=== PATIENT | male | born 1950 | race Caucasian/White ===

== ENCOUNTER → 2018-02-03 13:09 | Outpatient (CLI) | payer MEDICARE, MEDICAID, SELFPAY ==
[2018-02-03 14:55] LABS: Amphetamine Urine VISTA NEGATIVE (<1000 ng/mL); Barbiturate Urine VISTA NEGATIVE (< 200 ng/mL); Benzodiazepine Urine VISTA NEGATIVE (< 200 ng/mL); Cocaine Urine VISTA NEGATIVE (< 300 ng/mL); Ecstacy Urine VISTA NEGATIVE (< 500 ng/mL); Methadone Urine VISTA NEGATIVE (< 300 ng/mL); PCP Urine VISTA NEGATIVE (< 25 ng/mL); THC Urine VISTA NEGATIVE (< 50 ng/mL); Vista UDS pH Range 7
== END ==
PROVIDERS: Family Provider Family Medicine; PCP Family Medicine; Visit Provider Anesthesiology Pain Medicine
DX: F11.20 Opioid dependence, uncomplicated (principal)
CPT/HCPCS: 80307

== ENCOUNTER 2018-05-29 12:58 | Inpatient (IN) | payer MEDICARE, SELFPAY ==
[2018-05-29] VITALS (19 sets, daily range): BP systolic 131–163; BP diastolic 92–118; PULSE 83–156; RESP 16–32; TEMP 36.2–37; O2SAT 93–97; BMI 50.6; BMI 50.7; BMI 49.8
--- NOTE | 2018-05-29 13:17 | EKG12_ITS ---
Test Reason : SOB Blood Pressure : / mmHG Vent. Rate : 134 BPM Atrial Rate : 115 BPM P-R Int : 000 ms QRS Dur : 140 ms QT Int : 316 ms P-R-T Axes : 000 018 006 degrees QTc Int : 471 ms Atrial fibrillation Right bundle branch block Possible Inferior infarct , age undetermined Abnormal ECG Reconfirmed by CHANTELLE ALCANTAR, LIONEL ([id number]), science editor RAJAT BLACKMAN ([id number]) on 06/01/2018 10:55:00 AM Referred By: Gustavo Posadas Confirmed By:LIONEL LOCKHART MD
--- NOTE | 2018-05-29 13:17 | RAD_ITS ---
STUDY: X-RAY CHEST REASON FOR EXAM: Male, 68 years old. Shortness of breath. Palpitations. Atrial fibrillation. TECHNIQUE: Single AP portable view of the chest. COMPARISON: Comparison is made with prior study dated March 28, 2017. FINDINGS: There is evidence of basilar congestion and mild CHF with increased markings at the lung bases suggestive of atelectasis. Blunting of both costophrenic angles. There is mild cardiac enlargement. Normal mediastinum and lyndsey. Normal visualized pulmonary arteries. There is atherosclerotic tortuosity of the aortic arch and descending thoracic aorta. Normal visualized thoracic spine. The patient is status post bilateral shoulder replacement. There is no demonstrated abnormality of the visualized soft tissue structures of the upper abdomen. RAD/Chest 1 View (Portable) IMPRESSION: Mild cardiomegaly with mild degree of CHF. Electronically Signed: Camilo Khna MD at 13:43 EST Tel [phone], Service support ,
--- NOTE | 2018-05-29 13:21 | ED.DCSUM_ITS ---
- ER Visit Summary Date of Service: 05/29/18 Chief Complaint: [] Short of breath History of Present Illness: The patient is a 68 M presents by EMS with shortness of breath for the last 4 days gradual onset continuous. He has orthopnea and paroxysmal nocturnal dyspnea. Current severity is mild. He is feeling better after paramedics gave him oxygen. He doubled up on his Lasix. He was 89% on room air. He has been off his Diovan for hypertension. He has not been wearing his CPAP because it is smothering him at night. He does have a history of dilated cardiomyopathy. His last echocardiogram was last year showed a EF of 50-to 55%. He has a history of nonobstructive coronary artery disease via heart cath last year. He is never had an irregular heartbeat Physical Examination: [] Vital signs reviewed General: Well-nourished well-developed Head: Normocephalic atraumatic Eyes: Pupils equal round and reactive to light extraocular movements intact ENT: TMs clear no hemotympanum no trauma Neck: Nontender full range of motion Cardiovascular: Regular rate and rhythm no murmurs normal S1-S2 Respiratory: Aching in full sentences. Feels better with oxygen. Mild rales in the bases chest nontender Abdomen: Soft nontender nondistended normal bowel sounds no masses Back: Nontender no CVA tenderness Extremities: Nontender active range of motion ?4 extremities no trauma Skin: Normal color no trauma Neuro alert oriented cranial nerves II through XII intact normal strength se nsation reflexes Test Results: [] Emergency Department Course and Treatment: [] EKG shows atrial fibrillation and a right bundle branch block at a rate of 134. No STEMI. IV established patient given nasal cannula oxygen. Given a dose of Cardizem and Lasix. Lab work obtained as well as chest x-ray he has mild heart failure on chest x-ray. CBC normal. Chemistry shows glucose 172. INR 1.1. Troponin 0.05 indeterminate. Given Cardizem which brought his heart rate down in the low 100s. Will be admitted for further evaluation and treatment. I do not think is having an OK. He likely has mild troponin leak from his right related cardiac strain. Treatment Plan: [] Disposition: [] Impression: [] Atrial fibrillation with rapid ventricular response Mild CHF secondary to #1 Indeterminate troponin secondary to #1 Total care time 74 minutes This note was generated with [employer] software. It may contain incorrect words, spelling, and punctuation that were not noted in review of the chart prior to signing ED Disposition - Plan for ED Patient: Chief Complaint: Shortness of Breath Referrals: Felix Matias DO [Primary Care Provider] -
[2018-05-29] MEDS: dilTIAZem 25 MG/5 ML Vial 20 MG IV BOLUS (13:23)
[2018-05-29 13:29] LABS: Absolute Lymphocyte Count 1.63 X10^3/ul (0.83-4.51); Absolute Neutrophil Count 4.5 X10^3/uL (2.0-7.7); Basophil# 0.03 X10^3/uL; Basophil% 0.5 % (0-1); Eosinophil# 0.12 X10^3/uL; Eosinophils% 1.8 % (0-5); Hematocrit 42.9 % (40-54); Lymphocyte # 1.63 X10^3/ul (4.0); Lymphocyte % 24.6 % (19-41); Mean Corp Hgb Conc 32.6 g/gl (32-36); Mean Corpuscular Hgb 33.1 pg (27.0-32.0); Mean Corpuscular Volume 101.4 fL (80-94); Mean Platelet Vol. 11.1 fl (6.2-12.0); Monocyte# 0.31 X10^3/uL; Monocyte% 4.7 % (0-10); Neutrophil % 67.9 % (47-70); Platelet Count 185 K/mm3 (150-450); RBC Distribution Width CV 13.1 % (11.6-14.6); RBC Distribution Width SD 47.3 fl (35.1-43.9); Red Blood Count 4.23 M/mm3 (4.6-6.2); White Blood Count 6.6 K/mm3 (4.4-11.0)
[2018-05-29] MEDS: Furosemide 40 MG/4 ML Vial IV ×2 (13:30→21:28)
[2018-05-29 13:32] LABS: POSITIVE COUNT NO; POSITIVE DIFFERENTIAL NO; POSITIVE MORPHOLOGY NO
[2018-05-29 13:35] LABS: International Normalized Ratio 1.1; Prothrombin Time (Protime)PT. 13.7 SECONDS (11.7-14.9)
[2018-05-29 13:46] LABS: Anion Gap 14 (5-15); BUN 16 mg/dL (7-18); BUN/Creat Ratio 13.1 RATIO (10-20); Calcium,Total 9.1 mg/dL (8.5-10.1); Chloride 100 mmol/L (98-107); Creatinine, Serum 1.22 mg/dL (0.70-1.30); EST Glomerular Filtration Rate 63 mL/min (>60); Est Glom Filt Rate - Afr Amer 76 mL/min (>60); Estimated Creatinine Clearance 54.18 ml/min; Glucose 172 mg/dL (74-106); Potassium 3.7 mmol/L (3.5-5.1); Sodium Level 141 mmol/L (136-145)
[2018-05-29] MEDS: dilTIAZem 25 MG/5 ML Vial IV BOLUS (14:15)
--- NOTE | 2018-05-29 14:30 | PCM.HP.STD ---
Problem List (1) History of neck surgery Status: Resolved (2) History of arthroscopy of right knee Status: Resolved (3) History of right shoulder replacement Status: Resolved (4) History of shoulder surgery Status: Resolved (5) History of gastric bypass Status: Resolved (6) History of cholecystectomy Status: Resolved (7) History of appendectomy Status: Resolved (8) Hyperlipidemia Status: Acute (9) History of left heart catheterization Status: Chronic Comment: 03/31/17- non obstructive coronary disease (10) Dilated cardiomyopathy Status: Chronic (11) Hypertension Status: Chronic (12) Morbid obesity Status: Chronic (13) TYLER (obstructive sleep apnea) Status: Chronic Comment: use BiPAP (14) DM2 (diabetes mellitus, type 2) Status: Chronic Qualifiers: (15) Lymphedema Status: Chronic (16) Chronic pain syndrome Status: Chronic (17) Migraine Status: Chronic (18) Osteoarthritis Status: Chronic (19) COPD (chronic obstructive pulmonary disease) Status: Chronic History of Present Illness Date of Admission: 05/29/18 Chief Complaint: Shortness of breath The patient is a 68 year old M who presents emergency room due to shortness of breath which has been ongoing for 2 days. Patient reports shortness of breath is worse while lying flat. He denies chest pain. Patient reports he has felt heart palpitations for approximately 1 week. He denies dizziness, lightheadedness. He denies known weight gain. Patient has chronic lymphedema and reports mild increase in swelling. Patient denies history of atrial fibrillation. He had a cardiac catheterization in March 2017 which showed nonobstructive coronary arteries. He reports he was recently taken off of Diovan by his primary care physician due to his blood pressure being well controlled. Patient's past medical history includes hypertension, hyperlipidemia, type 2 diabetes mellitus, chronic lymphedema, COPD, chronic pain syndrome, obstructive sleep apnea on BiPAP, dilated cardiomyopathy, depression, anxiety, morbid obesity, chronic migraines. Past Medical History Past Medical History (Chronic Problems): Chronic Problems (Last Reviewed 02/16/18 @ 10:29 by Cassandra Barksdale) History of left heart catheterization (Chronic) 03/31/17- non obstructive coronary disease Dilated cardiomyopathy (Chronic) Hypertension (Chronic) Morbid obesity (Chronic) TYLER (obstructive sleep apnea) (Chronic) use BiPAP DM2 (diabetes mellitus, type 2) (Chronic) Lymphedema (Chronic) Chronic pain syndrome (Chronic) Migraine (Chronic) Osteoarthritis (Chronic) COPD (chronic obstructive pulmonary disease) (Chronic) Medical History: Medical History (Last Reviewed 02/16/18 @ 10:29 by Cassandra Barksdale) History of left heart catheterization (Chronic) Z98.890 03/31/17- non obstructive coronary disease Dilated cardiomyopathy (Chronic) I42.0 Shortness of breath (Chronic) R06.02 Hypertension (Chronic) I10 Chest pain (Chronic) R07.9 Morbid obesity (Chronic) E66.01 TYLER (obstructive sleep apnea) (Chronic) G47.33 use BiPAP DM2 (diabetes mellitus, type 2) (Chronic) E11.9 Lymphedema (Chronic) I89.0 Chronic pain syndrome (Chronic) G89.4 Migraine (Chronic) G43.909 Osteoarthritis (Chronic) M19.90 COPD (chronic obstructive pulmonary disease) (Chronic) J44.9 Cardiomyopathy (Acute) I42.9 Dyspnea (Acute) R06.00 Abnormal EKG (Acute) R94.31 Allergies No Known Allergies Allergy (Verified 03/28/17 12:25) Home Medications: Ambulatory Orders Medication Instructions Recorded Calcitriol [Rocaltrol] 0.25 mcg PO SUTUTHSA 03/28/17 Calcitriol [Rocaltrol] 0.5 mcg PO MOWEFR 03/28/17 Duloxetine HCl 60 mg PO BID 03/28/17 Ergocalciferol [Vitamin D] 1 cap PO X1 03/28/17 Esomeprazole Magnesium 40 mg PO DAILY 03/28/17 Fluticasone/Salmeterol [Advair Hfa 2 puff INHALATION BID 03/28/17 45-21 Mcg Inhaler] Furosemide 40 mg PO BID 03/28/17 Hydrocodone Bitart/Apap 5-325 1 tab PO Q6H PRN PRN 03/28/17 [Frederick 5/325] Lorazepam [Ativan] 1 mg PO BID 03/28/17 Potassium Chloride [Klor-Con M20] 20 meq PO TID 03/28/17 Spironolactone [Aldactone] 50 mg PO DAILY 03/28/17 Sumatriptan Succinate 100 mg PO DAILY PRN PRN 03/28/17 Topiramate [Topamax] 100 mg PO BID 03/28/17 Aspirin E.C. [Ecotrin] 81 mg PO DAILY@0800 #60 tab 03/31/17 Valsartan [Diovan] 320 mg PO DAILY #60 tab 03/31/17 cyanocobalamin (vit B-12) 2,500 2,500 mcg SUBLINGUAL QDAY 06/13/17 mcg sublingual tablet albuterol sulfate HFA 90 2 puff INHALATION .as needed g 07/22/17 mcg/actuation aerosol inhaler levetiracetam 500 mg tablet 500 mg PO BID PRN tab 10/20/17 Cetirizine HCl [Zyrtec] 10 mg PO DAILY 05/29/18 Cholecalciferol (VIT D3) [Vitamin 1,000 unit PO DAILY 05/29/18 D] Ferrous Sulfate [Iron] 325 mg PO DAILY 05/29/18 Fluoxetine HCl 40 mg PO QHS 05/29/18 Multivits,Ca,Min/Iron/FA/Lycop 1 tab PO DAILY 05/29/18 [Centrum Ultra Men's Tablet] Potassium Chloride 20 meq PO TID 05/29/18 Surgical History: Surgical History (Last Reviewed 02/16/18 @ 10:29 by Cassandra Barksdale) History of neck surgery (Resolved) Z98.890 History of arthroscopy of right knee (Resolved) Z98.890 History of right shoulder replacement (Resolved) Z96.611 History of shoulder surgery (Resolved) Z98.890 History of gastric bypass (Resolved) Z98.890 History of cholecystectomy (Resolved) Z90.49 History of appendectomy (Resolved) Z90.49 Surgical History: - - Bilateral shoulder replacement, gastric bypass, appendectomy, cholecystectomy, right knee arthroscopy, tonsillectomy, sinus surgery. Psychiatric History: No pertinent psych hx Lives: Spouse/ Significant Other Smoking Status: Former smoker Alcohol: None Drugs: None - *Family History Maternal Family History: Family History (Last Reviewed 02/16/18 @ 10:29 by Cassandra Barksdale) Mother CAD (coronary artery disease) History Items: Heart Disease Paternal Family History: Family History (Last Reviewed 02/16/18 @ 10:29 by Cassandra Barksdale) Mother CAD (coronary artery disease) History Items: - - Lung cancer Review of Systems Constitutional: Denies: Chills, Fever, Weight Change HEENT: Denies: Head Aches, Sinus Congestion, Sinus Drainage Cardiovascular: Reports: Edema - Lower extremity, Palpitations. Denies: Chest Pain, Chest Pressure, Light Headedness, Syncope Respiratory: Reports: Shortness of Breath. Denies: Cough, Sputum production, Wheezing Gastrointestinal: Denies: Abdominal Pain, Nausea, Vomiting Genitourinary: Denies: Dysuria Musculoskeletal: Denies: Joint Pain, Joint Tenderness Skin: Denies: Rash, Wounds Neurological: Denies: Numbness, Tingling, Focal weakness Psychiatric: Denies: Anxiety, Depression, Homicidal Ideations, Suicidal Ideations Hematologic/ Lymphatic: Denies: Easy Bruising, Easy Bleeding VTE Information - Inpt Only VTE Present on Admission: No VTE Mechan Device Prophylaxis: None VTE Pharm Prophylaxis ordered?: Yes - Physical Exam General: Alert, Oriented x3, Cooperative, - - Mildly dyspneic during conversation. HEENT: Atraumatic, PERRLA, EOMI, Normocephalic Oral: Dry Mucosa Neck: Supple, No JVD, Negative Carotid Bruits Lungs: Diminished, Rales Cardiovascular: No murmurs, Tachycardic, - - Atrial fibrillation Abdomen: Bowel Sounds Present, Soft, Non Tender, Non-Distended, Obese Extremities: No clubbing, No cyanosis, Edema - Bilateral lower extremity lymphedema Skin: No rashes, No breakdown, - - Varicosities bilateral lower extremities Musculoskeletal: No Tenderness to Palpation of Joints or Extremities Neurological: Cranial nerves II-XII grossly intact, Neuro grossly intact Psych/Mental Status: Normal Affect, Appropriate Vital Signs Temp Pulse Resp BP Pulse Ox 97.7 F L 121 H 19 H 162/106 H 94 05/29/18 12:59 05/29/18 14:00 05/29/18 14:00 05/29/18 14:00 05/29/18 14:00 Oxygen Flow Rate (L/min) 2 Oxygen Delivery Method Nasal Cannula Weight: 323 lb 10.217 oz Body Mass Index (BMI) 50.6 Laboratory Tests Past 24 Hrs 05/29/18 05/29/18 05/29/18 13:11 13:11 13:11 WBC 6.6 RBC 4.23 L Hgb 14.0 Hct 42.9 MCV 101.4 H MCH 33.1 H MCHC 32.6 RDW 13.1 RDW Differential 47.3 H Plt Count 185 MPV 11.1 Immature Gran % (Auto) 0.500 Neut % (Auto) 67.9 Lymph % (Auto) 24.6 Bladen % (Auto) 4.7 Eos % (Auto) 1.8 Baso % (Auto) 0.5 Absolute Neuts (auto) 4.5 Absolute Lymphs (auto) 1.63 Total Counted Not Reportable PT 13.7 INR 1.1 Sodium 141 Potassium 3.7 Chloride 100 Carbon Dioxide 27.0 Anion Gap 14 BUN 16 Creatinine 1.22 Estim Creat Clear Calc 54.18 Est GFR (MDRD) Af Amer 76 Est GFR (MDRD) Non-Af 63 BUN/Creatinine Ratio 13.1 Glucose 172 H Calcium 9.1 Troponin I 0.050 H B-Natriuretic Peptide 05/29/18 13:11 WBC RBC Hgb Hct MCV MCH MCHC RDW RDW Differential Plt Count MPV Immature Gran % (Auto) Neut % (Auto) Lymph % (Auto) Bladen % (Auto) Eos % (Auto) Baso % (Auto) Absolute Neuts (auto) Absolute Lymphs (auto) Total Counted PT INR Sodium Potassium Chloride Carbon Dioxide Anion Gap BUN Creatinine Estim Creat Clear Calc Est GFR (MDRD) Af Amer Est GFR (MDRD) Non-Af BUN/Creatinine Ratio Glucose Calcium Troponin I B-Natriuretic Peptide 103.0 H Assessment/Plan All Active Problems (Last Reviewed 02/16/18 @ 10:29 by Cassandra Barksdale) History of neck surgery (Resolved) History of arthroscopy of right knee (Resolved) History of right shoulder replacement (Resolved) History of shoulder surgery (Resolved) History of gastric bypass (Resolved) History of cholecystectomy (Resolved) History of appendectomy (Resolved) Hyperlipidemia (Acute) 1. New onset atrial fibrillation with RVR-rate 140-150 on admission. Improved following Cardizem bolus x2 in ER. Begin PO beta boogie. Begin Xarelto given [id number] score 4. Check TSH, mag. Obtain echo. 2. Acute on chronic diastolic CHF, secondary to #1-echocardiogram March 2017 with EF 50-55%, stage I diastolic dysfunction, RVSP estimated to be 25 mmHg. Chest x-ray on admission consistent with CHF. BNP mildly elevated. IV Lasix. Strict I&O. Daily weight. Repeat echocardiogram. Amaury wrap bilateral lower extremities. Repeat CXR in a.m. 3. Acute hypoxic respiratory insufficiency, secondary to #1/#2-continue supplement oxygen to maintain O2 sat above 90%. Walking pulse ox prior to discharge. 4. Indeterminate troponin-suspect secondary to #1. Patient denies chest pain. Cardiac catheterization March 2017 with nonobstructive coronary arteries. 5. History of dilated cardiomyopathy with EF 23%, follow-up echocardiogram 03/23 with EF 55%. 6. Nonobstructive CAD-cardiac catheterization March 2017 with proximal RCA 30% stenosis, mid RCA 30% stenosis. Patient was discharged with aspirin, statin at that time which it does not appear he is taking any longer. 7. Hypertension-recently taken off of Diovan by primary care physician. Patient reports this was due to controlled blood pressure. DC Aldactone. Started on beta-boogie. May need additional agent, continue to monitor. 8. Hyperlipidemia-not on statin. Check lipid panel. 9. Type 2 diabetes mellitus-not on home regimen. Check hemoglobin A1c. Accu-Cheks before meals at bedtime with sliding scale insulin. 10. Chronic lymphedema-Amaury wraps bilateral lower extremities. 11. Chronic COPD/Asthma-no acute exacerbation. Albuterol aerosol as needed. 12. Chronic pain syndrome-follows with Dr. Hoffmann. Continue home as needed Frederick regimen. 13. Chronic migraines-continue Topamax regimen. Uses Keppra/sumatriptan as needed. 14. Obstructive sleep apnea-continue BiPAP nightly. 15. Depression/anxiety-patient on both fluoxetine and duloxetine? 16. Morbid obesity-encouraged diet and lifestyle modifications. DVT prophylaxis-Saurabhrelto This patient was seen by KIKO Wolf under the supervision of Dr. Posadas.
[2018-05-29] MEDS: Rivaroxaban 20 MG Tablet PO (16:10)
[2018-05-29] MEDS: Metoprolol Tartrate 50 MG Tablet PO (16:10)
[2018-05-29 16:43] LABS: Hemoglobin A1c 6.4 % (4.2-6.3)
[2018-05-29] MEDS: HYDROcodone Bitartrate/Apap 5/325 Tablet PO (18:30)
[2018-05-29] MEDS: Albuterol 2.5 MG/3 ML VIAL.NEB. INHALATION (18:50)
[2018-05-29] MEDS: Topiramate 100 MG Tablet PO (21:27)
[2018-05-29] MEDS: Metoprolol Tartrate 25 MG Tablet PO (21:27)
[2018-05-29] MEDS: LORazepam 1 MG Tablet PO (21:27)
[2018-05-29] MEDS: DULoxetine Hcl 60 MG Capsule PO (21:28)
[2018-05-29] MEDS: Atorvastatin Calcium 20 MG Tablet PO (21:28)
[2018-05-29] MEDS: FLUoxetine 20 MG Capsule 40 MG PO (21:29)
[2018-05-29] MEDS: 0.9% NaCl Peripheral Flush Adult/Peds IV ×2 (21:29→21:31)
[2018-05-30] VITALS (14 sets, daily range): BP systolic 93–151; BP diastolic 56–98; PULSE 66–119; RESP 18–20; TEMP 35.8–36.9; O2SAT 93–98
[2018-05-30] MEDS: HYDROcodone Bitartrate/Apap 5/325 Tablet PO ×3 (00:22→17:09)
[2018-05-30] MEDS: Albuterol 2.5 MG/3 ML VIAL.NEB. INHALATION ×2 (00:32→11:23)
--- NOTE | 2018-05-30 05:55 | ECHOCS_ITS ---
Reason For Study: Afib/Flutter Procedure This was a 2D Doppler, Color Flow transthoracic echocardiogram. The study was technically difficult. Exam performed portable in patient room. Left Ventricle Normal LV size. Mild concentric left ventricular hypertrophy. The estimated ejection fraction is 50 %. No regional wall motion abnormalities noted. Atria The left atrium is mildly enlarged. Normal right atrium. Mitral Valve Normal mitral valve. Tricuspid Valve Normal tricuspid valve. Aortic Valve The aortic valve is not well visualized. Great Vessels Normal aortic root. The pulmonary artery is normal size. Normal inferior vena cava. Pericardium/Pleural No pericardial effusion. Medication Diluted definity 4ml given slow IV push to enhance endocardial definition. MMode/2D Measurements & Calculations LVIDd: 5.5 cm IVSd: 1.2 cm LAV(MOD-sp4): 85.3 ml LVIDs: 3.8 cm LVPWd: 1.3 cm FS: 30.5 % LA A4 area: 25.3 cm2 Time Measurements MV dec time: 0.15 sec Doppler Measurements & Calculations MV E max kaylen: 140.7 cm/sec Ao V2 max: 121.3 cm/sec LV V1 max: 85.0 cm/sec Ao max P.0 mmHg LV V1 max P.0 mmHg MR max kaylen: 472.8 cm/sec PA V2 max: 92.0 cm/sec TR max kaylen: 286.2 cm/sec MR max P.4 mmHg TR max P.8 mmHg Interpretation Summary Normal LV size. Mild concentric left ventricular hypertrophy. The estimated ejection fraction is 50 %. The study was technically difficult. The study was technically limited. Contrast injection was performed. Ordering Physician: Gustavo Posadas Referring Physician: Gustavo Posadas Performed By: Liam Palma RCS
[2018-05-30 06:24] LABS: Anion Gap 11 (5-15); BUN 23 mg/dL (7-18); BUN/Creat Ratio 17.7 RATIO (10-20); Calcium,Total 8.9 mg/dL (8.5-10.1); Chloride 102 mmol/L (98-107); Cholesterol 106 mg/dL (200); EST Glomerular Filtration Rate 58 mL/min (>60); Est Glom Filt Rate - Afr Amer 71 mL/min (>60); Estimated Creatinine Clearance 49.08 ml/min; Glucose 154 mg/dL (74-106); High Density Lipoprotein 45 mg/dL; Potassium 3.6 mmol/L (3.5-5.1); Sodium Level 140 mmol/L (136-145); Triglycerides 123 mg/dL; Very Low Density Lipoprotein 25 mg/dL (5-40)
[2018-05-30] MEDS: Furosemide 40 MG/4 ML Vial IV (06:25)
[2018-05-30] MEDS: 0.9% NaCl Peripheral Flush Adult/Peds IV ×2 (06:25→06:26)
[2018-05-30] MEDS: Aspirin E.C. 81 MG Tablet PO (08:31)
[2018-05-30] MEDS: Ferrous Sulfate 325 MG Tablet PO (08:31)
[2018-05-30 09:24] LABS: Thyroid Stim Hormone (TSH) 2.01 uIU/mL (0.358-3.74)
--- NOTE | 2018-05-30 09:45 | RAD_ITS ---
STUDY: X-RAY CHEST REASON FOR EXAM: Male, 68 years old. Congestive heart failure TECHNIQUE: PA and lateral views of the chest. COMPARISON: May 29, 2018 chest x-ray FINDINGS: There is a pattern of peribronchial thickening and increased interstitial markings. There is persistent slight elevation of the right hemidiaphragm compared to the left. There is trace blunting of the costophrenic angles. There is moderate to severe cardiac enlargement. Normal mediastinum and lyndsey. Normal visualized pulmonary arteries. There is atherosclerotic tortuosity of the aortic arch and descending thoracic aorta. There are diffuse degenerative changes of the visualized thoracic spine. There is a left shoulder arthroplasty. There is no demonstrated abnormality of the visualized soft tissue structures of the upper abdomen. RAD/Chest PA and Lateral IMPRESSION: Cardiomegaly findings are suspicious for vascular congestion. Trace effusions. Consider CHF. Electronically Signed: Cynthia Pruitt MD at 10:21 EST Tel , Service support ,
[2018-05-30] MEDS: LORazepam 1 MG Tablet PO ×2 (10:24→22:48)
[2018-05-30] MEDS: Metoprolol Tartrate 50 MG Tablet PO ×2 (10:29→22:22)
[2018-05-30] MEDS: Pantoprazole Sodium 40 MG Tablet PO (10:29)
[2018-05-30] MEDS: DULoxetine Hcl 60 MG Capsule PO ×2 (10:30→22:20)
--- NOTE | 2018-05-30 13:13 | PCM.PROGNOTE ---
<Cassandra Rey - Last Filed: 05/30/18 13:24> Subjective: Patient seen and examined. Notes improvement in shortness of breath. Undergoing echocardiogram. Denies other current complaints. - Physical Exam General: Alert, Oriented x3, Cooperative, No apparent distress HEENT: Atraumatic, PERRLA, EOMI, Normocephalic Neck: Supple, No JVD, Negative Carotid Bruits Lungs: Clear to auscultation, Diminished Cardiovascular: - - Tachycardic, atrial fibrillation. Abdomen: Bowel Sounds Present, Soft, Non Tender, Non-Distended, Obese Extremities: No clubbing, No cyanosis, Capillary Refill Less than 3 Seconds, - - Bilateral lower extremity lymphedema Skin: No rashes, No breakdown, - - Varicosities bilateral lower extremities Musculoskeletal: No Tenderness to Palpation of Joints or Extremities Neurological: Cranial nerves II-XII grossly intact, Neuro grossly intact Psych/Mental Status: Normal Affect, Appropriate Vital Signs Temp Pulse Resp BP Pulse Ox 96.5 F L 101 H 20 H 138/88 H 94 05/30/18 10:23 05/30/18 11:53 05/30/18 11:23 05/30/18 10:23 05/30/18 11:23 Oxygen Flow Rate (L/min) 3 Oxygen Delivery Method Nasal Cannula Weight: 318 lb 12.615 oz Body Mass Index (BMI) 49.8 Intake and Output for Last 24 Hours 05/28/18 05/29/18 05/30/18 23:59 23:59 23:59 Intake Total 100 / 100 525 / 525 Output Total 300 / 300 Balance -200 / -200 525 / 525 Laboratory Tests Past 24 Hrs 05/29/18 05/29/18 05/29/18 13:11 13:11 13:11 WBC 6.6 RBC 4.23 L Hgb 14.0 Hct 42.9 MCV 101.4 H MCH 33.1 H MCHC 32.6 RDW 13.1 RDW Differential 47.3 H Plt Count 185 MPV 11.1 Immature Gran % (Auto) 0.500 Neut % (Auto) 67.9 Lymph % (Auto) 24.6 Russell % (Auto) 4.7 Eos % (Auto) 1.8 Baso % (Auto) 0.5 Absolute Neuts (auto) 4.5 Absolute Lymphs (auto) 1.63 Total Counted Not Reportable PT 13.7 INR 1.1 Sodium 141 Potassium 3.7 Chloride 100 Carbon Dioxide 27.0 Anion Gap 14 BUN 16 Creatinine 1.22 Estim Creat Clear Calc 54.18 Est GFR (MDRD) Af Amer 76 Est GFR (MDRD) Non-Af 63 BUN/Creatinine Ratio 13.1 Glucose 172 H Hemoglobin A1c Calcium 9.1 Troponin I 0.050 H B-Natriuretic Peptide Triglycerides Cholesterol LDL Cholesterol VLDL Cholesterol HDL Cholesterol TSH 05/29/18 05/29/18 05/30/18 13:11 16:05 05:40 WBC RBC Hgb Hct MCV MCH MCHC RDW RDW Differential Plt Count MPV Immature Gran % (Auto) Neut % (Auto) Lymph % (Auto) Russell % (Auto) Eos % (Auto) Baso % (Auto) Absolute Neuts (auto) Absolute Lymphs (auto) Total Counted PT INR Sodium 140 Potassium 3.6 Chloride 102 Carbon Dioxide 27.0 Anion Gap 11 BUN 23 H Creatinine 1.30 Estim Creat Clear Calc 49.08 Est GFR (MDRD) Af Amer 71 Est GFR (MDRD) Non-Af 58 L BUN/Creatinine Ratio 17.7 Glucose 154 H Hemoglobin A1c 6.4 H Calcium 8.9 Troponin I B-Natriuretic Peptide 103.0 H Triglycerides 123 Cholesterol 106 LDL Cholesterol 36 VLDL Cholesterol 25 HDL Cholesterol 45 TSH 05/30/18 05:40 WBC RBC Hgb Hct MCV MCH MCHC RDW RDW Differential Plt Count MPV Immature Gran % (Auto) Neut % (Auto) Lymph % (Auto) Russell % (Auto) Eos % (Auto) Baso % (Auto) Absolute Neuts (auto) Absolute Lymphs (auto) Total Counted PT INR Sodium Potassium Chloride Carbon Dioxide Anion Gap BUN Creatinine Estim Creat Clear Calc Est GFR (MDRD) Af Amer Est GFR (MDRD) Non-Af BUN/Creatinine Ratio Glucose Hemoglobin A1c Calcium Troponin I B-Natriuretic Peptide Triglycerides Cholesterol LDL Cholesterol VLDL Cholesterol HDL Cholesterol TSH 2.01 Medical Necessity - Tobacco Use Smoking Status: Former smoker Tobacco Use: Secondhand, Cigarettes Assessment/Plan All Active Problems (Last Reviewed 02/16/18 @ 10:29 by Cassandra Barksdale) History of neck surgery (Resolved) History of arthroscopy of right knee (Resolved) History of right shoulder replacement (Resolved) History of shoulder surgery (Resolved) History of gastric bypass (Resolved) History of cholecystectomy (Resolved) History of appendectomy (Resolved) Hyperlipidemia (Acute) 1. New onset atrial fibrillation with RVR-rate 140-150 on admission. Improved following Cardizem bolus x2 in ER. Continues to have intermittent tachycardia, rate improved overall. Increase metoprolol to 50 mg twice daily. Check mg. TSH WNL. Initiated on Xarelto 20 mg daily. Echocardiogram shows an EF of 50%. Patient will follow with Dr. Shi as outpatient. 2. Acute on chronic diastolic CHF, secondary to #1-echocardiogram March 2017 with EF 50-55%, stage I diastolic dysfunction, RVSP estimated to be 25 mmHg. Chest x-ray on admission consistent with CHF. BNP mildly elevated. IV Lasix 40 mg daily. Strict I&O. Daily weight. Echocardiogram with EF 50%. Amaury wrap bilateral lower extremities. Repeat CXR improved from prior. 3. Acute hypoxic respiratory insufficiency, secondary to #1/#2-continue supplement oxygen to maintain O2 sat above 90%. Walking pulse ox prior to discharge. 4. Indeterminate troponin-suspect secondary to #1. Patient denies chest pain. Cardiac catheterization March 2017 with nonobstructive coronary arteries. 5. History of dilated cardiomyopathy with EF 23%, follow-up echocardiogram 03/23 with EF 55%. 6. Nonobstructive CAD-cardiac catheterization March 2017 with proximal RCA 30% stenosis, mid RCA 30% stenosis. Continue aspirin, statin. 7. Hypertension-recently taken off of Diovan by primary care physician. Patient reports this was due to controlled blood pressure. DC Aldactone. Started on beta-boogie. May need additional agent, continue to monitor. 8. Hyperlipidemia-continue statin. 9. Type 2 diabetes mellitus-not on home regimen. Hemoglobin A1c 6.4%. Accu-Cheks before meals at bedtime with sliding scale insulin. Recommend initiating oral regimen at discharge. 10. Chronic lymphedema-Amaury wraps bilateral lower extremities. 11. Chronic COPD/Asthma-no acute exacerbation. Albuterol aerosol as needed. 12. Chronic pain syndrome-follows with Dr. Hoffmann. Continue home as needed [place] regimen. 13. Chronic migraines-continue Topamax regimen. Uses Keppra/sumatriptan as needed. 14. Obstructive sleep apnea-continue BiPAP nightly. 15. Depression/anxiety-patient on both fluoxetine and duloxetine? 16. Morbid obesity-encouraged diet and lifestyle modifications. DVT prophylaxis-Xarelto This patient was seen by KIKO Wolf under the supervision of Dr. Barrios. <SarielaineDeysi - Last Filed: 05/30/18 13:56> - Physical Exam Vital Signs Temp Pulse Resp BP Pulse Ox 96.5 F L 101 H 20 H 138/88 H 94 05/30/18 10:23 05/30/18 11:53 05/30/18 11:23 05/30/18 10:23 05/30/18 11:23 Oxygen Flow Rate (L/min) 3 Oxygen Delivery Method Nasal Cannula Weight: 318 lb 12.615 oz Body Mass Index (BMI) 49.8 Intake and Output for Last 24 Hours 05/28/18 05/29/18 05/30/18 23:59 23:59 23:59 Intake Total 100 / 100 525 / 525 Output Total 300 / 300 Balance -200 / -200 525 / 525 Laboratory Tests Past 24 Hrs 05/29/18 05/29/18 05/29/18 13:11 13:11 16:05 Sodium 141 Potassium 3.7 Chloride 100 Carbon Dioxide 27.0 Anion Gap 14 BUN 16 Creatinine 1.22 Estim Creat Clear Calc 54.18 Est GFR (MDRD) Af Amer 76 Est GFR (MDRD) Non-Af 63 BUN/Creatinine Ratio 13.1 Glucose 172 H Hemoglobin A1c 6.4 H Calcium 9.1 Magnesium Troponin I 0.050 H B-Natriuretic Peptide 103.0 H Triglycerides Cholesterol LDL Cholesterol VLDL Cholesterol HDL Cholesterol TSH 05/30/18 05/30/18 05/30/18 05:40 05:40 05:40 Sodium 140 Potassium 3.6 Chloride 102 Carbon Dioxide 27.0 Anion Gap 11 BUN 23 H Creatinine 1.30 Estim Creat Clear Calc 49.08 Est GFR (MDRD) Af Amer 71 Est GFR (MDRD) Non-Af 58 L BUN/Creatinine Ratio 17.7 Glucose 154 H Hemoglobin A1c Calcium 8.9 Magnesium 2.3 Troponin I B-Natriuretic Peptide Triglycerides 123 Cholesterol 106 LDL Cholesterol 36 VLDL Cholesterol 25 HDL Cholesterol 45 TSH 2.01 Assessment/Plan Patient seen and examined by Cassandra Rey under my supervision. Patient was admitted with a complaint of shortness of breath and was found to be in A. fib with RVR. He was admitted and managed for new onset A. fib with RVR. BNP was elevated with initial troponin was negative. Follow-up troponins not done. He had a cardiac catheterization in April 02 showed an obstructive coronary arteries. Echocardiogram done in March 2017 showed EF of 55%. Patient seen and exmained. He had no complaints and felt well. He denied any fever or chills, palpitations,a bdominal pain, diarrhea 9or vomiting. Review of systems is otherwise negative. He was on 4L of oxygen at [facility] o/e Vital Signs Height 5 ft 6.93 in Weight: 318 lb 12.615 oz Weight in Pounds 318.8 lbs Pulse Ox 94 Temperature 96.5 F Pulse Rate 101 Respiratory Rate 20 Blood Pressure 138/88 Blood Pressure Position Sitting General: Alert, Oriented x3, Cooperative, No apparent distress HEENT: Atraumatic, PERRLA, EOMI, Normocephalic Neck: Supple, No JVD, Negative Carotid Bruits Lungs: Clear to auscultation, Diminished Cardiovascular: - - Tachycardic, irregular rate and rhythm Abdomen: Bowel Sounds Present, Soft, Non Tender, Non-Distended, Obese Extremities: No clubbing, No cyanosis, Capillary Refill Less than 3 Seconds, - - Bilateral lower extremity lymphedema Skin: No rashes, No breakdown, - - Varicosities bilateral lower extremities Musculoskeletal: No Tenderness to Palpation of Joints or Extremities Neurological: Cranial nerves II-XII grossly intact, Neuro grossly intact Psych/Mental Status: Normal Affect, Appropriate He is being managed for new onset Afib. TSH was WNL. 2D echo showed mild concentric LV hypertrophy, with estimated EF of 50%, and no regional wall motion abnormalities noted. Left atrium is mildly enlarged. His A. fib may have been precipitated by his history of sleep apnea. Was started on p.o. metoprolol 25 mg twice daily. Will increase dose to 50 mg twice daily to get better heart rate control. On Xarelto. Discussed with financial sales consultant; to follow up on outpatient basis. Was started on IV lasix 40mg q8; will cut down to IV lasix 40mg daily as BNP was only 103. Rest of management as per Cassandra Rey NP-C's note. I personally reviewed, and agree with Cassandra HOOVER's note, assessment and plan. Code Visit Inpatient E&M: 83442 Subs Hosp L3
[2018-05-30 13:34] LABS: Magnesium 2.3 mg/dL (1.6-2.6)
[2018-05-30 15:56] LABS: Bedside Glucose 160 mg/dL (70-110)
[2018-05-30] MEDS: Insulin Lispro 100 UNIT/ML INSULN.PEN SC ×2 (17:09→22:36)
[2018-05-30] MEDS: Rivaroxaban 20 MG Tablet PO (17:12)
--- NOTE | 2018-05-30 17:41 | CM.UR ---
See bicycle courier. Met face to face with patient, introduced myself and explained my role. Patient states he is in process of updating his advance directives. States he swore he brought them in last time but they are no on file. States things are getting more difficult for him to do. His and him help each other. Also states she got a job and now he lost his medicaid. States doesn't really need additional help at this time but will let us know if he needs anything. Annie Sinclair RN, [place] [facility].
[2018-05-30] MEDS: FLUoxetine 20 MG Capsule 40 MG PO (22:20)
[2018-05-30] MEDS: Atorvastatin Calcium 20 MG Tablet PO (22:20)
[2018-05-30] MEDS: Topiramate 100 MG Tablet PO (22:21)
[2018-05-30 23:56] LABS: Bedside Glucose 150 mg/dL (70-110)
[2018-05-31] VITALS (15 sets, daily range): BP systolic 99–137; BP diastolic 68–84; PULSE 91–125; RESP 18–20; TEMP 36–37; O2SAT 94–99
[2018-05-31 06:01] LABS: Anion Gap 10 (5-15); BUN 29 mg/dL (7-18); BUN/Creat Ratio 22.8 RATIO (10-20); Calcium,Total 9.3 mg/dL (8.5-10.1); Chloride 105 mmol/L (98-107); Creatinine, Serum 1.27 mg/dL (0.70-1.30); EST Glomerular Filtration Rate 60 mL/min (>60); Est Glom Filt Rate - Afr Amer 73 mL/min (>60); Estimated Creatinine Clearance 52.05 ml/min; Glucose 157 mg/dL (74-106); Potassium 3.6 mmol/L (3.5-5.1); Sodium Level 142 mmol/L (136-145)
[2018-05-31 06:56] LABS: Bedside Glucose 148 mg/dL (70-110)
[2018-05-31] MEDS: Aspirin E.C. 81 MG Tablet PO (09:28)
[2018-05-31] MEDS: Furosemide 40 MG/4 ML Vial IV (09:29)
[2018-05-31] MEDS: Ferrous Sulfate 325 MG Tablet PO (09:29)
[2018-05-31] MEDS: DULoxetine Hcl 60 MG Capsule PO ×2 (09:29→21:15)
[2018-05-31] MEDS: Metoprolol Tartrate 50 MG Tablet PO ×2 (09:29→21:17)
[2018-05-31] MEDS: Pantoprazole Sodium 40 MG Tablet PO (09:30)
[2018-05-31] MEDS: 0.9% NaCl Peripheral Flush Adult/Peds IV (09:36)
[2018-05-31] MEDS: LORazepam 1 MG Tablet PO ×2 (09:36→21:14)
[2018-05-31] MEDS: HYDROcodone Bitartrate/Apap 5/325 Tablet PO ×3 (09:36→21:24)
[2018-05-31 12:01] LABS: Bedside Glucose 128 mg/dL (70-110)
--- NOTE | 2018-05-31 12:57 | PN_ITS ---
<Cassandra Rey - Last Filed: 05/31/18 12:57> Subjective: Patient seen and examined. Reports he feels well. Denies further shortness of breath. Wishes to return home as soon as possible. - Physical Exam General: Alert, Oriented x3, Cooperative, No apparent distress HEENT: Atraumatic, PERRLA, EOMI, Normocephalic Neck: Supple, No JVD, Negative Carotid Bruits Lungs: Clear to auscultation, Diminished Cardiovascular: - - Atrial fibrillation, intermittent tachycardia Abdomen: Bowel Sounds Present, Soft, Non Tender, Non-Distended, Obese Extremities: No clubbing, No cyanosis, Capillary Refill Less than 3 Seconds, Edema - Bilateral lower extremity lymphedema Skin: No rashes, No breakdown, - - Varicosities bilateral lower extremities Musculoskeletal: No Tenderness to Palpation of Joints or Extremities Neurological: Cranial nerves II-XII grossly intact, Neuro grossly intact Psych/Mental Status: Normal Affect, Appropriate Vital Signs Temp Pulse Resp BP Pulse Ox 97.5 F L 100 18 99/68 99 05/31/18 09:16 05/31/18 11:08 05/31/18 09:16 05/31/18 09:16 05/31/18 09:16 Oxygen Flow Rate (L/min) 2 Oxygen Delivery Method Room Air Weight: 315 lb 11.231 oz Body Mass Index (BMI) 49.8 Intake and Output for Last 24 Hours 05/29/18 05/30/18 05/31/18 23:59 23:59 23:59 Intake Total 100 / 100 675 / 675 170 / 170 Output Total 300 / 300 525 / 525 150 / 150 Balance -200 / -200 150 / 150 20 / 20 Laboratory Tests Past 24 Hrs 05/30/18 05/31/18 05:40 05:10 Sodium 142 Potassium 3.6 Chloride 105 Carbon Dioxide 27.0 Anion Gap 10 BUN 29 H Creatinine 1.27 Estim Creat Clear Calc 52.05 Est GFR (MDRD) Af Amer 73 Est GFR (MDRD) Non-Af 60 BUN/Creatinine Ratio 22.8 H Glucose 157 H Calcium 9.3 Magnesium 2.3 POC Glucose 05/31/18 05/31/18 05/30/18 11:53 06:49 22:35 POC Glucose 128 H 148 H 150 H 05/30/18 15:52 POC Glucose 160 H Medical Necessity - Tobacco Use Smoking Status: Former smoker Tobacco Use: Secondhand, Cigarettes Assessment/Plan All Active Problems (Last Reviewed 02/16/18 @ 10:29 by Cassandra Barksdale) History of neck surgery (Resolved) History of arthroscopy of right knee (Resolved) History of right shoulder replacement (Resolved) History of shoulder surgery (Resolved) History of gastric bypass (Resolved) History of cholecystectomy (Resolved) History of appendectomy (Resolved) Hyperlipidemia (Acute) 1. New onset atrial fibrillation with RVR-rate 140-150 on admission. Improved following Cardizem bolus x2 in ER. Continues to have intermittent tachycardia, rate improved overall. Continue metoprolol to 50 mg twice daily. TSH, mg WNL. Initiated on Xarelto 20 mg daily. Echocardiogram shows an EF of 50%. Patient will follow with Dr. Shi as outpatient. Anticipate discharge tomorrow if hea rt rate remains controlled. 2. Acute on chronic diastolic CHF, secondary to #1-echocardiogram March 2017 with EF 50-55%, stage I diastolic dysfunction, RVSP estimated to be 25 mmHg. Chest x-ray on admission consistent with CHF. BNP mildly elevated. IV Lasix 40 mg daily. Strict I&O. Daily weight. Echocardiogram with EF 50%. Amaury wrap bilateral lower extremities. Repeat CXR improved from prior. 3. Acute hypoxic respiratory insufficiency, secondary to #1/#2-continue supplement oxygen to maintain O2 sat above 90%. Walking pulse ox prior to discharge. 4. Indeterminate troponin-suspect secondary to #1. Patient denies chest pain. Cardiac catheterization March 2017 with nonobstructive coronary arteries. 5. History of dilated cardiomyopathy with EF 23%, follow-up echocardiogram 03/23 with EF 55%. 6. Nonobstructive CAD-cardiac catheterization March 2017 with proximal RCA 30% stenosis, mid RCA 30% stenosis. Continue aspirin, statin. 7. Hypertension-recently taken off of Diovan by primary care physician. Patient reports this was due to controlled blood pressure. DC Aldactone. Started on beta-boogie. May need additional agent, continue to monitor. 8. Hyperlipidemia-continue statin. 9. Type 2 diabetes mellitus-not on home regimen. Hemoglobin A1c 6.4%. Accu- Cheks before meals at bedtime with sliding scale insulin. Recommend initiating oral regimen at discharge. 10. Chronic lymphedema-Maaury wraps bilateral lower extremities. 11. Chronic COPD/Asthma-no acute exacerbation. Albuterol aerosol as needed. 12. Chronic pain syndrome-follows with Dr. Hoffmann. Continue home as needed [place] regimen. 13. Chronic migraines-continue Topamax regimen. Uses Keppra/sumatriptan as needed. 14. Obstructive sleep apnea-continue BiPAP nightly. 15. Depression/anxiety-patient on both fluoxetine and duloxetine? 16. Morbid obesity-encouraged diet and lifestyle modifications. DVT prophylaxis-Xarelto This patient was seen by KIKO Wolf under the supervision of Dr. Barrios. <Deysi Barrios Azeb - Last Filed: 05/31/18 14:30> - Physical Exam Vital Signs Temp Pulse Resp BP Pulse Ox 97.5 F L 100 18 99/68 99 05/31/18 09:16 05/31/18 11:08 05/31/18 09:16 05/31/18 09:16 05/31/18 09:16 Oxygen Flow Rate (L/min) 2 Oxygen Delivery Method Room Air Weight: 315 lb 11.231 oz Body Mass Index (BMI) 49.8 Intake and Output for Last 24 Hours 05/29/18 05/30/18 05/31/18 23:59 23:59 23:59 Intake Total 100 / 100 675 / 675 170 / 170 Output Total 300 / 300 525 / 525 150 / 150 Balance -200 / -200 150 / 150 20 / 20 Laboratory Tests Past 24 Hrs 05/31/18 05:10 Sodium 142 Potassium 3.6 Chloride 105 Carbon Dioxide 27.0 Anion Gap 10 BUN 29 H Creatinine 1.27 Estim Creat Clear Calc 52.05 Est GFR (MDRD) Af Amer 73 Est GFR (MDRD) Non-Af 60 BUN/Creatinine Ratio 22.8 H Glucose 157 H Calcium 9.3 POC Glucose 05/31/18 05/31/18 05/30/18 11:53 06:49 22:35 POC Glucose 128 H 148 H 150 H 05/30/18 15:52 POC Glucose 160 H Assessment/Plan Patient seen by Cassandra HOOVER under my supervision Patient seen and examined. He has no complaints and feels well. He denies any fever chills, palpitations, abdominal pain, diarrhea vomiting. Heart rate has been fluctuating and sometimes in the 120s and then comes down to the low he is on metoprolol 50 mg twice daily. Labs and vitals reviewed. o/e: Vital Signs Height 5 ft 7 in Weight: 315 lb 11.231 oz Weight in Pounds 315.7 lbs Pulse Ox 99 Temperature 97.5 F Pulse Rate 100 Respiratory Rate 18 Blood Pressure 99/68 Blood Pressure Position Semi-Fowlers General: Alert, Oriented x3, Cooperative, No apparent distress HEENT: Atraumatic, PERRLA, EOMI, Normocephalic Neck: Supple, No JVD, Negative Carotid Bruits Lungs: Clear to auscultation, Diminished Cardiovascular: - - Tachycardic, irregular rate and rhythm Abdomen: Bowel Sounds Present, Soft, Non Tender, Non-Distended, Obese Extremities: No clubbing, No cyanosis, Capillary Refill Less than 3 Seconds, - - Bilateral lower extremity lymphedema Skin: No rashes, No breakdown, - - Varicosities bilateral lower extremities Musculoskeletal: No Tenderness to Palpation of Joints or Extremities Neurological: Cranial nerves II-XII grossly intact, Neuro grossly intact Psych/Mental Status: Normal Affect, Appropriate Plan is to continue with PO metoprolol 50mg bid. Dose was just increased yesterday from 25mg to 50mg bid; BP has also been fluctuation and was in 90s systolic this morning; so hold off on any further increment in metoprolol dose very well. Continue p.o. Xarelto. To follow-up with cardiology on outpatient basis. 2D echo showed EF of 50% with mild concentric left ventricular hypertrophy. For likely discharge tomorrow if patient remains stable and heart rate is well controlled. Code Visit Inpatient E&M: [id number] [facility] Hosp L3
[2018-05-31 16:45] LABS: Bedside Glucose 142 mg/dL (70-110)
[2018-05-31] MEDS: Rivaroxaban 20 MG Tablet PO (17:03)
[2018-05-31] MEDS: FLUoxetine 20 MG Capsule 40 MG PO (21:15)
[2018-05-31] MEDS: Metoprolol Tartrate 25 MG Tablet PO (21:16)
[2018-05-31] MEDS: Topiramate 100 MG Tablet PO (21:17)
[2018-05-31] MEDS: Insulin Lispro 100 UNIT/ML INSULN.PEN SC (21:22)
[2018-05-31] MEDS: Atorvastatin Calcium 20 MG Tablet PO (21:27)
[2018-06-01] VITALS (8 sets, daily range): BP systolic 121–160; BP diastolic 76–111; PULSE 60–121; RESP 20; TEMP 36.4–36.9; O2SAT 93–97
[2018-06-01 00:30] LABS: Bedside Glucose 153 mg/dL (70-110)
[2018-06-01 06:55] LABS: Bedside Glucose 134 mg/dL (70-110)
[2018-06-01 07:02] LABS: Anion Gap 10 (5-15); BUN 33 mg/dL (7-18); BUN/Creat Ratio 27.5 RATIO (10-20); Chloride 108 mmol/L (98-107); EST Glomerular Filtration Rate 64 mL/min (>60); Est Glom Filt Rate - Afr Amer 77 mL/min (>60); Estimated Creatinine Clearance 55.08 ml/min; Glucose 139 mg/dL (74-106); Potassium 3.6 mmol/L (3.5-5.1); Sodium Level 146 mmol/L (136-145)
[2018-06-01] MEDS: Ferrous Sulfate 325 MG Tablet PO (08:22)
[2018-06-01] MEDS: Aspirin E.C. 81 MG Tablet PO (08:22)
[2018-06-01] MEDS: Metoprolol Tartrate 50 MG Tablet PO (09:49)
[2018-06-01] MEDS: Pantoprazole Sodium 40 MG Tablet PO (09:49)
[2018-06-01] MEDS: Furosemide 40 MG/4 ML Vial IV (09:50)
[2018-06-01] MEDS: DULoxetine Hcl 60 MG Capsule PO (09:50)
[2018-06-01] MEDS: LORazepam 1 MG Tablet PO (09:50)
[2018-06-01] MEDS: 0.9% NaCl Peripheral Flush Adult/Peds IV (09:50)
[2018-06-01] MEDS: HYDROcodone Bitartrate/Apap 5/325 Tablet PO (10:01)
[2018-06-01 11:16] LABS: Bedside Glucose 127 mg/dL (70-110)
--- NOTE | 2018-06-01 11:45 | NURSING ---
walking pulse ox 93% on RA
--- NOTE | 2018-06-01 12:06 | DCINST_ITS ---
You will use the following diet at home:: Calorie/Carbohydrate Controlled (specify 1200, 1400, etc), Cardiac Discharge Activity: Return to Normal Activity Call your doctor if you observe: Shortness of breath, Dizziness, Fainting spells, Chest pain Allergies/Adverse Reactions: Allergies No Known Allergies Allergy (Verified 03/28/17 12:25) Medications to take at Discharge Calcitriol [Rocaltrol] 0.25 mcg PO SUTUTHSA 03/28/17 Calcitriol [Rocaltrol] 0.5 mcg PO MOWEFR 03/28/17 Duloxetine HCl 60 mg PO BID 03/28/17 Ergocalciferol [Vitamin D] 1 cap PO X1 03/28/17 Esomeprazole Magnesium 40 mg PO DAILY 03/28/17 Fluticasone/Salmeterol [Advair Hfa 45-21 Mcg Inhaler] 2 puff INHALATION BID 03/28/17 Furosemide 40 mg PO BID 03/28/17 Hydrocodone Bitart/Apap 5-325 [[place] 5/325] 1 tab PO Q6H PRN PRN 03/28/17 Lorazepam [Ativan] 1 mg PO BID 03/28/17 Sumatriptan Succinate 100 mg PO DAILY PRN PRN 03/28/17 Topiramate [Topamax] 100 mg PO BID 03/28/17 Aspirin E.C. [Ecotrin] 81 mg PO DAILY@0800 #60 tab 03/31/17 cyanocobalamin (vit B-12) 2,500 mcg sublingual tablet 2,500 mcg SUBLINGUAL QDAY 06/13/17 albuterol sulfate HFA 90 mcg/actuation aerosol inhaler 2 puff INHALATION .as needed g 07/22/17 levetiracetam 500 mg tablet 500 mg PO BID PRN tab 10/20/17 Cetirizine HCl [Zyrtec] 10 mg PO DAILY 05/29/18 Cholecalciferol (VIT D3) [Vitamin D3] 1,000 unit PO DAILY 05/29/18 Cyclobenzaprine HCl 10 mg PO TID 05/29/18 Ferrous Sulfate [Iron] 325 mg PO DAILY 05/29/18 Fluoxetine HCl 40 mg PO QHS 05/29/18 Multivits,Ca,Min/Iron/FA/Lycop [Centrum Ultra Men's Tablet] 1 tab PO DAILY 05/29/18 Potassium Chloride 20 meq PO TID 05/29/18 Atorvastatin Calcium [Lipitor] 20 mg PO QHS #30 tablet 06/01/18 Metformin HCl [Metformin HCl ER] 500 mg PO DAILY #30 [id number] 06/01/18 Metoprolol Tartrate [Lopressor (beta boogie)] 50 mg PO BID #60 tablet 06/01/18 Rivaroxaban [Xarelto] 20 mg PO DAILY@1700 #30 tablet 06/01/18 The following prescriptions were given: Atorvastatin Calcium [Lipitor] 20 mg PO QHS #30 tablet Metformin HCl [Metformin HCl ER] 500 mg PO DAILY #30 [id number] Rivaroxaban [Xarelto] 20 mg PO DAILY@1700 #30 tablet Metoprolol Tartrate [Lopressor (beta boogie)] 50 mg PO BID #60 tablet Primary Care Physician: Felix Matias DO [Primary Care Provider] - Please follow up with your Primary Care Physician in: 1 Week Test Results: Test results from this visit will be discussed in further detail at your follow- up appointment, if applicable. Please Follow Up With: Pieter Shi MD - May see MANAGER [employer]/PA When: 1 Week Proposed Discharge Date: 06/01/18
--- NOTE | 2018-06-01 12:10 | PCM.DC.SUM ---
<Cassandra Rey - Last Filed: 06/01/18 12:17> Discharge Date and Diagnosis Date of Admission: 05/29/18 Date of Discharge: 06/01/18 - Primary Discharge Diagnosis 1. New onset atrial fibrillation with RVR 2. Acute on chronic diastolic CHF 3. Acute hypoxic respiratory insufficiency, secondary to #1/#2 4. Indeterminate troponin 5. Type 2 diabetes mellitus, new diagnosis - Secondary Discharge Diagnosis Chronic Problems (Last Reviewed 02/16/18 @ 10:29 by Cassandra Barksdale) History of left heart catheterization (Chronic) 03/31/17- non obstructive coronary disease Dilated cardiomyopathy (Chronic) Hypertension (Chronic) Morbid obesity (Chronic) TYLER (obstructive sleep apnea) (Chronic) use BiPAP DM2 (diabetes mellitus, type 2) (Chronic) Lymphedema (Chronic) Chronic pain syndrome (Chronic) Migraine (Chronic) Osteoarthritis (Chronic) COPD (chronic obstructive pulmonary disease) (Chronic) Hospital Course and Treatment Imaging Results: Diagnostic Data Chest X-Ray 05/30/18 09:45 IMPRESSION: Cardiomegaly findings are suspicious for vascular congestion. Trace effusions. Consider CHF. Electronically Signed: Cynthia Pruitt MD at 10:21 EST Tel , Service support , Operations: None Procedures: 2-D Echocardiogram Summary of Care Provided: The patient is a 68 year old M admitted 05/29/2018 due to shortness of breath. 1. New onset atrial fibrillation with RVR-rate 140-150 on admission. Cardizem bolus x2 in ER. Rate remains controlled. Continue metoprolol to 50 mg twice daily. TSH, mg WNL. Initiated on Xarelto 20 mg daily. Echocardiogram shows an EF of 50%. Patient will follow with Dr. Shi as outpatient in 1 week. 2. Acute on chronic diastolic CHF, secondary to #1-echocardiogram March 2017 with EF 50-55%, stage I diastolic dysfunction, RVSP estimated to be 25 mmHg. Chest x-ray on admission consistent with CHF. BNP mildly elevated. Patient received IV Lasix. Resume home oral Lasix regimen at discharge. Echocardiogram with EF 50%. Amaury wrap bilateral lower extremities. Repeat CXR improved from prior. 3. Acute hypoxic respiratory insufficiency, secondary to #1/#2-Walking pulse ox completed and patient did not require further supplemental oxygen. 4. Indeterminate troponin-suspect secondary to #1. Patient denies chest pain. Cardiac catheterization March 2017 with nonobstructive coronary arteries. 5. History of dilated cardiomyopathy with EF 23%, follow-up echocardiogram 03/23 with EF 55%. 6. Nonobstructive CAD-cardiac catheterization March 2017 with proximal RCA 30% stenosis, mid RCA 30% stenosis. Continue aspirin, statin. 7. Hypertension-recently taken off of Diovan by primary care physician. Patient reports this was due to controlled blood pressure. DC Aldactone. Started on beta-boogie. Blood pressure controlled on current beta-boogie regimen. 8. Hyperlipidemia-continue statin. 9. Type 2 diabetes mellitus-not on home regimen. Hemoglobin A1c 6.4%. Discharged on metformin 500 mg daily. Further follow-up with primary care physician. 10. Chronic lymphedema-Amaury wraps bilateral lower extremities. 11. Chronic COPD/Asthma-no acute exacerbation. Albuterol aerosol as needed. 12. Chronic pain syndrome-follows with Dr. Hoffmann. Continue home as needed [place] regimen. 13. Chronic migraines-continue Topamax regimen. Uses Keppra/sumatriptan as needed. 14. Obstructive sleep apnea-continue BiPAP nightly. 15. Depression/anxiety-patient on both fluoxetine and duloxetine? Recommend follow-up with primary care physician regarding this. 16. Morbid obesity-encouraged diet and lifestyle modifications. General: Alert, Oriented x3, Cooperative, No apparent distress HEENT: Atraumatic, PERRLA, EOMI, Normocephalic Neck: Supple, No JVD, Negative Carotid Bruits Lungs: Clear to auscultation, Diminished Cardiovascular: Atrial fibrillation, rate controlled Abdomen: Bowel Sounds Present, Soft, Non Tender, Non-Distended, Obese Extremities: No clubbing, No cyanosis, Capillary Refill Less than 3 Seconds, Edema - Bilateral lower extremity lymphedema Skin: No rashes, No breakdown, Varicosities bilateral lower extremities Musculoskeletal: No Tenderness to Palpation of Joints or Extremities Neurological: Cranial nerves II-XII grossly intact, Neuro grossly intact Psych/Mental Status: Normal Affect, Appropriate This patient was seen by KIKO Wolf under the supervision of Dr. Knowles. - Physical Exam Vital Signs Temp Pulse Resp BP Pulse Ox 97.9 F 63 20 H 122/97 H 93 06/01/18 09:44 06/01/18 09:49 06/01/18 09:44 06/01/18 09:49 06/01/18 11:45 Oxygen Flow Rate (L/min) 2 Oxygen Delivery Method Nasal Cannula Weight: 315 lb 0.649 oz Body Mass Index (BMI) 49.8 Intake and Output for Last 24 Hours 05/30/18 05/31/18 06/01/18 23:59 23:59 23:59 Intake Total 675 / 675 690 / 690 100 / 100 Output Total 525 / 525 575 / 575 Balance 150 / 150 115 / 115 100 / 100 Laboratory Tests Past 24 Hrs 06/01/18 06:15 Sodium 146 H Potassium 3.6 Chloride 108 H Carbon Dioxide 28.0 Anion Gap 10 BUN 33 H Creatinine 1.20 Estim Creat Clear Calc 55.08 Est GFR (MDRD) Af Amer 77 Est GFR (MDRD) Non-Af 64 BUN/Creatinine Ratio 27.5 H Glucose 139 H Calcium 9.0 POC Glucose 06/01/18 06/01/18 05/31/18 11:09 06:50 21:21 POC Glucose 127 H 134 H 153 H 05/31/18 16:39 POC Glucose 142 H Discharge Diet: Low fat/ Low Cholesterol, Carb Control Diet Discharge Activity: Return to Normal Activity Call your doctor if you observe: Shortness of breath, Dizziness, Fainting spells, Chest pain Home Medications: Medications to take at Discharge Calcitriol [Rocaltrol] 0.25 mcg PO SUTUTHSA 03/28/17 Calcitriol [Rocaltrol] 0.5 mcg PO MOWEFR 03/28/17 Duloxetine HCl 60 mg PO BID 03/28/17 Ergocalciferol [Vitamin D] 1 cap PO X1 03/28/17 Esomeprazole Magnesium 40 mg PO DAILY 03/28/17 Fluticasone/Salmeterol [Advair Hfa 45-21 Mcg Inhaler] 2 puff INHALATION BID 03/28/17 Furosemide 40 mg PO BID 03/28/17 Hydrocodone Bitart/Apap 5-325 [[place] 5/325] 1 tab PO Q6H PRN PRN 03/28/17 Lorazepam [Ativan] 1 mg PO BID 03/28/17 Sumatriptan Succinate 100 mg PO DAILY PRN PRN 03/28/17 Topiramate [Topamax] 100 mg PO BID 03/28/17 Aspirin E.C. [Ecotrin] 81 mg PO DAILY@0800 #60 tab 03/31/17 cyanocobalamin (vit B-12) 2,500 mcg sublingual tablet 2,500 mcg SUBLINGUAL QDAY 06/13/17 albuterol sulfate HFA 90 mcg/actuation aerosol inhaler 2 puff INHALATION .as needed g 07/22/17 levetiracetam 500 mg tablet 500 mg PO BID PRN tab 10/20/17 Cetirizine HCl [Zyrtec] 10 mg PO DAILY 05/29/18 Cholecalciferol (VIT D3) [Vitamin D3] 1,000 unit PO DAILY 05/29/18 Cyclobenzaprine HCl 10 mg PO TID 05/29/18 Ferrous Sulfate [Iron] 325 mg PO DAILY 05/29/18 Fluoxetine HCl 40 mg PO QHS 05/29/18 Multivits,Ca,Min/Iron/FA/Lycop [Centrum Ultra Men's Tablet] 1 tab PO DAILY 05/29/18 Potassium Chloride 20 meq PO TID 05/29/18 Atorvastatin Calcium [Lipitor] 20 mg PO QHS #30 tablet 06/01/18 Metformin HCl [Metformin HCl ER] 500 mg PO DAILY #30 [id number] 06/01/18 Metoprolol Tartrate [Lopressor (beta boogie)] 50 mg PO BID #60 tablet 06/01/18 Rivaroxaban [Xarelto] 20 mg PO DAILY@1700 #30 tablet 06/01/18 Following Prescrptions Were Given to Patient: Atorvastatin Calcium [Lipitor] 20 mg PO QHS #30 tablet Metformin HCl [Metformin HCl ER] 500 mg PO DAILY #30 [id number] Rivaroxaban [Xarelto] 20 mg PO DAILY@1700 #30 tablet Metoprolol Tartrate [Lopressor (beta boogie)] 50 mg PO BID #60 tablet Primary Care Physician: Felix Matias DO [Primary Care Provider] - Please follow up with your Primary Care Physician in: 1 Week Please Follow Up With: Pieter Shi MD - May see AUTOMATION AND CONTROL ENGINEER/PA When: 1 Week Disposition: Home Minutes spent on discharge:: 35 Patient Condition:: Stable Medical Necessity - Tobacco Use Smoking Status: Former smoker Tobacco Use: Secondhand, Cigarettes Meaningful Use Info Meaningful Use Diagnoses (Choose all that apply): CHF - CHF AMAURY/ARB ordered at discharge?: No Reason AMAUYR/ARB not ordered?: Allergy - not indicated, EF 50% Documented LVEF (%): 50 <Alek Knowles - Last Filed: 06/01/18 13:40> Discharge Date and Diagnosis - Secondary Discharge Diagnosis Chronic Problems (Last Reviewed 02/16/18 @ 10:29 by Cassandra Barksdale) History of left heart catheterization (Chronic) 03/31/17- non obstructive coronary disease Dilated cardiomyopathy (Chronic) Hypertension (Chronic) Morbid obesity (Chronic) TYLER (obstructive sleep apnea) (Chronic) use BiPAP DM2 (diabetes mellitus, type 2) (Chronic) Lymphedema (Chronic) Chronic pain syndrome (Chronic) Migraine (Chronic) Osteoarthritis (Chronic) COPD (chronic obstructive pulmonary disease) (Chronic) Hospital Course and Treatment Summary of Care Provided: The patient is a 68 year old M [] - Physical Exam Vital Signs Temp Pulse Resp BP Pulse Ox 97.9 F 112 H 20 H 122/97 H 93 06/01/18 09:44 06/01/18 11:49 06/01/18 09:44 06/01/18 09:49 06/01/18 11:45 Oxygen Flow Rate (L/min) 2 Oxygen Delivery Method Room Air Weight: 315 lb 0.649 oz Body Mass Index (BMI) 49.8 Intake and Output for Last 24 Hours 05/30/18 05/31/18 06/01/18 23:59 23:59 23:59 Intake Total 675 / 675 690 / 690 340 / 340 Output Total 525 / 525 575 / 575 Balance 150 / 150 115 / 115 340 / 340 Laboratory Tests Past 24 Hrs 06/01/18 06:15 Sodium 146 H Potassium 3.6 Chloride 108 H Carbon Dioxide 28.0 Anion Gap 10 BUN 33 H Creatinine 1.20 Estim Creat Clear Calc 55.08 Est GFR (MDRD) Af Amer 77 Est GFR (MDRD) Non-Af 64 BUN/Creatinine Ratio 27.5 H Glucose 139 H Calcium 9.0 POC Glucose 06/01/18 06/01/18 05/31/18 11:09 06:50 21:21 POC Glucose 127 H 134 H 153 H 05/31/18 16:39 POC Glucose 142 H Code Visit Addendum: Dr. Knowles I personally examined the patient and reviewed the chart. I agree with the above. 68-year-old male with a past medical history of hypertension, morbid obesity, TYLER, diabetes type 2, COPD, dilated cardiomyopathy presenting with shortness of breath. He had been having the shortness of breath for about 2 days prior to presentation and then on admission disclosed that he had also been feeling like he had had palpitations for about a week prior. He did not have any dizziness or lightheadedness, but has noticed a mild increase in his swelling. Of note he did have a cardiac catheterization last year due to complaints of chest pain and an indeterminant nuclear stress test, this catheterization showed nonocclusive coronary artery disease with a normal EF and diastolic dysfunction. During this admission he was found to be in A. fib which is likely paroxysmal, and he had an echo which showed a normal left ventricular size and an EF of 50%. He felt much better today with his A. fib under control and was discharged home on Lipitor, metformin, Xarelto, and metoprolol twice daily. He is to follow-up with his PCP within 1 week and he will also follow-up with cardiology in a week as well. Inpatient E&M: [id number] [facility]
--- NOTE | 2018-06-01 12:16 | DS.PCM_ITS ---
<Cassandra Rey - Last Filed: 06/01/18 12:17> Discharge Date and Diagnosis Date of Admission: 05/29/18 Date of Discharge: 06/01/18 - Primary Discharge Diagnosis 1. New onset atrial fibrillation with RVR 2. Acute on chronic diastolic CHF 3. Acute hypoxic respiratory insufficiency, secondary to #1/#2 4. Indeterminate troponin 5. Type 2 diabetes mellitus, new diagnosis - Secondary Discharge Diagnosis Chronic Problems (Last Reviewed 02/16/18 @ 10:29 by Cassandra Barksdale) History of left heart catheterization (Chronic) 03/31/17- non obstructive coronary disease Dilated cardiomyopathy (Chronic) Hypertension (Chronic) Morbid obesity (Chronic) TYLER (obstructive sleep apnea) (Chronic) use BiPAP DM2 (diabetes mellitus, type 2) (Chronic) Lymphedema (Chronic) Chronic pain syndrome (Chronic) Migraine (Chronic) Osteoarthritis (Chronic) COPD (chronic obstructive pulmonary disease) (Chronic) Hospital Course and Treatment Imaging Results: Diagnostic Data Chest X-Ray 05/30/18 09:45 IMPRESSION: Cardiomegaly findings are suspicious for vascular congestion. Trace effusions. Consider CHF. Electronically Signed: Cynthia Pruitt MD at 10:21 EST Tel , Service support , Operations: None Procedures: 2-D Echocardiogram Summary of Care Provided: The patient is a 68 year old M admitted 05/29/2018 due to shortness of breath. 1. New onset atrial fibrillation with RVR-rate 140-150 on admission. Cardizem bolus x2 in ER. Rate remains controlled. Continue metoprolol to 50 mg twice daily. TSH, mg WNL. Initiated on Xarelto 20 mg daily. Echocardiogram shows an EF of 50%. Patient will follow with Dr. Shi as outpatient in 1 week. 2. Acute on chronic diastolic CHF, secondary to #1-echocardiogram March 2017 with EF 50-55%, stage I diastolic dysfunction, RVSP estimated to be 25 mmHg. Chest x-ray on admission consistent with CHF. BNP mildly elevated. Patient received IV Lasix. Resume home oral Lasix regimen at discharge. Echocardiogram with EF 50%. Amaury wrap bilateral lower extremities. Repeat CXR improved from prior. 3. Acute hypoxic respiratory insufficiency, secondary to #1/#2-Walking pulse ox completed and patient did not require further supplemental oxygen. 4. Indeterminate troponin-suspect secondary to #1. Patient denies chest pain. Cardiac catheterization March 2017 with nonobstructive coronary arteries. 5. History of dilated cardiomyopathy with EF 23%, follow-up echocardiogram 03/23 with EF 55%. 6. Nonobstructive CAD-cardiac catheterization March 2017 with proximal RCA 30% stenosis, mid RCA 30% stenosis. Continue aspirin, statin. 7. Hypertension-recently taken off of Diovan by primary care physician. Patient reports this was due to controlled blood pressure. DC Aldactone. Started on beta-boogie. Blood pressure controlled on current beta-boogie regimen. 8. Hyperlipidemia-continue statin. 9. Type 2 diabetes mellitus-not on home regimen. Hemoglobin A1c 6.4%. Discharged on metformin 500 mg daily. Further follow-up with primary care physician. 10. Chronic lymphedema-Amaury wraps bilateral lower extremities. 11. Chronic COPD/Asthma-no acute exacerbation. Albuterol aerosol as needed. 12. Chronic pain syndrome-follows with Dr. Hoffmann. Continue home as needed [place] regimen. 13. Chronic migraines-continue Topamax regimen. Uses Keppra/sumatriptan as needed. 14. Obstructive sleep apnea-continue BiPAP nightly. 15. Depression/anxiety-patient on both fluoxetine and duloxetine? Recommend follow-up with primary care physician regarding this. 16. Morbid obesity-encouraged diet and lifestyle modifications. General: Alert, Oriented x3, Cooperative, No apparent distress HEENT: Atraumatic, PERRLA, EOMI, Normocephalic Neck: Supple, No JVD, Negative Carotid Bruits Lungs: Clear to auscultation, Diminished Cardiovascular: Atrial fibrillation, rate controlled Abdomen: Bowel Sounds Present, Soft, Non Tender, Non-Distended, Obese Extremities: No clubbing, No cyanosis, Capillary Refill Less than 3 Seconds, Edema - Bilateral lower extremity lymphedema Skin: No rashes, No breakdown, Varicosities bilateral lower extremities Musculoskeletal: No Tenderness to Palpation of Joints or Extremities Neurological: Cranial nerves II-XII grossly intact, Neuro grossly intact Psych/Mental Status: Normal Affect, Appropriate This patient was seen by KIKO Wolf under the supervision of Dr. Knowles. - Physical Exam Vital Signs Temp Pulse Resp BP Pulse Ox 97.9 F 63 20 H 122/97 H 93 06/01/18 09:44 06/01/18 09:49 06/01/18 09:44 06/01/18 09:49 06/01/18 11:45 Oxygen Flow Rate (L/min) 2 Oxygen Delivery Method Nasal Cannula Weight: 315 lb 0.649 oz Body Mass Index (BMI) 49.8 Intake and Output for Last 24 Hours 05/30/18 05/31/18 06/01/18 23:59 23:59 23:59 Intake Total 675 / 675 690 / 690 100 / 100 Output Total 525 / 525 575 / 575 Balance 150 / 150 115 / 115 100 / 100 Laboratory Tests Past 24 Hrs 06/01/18 06:15 Sodium 146 H Potassium 3.6 Chloride 108 H Carbon Dioxide 28.0 Anion Gap 10 BUN 33 H Creatinine 1.20 Estim Creat Clear Calc 55.08 Est GFR (MDRD) Af Amer 77 Est GFR (MDRD) Non-Af 64 BUN/Creatinine Ratio 27.5 H Glucose 139 H Calcium 9.0 POC Glucose 06/01/18 06/01/18 05/31/18 11:09 06:50 21:21 POC Glucose 127 H 134 H 153 H 05/31/18 16:39 POC Glucose 142 H Discharge Diet: Low fat/ Low Cholesterol, Carb Control Diet Discharge Activity: Return to Normal Activity Call your doctor if you observe: Shortness of breath, Dizziness, Fainting sp ells, Chest pain Home Medications: Medications to take at Discharge Calcitriol [Rocaltrol] 0.25 mcg PO SUTUTHSA 03/28/17 Calcitriol [Rocaltrol] 0.5 mcg PO MOWEFR 03/28/17 Duloxetine HCl 60 mg PO BID 03/28/17 Ergocalciferol [Vitamin D] 1 cap PO X1 03/28/17 Esomeprazole Magnesium 40 mg PO DAILY 03/28/17 Fluticasone/Salmeterol [Advair Hfa 45-21 Mcg Inhaler] 2 puff INHALATION BID 03/28/17 Furosemide 40 mg PO BID 03/28/17 Hydrocodone Bitart/Apap 5-325 [[place] 5/325] 1 tab PO Q6H PRN PRN 03/28/17 Lorazepam [Ativan] 1 mg PO BID 03/28/17 Sumatriptan Succinate 100 mg PO DAILY PRN PRN 03/28/17 Topiramate [Topamax] 100 mg PO BID 03/28/17 Aspirin E.C. [Ecotrin] 81 mg PO DAILY@0800 #60 tab 03/31/17 cyanocobalamin (vit B-12) 2,500 mcg sublingual tablet 2,500 mcg SUBLINGUAL QDAY 06/13/17 albuterol sulfate HFA 90 mcg/actuation aerosol inhaler 2 puff INHALATION .as needed g 07/22/17 levetiracetam 500 mg tablet 500 mg PO BID PRN tab 10/20/17 Cetirizine HCl [Zyrtec] 10 mg PO DAILY 05/29/18 Cholecalciferol (VIT D3) [Vitamin D3] 1,000 unit PO DAILY 05/29/18 Cyclobenzaprine HCl 10 mg PO TID 05/29/18 Ferrous Sulfate [Iron] 325 mg PO DAILY 05/29/18 Fluoxetine HCl 40 mg PO QHS 05/29/18 Multivits,Ca,Min/Iron/FA/Lycop [Centrum Ultra Men's Tablet] 1 tab PO DAILY 05/29/18 Potassium Chloride 20 meq PO TID 05/29/18 Atorvastatin Calcium [Lipitor] 20 mg PO QHS #30 tablet 06/01/18 Metformin HCl [Metformin HCl ER] 500 mg PO DAILY #30 [id number] 06/01/18 Metoprolol Tartrate [Lopressor (beta boogie)] 50 mg PO BID #60 tablet 06/01/18 Rivaroxaban [Xarelto] 20 mg PO DAILY@1700 #30 tablet 06/01/18 Following Prescrptions Were Given to Patient: Atorvastatin Calcium [Lipitor] 20 mg PO QHS #30 tablet Metformin HCl [Metformin HCl ER] 500 mg PO DAILY #30 [id number] Rivaroxaban [Xarelto] 20 mg PO DAILY@1700 #30 tablet Metoprolol Tartrate [Lopressor (beta boogie)] 50 mg PO BID #60 tablet Primary Care Physician: Felix Matias DO [Primary Care Provider] - Please follow up with your Primary Care Physician in: 1 Week Please Follow Up With: Pieter Shi MD - May see BUSINESS LAW INSTRUCTOR/PA When: 1 Week Disposition: Home Minutes spent on discharge:: 35 Patient Condition:: Stable Medical Necessity - Tobacco Use Smoking Status: Former smoker Tobacco Use: Secondhand, Cigarettes Meaningful Use Info Meaningful Use Diagnoses (Choose all that apply): CHF - CHF AMAURY/ARB ordered at discharge?: No Reason AMAURY/ARB not ordered?: Allergy - not indicated, EF 50% Documented LVEF (%): 50 <Alek Knowles - Last Filed: 06/01/18 13:40> Discharge Date and Diagnosis - Secondary Discharge Diagnosis Chronic Problems (Last Reviewed 02/16/18 @ 10:29 by Cassandra Barksdale) History of left heart catheterization (Chronic) 03/31/17- non obstructive coronary disease Dilated cardiomyopathy (Chronic) Hypertension (Chronic) Morbid obesity (Chronic) TYLER (obstructive sleep apnea) (Chronic) use BiPAP DM2 (diabetes mellitus, type 2) (Chronic) Lymphedema (Chronic) Chronic pain syndrome (Chronic) Migraine (Chronic) Osteoarthritis (Chronic) COPD (chronic obstructive pulmonary disease) (Chronic) Hospital Course and Treatment Summary of Care Provided: The patient is a 68 year old M [] - Physical Exam Vital Signs Temp Pulse Resp BP Pulse Ox 97.9 F 112 H 20 H 122/97 H 93 06/01/18 09:44 06/01/18 11:49 06/01/18 09:44 06/01/18 09:49 06/01/18 11:45 Oxygen Flow Rate (L/min) 2 Oxygen Delivery Method Room Air Weight: 315 lb 0.649 oz Body Mass Index (BMI) 49.8 Intake and Output for Last 24 Hours 05/30/18 05/31/18 06/01/18 23:59 23:59 23:59 Intake Total 675 / 675 690 / 690 340 / 340 Output Total 525 / 525 575 / 575 Balance 150 / 150 115 / 115 340 / 340 Laboratory Tests Past 24 Hrs 06/01/18 06:15 Sodium 146 H Potassium 3.6 Chloride 108 H Carbon Dioxide 28.0 Anion Gap 10 BUN 33 H Creatinine 1.20 Estim Creat Clear Calc 55.08 Est GFR (MDRD) Af Amer 77 Est GFR (MDRD) Non-Af 64 BUN/Creatinine Ratio 27.5 H Glucose 139 H Calcium 9.0 POC Glucose 06/01/18 06/01/18 05/31/18 11:09 06:50 21:21 POC Glucose 127 H 134 H 153 H 05/31/18 16:39 POC Glucose 142 H Code Visit Addendum: Dr. Knowles I personally examined the patient and reviewed the chart. I agree with the above. 68-year-old male with a past medical history of hypertension, morbid obesity, TYLER, diabetes type 2, COPD, dilated cardiomyopathy presenting with shortness of breath. He had been having the shortness of breath for about 2 days prior to presentation and then on admission disclosed that he had also been feeling like he had had palpitations for about a week prior. He did not have any dizziness or lightheadedness, but has noticed a mild increase in his swelling. Of note he did have a cardiac catheterization last year due to complaints of chest pain and an indeterminant nuclear stress test, this cathete rization showed nonocclusive coronary artery disease with a normal EF and diastolic dysfunction. During this admission he was found to be in A. fib which is likely paroxysmal, and he had an echo which showed a normal left ventricular size and an EF of 50%. He felt much better today with his A. fib under control and was discharged home on Lipitor, metformin, Xarelto, and metoprolol twice daily. He is to follow-up with his PCP within 1 week and he will also follow-up with cardiology in a week as well. Inpatient E&M: [id number] [facility]
--- NOTE | 2018-06-01 12:33 | CASEMGMT ---
SEVEN CASTANEDA called and check on baer of Xarelto. Cost per month is $8.35 per month. Patient updated and 30 day free trial coupon provided. Patient denied further needs or concerns at this time.
--- NOTE | 2018-06-01 12:51 | PHA.DC.COU ---
Pharmacy Services has performed discharge medication counseling for this patient. The patient was counseled on the following discharge medications and changes in medications for homegoing review. The Reason for Use, instructions for use, and potential side effects were reviewed for all new medications. The patient's questions regarding all of their medications were answered. Atorvastatin Calcium [Lipitor] 20 mg PO QHS #30 tablet 06/01/18 Metformin HCl [Metformin HCl ER] 500 mg PO DAILY #30 [id number] 06/01/18 Metoprolol Tartrate [Lopressor (beta boogie)] 50 mg PO BID #60 tablet 06/01/18 Rivaroxaban [Xarelto] 20 mg PO DAILY@1700 #30 tablet 06/01/18 The patient was able to verbally demonstrate an understanding of their discharge medications.
--- NOTE | 2018-06-03 09:37 | CASEMGMT ---
SEVEN CASTANEDA Discharge Follow-up Phone Call: DELONTE: Lesvia Strata: 3 Call Date: 06/03/18 Discharge Date: 06/01/18 Time of Call: 926 Duration: 10 minutes ? Admitting Diagnosis: New onset Afib RVR, A/C diastolic CHF, DM type 2 new dx This SEVEN CM phoned patient in follow-up s/p discharge. Pt's answered, pt sleeping. Pt's relayed that pt has remained very SOB at home and pt has needed to use his Bipap frequently. States he uses this whenever he is laying down which is often. Pt's states she did get all of the prescriptions filled and pt has been taking all the medications as directed including the lasix. Pt's also states pt's legs are becoming swollen and is watching for his fingers to become swollen. She states she has made follow-up appointments with Dr Hoffmann for 06/04, Dr. Matias for 06/12, and Dr. Treviño for 06/24. States she has not yet made an appointment with Dr. Shi but she had received a call from his office to schedule an appointment. Instructed her to contact Dr. hSi's office to schedule this appointment as soon as possible and to relay pt's continued c/o SOB, bipap use, and leg swelling to them. If unable to get an appointment with Dr. Shi instructed the to call Dr. Matias's office regarding getting a sooner appointment and to relay his symptoms to them as well. Also instructed to call 911 or to return to the ED if SOB worsens. Hermelindo Yeh RN
== END 2018-06-01 14:36 | disposition home or self-care (01) | DRG 308 ==
LOC: ED 13:23 → PCU 15:05
PROVIDERS: Nurse Practitioner Family; Student in an Organized Health Care Education/Training Program; Admitting Provider Internal Medicine; Emergency Provider Emergency Medicine; Family Provider Family Medicine; PCP Family Medicine; Referring Provider Internal Medicine; Visit Provider Family Medicine
DX: I48.91 Unspecified atrial fibrillation (principal); I50.33 Acute on chronic diastolic (congestive) heart failure; Z68.42 Body mass index [BMI] 45.0-49.9, adult; I25.10 Atherosclerotic heart disease of native coronary artery without angina pectoris; I42.0 Dilated cardiomyopathy; I45.10 Unspecified right bundle-branch block; G47.33 Obstructive sleep apnea (adult) (pediatric); E66.01 Morbid (severe) obesity due to excess calories; R09.02 Hypoxemia; R06.89 Other abnormalities of breathing; I11.0 Hypertensive heart disease with heart failure; I89.0 Lymphedema, not elsewhere classified; J44.9 Chronic obstructive pulmonary disease, unspecified; G89.4 Chronic pain syndrome; G43.909 Migraine, unspecified, not intractable, without status migrainosus; E11.9 Type 2 diabetes mellitus without complications; E78.5 Hyperlipidemia, unspecified; Z79.899 Other long term (current) drug therapy; Z87.891 Personal history of nicotine dependence; M19.90 Unspecified osteoarthritis, unspecified site; F41.9 Anxiety disorder, unspecified; F32.9 Major depressive disorder, single episode, unspecified
CPT/HCPCS: 36415; 71045; 71046; 80048; 80061; 82962; 83036; 83735; 83880; 84443; 84484; 85025; 85610; 93005; 93306; 94640; 97802; 99283; Q9957; A4216; C8929; J1940

== ENCOUNTER 2018-06-03 14:09 | Emergency (ER) | payer MEDICARE, SELFPAY ==
[2018-05-29 15:32] VITALS: BMI 49.8
[2018-06-03 14:11] VITALS: BP 161/93; PULSE 100; RESP 22; TEMP 36.1; O2SAT 93; BMI 49.3
[2018-06-03 14:20] VITALS: O2SAT 96
--- NOTE | 2018-06-03 14:27 | EKG12_ITS ---
Test Reason : SOB Blood Pressure : / mmHG Vent. Rate : 116 BPM Atrial Rate : 120 BPM P-R Int : 000 ms QRS Dur : 148 ms QT Int : 374 ms P-R-T Axes : 000 047 012 degrees QTc Int : 519 ms Atrial fibrillation with rapid ventricular response with premature ventricular or aberrantly conducte d complexes Right bundle branch block Abnormal ECG Confirmed by CHANTELLE ALCANTAR, LIONEL ([id number]), content editor RAJAT BLACKMAN ([id number]) on 06/05/2018 2:27:45 PM Referred By: EDNA/ENRIQUE Confirmed By:LIONEL LOCKHART MD
--- NOTE | 2018-06-03 14:35 | RAD_ITS ---
STUDY: X-RAY CHEST REASON FOR EXAM: Male, 68 years old. Shortness of breath. TECHNIQUE: Single AP portable view of the chest. COMPARISON: May 30, 2018. FINDINGS: Telemetry wires overlie the chest. There is a mildly decreased inspiratory effort. There is persistent density at the right lung base unchanged from the prior exam. The heart remains mild to moderately enlarged. Normal mediastinum and lyndsey. There is minimal central vascular prominence. Normal visualized aortic arch and descending thoracic aorta. No visualized osseous changes. 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 There is no demonstrated abnormality of the visualized soft tissue structures of the upper abdomen. RAD/Chest 1 View (Portable) IMPRESSION: 1. Cardiomegaly with mild vascular congestion. 2. Persistent density at the right lung base. Question pleural effusion versus atelectasis. Electronically Signed: Candelario Walsh DO at 16:53 EST Tel [phone], Service support ,
[2018-06-03 14:50] VITALS: PULSE 112; RESP 16; O2SAT 97
[2018-06-03] MEDS: Ipratropium/Albuterol Sulfate 3 ML AMPUL.NEB INHALATION ×2 (14:53→15:16)
[2018-06-03 14:57] VITALS: O2SAT 96
[2018-06-03] MEDS: MethylPREDNISolone 125 MG/2 ML Vial IV (15:08)
--- NOTE | 2018-06-03 15:16 | ED.VISSUMM ---
- ER Visit Summary Date of Service: 06/03/18 Chief Complaint: Dyspnea History of Present Illness: The patient is a 68 M with shortness of breath today. This came on gradually. It has been continuous. Worse with exertion. 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 He was recently admitted to the hospital for a new diagnosis of atrial fibrillation with RVR, CHF, hypoxia, indeterminate troponin, and type 2 diabetes. He had an echocardiogram that showed LVH with an EF of 50%. He is treated with Xarelto, aspirin, Lasix, others currently he has been compliant with his medications. He does have a history of COPD. Denies chest pain, fever, sputum. Denies leg swelling or calf pain. Denies any history of PE. He is a former smoker. Physical Examination: Afebrile and vital signs unremarkable. 93% on room air. Heart rate irregularly irregular. Lung sounds diminished in all davies. Abdomen soft and nontender. Trace lower extremity edema, symmetric. Skin is lightly pale. Alert and oriented. No objective distress. Test Results: EKG showed atrial fibrillation at a rate of 116. Chest x-ray and laboratory studies pending. Emergency Department Course and Treatment: Patient was placed on a monitor. He had an EKG done. IV access was obtained. He was treated with DuoNeb and Solu-Medrol. Labs and chest x-ray pending. I reevaluated the patient after his DuoNeb. He said he felt much better. He was moving more air. He did have a faint wheeze, worse on the right side with expiration. Heart rate is about 100. Blood pressure stable. Appears comfortable. Patient will receive an additional DuoNeb while awaiting further results. Laboratory studies unremarkable. BUN 21. Troponin normal. BNP 183. Official read of his chest x-ray is pending, but it appears to be stable from 4 days ago. On further reevaluation, the patient is feeling better. He was able to get up without assistance and ambulate. His pulse ox recheck was 96% on room air. I advised him that he appeared to be in distress on arrival, and I expect that he would be admitted, but he is looking much better. He says he feels much better and would like to go home. I advised that if he is having continued shortness of breath, we should observe in the hospital. He declined admission. He will use his breathing treatments every 4 hours as needed. He was given a spacer. I suspect he has some component of COPD exacerbation and he was started on doxycycline. He will monitor his sugars. Return right away for any new or worsening issues. Otherwise follow-up with his primary care doctor for reevaluation and further care. Treatment Plan: As above Disposition: Discharged Impression: 1. COPD exacerbation This note was generated with [employer] dictation software. It may contain incorrect words, spelling, and punctuation that were not noted in review of the chart prior to signing ED Disposition - Plan for ED Patient: Chief Complaint: Shortness of Breath Referrals: Felix Matias DO [Primary Care Provider] -
[2018-06-03 15:18] VITALS: PULSE 108; RESP 19; O2SAT 96
--- NOTE | 2018-06-03 15:19 | ED.DCSUM_ITS ---
- ER Visit Summary Date of Service: 06/03/18 Chief Complaint: Dyspnea History of Present Illness: The patient is a 68 M with shortness of breath today. This came on gradually. It has been continuous. Worse with exertion. 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 He was recently admitted to the hospital for a new diagnosis of atrial fibrillation with RVR, CHF, hypoxia, indeterminate troponin, and type 2 diabetes. He had an echocardiogram that showed LVH with an EF of 50%. He is treated with Xarelto, aspirin, Lasix, others currently he has been compliant with his medications. He does have a history of COPD. Denies chest pain, fever, sputum. Denies leg swelling or calf pain. Denies any history of PE. He is a former smoker. Physical Examination: Afebrile and vital signs unremarkable. 93% on room air. Heart rate irregularly irregular. Lung sounds diminished in all davies. Abdomen soft and nontender. Trace lower extremity edema, symmetric. Skin is lightly pale. Alert and oriented. No objective distress. Test Results: EKG showed atrial fibrillation at a rate of 116. Chest x-ray and laboratory studies pending. Emergency Department Course and Treatment: Patient was placed on a monitor. He had an EKG done. IV access was obtained. He was treated with DuoNeb and Solu- Medrol. Labs and chest x-ray pending. I reevaluated the patient after his DuoNeb. He said he felt much better. He was moving more air. He did have a faint wheeze, worse on the right side with expiration. Heart rate is about 100. Blood pressure stable. Appears comfortable. Patient will receive an additional DuoNeb while awaiting further results. Laboratory studies unremarkable. BUN 21. Troponin normal. BNP 183. Official read of his chest x-ray is pending, but it appears to be stable from 4 days ago. On further reevaluation, the patient is feeling better. He was able to get up without assistance and ambulate. His pulse ox recheck was 96% on room air. I advised him that he appeared to be in distress on arrival, and I expect that he would be admitted, but he is looking much better. He says he feels much better and would like to go home. I advised that if he is having continued shortness of breath, we should observe in the hospital. He declined admission. He will use his breathing treatments every 4 hours as needed. He was given a spacer. I suspect he has some component of COPD exacerbation and he was started on doxycycline. He will monitor his sugars. Return right away for any new or worsening issues. Otherwise follow-up with his primary care doctor for reevaluation and further care. Treatment Plan: As above Disposition: Discharged Impression: 1. COPD exacerbation This note was generated with [employer] dictation software. It may contain incorrect words, spelling, and punctuation that were not noted in review of the chart prior to signing ED Disposition - Plan for ED Patient: Chief Complaint: Shortness of Breath Referrals: Felix Matias DO [Primary Care Provider] -
[2018-06-03 15:23] LABS: Absolute Lymphocyte Count 1.44 X10^3/ul (0.83-4.51); Absolute Neutrophil Count 3.8 X10^3/uL (2.0-7.7); Basophil# 0.03 X10^3/uL; Basophil% 0.5 % (0-1); Eosinophil# 0.14 X10^3/uL; Eosinophils% 2.4 % (0-5); Hematocrit 41.7 % (40-54); Hemoglobin 13.8 g/dl (13.0-16.5); Lymphocyte # 1.44 X10^3/ul (4.0); Mean Corp Hgb Conc 33.1 g/gl (32-36); Mean Corpuscular Hgb 33.6 pg (27.0-32.0); Mean Corpuscular Volume 101.5 fL (80-94); Mean Platelet Vol. 10.7 fl (6.2-12.0); Monocyte# 0.34 X10^3/uL; Monocyte% 5.9 % (0-10); POSITIVE COUNT NO; POSITIVE DIFFERENTIAL NO; POSITIVE MORPHOLOGY NO; Platelet Count 169 K/mm3 (150-450); RBC Distribution Width CV 12.8 % (11.6-14.6); RBC Distribution Width SD 46.5 fl (35.1-43.9); Red Blood Count 4.11 M/mm3 (4.6-6.2); White Blood Count 5.8 K/mm3 (4.4-11.0)
[2018-06-03 15:35] LABS: Anion Gap 5 (5-15); BUN 21 mg/dL (7-18); Calcium,Total 8.8 mg/dL (8.5-10.1); Chloride 107 mmol/L (98-107); Creatinine, Serum 1.05 mg/dL (0.70-1.30); EST Glomerular Filtration Rate 75 mL/min (>60); Est Glom Filt Rate - Afr Amer 90 mL/min (>60); Estimated Creatinine Clearance 65.14 ml/min; Glucose 126 mg/dL (74-106); Sodium Level 139 mmol/L (136-145)
[2018-06-03 15:52] LABS: BNP,B-Type NATRIURETIC PEPTIDE 183.1 pg/mL (0-100)
--- NOTE | 2018-06-03 16:09 | ED.DEP ---
ED Disposition - Plan for ED Patient: Chief Complaint: Shortness of Breath Instructions: ED COPD Flare Prescriptions: Doxycycline Monohydrate 100 mg PO BID #[id number] Referrals: Felix Matias DO [Primary Care Provider] -
[2018-06-03 16:28] VITALS: BP 139/102; PULSE 103; RESP 22; O2SAT 97
[2018-06-03] MEDS: Doxycycline 100 MG CAPSULE PO (16:28)
--- NOTE | 2018-06-03 17:09 | CPS ---
Spacer sent home with patient per Dr. Nogueira's request.
--- OUTSIDE RECORDS SUMMARY | 2018-07-30 00:30 | XMS RPT_ITS ---
:1950 Author Organization OHIP Support Name Relationship Address Phone RAJEEV GARCIARICIA Unavailable [address] + [place] [address] R Unavailable Unavailable Unavailable GARNES, JAZMINE Unavailable [address] + [place] [address] R Unavailable Unavailable Unavailable GARNES, JAZMINE Unavailable [address] + [place] [address] R Unavailable Unavailable Unavailable GARNES, JAZMINE Unavailable [address] + [place] [address] R Unavailable Unavailable Unavailable GARNES, JAZMINE Unavailable [address] + [place] [address] R Unavailable Unavailable Unavailable GARNES, JAZMINE Unavailable [address] + [place] [address] R Unavailable Unavailable Unavailable GARNES, JAZMINE Unavailable [address] + [place] [address] R Unavailable Unavailable Unavailable GARNES, JAZMINE Unavailable [address] + [place] [address] R Unavailable Unavailable Unavailable GARNES, JAZMINE Unavailable [address] + [place] [address] R Unavailable Unavailable Unavailable GARNES, JAZMINE Unavailable [address] + [place] [address] R Unavailable Unavailable Unavailable GARNES, JAZMINE Unavailable [address] + [place] [address] R Unavailable Unavailable Unavailable GARNES, JAZMINE Unavailable [address] + [place] [address] R Unavailable Unavailable Unavailable GARNES, JAZMINE Unavailable [address] + [place] [address] R Unavailable Unavailable Unavailable Care Team Providers Name Role Phone Pieter Shi Attending Unavailable Katharina, Gustavo Referring Unavailable Eugenio Fontenot Attending Unavailable Sebastian, Trent Referring Unavailable Malika Bergeron Attending Unavailable Ashlee Short Attending Unavailable Robinson Hoffmann Attending Unavailable Basali, Sonidoman Referring Unavailable Sebastian, Tretn Primary Care Unavailable Sebastian, Trent Primary Care Unavailable Tereletsky, Gustavo Admitting Unavailable Tereletsky, Gustavo Referring Unavailable AzeemtsEli vitals F Attending Unavailable Tereletsky, Gustavo Admitting Unavailable Tereletsky, Gustavo Referring Unavailable Sebastian, Trent Primary Care Unavailable Tereletsky, Gustavo Consulting Unavailable Tereletsky, Gustavo Attending Unavailable Tereletsky, Gustavo Admitting Unavailable Tereletsky, Gustavo Referring Unavailable Sebastian, Ternt Primary Care Unavailable Koram, Deysi Azeb Consulting Unavailable Koram, Deysi Azeb Attending Unavailable Tereletsky, Gustavo Admitting Unavailable Tereletsky, Gustavo Referring Unavailable Sebastian, Trent Primary Care Unavailable Koram, Deysi Azeb Consulting Unavailable Koram, Deysi Azeb Attending Unavailable Tereletsky, Gustavo Admitting Unavailable Tereletsky, Gustavo Referring Unavailable Sebastian, Trent Primary Care Unavailable AzeemtsonisGuilleAlek F Consulting Unavailable WiliansGuilleAlek F Attending Unavailable Sebastian, Trent Primary Care Unavailable Vincent Nogueira Attending Unavailable Suni Lerner Attending Unavailable Yuridia, Pieter Attending Unavailable Sebastian, Trent Referring Unavailable SEBASTIAN, TRENT Attending Unavailable KIAH ALCANTAR GREG Primary Care Unavailable PROBLEMS PROBLEMS DATE TYPE CONDITION / CODE ATTENDING STATUS SOURCE 06/17/2018 Unknown I50.33 - Acute on Yuridia, Pieter Active [place] chronic diastolic Community (congestive) heart Hospital failure / Repository I50.33(ICD-10) 06/17/2018 Unknown I48.91 - Yuridia, Dumont Active [facility] Unspecified atrial Community fibrillation / Hospital I48.91(ICD-10) Repository 06/17/2018 Unknown I10 - Essential Yuridia, Dumont Active [facility] (primary) Community hypertension / Hospital I10(ICD-10) Repository 02/03/2018 Unknown F11.20 - Opioid Basali, Ayman Active [facility] dependence, Community uncomplicated / Hospital F11.20(ICD-10) Repository 11/07/2017 Admitting Essential (primary) TRENT CORTES [facility] Diagnosis hypertension / Foundation I10(ICD-10) Repository PROCEDURES PROCEDURES No Procedure Records FoundRESULTS RESULTS CARDIOLOGY VISIT Observed: 06/17/2018 Status: F Source: [place] REPORT 11:40 AM [facility] REPOSITORY [facility] [address] [place] [address] OFFICE VISIT Date of Service: 06/17/18 MR#: [id number] Acct: [id number] Name: YAHIR AGRCIA Rep #: [id number] : 1950 Provider: Pieter Shi MD Age/Sex: 68/M Location: [facility] [place] Status: Signed HPI HPI Chief Complaint: Initial visit Details: YAHIR GARCIA, is a 68 M who presents to the office today for an initial visit he is a gentleman with a history of hypertension, atrial fibrillation which appears to be fairly new in onset with rapid ventricular response rate as well as diastolic heart failure. His last ejection fraction was noted to be 50% on a recent hospitalization in May 2018. He also has a history of diabetes mellitus. You do remember that he underwent a cardiac catheterization in March 2017 which demonstrated nonobstructive coronary disease. During this recent hospitalization he was noted to be short of breath with palpitations. He also had pedal edema and had gained a fair amount of weight. He was treated and discharged and was asked to see us for follow-up evaluation. He has had no neck arm or jaw discomfort to suggest angina. He does have paroxysmal nocturnal dyspnea as well as pedal edema. He has had no chest pain. His physical exam today demonstrates clear lung davies irregular regular heart rate and 1-2+ pitting edema. Intake Vital Signs06/17/18 Height 5 ft 7 in 06/17/18 Weight: 325 lb Intake Visit Reasons: ER 06-01 AND 06-03 for SOB (new to [facility]) Allergies No Known Allergies Allergy (Verified 06/17/18 09:20) Medications Calcitriol [Rocaltrol] 0.25 mcg PO SUTUTHSA 03/28/17 [History Confirmed 06/17/18] Calcitriol [Rocaltrol] 0.5 mcg PO MOWEFR 03/28/17 [History Confirmed 06/17/18] Duloxetine HCl 60 mg PO BID 03/28/17 [History Confirmed 06/17/18] Ergocalciferol [Vitamin D] 1 cap PO X1 03/28/17 [History Confirmed 06/17/18] Esomeprazole Magnesium 40 mg PO DAILY 03/28/17 [History Confirmed 06/17/18] Fluticasone/Salmeterol [Advair Hfa 45-21 Mcg Inhaler] 2 puff INHALATION BID 03/28/17 [History Confirmed 06/17/18] Hydrocodone Bitart/Apap 5-325 [Braxton 5/325] 1 tab PO Q6H PRN PRN 03/28/17 [History Confirmed 06/17/18] Lorazepam [Ativan] 1 mg PO BID 03/28/17 [History Confirmed 06/17/18] Topiramate [Topamax] 100 mg PO BID 03/28/17 [History Confirmed 06/17/18] aspirin 81 mg tablet,delayed release 81 mg PO DAILY@0800 #60 tab 03/31/17 [Rx Confirmed 06/17/18] cyanocobalamin (vit B-12) 2,500 mcg sublingual tablet 2,500 mcg SUBLINGUAL QDAY 06/13/17 [History Confirmed 06/17/18] albuterol sulfate HFA 90 mcg/actuation aerosol inhaler 2 puff INHALATION .as needed g 07/22/17 [History Confirmed 06/17/18] levetiracetam 500 mg tablet 500 mg PO BID PRN tab 10/20/17 [History Confirmed 06/17/18] Cetirizine HCl [Zyrtec] 10 mg PO DAILY 05/29/18 [History Confirmed 06/17/18] Cholecalciferol (VIT D3) [Vitamin D3] 1,000 unit PO DAILY 05/29/18 [History Confirmed 06/17/18] Cyclobenzaprine HCl 10 mg PO TID 05/29/18 [History Confirmed 06/17/18] Ferrous Sulfate [Iron] 325 mg PO DAILY 05/29/18 [History Confirmed 06/17/18] Fluoxetine HCl 40 mg PO QHS 05/29/18 [History Confirmed 06/17/18] Multivit-Mins/Iron/Folic/Lycop [Centrum Ultra Men's Tablet] 1 tab PO DAILY 05/29/18 [History Confirmed 06/17/18] potassium chloride ER 10 mEq capsule,extended release 20 meq PO TID 05/29/18 [History Confirmed 06/17/18] Atorvastatin Calcium [Lipitor] 20 mg PO QHS #30 tab 06/01/18 [Rx Confirmed 06/17/18] Metformin HCl [Metformin HCl ER] 500 mg PO DAILY #30 [id number] 06/01/18 [Rx Confirmed 06/17/18] Rivaroxaban [Xarelto] 20 mg PO DAILY@1700 #30 tab 06/01/18 [Rx Confirmed 06/17/18] furosemide 40 mg tablet 40 mg PO .COMPLEX 06/03/18 [History Confirmed 06/17/18] amlodipine 5 mg tablet 5 mg PO DAILY #30 tab 06/17/18 [Rx Confirmed 06/17/18] metoprolol tartrate 50 mg tablet 50 mg PO BID #60 tab 06/17/18 [Rx Confirmed 06/17/18] PFSH Medical History Right bundle branch block (Chronic) Atrial fibrillation with rapid ventricular response (Acute) New onset atrial fibrillation (Acute) Acute on chronic diastolic (congestive) heart failure (Chronic) Essential (primary) hypertension (Chronic) Hyperlipidemia (Chronic) Dilated cardiomyopathy (Chronic) Morbid obesity (Chronic) TYLER (obstructive sleep apnea) (Chronic) COPD (chronic obstructive pulmonary disease) (Chronic) Chronic pain (Chronic) Lymphedema (Chronic) Migraine (Chronic) Osteoarthritis (Chronic) Type 2 diabetes mellitus (Chronic) History of left heart catheterization (Resolved 03/31/17) Surgical History H/O right knee surgery (Resolved) History of appendectomy (Resolved) History of gastric bypass (Resolved) History of neck surgery (Resolved) History of right shoulder replacement (Resolved) Hx of cholecystectomy (Resolved) Family History Mother CAD (coronary artery disease) Social History Smoking Status: Former smoker ROS Const Const: Positive for fatigue and weakness; negative for difficulty sleeping, frequent falls, excessive sweating or headache(s) Eyes Eyes: Negative for loss of peripheral vision, transient loss of vision, blurry vision, tunnel vision or double vision ENT ENT: Negative for headache(s), dizziness, Nosebleed/epistaxis or balance problems Cardio Chest Pain: No Palpitations: No Edema: Bilateral (BLE 1+ pitting from knees down) Muscle aches with walking: None Resp Respiratory: Positive for SOB with activity, SOB at rest, SOB orthopnea\SOB lying down and other (diminished right base); negative for paroxysmal nocturnal dyspnea or Cough Additional Details: Using CPAP GI GI: Negative nausea, heartburn, black,tarry stools or vomiting : Negative for hematuria Musc Musc: Negative for balance problems, muscle aches/ myalgia, muscle weakness or joint pain Skin Skin: Negative non-healing lesions, unusual bruising or rash Neuro Neuro: Positive for weakness; negative for frequent falls, headache(s), blurry vision, double vision, dizziness, lightheadedness, orthostatic symptoms, near syncope, syncope or lack of coordination Eric Hematologic/Lymphatic: Negative for easy bruising or easy bleeding Endo Endo: Positive for fatigue; negative for excessive sweating or increased thirst/drinking Psych Psych: Negative for anxiety or depression Allergy Allergy/Immunology: Negative for hives, Negative for rash Cardiology Exam Const Appearance: cooperative, healthy appearing, well developed, well groomed and no acute distress Nutritional Appearance: well nourished and average body habitus Orientation: alert, awake and oriented x3 Head Head: normal to inspection, normocephalic and atraumatic Ears: hearing grossly normal bilaterally and external ears normal Nose: external nose normal, nasal mucous membranes and turbinates normal, nares normal, septum normal, no nasal discharge Face and Sinus: face symmetric Mouth: oral mucosae normal, tongue normal, oropharynx normal and moist mucous membranes Teeth and gingiva: dentition normal Throat: posterior oropharynx normal, tonsils normal and uvula midline Eyes General: appearance normal, both eyes and all related structures Eyelids: eyelids normal Conjunctivae: conjunctivae normal Pupils: PERRL, normal by confrontation and accommodation normal EOM: EOM intact bilaterally Neck Neck: normal visual inspection, trachea midline and no JVD JVD: +5 Carotids: normal carotid upstroke and bounding pulses Chest Chest inspection: normal inspection of the chest, symmetric chest movement and normal respiratory effort Auscultation: Bilateral: Clear to Auscultation Cardio Palpation: normal PMI Rhythm: irregular rhythm Heart sounds: S1 normal and S2 normal GI GI: normal to inspection, soft, no hepatosplenomegaly and bowel sounds present Neuro General: alert, awake, oriented x3, no focal sensory deficit, gait normal and moves all extremities Skin Skin: no rashes or lesions noted Extremities Lower Extremity Edema: +2: Bilateral Musculoskel Musculoskeletal: No joint tenderness Psych Psychological: normal affect Assessment AND Plan 1. Acute on chronic diastolic (congestive) heart failure I50.33 Plan He does have a history of acute on chronic diastolic heart failure. His last ejection fraction evaluated by echocardiogram was approximately 50%. My recommendation will be for him to remain on the beta-boogie as well as the diuretic. I would like to increase the Lasix to 80 mg twice a day and add spironolactone 50 mg a day. A chemistry profile should be obtained within the next month. The potassium supplementation should be discontinued. Salt restriction has been emphasized as well as attempts at weight loss. 2. Atrial fibrillation with rapid ventricular response I48.91 Plan He does have a history of atrial fibrillation with rapid ventricular response rate I suspect this is contributing to some of his shortness of breath. I would recommend that we discontinue the amlodipine and add diltiazem 120 mg a day in addition to his beta-boogie. Thank you for allowing me to participate in the care of your patient. Please don't hesitate to call if any issues arise 3. Essential (primary) hypertension I10 Plan He does have a history of hypertension which appears to be fairly well controlled. The calcium channel boogie and beta-boogie as well as the spironolactone will contribute to the above. Plan Detail Other Medications Refilled: Follow Up 2 Months (r) Coding Level of Care Code Off vis,est,level 5 Diagnoses Acute on chronic diastolic (congestive) heart failure I50.33 Atrial fibrillation with rapid ventricular response I48.91 Essential (primary) hypertension I10 Coding Level of Care Code Off vis,est,level 5 Diagnoses Acute on chronic diastolic (congestive) heart failure I50.33 Atrial fibrillation with rapid ventricular response I48.91 Essential (primary) hypertension I10 06/17/18 1140 <Electronically signed by Pieter Shi MD> Date Pieter Shi MD Cosigner Signature: Date (if applicable) CC: DO Trent Cortes PULMONARY VISIT REPORT Observed: 06/09/2018 Status: F Source: [place] 5:48 AM [facility] REPOSITORY [facility] [address] [place] [address] OFFICE VISIT Date of Service: 07/24/18 MR#: [id number] Acct: [id number] Name: YAHIR GARCIA Rep #: [id number] : 1950 Provider: Darci Treviño MD Age/Sex: 67/M Location: [facility] [place] Status: Signed Assessment AND Plan 1. Asthma J45.909 HPI Asthma: Details: Documentation personally reviewed Over 47 pages of documentation were reviewed from various sources. Patient was seen in the ER on 06/03/2018 and noted to be 93% on room air with complaints of progressive shortness of breath. Patient improved following DuoNeb therapy was discharged with a diagnosis of COPD exacerbation. Chest x-ray at that time showed persistent density at the right lower lobe. Patient has also been diagnosed with obstructive sleep apnea and dilated cardiomyopathy in the past. Patient's primary care physician note shows a history of narcolepsy, asthma with onset of the year 1999, obstructive sleep apnea and posttraumatic stress disorder. Patient does take Lasix twice daily and does have Ventolin. Patient reportedly has been on Advair in the past. Patient does receive steroid injections into his back. Patient's property technician reportedly said there is no primary heart problems Intake Vital Signs02/16/18 Height 5 ft 7 in 02/16/18 Blood Pressure Location Rt brachial Intake Visit Reasons: Asthma Allergies No Known Allergies Allergy (Verified 06/03/18 14:11) Medications Calcitriol [Rocaltrol] 0.25 mcg PO SUTUTHSA 03/28/17 [History Confirmed 06/03/18] Calcitriol [Rocaltrol] 0.5 mcg PO MOWEFR 03/28/17 [History Confirmed 06/03/18] Duloxetine HCl 60 mg PO BID 03/28/17 [History Confirmed 06/03/18] Ergocalciferol [Vitamin D] 1 cap PO X1 03/28/17 [History Confirmed 06/03/18] Esomeprazole Magnesium 40 mg PO DAILY 03/28/17 [History Confirmed 06/03/18] Fluticasone/Salmeterol [Advair Hfa 45-21 Mcg Inhaler] 2 puff INHALATION BID 03/28/17 [History Confirmed 06/03/18] Hydrocodone Bitart/Apap 5-325 [Braxton 5/325] 1 tab PO Q6H PRN PRN 03/28/17 [History Confirmed 06/03/18] Lorazepam [Ativan] 1 mg PO BID 03/28/17 [History Confirmed 06/03/18] Topiramate [Topamax] 100 mg PO BID 03/28/17 [History Confirmed 06/03/18] Aspirin E.C. [Ecotrin] 81 mg PO DAILY@0800 #60 tab 03/31/17 [Rx Confirmed 06/03/18] cyanocobalamin (vit B-12) 2,500 mcg sublingual tablet 2,500 mcg SUBLINGUAL QDAY 06/13/17 [History Confirmed 06/03/18] albuterol sulfate HFA 90 mcg/actuation aerosol inhaler 2 puff INHALATION .as needed g 07/22/17 [History Confirmed 06/03/18] levetiracetam 500 mg tablet 500 mg PO BID PRN tab 10/20/17 [History Confirmed 06/03/18] Cetirizine HCl [Zyrtec] 10 mg PO DAILY 05/29/18 [History Confirmed 06/03/18] Cholecalciferol (VIT D3) [Vitamin D3] 1,000 unit PO DAILY 05/29/18 [History Confirmed 06/03/18] Cyclobenzaprine HCl 10 mg PO TID 05/29/18 [History Confirmed 06/03/18] Ferrous Sulfate [Iron] 325 mg PO DAILY 05/29/18 [History Confirmed 06/03/18] Fluoxetine HCl 40 mg PO QHS 05/29/18 [History Confirmed 06/03/18] Multivits,Ca,Min/Iron/FA/Lycop [Centrum Ultra Men's Tablet] 1 tab PO DAILY 05/29/18 [History Confirmed 06/03/18] Potassium Chloride 20 meq PO TID 05/29/18 [History Confirmed 06/03/18] Atorvastatin Calcium [Lipitor] 20 mg PO QHS #30 tab 06/01/18 [Rx Confirmed 06/03/18] Metformin HCl [Metformin HCl ER] 500 mg PO DAILY #30 [id number] 06/01/18 [Rx Confirmed 06/03/18] Metoprolol Tartrate [Lopressor (beta boogie)] 50 mg PO BID #60 tab 06/01/18 [Rx Confirmed 06/03/18] Rivaroxaban [Xarelto] 20 mg PO DAILY@1700 #30 tab 06/01/18 [Rx Confirmed 06/03/18] Doxycycline Monohydrate 100 mg PO BID #14 cap 06/03/18 [Rx] furosemide 40 mg tablet 40 mg PO .COMPLEX 06/03/18 [History Confirmed 06/03/18] [facility] Medical History History of left heart catheterization (Chronic) Dilated cardiomyopathy (Chronic) Shortness of breath (Chronic) Hypertension (Chronic) Chest pain (Chronic) Morbid obesity (Chronic) TYLER (obstructive sleep apnea) (Chronic) DM2 (diabetes mellitus, type 2) (Chronic) Lymphedema (Chronic) Chronic pain syndrome (Chronic) Migraine (Chronic) Osteoarthritis (Chronic) COPD (chronic obstructive pulmonary disease) (Chronic) Cardiomyopathy (Acute) Dyspnea (Acute) Abnormal EKG (Acute) Surgical History History of neck surgery (Resolved) History of arthroscopy of right knee (Resolved) History of right shoulder replacement (Resolved) History of shoulder surgery (Resolved) History of gastric bypass (Resolved) History of cholecystectomy (Resolved) History of appendectomy (Resolved) Family History Mother CAD (coronary artery disease) Social History Smoking Status: Former smoker Review of Systems Const CONSTITUTIONAL: Negative anorexia, body ache, chills, daytime sleepiness, fever(s), night sweats, oral thrush, stops breathing during sleep, weight loss, sleeping in chair, fatigue, weight loss, weight gain, frequent colds, seasonal allergies, other, headache(s) or orthopnea EETM Ear Nose Throat Mouth: Positive hearing normal; negative hard of hearing, hoarseness, dry mouth in morning, change in vision, itchy eyes, eye pain, swallowing Difficulty, ear pain, nose bleed, headache(s), mouth pain, nasal congestion, nasal discharge, post nasal drip, sinus pain, sinus pressure, sore throat or other Cardio Cardiovascular: Negative chest pain, chest pain at rest, chest pain with activity, irregular heart rhythm, edema, shortness of breath when lying down, palpitations, murmur or other Resp Respiratory: Positive as per HPI; negative shortness of breath, pain with cough, wheezing, chest congestion, cough, chest tightness, pain on inspiration, inhalers, increase use of rescue inhalers, snoring, apnea or other Gastro Gastrointestional: Negative bloody stools, change in appetite, difficulty swallowing, reflux, hematemesis, melena stool, loose stool, constipation or other Genitourinary: Negative blood in urine, nocturia, pain with urination or other Musc Musculoskeletal: Negative body pain, back pain, neck pain or other Skin/Breast Skin/Breast: Negative dry skin, itching, rash, unusual bruising, breast lump or other Neuro Neurological: Negative restless legs, confusion, weakness or other Psych Psychocological: Negative abnormal sleep pattern, anxiety, thoughts of hurting self/others, hopelessness or other Lymph Lymphatic: Negative easy bleeding, easy bruising, swollen lymph nodes or other Exam Ears Ear: Positive hearing normal; negative hard of hearing Nose Nose: Negative epistaxis Mouth Mouth: Negative post nasal drip Cardio Cardiac: Negative murmur Skin Pulmonary Skin Exam: Negative rash Lymph Lymphatic: No lymphadenopathy Coding Diagnoses Asthma J45.909 06/09/18 0548 <Electronically signed by Darci Treviño MD> Date Darci Treviño MD Cosigner Signature: Date (if applicable) CC: 12 LEAD ELECTROCARDIOGRAM Observed: 06/05/2018 Status: F Source: [place] 2:28 PM [facility] Cardiovascular Services [address] [place] [address] 12 Lead EKG 06/03/18 1421 MR#: [id number] Acct: [id number] Name: YAHIR GARCIA Rep #: [id number] : 1950 68 From: Pieter Shi MD Attending Dr: Status: DEP ER Ordering Dr: Vincent Nogueira MD Date: 06/03/18 Location: ED Sex: M C Admitted: Test Reason : SOB Blood Pressure : / mmHG Vent. Rate : 116 BPM Atrial Rate : 120 BPM P-R Int : 000 ms QRS Dur : 148 ms QT Int : 374 ms P-R-T Axes : 000 047 012 degrees QTc Int : 519 ms Atrial fibrillation with rapid ventricular response with premature ventricular or aberrantly conducted complexes Right bundle branch block Abnormal ECG Confirmed by YURIDIA ALCANTAR, PIETER ([id number]), film or videotape editor RAJAT BLACKMAN ([id number]) on 06/05/2018 2:27:45 PM Referred By: BLAINE Confirmed By:PIETER SHI MD 06/05/18 1427 Date Pieter Shi MD CC: DO Trent Cortes; Vincent Nogueira MD Signed 12 LEAD ELECTROCARDIOGRAM Observed: 06/05/2018 Status: F Source: [place] 9:22 AM [facility] REPOSITORY [facility] Cardiovascular Services [address] [place] [address] 12 Lead EKG 05/29/18 1314 MR#: [id number] Acct: [id number] Name: YAHIR GARCIA Rep #: [id number] : 1950 68 From: Pieter Shi MD Attending Dr: Alek Knowles MD Status: DIS IN Ordering Dr: Alek Benavidez MD Date: 05/29/18 Location: [facility] Sex: M C Admitted: 05/29/18 Test Reason : SOB Blood Pressure : / mmHG Vent. Rate : 134 BPM Atrial Rate : 115 BPM P-R Int : 000 ms QRS Dur : 140 ms QT Int : 316 ms P-R-T Axes : 000 018 006 degrees QTc Int : 471 ms Atrial fibrillation Right bundle branch block Possible Inferior infarct , age undetermined Abnormal ECG Reconfirmed by PIETER SHI MD ([id number]), film or videotape editor RAJAT BLACKMAN ([id number]) on 06/01/2018 10:55:00 AM Referred By: Gustavo Posadas Confirmed By:PIETER SHI MD 06/01/18 1055 Date Pieter Shi MD CC: DO Trent Cortse; Gustavo Posadas DO; Alek Knowles MD; Alek Benavidez MD Signed DISCHARGE INSTRUCTION Observed: 06/03/2018 Status: F Source: [place] 4:13 PM [facility] Medical Records Department [address] [place] [id number] Discharge Instruction 06/03/18 1609 MR#: [id number] Acct: [id number] Name: YAHIR GARCIA Rep #: [id number] : 1950 68 From: Vincent Nogueira MD PCP: Trent Cortes DO Status: REG ER ED Disposition - Plan for ED Patient: Chief Complaint: Shortness of Breath Instructions: ED COPD Flare Prescriptions: Doxycycline Monohydrate 100 mg PO BID #14 cap Referrals: Trent Cortes DO [Primary Care Provider] - What to do if you have Problems For any increased pain, shortness of breath, bleeding, nausea or vomiting, chest pain, or any unexpected problems, contact your Primary Care Provider. Call [facility] ([phone]) or report to the closest Emergency Room. Call 911 if necessary. 06/03/18 0013 <Electronically signed by Vincent Nogueira MD> Date Vincent Nogueira MD Cosigner Signature (If Indicated): Date CC: DO Trent Cortes EMERGENCY DEPARTMENT Observed: 06/03/2018 Status: F Source: [place] 4:13 PM [facility] REPOSITORY [facility] Medical Records Department [address] [place] [address] Emergency Department Summary 06/03/18 1516 MR#: [id number] Acct: [id number] Name: YAHIR GARCIA Rep #: [id number] : 1950 68 From: Vincent Nogueira MD PCP: Trent Cortes, Status: REG ER - ER Visit Summary Date of Service: 06/03/18 Chief Complaint: Dyspnea History of Present Illness: The patient is a 68 M with shortness of breath today. This came on gradually. It has been continuous. Worse with exertion. Patient was referred to the emergency department after he called his property technician's office and said that he was short of breath. He was recently admitted to the hospital for a new diagnosis of atrial fibrillation with RVR, CHF, hypoxia, indeterminate troponin, and type 2 diabetes. He had an echocardiogram that showed LVH with an EF of 50%. He is treated with Xarelto, aspirin, Lasix, others currently he has been compliant with his medications. He does have a history of COPD. Denies chest pain, fever, sputum. Denies leg swelling or calf pain. Denies any history of PE. He is a former smoker. Physical Examination: Afebrile and vital signs unremarkable. 93% on room air. Heart rate irregularly irregular. Lung sounds diminished in all davies. Abdomen soft and nontender. Trace lower extremity edema, symmetric. Skin is lightly pale. Alert and oriented. No objective distress. Test Results: EKG showed atrial fibrillation at a rate of 116. Chest x-ray and laboratory studies pending. Emergency Department Course and Treatment: Patient was placed on a monitor. He had an EKG done. IV access was obtained. He was treated with DuoNeb and Solu-Medrol. Labs and chest x-ray pending. I reevaluated the patient after his DuoNeb. He said he felt much better. He was moving more air. He did have a faint wheeze, worse on the right side with expiration. Heart rate is about 100. Blood pressure stable. Appears comfortable. Patient will receive an additional DuoNeb while awaiting further results. Laboratory studies unremarkable. BUN 21. Troponin normal. BNP 183. Official read of his chest x-ray is pending, but it appears to be stable from 4 days ago. On further reevaluation, the patient is feeling better. He was able to get up without assistance and ambulate. His pulse ox recheck was 96% on room air. I advised him that he appeared to be in distress on arrival, and I expect that he would be admitted, but he is looking much better. He says he feels much better and would like to go home. I advised that if he is having continued shortness of breath, we should observe in the hospital. He declined admission. He will use his breathing treatments every 4 hours as needed. He was given a spacer. I suspect he has some component of COPD exacerbation and he was started on doxycycline. He will monitor his sugars. Return right away for any new or worsening issues. Otherwise follow-up with his primary care doctor for reevaluation and further care. Treatment Plan: As above Disposition: Discharged Impression: 1. COPD exacerbation This note was generated with [employer] dictation software. It may contain incorrect words, spelling, and punctuation that were not noted in review of the chart prior to signing ED Disposition - Plan for ED Patient: Chief Complaint: Shortness of Breath Referrals: Trent Cortes, [Primary Care Provider] - What to do if you have Problems For any increased pain, shortness of breath, bleeding, nausea or vomiting, chest pain, or any unexpected problems, contact your Primary Care Provider. Call [facility] ([phone]) or report to the closest Emergency Room. Call 911 if necessary. 06/03/18 1451 <Electronically signed by Vincent Nogueira MD> Date Vincent Nogueira MD Cosigner Signature (If Indicated): Date CC: DO Trent Cortes CBC W/DIFF, AUTOMATED Collected: 06/03/2018 Status: F Source: KE 3:00 PM [facility] REPOSITORY TYPE CODE TESTS RESULT OUT OF RANGE REFERENCE UNITS LAB L100.1000 4.4-11.0 K/mm3 Normal WBC 5.8 LAB L100.1200 4.6-6.2 M/mm3 Low RBC 4.11 LAB L100.1300 13.0-16.5 g/dl Normal HGB 13.8 LAB L100.1400 40-54 % Normal HCT 41.7 LAB L100.1500 80-94 fL High MCV 101.5 LAB L100.1600 27.0-32.0 pg High MCH 33.6 LAB L100.1700 32-36 g/gl Normal MCHC 33.1 LAB L100.1810 11.6-14.6 % Normal RDW CV 12.8 LAB L100.1820 35.1-43.9 fl High RDW SD 46.5 LAB L100.1900 150-450 K/mm3 Normal PLT 169 LAB L100.2000 6.2-12.0 fl Normal MPV 10.7 LAB L100.2100 47-70 % Normal NEUT% 66.0 LAB L100.2200 19-41 % Normal LY% 25.0 LAB L100.2300 0-10 % Normal MONO% 5.9 LAB L100.2400 0-5 % Normal EO% 2.4 LAB L100.2500 0-1 % Normal BASO% 0.5 LAB L100.2550 0.0-0.9 % Normal IM GRAN % 0.200 Result Comment: IG% - Immature Granulocytes (promyelocytes, myelocytes and metamyelocytes) > 1% indicates that a LEFT SHIFT is Present. LAB L100.2620 2.0-7.7 X10 3/uL Normal Absolute Neut 3.8 LAB L100.2720 0.83-4.51 X10 3/ul Normal Absolute Lymph 1.44 Performed By: #### L100.0100 #### [facility] [place], [address] BASIC METABOLIC Collected: 06/03/2018 Status: F Source: KE PROFILE (BMP) 3:00 PM [facility] REPOSITORY TYPE CODE TESTS RESULT OUT OF RANGE REFERENCE UNITS LAB L501.0100 74-106 mg/dL High GLU 126 Result Comment: Fasting Glucose result greater than or equal to 126 mg/dL suggests DIABETES MELLITUS per A.D.A. criteria. Please note revised GLUCOSE reference range effective 2017. LAB L501.1000 7-18 mg/dL High BUN 21 LAB L501.1100 0.70-1.30 mg/dL Normal CREAT,SERUM 1.05 Result Comment: The validity of the calculated GFR AND GFRAA in patients over 70 years has not been determined. Clinical correlation is essential. LAB L501.1110 >60 mL/min Normal EST GFR 75 Result Comment: Non- GFR Calc LAB L501.1115 >60 mL/min Normal EST GFR - AA 90 Result Comment: GFR Calc LAB L501.1255 ml/min Normal Estimated CRCL 65.14 LAB L501.1300 10-20 RATIO Normal BUN/CRE 20.0 LAB L501.2200 8.5-10 mg/dL Normal .1 CA 8.8 LAB L501.5300 136-14 mmol/L Normal 5 NA 139 LAB L501.5600 3.5-5. mmol/L Normal 1 K 5.0 Result Comment: Moderate Hemolysis, Result may be falsely increased. LAB L501.5900 98-107 mmol/L Normal CL 107 LAB L501.6100 21.0-32.0 mmol/L Normal CO2 27.0 LAB L501.6200 5-15 Normal 5 GAP Performed By: #### L500.2500, L501.4010 #### [facility] [address] [place], [address] TROPONIN-I Collected: 06/03/2018 Status: F Source: [place] 3:00 PM [facility] REPOSITORY TYPE CODE TESTS RESULT OUT OF RANGE REFERENCE UNITS LAB L501.4010 <0.045 ng/mL Normal 0.017 TROPONIN-I Result Comment: TROPONIN-I EXPECTED VALUES <0.045 Negative 0.045 - 0.590 Consistent with Cardiac Damage > OR = 0.600 Critical Value Not every elevated troponin is indicative of NM. These values should be used with clinical judgement in examining the patient's clinical picture for diagnosis. To establish a diagnosis of NM versus myocardial injury, there must be a demonstrated rise and/or fall in the troponin values, in addition to ischemic symptoms, EKG changes, new regional wall motion abnormality, and/or angiographical evidence. PLEASE NOTE: REFERENCE RANGES EDITED 17 Performed By: #### L500.2500, L501.4010 #### [facility] [address] [place], [address] BNP,B-TYPE NATRIURETIC Collected: 06/03/2018 Status: F Source: [place] PEPTIDE 3:00 PM [facility] REPOSITORY TYPE CODE TESTS RESULT OUT OF RANGE REFERENCE UNITS LAB L503.6620 0-100 pg/mL High B-TYPE 183.1 SKIP PEP Performed By: #### L503.6620 #### [facility] [address] [facility] [place], [address] CHEST 1 VIEW Observed: 06/03/2018 Status: F Source: KE (PORTABLE) 2:28 PM [facility] REPOSITORY [facility] Imaging Services [address] [place] [address] Chest 1 View (Portable) MR#: [id number] Acct: [id number] Name: YAHIR GARCIA Rep #: [id number] : 1950 M 68 From: Candelario Walsh DO PCP: Trent Cortes DO Status: DEP ER Study: Chest 1 View (Portable) Date of Exam: 06/03/18 Exam# [id number] Ordering Dr: Vincent Nogueira MD STUDY: X-RAY CHEST REASON FOR EXAM: Male, 68 years old. Shortness of breath. TECHNIQUE: Single AP portable view of the chest. COMPARISON: May 30, 2018. FINDINGS: Telemetry wires overlie the chest. There is a mildly decreased inspiratory effort. There is persistent density at the right lung base unchanged from the prior exam. The heart remains mild to moderately enlarged. Normal mediastinum and lyndsey. There is minimal central vascular prominence. Normal visualized aortic arch and descending thoracic aorta. No visualized osseous changes. 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 There is no demonstrated abnormality of the visualized soft tissue structures of the upper abdomen. RAD/Chest 1 View (Portable) IMPRESSION: 1. Cardiomegaly with mild vascular congestion. 2. Persistent density at the right lung base. Question pleural effusion versus atelectasis. Electronically Signed: Candelario Walsh DO at 16:53 EST Tel [phone], Service support , CC: DO Trent Cortes; Vincent Nogueira MD Olive Grader: Signed DISCHARGE SUMMARY Observed: 06/01/2018 Status: F Source: [place] 1:41 PM [facility] REPOSITORY [facility] Medical Records Department [address] [place] [address] [place] [address] Discharge Summary 06/01/18 1210 MR#: [id number] Acct: [id number] Name: YAHIR GARCIA Rep #: [id number] : 1950 68 From: Cassandra Rey HIGHWAY CONSTRUCTION INSPECTORLeandroC PCP: Trent Cortes DO Status: ADM IN Y [id number] <Cassandra Rey - Last Filed: 06/01/18 12:17> Discharge Date and Diagnosis Date of Admission: 05/29/18 Date of Discharge: 06/01/18 - Primary Discharge Diagnosis 1. New onset atrial fibrillation with RVR 2. Acute on chronic diastolic CHF 3. Acute hypoxic respiratory insufficiency, secondary to #1/#2 4. Indeterminate troponin 5. Type 2 diabetes mellitus, new diagnosis - Secondary Discharge Diagnosis Chronic Problems (Last Reviewed 02/16/18 @ 10:29 by Cassandra Barksdale) History of left heart catheterization (Chronic) 03/31/17- non obstructive coronary disease Dilated cardiomyopathy (Chronic) Hypertension (Chronic) Morbid obesity (Chronic) TYLER (obstructive sleep apnea) (Chronic) use BiPAP DM2 (diabetes mellitus, type 2) (Chronic) Lymphedema (Chronic) Chronic pain syndrome (Chronic) Migraine (Chronic) Osteoarthritis (Chronic) COPD (chronic obstructive pulmonary disease) (Chronic) Hospital Course and Treatment Imaging Results: Diagnostic Data Chest X-Ray 05/30/18 09:45 IMPRESSION: Cardiomegaly findings are suspicious for vascular congestion. Trace effusions. Consider CHF. Electronically Signed: Cynthia Pruitt MD at 10:21 EST Tel , Service support , Operations: None Procedures: 2-D Echocardiogram Summary of Care Provided: The patient is a 68 year old M admitted 05/29/2018 due to shortness of breath. 1. New onset atrial fibrillation with RVR-rate 140-150 on admission. Cardizem bolus x2 in ER. Rate remains controlled. Continue metoprolol to 50 mg twice daily. TSH, mg WNL. Initiated on Xarelto 20 mg daily. Echocardiogram shows an EF of 50%. Patient will follow with Dr. Shi as outpatient in 1 week. 2. Acute on chronic diastolic CHF, secondary to #1-echocardiogram March 2017 with EF 50-55%, stage I diastolic dysfunction, RVSP estimated to be 25 mmHg. Chest x-ray on admission consistent with CHF. BNP mildly elevated. Patient received IV Lasix. Resume home oral Lasix regimen at discharge. Echocardiogram with EF 50%. Amaury wrap bilateral lower extremities. Repeat CXR improved from prior. 3. Acute hypoxic respiratory insufficiency, secondary to #1/#2-Walking pulse ox completed and patient did not require further supplemental oxygen. 4. Indeterminate troponin-suspect secondary to #1. Patient denies chest pain. Cardiac catheterization March 2017 with nonobstructive coronary arteries. 5. History of dilated cardiomyopathy with EF 23%, follow-up echocardiogram 03/23 with EF 55%. 6. Nonobstructive CAD-cardiac catheterization March 2017 with proximal RCA 30% stenosis, mid RCA 30% stenosis. Continue aspirin, statin. 7. Hypertension-recently taken off of Diovan by primary care physician. Patient reports this was due to controlled blood pressure. DC Aldactone. Started on beta-boogie. Blood pressure controlled on current beta-boogie regimen. 8. Hyperlipidemia-continue statin. 9. Type 2 diabetes mellitus-not on home regimen. Hemoglobin A1c 6.4%. Discharged on metformin 500 mg daily. Further follow-up with primary care physician. 10. Chronic lymphedema-Amaury wraps bilateral lower extremities. 11. Chronic COPD/Asthma-no acute exacerbation. Albuterol aerosol as needed. 12. Chronic pain syndrome-follows with Dr. Hoffmann. Continue home as needed Braxton regimen. 13. Chronic migraines-continue Topamax regimen. Uses Keppra/sumatriptan as needed. 14. Obstructive sleep apnea-continue BiPAP nightly. 15. Depression/anxiety-patient on both fluoxetine and duloxetine? Recommend follow-up with primary care physician regarding this. 16. Morbid obesity-encouraged diet and lifestyle modifications. General: Alert, Oriented x3, Cooperative, No apparent distress HEENT: Atraumatic, PERRLA, EOMI, Normocephalic Neck: Supple, No JVD, Negative Carotid Bruits Lungs: Clear to auscultation, Diminished Cardiovascular: Atrial fibrillation, rate controlled Abdomen: Bowel Sounds Present, Soft, Non Tender, Non-Distended, Obese Extremities: No clubbing, No cyanosis, Capillary Refill Less than 3 Seconds, Edema - Bilateral lower extremity lymphedema Skin: No rashes, No breakdown, Varicosities bilateral lower extremities Musculoskeletal: No Tenderness to Palpation of Joints or Extremities Neurological: Cranial nerves II-XII grossly intact, Neuro grossly intact Psych/Mental Status: Normal Affect, Appropriate This patient was seen by KIKO Wolf under the supervision of Dr. Knowles. - Physical Exam Vital Signs Temp Pulse Resp BP Pulse Ox 97.9 F 63 20 H 122/97 H 93 06/01/18 09:44 06/01/18 09:49 06/01/18 09:44 06/01/18 09:49 06/01/18 11:45 Oxygen Flow Rate (L/min) 2 Oxygen Delivery Method Nasal Cannula Weight: 315 lb 0.649 oz Body Mass Index (BMI) 49.8 Intake and Output for Last 24 Hours Intake Total 675 / 675 690 / 690 100 / 100 Output Total 525 / 525 575 / 575 Balance 150 / 150 115 / 115 100 / 100 Laboratory Tests Past 24 Hrs Sodium 146 H Potassium 3.6 Chloride 108 H Carbon Dioxide 28.0 POC Glucose POC Glucose 127 H 134 H 153 H POC Glucose 142 H Discharge Diet: Low fat/ Low Cholesterol, Carb Control Diet Discharge Activity: Return to Normal Activity Call your doctor if you observe: Shortness of breath, Dizziness, Fainting spells, Chest pain Home Medications: Medications to take at Discharge Calcitriol [Rocaltrol] 0.25 mcg PO SUTUTHSA 03/28/17 Calcitriol [Rocaltrol] 0.5 mcg PO MOWEFR 03/28/17 Duloxetine HCl 60 mg PO BID 03/28/17 Ergocalciferol [Vitamin D] 1 cap PO X1 03/28/17 Esomeprazole Magnesium 40 mg PO DAILY 03/28/17 Fluticasone/Salmeterol [Advair Hfa 45-21 Mcg Inhaler] 2 puff INHALATION BID 03/28/17 Furosemide 40 mg PO BID 03/28/17 Hydrocodone Bitart/Apap 5-325 [Braxton 5/325] 1 tab PO Q6H PRN PRN 03/28/17 Lorazepam [Ativan] 1 mg PO BID 03/28/17 Sumatriptan Succinate 100 mg PO DAILY PRN PRN 03/28/17 Topiramate [Topamax] 100 mg PO BID 03/28/17 Aspirin E.C. [Ecotrin] 81 mg PO DAILY@0800 #60 tab 03/31/17 cyanocobalamin (vit B-12) 2,500 mcg sublingual tablet 2,500 mcg SUBLINGUAL QDAY 06/13/17 albuterol sulfate HFA 90 mcg/actuation aerosol inhaler 2 puff INHALATION .as needed g 07/22/17 levetiracetam 500 mg tablet 500 mg PO BID PRN tab 10/20/17 Cetirizine HCl [Zyrtec] 10 mg PO DAILY 05/29/18 Cholecalciferol (VIT D3) [Vitamin D3] 1,000 unit PO DAILY 05/29/18 Cyclobenzaprine HCl 10 mg PO TID 05/29/18 Ferrous Sulfate [Iron] 325 mg PO DAILY 05/29/18 Fluoxetine HCl 40 mg PO QHS 05/29/18 Multivits,Ca,Min/Iron/FA/Lycop [Centrum Ultra Men's Tablet] 1 tab PO DAILY 05/29/18 Potassium Chloride 20 meq PO TID 05/29/18 Atorvastatin Calcium [Lipitor] 20 mg PO QHS #30 tablet 06/01/18 Metformin HCl [Metformin HCl ER] 500 mg PO DAILY #30 [id number] 06/01/18 Metoprolol Tartrate [Lopressor (beta boogie)] 50 mg PO BID #60 tablet 06/01/18 Rivaroxaban [Xarelto] 20 mg PO DAILY@1700 #30 tablet 06/01/18 Following Prescrptions Were Given to Patient: Atorvastatin Calcium [Lipitor] 20 mg PO QHS #30 tablet Metformin HCl [Metformin HCl ER] 500 mg PO DAILY #30 [id number] Rivaroxaban [Xarelto] 20 mg PO DAILY@1700 #30 tablet Metoprolol Tartrate [Lopressor (beta boogie)] 50 mg PO BID #60 tablet Primary Care Physician: Trent Cortes DO [Primary Care Provider] - Please follow up with your Primary Care Physician in: 1 Week Please Follow Up With: Pieter Shi MD - May see HIGHWAY CONSTRUCTION INSPECTOR/PA When: 1 Week Disposition: Home Minutes spent on discharge:: 35 Patient Condition:: Stable Medical Necessity - Tobacco Use Smoking Status: Former smoker Tobacco Use: Secondhand, Cigarettes Meaningful Use Info Meaningful Use Diagnoses (Choose all that apply): CHF - CHF AMAURY/ARB ordered at discharge?: No Reason AMAURY/ARB not ordered?: Allergy - not indicated, EF 50% Documented LVEF (%): 50 <Alek Knowles - Last Filed: 06/01/18 13:40> Discharge Date and Diagnosis - Secondary Discharge Diagnosis Chronic Problems (Last Reviewed 02/16/18 @ 10:29 by Cassandra Barksdale) History of left heart catheterization (Chronic) 03/31/17- non obstructive coronary disease Dilated cardiomyopathy (Chronic) Hypertension (Chronic) Morbid obesity (Chronic) TYLER (obstructive sleep apnea) (Chronic) use BiPAP DM2 (diabetes mellitus, type 2) (Chronic) Lymphedema (Chronic) Chronic pain syndrome (Chronic) Migraine (Chronic) Osteoarthritis (Chronic) COPD (chronic obstructive pulmonary disease) (Chronic) Hospital Course and Treatment Summary of Care Provided: The patient is a 68 year old M [] - Physical Exam Vital Signs Temp Pulse Resp BP Pulse Ox 97.9 F 112 H 20 H 122/97 H 93 06/01/18 09:44 06/01/18 11:49 06/01/18 09:44 06/01/18 09:49 06/01/18 11:45 Oxygen Flow Rate (L/min) 2 Oxygen Delivery Method Room Air Weight: 315 lb 0.649 oz Body Mass Index (BMI) 49.8 Intake and Output for Last 24 Hours Intake Total 675 / 675 690 / 690 340 / 340 Output Total 525 / 525 575 / 575 Balance 150 / 150 115 / 115 340 / 340 Laboratory Tests Past 24 Hrs Sodium 146 H Potassium 3.6 Chloride 108 H Carbon Dioxide 28.0 POC Glucose POC Glucose 127 H 134 H 153 H POC Glucose 142 H Code Visit Addendum: Dr. Knowles I personally examined the patient and reviewed the chart. I agree with the above. 68-year-old male with a past medical history of hypertension, morbid obesity, TYLER, diabetes type 2, COPD, dilated cardiomyopathy presenting with shortness of breath. He had been having the shortness of breath for about 2 days prior to presentation and then on admission disclosed that he had also been feeling like he had had palpitations for about a week prior. He did not have any dizziness or lightheadedness, but has noticed a mild increase in his swelling. Of note he did have a cardiac catheterization last year due to complaints of chest pain and an indeterminant nuclear stress test, this catheterization showed nonocclusive coronary artery disease with a normal EF and diastolic dysfunction. During this admission he was found to be in A. fib which is likely paroxysmal, and he had an echo which showed a normal left ventricular size and an EF of 50%. He felt much better today with his A. fib under control and was discharged home on Lipitor, metformin, Xarelto, and metoprolol twice daily. He is to follow-up with his PCP within 1 week and he will also follow-up with cardiology in a week as well. Inpatient E AND M: [id number] Disch Hosp 06/01/18 1218 <Electronically signed by Cassandra FERNANDEZC> Date Cassandra Rey HIGHWAY CONSTRUCTION INSPECTOR-C 06/01/18 1341<Electronically signed by Alek Knowles MD> Cosigner Signature (if applicable): Date Alek Knowles MD CC: HIGHWAY CONSTRUCTION INSPECTOR-Trent eRy; DO Trent Cortes; Alek Knowles MD Signed DISCHARGE INSTRUCTION Observed: 06/01/2018 Status: F Source: [place] 12:10 PM [facility] REPOSITORY [facility] Medical Records Department [address] [place] [address] Instructions for Home/Discharge Instructions 06/01/18 1206 MR#: [id number] Acct: [id number] Name: YAHIR GARCIA Rep #: [id number] : 1950 68 From: Cassandra Rey [facility]IGHW[address] CONSTRUCTION INSPECTOR-C PCP: Trent Cortes DO Status: ADM IN You will use the following diet at home:: Calorie/Carbohydrate Controlled (specify 1200, 1400, etc), Cardiac Discharge Activity: Return to Normal Activity Call your doctor if you observe: Shortness of breath, Dizziness, Fainting spells, Chest pain Allergies/Adverse Reactions: Allergies No Known Allergies Allergy (Verified 03/28/17 12:25) Medications to take at Discharge Calcitriol [Rocaltrol] 0.25 mcg PO SUTUTHSA 03/28/17 Calcitriol [Rocaltrol] 0.5 mcg PO MOWEFR 03/28/17 Duloxetine HCl 60 mg PO BID 03/28/17 Ergocalciferol [Vitamin D] 1 cap PO X1 03/28/17 Esomeprazole Magnesium 40 mg PO DAILY 03/28/17 Fluticasone/Salmeterol [Advair Hfa 45-21 Mcg Inhaler] 2 puff INHALATION BID 03/28/17 Furosemide 40 mg PO BID 03/28/17 Hydrocodone Bitart/Apap 5-325 [Braxton 5/325] 1 tab PO Q6H PRN PRN 03/28/17 Lorazepam [Ativan] 1 mg PO BID 03/28/17 Sumatriptan Succinate 100 mg PO DAILY PRN PRN 03/28/17 Topiramate [Topamax] 100 mg PO BID 03/28/17 Aspirin E.C. [Ecotrin] 81 mg PO DAILY@0800 #60 tab 03/31/17 cyanocobalamin (vit B-12) 2,500 mcg sublingual tablet 2,500 mcg SUBLINGUAL QDAY 06/13/17 albuterol sulfate HFA 90 mcg/actuation aerosol inhaler 2 puff INHALATION .as needed g 07/22/17 levetiracetam 500 mg tablet 500 mg PO BID PRN tab 10/20/17 Cetirizine HCl [Zyrtec] 10 mg PO DAILY 05/29/18 Cholecalciferol (VIT D3) [Vitamin D3] 1,000 unit PO DAILY 05/29/18 Cyclobenzaprine HCl 10 mg PO TID 05/29/18 Ferrous Sulfate [Iron] 325 mg PO DAILY 05/29/18 Fluoxetine HCl 40 mg PO QHS 05/29/18 Multivits,Ca,Min/Iron/FA/Lycop [Centrum Ultra Men's Tablet] 1 tab PO DAILY 05/29/18 Potassium Chloride 20 meq PO TID 05/29/18 Atorvastatin Calcium [Lipitor] 20 mg PO QHS #30 tablet 06/01/18 Metformin HCl [Metformin HCl ER] 500 mg PO DAILY #30 [id number] 06/01/18 Metoprolol Tartrate [Lopressor (beta boogie)] 50 mg PO BID #60 tablet 06/01/18 Rivaroxaban [Xarelto] 20 mg PO DAILY@1700 #30 tablet 06/01/18 The following prescriptions were given: Atorvastatin Calcium [Lipitor] 20 mg PO QHS #30 tablet Metformin HCl [Metformin HCl ER] 500 mg PO DAILY #30 [id number] Rivaroxaban [Xarelto] 20 mg PO DAILY@1700 #30 tablet Metoprolol Tartrate [Lopressor (beta boogie)] 50 mg PO BID #60 tablet Primary Care Physician: Trent Cortes DO [Primary Care Provider] - Please follow up with your Primary Care Physician in: 1 Week Test Results: Test results from this visit will be discussed in further detail at your follow-up appointment, if applicable. Please Follow Up With: Pieter Shi MD - May see HIGHWAY CONSTRUCTION INSPECTOR/PA When: 1 Week Proposed Discharge Date: 06/01/18 06/01/18 1210 <Electronically signed by Cassandra HOOVER> Date Cassandra HOOVER CC: DO Trent Cortes BEDSIDE GLUCOSE Collected: 06/01/2018 Status: F Source: [place] 11:09 AM [facility] REPOSITORY TYPE CODE TESTS RESULT OUT OF REFERENCE UNITS RANGE LAB L501.080 70-110 mg/dL High BEDSIDE GLU 127 Result Comment: MANAGEMENT OF PATIENT CARE PER NURSING PROTOCOL Performed By: #### L501.080 #### [facility] Point of Care [address] [place] [address] EMERGENCY DEPARTMENT Observed: 06/01/2018 Status: F Source: [place] SUMMARY 7:05 AM [facility] REPOSITORY [facility] Medical Records Department [address] [place] [address] Emergency Department Summary 05/29/18 1319 MR#: [id number] Acct: [id number] Name: YAHIR GARCIA Rep #: [id number] : 1950 68 From: Alek Benavidez MD PCP: Trent Cortes DO Status: ADM IN - ER Visit Summary Date of Service: 05/29/18 Chief Complaint: [] Short of breath History of Present Illness: The patient is a 68 M presents by EMS with shortness of breath for the last 4 days gradual onset continuous. He has orthopnea and paroxysmal nocturnal dyspnea. Current severity is mild. He is feeling better after paramedics gave him oxygen. He doubled up on his Lasix. He was 89% on room air. He has been off his Diovan for hypertension. He has not been wearing his CPAP because it is smothering him at night. He does have a history of dilated cardiomyopathy. His last echocardiogram was last year showed a EF of 50-to 55%. He has a history of nonobstructive coronary artery disease via heart cath last year. He is never had an irregular heartbeat Physical Examination: [] Vital signs reviewed General: Well-nourished well-developed Head: Normocephalic atraumatic Eyes: Pupils equal round and reactive to light extraocular movements intact ENT: TMs clear no hemotympanum no trauma Neck: Nontender full range of motion Cardiovascular: Regular rate and rhythm no murmurs normal S1-S2 Respiratory: Aching in full sentences. Feels better with oxygen. Mild rales in the bases chest nontender Abdomen: Soft nontender nondistended normal bowel sounds no masses Back: Nontender no CVA tenderness Extremities: Nontender active range of motion 4 extremities no trauma Skin: Normal color no trauma Neuro alert oriented cranial nerves II through XII intact normal strength sensation reflexes Test Results: [] Emergency Department Course and Treatment: [] EKG shows atrial fibrillation and a right bundle branch block at a rate of 134. No STEMI. IV established patient given nasal cannula oxygen. Given a dose of Cardizem and Lasix. Lab work obtained as well as chest x-ray he has mild heart failure on chest x-ray. CBC normal. Chemistry shows glucose 172. INR 1.1. Troponin 0.05 indeterminate. Given Cardizem which brought his heart rate down in the low 100s. Will be admitted for further evaluation and treatment. I do not think is having an NM. He likely has mild troponin leak from his right related cardiac strain. Treatment Plan: [] Disposition: [] Impression: [] Atrial fibrillation with rapid ventricular response Mild CHF secondary to #1 Indeterminate troponin secondary to #1 Total care time 74 minutes This note was generated with [employer] software. It may contain incorrect words, spelling, and punctuation that were not noted in review of the chart prior to signing ED Disposition - Plan for ED Patient: Chief Complaint: Shortness of Breath Referrals: Trent Cortes, [Primary Care Provider] - What to do if you have Problems For any increased pain, shortness of breath, bleeding, nausea or vomiting, chest pain, or any unexpected problems, contact your Primary Care Provider. Call [facility] ([phone]) or report to the closest Emergency Room. Call 911 if necessary. 06/01/18 0705 <Electronically signed by Alek Benavidez MD> Date Alek Benavidez MD Cosigner Signature (If Indicated): Date CC: DO Trent Cortes BEDSIDE GLUCOSE Collected: 06/01/2018 Status: F Source: KE 6:50 AM [facility] REPOSITORY TYPE CODE TESTS RESULT OUT OF REFERENCE UNITS RANGE LAB L501.080 70-110 mg/dL High BEDSIDE GLU 134 Result Comment: MANAGEMENT OF PATIENT CARE PER NURSING PROTOCOL Performed By: #### L501.080 #### [facility] Laboratory Point of Care [address] [place], [place] [address] BASIC METABOLIC Collected: 06/01/2018 Status: F Source: KE PROFILE (BMP) 6:15 AM [facility] REPOSITORY TYPE CODE TESTS RESULT OUT OF RANGE REFERENCE UNITS LAB L501.0100 74-106 mg/dL High GLU 139 Result Comment: Fasting Glucose result greater than or equal to 126 mg/dL suggests DIABETES MELLITUS per A.D.A. criteria. Please note revised GLUCOSE reference range effective 2017. LAB L501.1000 7-18 mg/dL High BUN 33 LAB L501.1100 0.70-1.30 mg/dL Normal CREAT,SERUM 1.20 Result Comment: The validity of the calculated GFR AND GFRAA in patients over 70 years has not been determined. Clinical correlation is essential. LAB L501.1110 >60 mL/min Normal EST GFR 64 Result Comment: Non- GFR Calc LAB L501.1115 >60 mL/min Normal EST GFR - AA 77 Result Comment: GFR Calc LAB L501.1255 ml/min Normal Estimated CRCL 55.08 LAB L501.1300 10-20 RATIO High BUN/CRE 27.5 LAB L501.2200 8.5-10 mg/dL Normal .1 CA 9.0 LAB L501.5300 136-14 mmol/L High 5 NA 146 LAB L501.5600 3.5-5. mmol/L Normal 1 K 3.6 LAB L501.5900 98-107 mmol/L High CL 108 LAB L501.6100 21.0-3 mmol/L Normal 2.0 CO2 28.0 LAB L501.6200 5-15 Normal GAP 10 Performed By: #### L500.2500 #### [place] [facility] [address] [place], [place], [address] BEDSIDE GLUCOSE Collected: 05/31/2018 Status: F Source: KE 9:21 PM [facility] REPOSITORY TYPE CODE TESTS RESULT OUT OF REFERENCE UNITS RANGE LAB L501.080 70-110 mg/dL High BEDSIDE GLU 153 Result Comment: MANAGEMENT OF PATIENT CARE PER NURSING PROTOCOL Performed By: #### L501.080 #### [facility] Point of Care [address] [place] [address] BEDSIDE GLUCOSE Collected: 05/31/2018 Status: F Source: KE 4:39 PM [facility] REPOSITORY TYPE CODE TESTS RESULT OUT OF REFERENCE UNITS RANGE LAB L501.080 70-110 mg/dL High BEDSIDE GLU 142 Result Comment: MANAGEMENT OF PATIENT CARE PER NURSING PROTOCOL Performed By: #### L501.080 #### [facility] Point of Care [address] [place] [address] BEDSIDE GLUCOSE Collected: 05/31/2018 Status: F Source: KE 11:53 AM [facility] REPOSITORY TYPE CODE TESTS RESULT OUT OF REFERENCE UNITS RANGE LAB L501.080 70-110 mg/dL High BEDSIDE GLU 128 Result Comment: MANAGEMENT OF PATIENT CARE PER NURSING PROTOCOL Performed By: #### L501.080 #### [facility] Point of Care [address] [place] [address] BEDSIDE GLUCOSE Collected: 05/31/2018 Status: F Source: KE 6:49 AM [facility] REPOSITORY TYPE CODE TESTS RESULT OUT OF REFERENCE UNITS RANGE LAB L501.080 70-110 mg/dL High BEDSIDE GLU 148 Result Comment: MANAGEMENT OF PATIENT CARE PER NURSING PROTOCOL Performed By: #### L501.080 #### [facility] Point of Care [address] [place] [address] BASIC METABOLIC Collected: 05/31/2018 Status: F Source: KE PROFILE (BMP) 5:10 AM [facility] REPOSITORY TYPE CODE TESTS RESULT OUT OF RANGE REFERENCE UNITS LAB L501.0100 74-106 mg/dL High GLU 157 Result Comment: Fasting Glucose result greater than or equal to 126 mg/dL suggests DIABETES MELLITUS per A.D.A. criteria. Please note revised GLUCOSE reference range effective 2017. LAB L501.1000 7-18 mg/dL High BUN 29 LAB L501.1100 0.70-1.30 mg/dL Normal CREAT,SERUM 1.27 Result Comment: The validity of the calculated GFR AND GFRAA in patients over 70 years has not been determined. Clinical correlation is essential. LAB L501.1110 >60 mL/min Normal EST GFR 60 Result Comment: Non- GFR Calc LAB L501.1115 >60 mL/min Normal EST GFR - AA 73 Result Comment: GFR Calc LAB L501.1255 ml/min Normal Estimated CRCL 52.05 LAB L501.1300 10-20 RATIO High BUN/CRE 22.8 LAB L501.2200 8.5-10 mg/dL Normal .1 CA 9.3 LAB L501.5300 136-14 mmol/L Normal 5 NA 142 LAB L501.5600 3.5-5. mmol/L Normal 1 K 3.6 LAB L501.5900 98-107 mmol/L Normal CL 105 LAB L501.6100 21.0-3 mmol/L Normal 2.0 CO2 27.0 LAB L501.6200 5-15 Normal GAP 10 Performed By: #### L500.2500 #### [facility] [address] [facility] [place], [address] BEDSIDE GLUCOSE Collected: 05/30/2018 Status: F Source: KE 10:35 PM [facility] REPOSITORY TYPE CODE TESTS RESULT OUT OF REFERENCE UNITS RANGE LAB L501.080 70-110 mg/dL High BEDSIDE GLU 150 Result Comment: MANAGEMENT OF PATIENT CARE PER NURSING PROTOCOL Performed By: #### L501.080 #### [facility] Point of Care [address] [place] [address] BEDSIDE GLUCOSE Collected: 05/30/2018 Status: F Source: KE 3:52 PM [facility] REPOSITORY TYPE CODE TESTS RESULT OUT OF REFERENCE UNITS RANGE LAB L501.080 70-110 mg/dL High BEDSIDE GLU 160 Result Comment: MANAGEMENT OF PATIENT CARE PER NURSING PROTOCOL Performed By: #### L501.080 #### [facility] Point of Care [address] [place] [address] ECHO, COMPLETE W/ Observed: 05/30/2018 Status: F Source: KE CONTRAST 11:41 AM [facility] REPOSITORY [facility] Cardiovascular Services [address] [facility] [place] [address] Echo Complete W/ Contrast 05/30/18 0856 MR#: [id number] Acct: [id number] Name: YAHIR GARCIA Rep #: [id number] : 1950 68 From: Pieter Shi MD Attending Dr: Deysi Barrios MD Status: ADM IN Ordering Dr: Gustavo Posadas DO Date: 05/30/18 Location: [facility] Sex: M C Admitted: 05/29/18 Reason For Study: Afib/Flutter Procedure This was a 2D Doppler, Color Flow transthoracic echocardiogram. The study was technically difficult. Exam performed portable in patient room. Left Ventricle Normal LV size. Mild concentric left ventricular hypertrophy. The estimated ejection fraction is 50 %. No regional wall motion abnormalities noted. Atria The left atrium is mildly enlarged. Normal right atrium. Mitral Valve Normal mitral valve. Tricuspid Valve Normal tricuspid valve. Aortic Valve The aortic valve is not well visualized. Great Vessels Normal aortic root. The pulmonary artery is normal size. Normal inferior vena cava. Pericardium/Pleural No pericardial effusion. Medication Diluted definity 4ml given slow IV push to enhance endocardial definition. MMode/2D Measurements AND Calculations LVIDd: 5.5 cm IVSd: 1.2 cm LAV(MOD-sp4): 85.3 ml LVIDs: 3.8 cm LVPWd: 1.3 cm FS: 30.5 % LA A4 area: 25.3 cm2 Time Measurements MV dec time: 0.15 sec Doppler Measurements AND Calculations MV E max kaylen: 140.7 cm/sec Ao V2 max: 121.3 cm/sec LV V1 max: 85.0 cm/sec Ao max P.0 mmHg LV V1 max P.0 mmHg MR max kaylen: 472.8 cm/sec PA V2 max: 92.0 cm/sec TR max akylen: 286.2 cm/sec MR max P.4 mmHg TR max P.8 mmHg Interpretation Summary Normal LV size. Mild concentric left ventricular hypertrophy. The estimated ejection fraction is 50 %. The study was technically difficult. The study was technically limited. Contrast injection was performed. Ordering Physician: Gustavo Posadas Referring Physician: Gustavo Posadas Performed By: Liam Palma RCS 05/30/18 1141 Date Pieter Shi MD CC: DO Trent Cortes; Gustavo Posadas DO; Deysi Barrios MD Date Dictated: 05/30/18 0856 Date Transcribed: 05/30/18 1141 Olive Grader: Signed BASIC METABOLIC Collected: 05/30/2018 Status: F Source: [place] PROFILE (BMP) 5:40 AM [facility] REPOSITORY TYPE CODE TESTS RESULT OUT OF RANGE REFERENCE UNITS LAB L501.0100 74-106 mg/dL High GLU 154 Result Comment: Fasting Glucose result greater than or equal to 126 mg/dL suggests DIABETES MELLITUS per A.D.A. criteria. Please note revised GLUCOSE reference range effective 2017. LAB L501.1000 7-18 mg/dL High BUN 23 LAB L501.1100 0.70-1.30 mg/dL Normal CREAT,SERUM 1.30 Result Comment: The validity of the calculated GFR AND GFRAA in patients over 70 years has not been determined. Clinical correlation is essential. LAB L501.1110 >60 mL/min Low EST GFR 58 Result Comment: Non- GFR Calc LAB L501.1115 >60 mL/min Normal EST GFR - AA 71 Result Comment: GFR Calc LAB L501.1255 ml/min Normal Estimated CRCL 49.08 LAB L501.1300 10-20 RATIO Normal BUN/CRE 17.7 LAB L501.2200 8.5-10 mg/dL Normal .1 CA 8.9 LAB L501.5300 136-14 mmol/L Normal 5 NA 140 LAB L501.5600 3.5-5. mmol/L Normal 1 K 3.6 LAB L501.5900 98-107 mmol/L Normal CL 102 LAB L501.6100 21.0-3 mmol/L Normal 2.0 CO2 27.0 LAB L501.6200 5-15 Normal GAP 11 Performed By: #### L500.2500, L500.4100 #### [facility] [address] [place], [place], [id number] LIPID PROFILE Collected: 05/30/2018 Status: F Source: [place] 5:40 AM [facility] REPOSITORY TYPE CODE TESTS RESULT OUT OF RANGE REFERENCE UNITS LAB L501.4900 200 mg/dL Normal CHOL 106 Result Comment: <200 mg/dL Desirable 200-240 mg/dL Borderline >240 mg/dL High Risk LAB L501.5000 mg/dL Normal TRIG 123 Result Comment: The drugs N-Acetylcysteine and Metamizole may falsely depress this assay. Serum Triglycerides Reference Interval Normal <150 mg/dL Borderline high 150 - 199 mg/dL High 200 - 499 mg/dL Very High > or = 500 mg/dL LAB L501.6400 mg/dL Normal HDL 45 Result Comment: The drugs N-Acetylcysteine and Metamizole may falsely depress this assay. Reference Range HDL <40 mg/dL Low HDL Cholesterol HDL >or= 60 mg/dL High HDL Cholesterol LAB L501.6500 0-130 mg/dL Normal LDL 36 LAB L501.6600 5-40 mg/dL Normal VLDL 25 Performed By: #### L500.2500, L500.4100 #### [facility] [address] [place], [address] THYROID STIM HORMONE Collected: 05/30/2018 Status: F Source: [place] ([place]) 5:40 AM [facility] REPOSITORY Order Comment: Comments: can be an add on to AM labs TYPE CODE TESTS RESULT OUT OF RANGE REFERENCE UNITS LAB L501.9520 0.358-3.74 uIU/mL Normal TSH 2.01 Performed By: #### L501.9520 #### [facility] [address] [place], [address] MAGNESIUM Collected: 05/30/2018 Status: F Source: [place] 5:40 AM [facility] REPOSITORY Order Comment: Comments: please add to this morning labs TYPE CODE TESTS RESULT OUT OF RANGE REFERENCE UNITS LAB L501.5200 1.6-2.6 mg/dL Normal MG 2.3 Performed By: #### L501.5200 #### [facility] [address] [place], [address] CHEST PA AND LATERAL Observed: 05/30/2018 Status: F Source: KE 12:00 AM [facility] REPOSITORY [facility] Imaging Services [address] [place] [address] Chest PA and Lateral MR#: [id number] Acct: [id number] Name: YAHIR GARCIA Rep #: [id number] : 1950 M 68 From: Cynthia Pruitt MD PCP: Trent Cortes DO Status: ADM IN Study: Chest PA and Lateral Date of Exam: 05/30/18 Exam# [id number] Ordering Dr: Gustavo Posadas DO STUDY: X-RAY CHEST REASON FOR EXAM: Male, 68 years old. Congestive heart failure TECHNIQUE: PA and lateral views of the chest. COMPARISON: May 29, 2018 chest x-ray FINDINGS: There is a pattern of peribronchial thickening and increased interstitial markings. There is persistent slight elevation of the right hemidiaphragm compared to the left. There is trace blunting of the costophrenic angles. There is moderate to severe cardiac enlargement. Normal mediastinum and lyndsey. Normal visualized pulmonary arteries. There is atherosclerotic tortuosity of the aortic arch and descending thoracic aorta. There are diffuse degenerative changes of the visualized thoracic spine. There is a left shoulder arthroplasty. There is no demonstrated abnormality of the visualized soft tissue structures of the upper abdomen. RAD/Chest PA and Lateral IMPRESSION: Cardiomegaly findings are suspicious for vascular congestion. Trace effusions. Consider CHF. Electronically Signed: Cynthia Pruitt MD at 10:21 EST Tel , Service support , CC: DO Trent Cortes; Gustavo Posadas DO Olive Grader: Signed HISTORY AND PHYSICAL Observed: 05/29/2018 Status: F Source: [place] EXAM 7:03 PM [facility] REPOSITORY [facility] Medical Records Department [address] [place] [id number] History and Physical 05/29/18 1430 MR#: [id number] Acct: [id number] Name: YAHIR GARCIA Rep #: [id number] : 1950 68 From: Cassandra Rey [employer] PCP: Trent Cortes DO Status: ADM IN Y Location: [place] [address] ADDENDUM by Gustavo Posadas DO on 05/29/18 at 1903 Code Visit Patient was seen and examined independently of Cassandra Rey today, he was seen in the emergency room with complaints of increased shortness of breath over the last several days and palpitations which his states he complained of starting last Friday. Patient underwent a cardiac catheterization last year due to complaints of chest pain and an intermediate nuclear stress test, this catheterization showed nonocclusive coronary artery disease with a normal EF and also diastolic dysfunction. Patient's chronic medical problems include obstructive sleep apnea for which he uses BiPAP, dilated cardiomyopathy, hypertension, depression, chronic migraines, and lymphedema. Patient is also morbidly obese. Evaluation in the emergency room showed the patient to be in atrial fibrillation with a rapid ventricular response, chest x-ray was obtained which showed evidence of congestive heart failure, EKG showed a right bundle branch block pattern without evidence of ischemic changes. Patient was given IV Cardizem x2 with the slowing of his heart rate. Patient was also given IV Lasix which he states helped his breathing. Pulse ox on 2 L was 95%. Troponin was 0.05, beta natruretic peptide was 103. Physical exam: On examination he appeared in good health and spirits. Vital signs as documented. Skin warm and dry and without overt rashes. Neck without JVD. Lungs clear. Heart exam notable for irregular rhythm and absence of murmurs or rubs. Abdomen unremarkable and without evidence of organomegaly, patient is morbidly obese, no masses, or abdominal aortic enlargement was noted. Extremities-generalized lower extremity edema was noted to be present. Neuro: Cranial nerves II through XII are grossly intact, no focal motor deficits were noted, sensation was intact to pinprick and light touch. Psych: Patient is alert and oriented x3, he is appropriate, he does not appear anxious or depressed. Patient will be admitted to PCU for acute diastolic CHF and atrial fibrillation with rapid ventricular response, patient will be placed on a beta-boogie and IV Lasix, a repeat echocardiogram will be obtained tomorrow. Patient will need to follow-up with Dr. Austin when he is discharged from the hospital-Dr. Austin performed his last cardiac catheterization last year. Inpatient E AND M: [id number] Init Hosp L3 05/29/181902 <Electronically signed by Gustavo Posadas DO> Date Gustavo Posadas DO cc: KIKO Rey; DO Trent Cortes; Gustavo Posadas DO * Signed Problem List (1) History of neck surgery Status: Resolved (2) History of arthroscopy of right knee Status: Resolved (3) History of right shoulder replacement Status: Resolved (4) History of shoulder surgery Status: Resolved (5) History of gastric bypass Status: Resolved (6) History of cholecystectomy Status: Resolved (7) History of appendectomy Status: Resolved (8) Hyperlipidemia Status: Acute (9) History of left heart catheterization Status: Chronic Comment: 03/31/17- non obstructive coronary disease (10) Dilated cardiomyopathy Status: Chronic (11) Hypertension Status: Chronic (12) Morbid obesity Status: Chronic (13) TYLER (obstructive sleep apnea) Status: Chronic Comment: use BiPAP (14) DM2 (diabetes mellitus, type 2) Status: Chronic Qualifiers: (15) Lymphedema Status: Chronic (16) Chronic pain syndrome Status: Chronic (17) Migraine Status: Chronic (18) Osteoarthritis Status: Chronic (19) COPD (chronic obstructive pulmonary disease) Status: Chronic History of Present Illness Date of Admission: 05/29/18 Chief Complaint: Shortness of breath The patient is a 68 year old M who presents emergency room due to shortness of breath which has been ongoing for 2 days. Patient reports shortness of breath is worse while lying flat. He denies chest pain. Patient reports he has felt heart palpitations for approximately 1 week. He denies dizziness, lightheadedness. He denies known weight gain. Patient has chronic lymphedema and reports mild increase in swelling. Patient denies history of atrial fibrillation. He had a cardiac catheterization in March 2017 which showed nonobstructive coronary arteries. He reports he was recently taken off of Diovan by his primary care physician due to his blood pressure being well controlled. Patient's past medical history includes hypertension, hyperlipidemia, type 2 diabetes mellitus, chronic lymphedema, COPD, chronic pain syndrome, obstructive sleep apnea on BiPAP, dilated cardiomyopathy, depression, anxiety, morbid obesity, chronic migraines. Past Medical History Past Medical History (Chronic Problems): Chronic Problems (Last Reviewed 02/16/18 @ 10:29 by Cassandra Barksdale) History of left heart catheterization (Chronic) 03/31/17- non obstructive coronary disease Dilated cardiomyopathy (Chronic) Hypertension (Chronic) Morbid obesity (Chronic) TYLER (obstructive sleep apnea) (Chronic) use BiPAP DM2 (diabetes mellitus, type 2) (Chronic) Lymphedema (Chronic) Chronic pain syndrome (Chronic) Migraine (Chronic) Osteoarthritis (Chronic) COPD (chronic obstructive pulmonary disease) (Chronic) Medical History: Medical History (Last Reviewed 02/16/18 @ 10:29 by Cassandra Barksdale) History of left heart catheterization (Chronic) Z98.890 03/31/17- non obstructive coronary disease Dilated cardiomyopathy (Chronic) I42.0 Shortness of breath (Chronic) R06.02 Hypertension (Chronic) I10 Chest pain (Chronic) R07.9 Morbid obesity (Chronic) E66.01 TYLER (obstructive sleep apnea) (Chronic) G47.33 use BiPAP DM2 (diabetes mellitus, type 2) (Chronic) E11.9 Lymphedema (Chronic) I89.0 Chronic pain syndrome (Chronic) G89.4 Migraine (Chronic) G43.909 Osteoarthritis (Chronic) M19.90 COPD (chronic obstructive pulmonary disease) (Chronic) J44.9 Cardiomyopathy (Acute) I42.9 Dyspnea (Acute) R06.00 Abnormal EKG (Acute) R94.31 Allergies No Known Allergies Allergy (Verified 03/28/17 12:25) Home Medications: Ambulatory Orders Medication Instructions Recorded Calcitriol [Rocaltrol] 0.25 mcg PO SUTUTHSA 03/28/17 Surgical History: Surgical History (Last Reviewed 02/16/18 @ 10:29 by Cassandra Barksdale) History of neck surgery (Resolved) Z98.890 History of arthroscopy of right knee (Resolved) Z98.890 History of right shoulder replacement (Resolved) Z96.611 History of shoulder surgery (Resolved) Z98.890 History of gastric bypass (Resolved) Z98.890 History of cholecystectomy (Resolved) Z90.49 History of appendectomy (Resolved) Z90.49 Surgical History: - - Bilateral shoulder replacement, gastric bypass, appendectomy, cholecystectomy, right knee arthroscopy, tonsillectomy, sinus surgery. Psychiatric History: No pertinent psych hx Lives: Spouse/ Significant Other Smoking Status: Former smoker Alcohol: None Drugs: None - *Family History Maternal Family History: Family History (Last Reviewed 02/16/18 @ 10:29 by Cassandra Barksdale) Mother CAD (coronary artery disease) History Items: Heart Disease Paternal Family History: Family History (Last Reviewed 02/16/18 @ 10:29 by Cassandra Barksdale) Mother CAD (coronary artery disease) History Items: - - Lung cancer Review of Systems Constitutional: Denies: Chills, Fever, Weight Change HEENT: Denies: Head Aches, Sinus Congestion, Sinus Drainage Cardiovascular: Reports: Edema - Lower extremity, Palpitations. Denies: Chest Pain, Chest Pressure, Light Headedness, Syncope Respiratory: Reports: Shortness of Breath. Denies: Cough, Sputum production, Wheezing Gastrointestinal: Denies: Abdominal Pain, Nausea, Vomiting Genitourinary: Denies: Dysuria Musculoskeletal: Denies: Joint Pain, Joint Tenderness Skin: Denies: Rash, Wounds Neurological: Denies: Numbness, Tingling, Focal weakness Psychiatric: Denies: Anxiety, Depression, Homicidal Ideations, Suicidal Ideations Hematologic/ Lymphatic: Denies: Easy Bruising, Easy Bleeding VTE Information - Inpt Only VTE Present on Admission: No VTE Mechan Device Prophylaxis: None VTE Pharm Prophylaxis ordered?: Yes - Physical Exam General: Alert, Oriented x3, Cooperative, - - Mildly dyspneic during conversation. HEENT: Atraumatic, PERRLA, EOMI, Normocephalic Oral: Dry Mucosa Neck: Supple, No JVD, Negative Carotid Bruits Lungs: Diminished, Rales Cardiovascular: No murmurs, Tachycardic, - - Atrial fibrillation Abdomen: Bowel Sounds Present, Soft, Non Tender, Non-Distended, Obese Extremities: No clubbing, No cyanosis, Edema - Bilateral lower extremity lymphedema Skin: No rashes, No breakdown, - - Varicosities bilateral lower extremities Musculoskeletal: No Tenderness to Palpation of Joints or Extremities Neurological: Cranial nerves II-XII grossly intact, Neuro grossly intact Psych/Mental Status: Normal Affect, Appropriate Vital Signs Temp Pulse Resp BP Pulse Ox 97.7 F L 121 H 19 H 162/106 H 94 05/29/18 12:59 05/29/18 14:00 05/29/18 14:00 05/29/18 14:00 05/29/18 14:00 Oxygen Flow Rate (L/min) 2 Oxygen Delivery Method Nasal Cannula Weight: 323 lb 10.217 oz Body Mass Index (BMI) 50.6 Laboratory Tests Past 24 Hrs WBC RBC Hgb Hct MCV MCH MCHC RDW RDW Differential Plt Count MPV Immature Gran % (Auto) Neut % (Auto) Lymph % (Auto) Assessment/Plan All Active Problems (Last Reviewed 02/16/18 @ 10:29 by Cassandra Barksdale) History of neck surgery (Resolved) History of arthroscopy of right knee (Resolved) History of right shoulder replacement (Resolved) History of shoulder surgery (Resolved) History of gastric bypass (Resolved) History of cholecystectomy (Resolved) History of appendectomy (Resolved) Hyperlipidemia (Acute) 1. New onset atrial fibrillation with RVR-rate 140-150 on admission. Improved following Cardizem bolus x2 in ER. Begin PO beta boogie. Begin Xarelto given [id number] score 4. Check TSH, mag. Obtain echo. 2. Acute on chronic diastolic CHF, secondary to #1-echocardiogram March 2017 with EF 50-55%, stage I diastolic dysfunction, RVSP estimated to be 25 mmHg. Chest x-ray on admission consistent with CHF. BNP mildly elevated. IV Lasix. Strict I AND O. Daily weight. Repeat echocardiogram. Amaury wrap bilateral lower extremities. Repeat CXR in a.m. 3. Acute hypoxic respiratory insufficiency, secondary to #1/#2-continue supplement oxygen to maintain O2 sat above 90%. Walking pulse ox prior to discharge. 4. Indeterminate troponin-suspect secondary to #1. Patient denies chest pain. Cardiac catheterization March 2017 with nonobstructive coronary arteries. 5. History of dilated cardiomyopathy with EF 23%, follow-up echocardiogram 03/23 with EF 55%. 6. Nonobstructive CAD-cardiac catheterization March 2017 with proximal RCA 30% stenosis, mid RCA 30% stenosis. Patient was discharged with aspirin, statin at that time which it does not appear he is taking any longer. 7. Hypertension-recently taken off of Diovan by primary care physician. Patient reports this was due to controlled blood pressure. DC Aldactone. Started on beta-boogie. May need additional agent, continue to monitor. 8. Hyperlipidemia-not on statin. Check lipid panel. 9. Type 2 diabetes mellitus-not on home regimen. Check hemoglobin A1c. Accu-Cheks before meals at bedtime with sliding scale insulin. 10. Chronic lymphedema-Amaury wraps bilateral lower extremities. 11. Chronic COPD/Asthma-no acute exacerbation. Albuterol aerosol as needed. 12. Chronic pain syndrome-follows with Dr. Hoffmann. Continue home as needed Braxton regimen. 13. Chronic migraines-continue Topamax regimen. Uses Keppra/sumatriptan as needed. 14. Obstructive sleep apnea-continue BiPAP nightly. 15. Depression/anxiety-patient on both fluoxetine and duloxetine? 16. Morbid obesity-encouraged diet and lifestyle modifications. DVT prophylaxis-Xarelto This patient was seen by KIKO Wolf under the supervision of Dr. Posadas. 05/29/18 1510 <Electronically signed by Cassandra HOOVER> Date Cassandra Rey HIGHWAY CONSTRUCTION INSPECTOR-C 05/29/18 1842<Electronically signed by Gustavo Posadas DO> Cosigner Signature: Date (if applicable) Gustavo Posadas DO CC: HIGHWAY CONSTRUCTION INSPECTOR-C Cassandra Rey; DO Trent Cortes; Gustavo Posadas DO Signed HEMOGLOBIN A1C Collected: 05/29/2018 Status: F Source: KE 4:05 PM [facility] REPOSITORY TYPE CODE TESTS RESULT OUT OF RANGE REFERENCE UNITS LAB L501.9985 4.2-6.3 % High HGB A1C 6.4 Performed By: #### L501.9985 #### [facility] [address] [place], [address] CHEST 1 VIEW Observed: 05/29/2018 Status: F Source: KE (PORTABLE) 1:18 PM [facility] REPOSITORY [facility] Imaging Services [address] [place] [address] Chest 1 View (Portable) MR#: [id number] Acct: [id number] Name: YAHIR GARCIA Rep #: [id number] : 1950 M 68 From: Camilo Khan MD PCP: Trent Cortes DO Status: REG ER Study: Chest 1 View (Portable) Date of Exam: 05/29/18 Exam# [id number] Ordering Dr: Alek Benavidez MD STUDY: X-RAY CHEST REASON FOR EXAM: Male, 68 years old. Shortness of breath. Palpitations. Atrial fibrillation. TECHNIQUE: Single AP portable view of the chest. COMPARISON: Comparison is made with prior study dated March 28, 2017. FINDINGS: There is evidence of basilar congestion and mild CHF with increased markings at the lung bases suggestive of atelectasis. Blunting of both costophrenic angles. There is mild cardiac enlargement. Normal mediastinum and lyndsey. Normal visualized pulmonary arteries. There is atherosclerotic tortuosity of the aortic arch and descending thoracic aorta. Normal visualized thoracic spine. The patient is status post bilateral shoulder replacement. There is no demonstrated abnormality of the visualized soft tissue structures of the upper abdomen. RAD/Chest 1 View (Portable) IMPRESSION: Mild cardiomegaly with mild degree of CHF. Electronically Signed: Camilo Khan MD at 13:43 EST Tel [phone], Service support , CC: DO Trent Cortes; Alek Beanvidez MD Olive Grader: Signed CBC W/DIFF, AUTOMATED Collected: 05/29/2018 Status: F Source: [place] 1:11 PM [facility] REPOSITORY TYPE CODE TESTS RESULT OUT OF RANGE REFERENCE UNITS LAB L100.1000 4.4-11.0 K/mm3 Normal WBC 6.6 LAB L100.1200 4.6-6.2 M/mm3 Low RBC 4.23 LAB L100.1300 13.0-16.5 g/dl Normal HGB 14.0 LAB L100.1400 40-54 % Normal HCT 42.9 LAB L100.1500 80-94 fL High MCV 101.4 LAB L100.1600 27.0-32.0 pg High MCH 33.1 LAB L100.1700 32-36 g/gl Normal MCHC 32.6 LAB L100.1810 11.6-14.6 % Normal RDW CV 13.1 LAB L100.1820 35.1-43.9 fl High RDW SD 47.3 LAB L100.1900 150-450 K/mm3 Normal PLT 185 LAB L100.2000 6.2-12.0 fl Normal MPV 11.1 LAB L100.2100 47-70 % Normal NEUT% 67.9 LAB L100.2200 19-41 % Normal LY% 24.6 LAB L100.2300 0-10 % Normal MONO% 4.7 LAB L100.2400 0-5 % Normal EO% 1.8 LAB L100.2500 0-1 % Normal BASO% 0.5 LAB L100.2550 0.0-0.9 % Normal IM GRAN % 0.500 Result Comment: IG% - Immature Granulocytes (promyelocytes, myelocytes and metamyelocytes) > 1% indicates that a LEFT SHIFT is Present. LAB L100.2620 2.0-7.7 X10 3/uL Normal Absolute Neut 4.5 LAB L100.2720 0.83-4.51 X10 3/ul Normal Absolute Lymph 1.63 Performed By: #### L100.0100 #### [facility] [address] [place], [address] PROTHROMBIN TIME W/INR Collected: 05/29/2018 Status: F Source: [place] 1:11 PM [facility] REPOSITORY TYPE CODE TESTS RESULT OUT OF RANGE REFERENCE UNITS LAB L300.4150 11.7-14.9 SECONDS Normal PROTIME 13.7 LAB L300.4200 Normal INR 1.1 Performed By: #### L300.3900 #### [facility] [address] [place], [address] BASIC METABOLIC Collected: 05/29/2018 Status: F Source: KE PROFILE (BMP) 1:11 PM [facility] REPOSITORY TYPE CODE TESTS RESULT OUT OF RANGE REFERENCE UNITS LAB L501.0100 74-106 mg/dL High GLU 172 Result Comment: Fasting Glucose result greater than or equal to 126 mg/dL suggests DIABETES MELLITUS per A.D.A. criteria. Please note revised GLUCOSE reference range effective 2017. LAB L501.1000 7-18 mg/dL Normal BUN 16 LAB L501.1100 0.70-1.30 mg/dL Normal CREAT,SERUM 1.22 Result Comment: The validity of the calculated GFR AND GFRAA in patients over 70 years has not been determined. Clinical correlation is essential. LAB L501.1110 >60 mL/min Normal EST GFR 63 Result Comment: Non- GFR Calc LAB L501.1115 >60 mL/min Normal EST GFR - AA 76 Result Comment: GFR Calc LAB L501.1255 ml/min Normal Estimated CRCL 54.18 LAB L501.1300 10-20 RATIO Normal BUN/CRE 13.1 LAB L501.2200 8.5-10 mg/dL Normal .1 CA 9.1 LAB L501.5300 136-14 mmol/L Normal 5 NA 141 LAB L501.5600 3.5-5. mmol/L Normal 1 K 3.7 LAB L501.5900 98-107 mmol/L Normal CL 100 LAB L501.6100 21.0-3 mmol/L Normal 2.0 CO2 27.0 LAB L501.6200 5-15 Normal GAP 14 Performed By: #### L500.2500, L501.4010 #### [facility] [address] [place], [address] TROPONIN-I Collected: 05/29/2018 Status: F Source: KE 1:11 PM [facility] REPOSITORY TYPE CODE TESTS RESULT OUT OF RANGE REFERENCE UNITS LAB L501.4010 <0.045 ng/mL High 0.050 TROPONIN-I Result Comment: TROPONIN-I EXPECTED VALUES <0.045 Negative 0.045 - 0.590 Consistent with Cardiac Damage > OR = 0.600 Critical Value Not every elevated troponin is indicative of NM. These values should be used with clinical judgement in examining the patient's clinical picture for diagnosis. To establish a diagnosis of NM versus myocardial injury, there must be a demonstrated rise and/or fall in the troponin values, in addition to ischemic symptoms, EKG changes, new regional wall motion abnormality, and/or angiographical evidence. PLEASE NOTE: REFERENCE RANGES EDITED 17 Performed By: #### L500.2500, L501.4010 #### [facility] [address] [place], [address] BNP,B-TYPE NATRIURETIC Collected: 05/29/2018 Status: F Source: KE PEPTIDE 1:11 PM [facility] REPOSITORY TYPE CODE TESTS RESULT OUT OF RANGE REFERENCE UNITS LAB L503.6620 0-100 pg/mL High B-TYPE 103.0 SKIP PEP Performed By: #### L503.6620 #### [facility] [address] [place], [address] URINE DRUG SCREEN Collected: 02/03/2018 Status: F Source: KE (VISTA) 1:17 PM [facility] REPOSITORY Order Comment: Comments: [id number] URINE DRUG SCREEN RUN LOWEST TEST List of Drugs Taken or Suspected? UNK TYPE CODE TESTS RESULT OUT OF RANGE REFERENCE UNITS LAB L505.0075 TO BE Normal CONFIRMED Result Comment: CONFIRMATORY TESTING FOR ALL POSITIVE URINE DRUG SCREEN RESULTS WILL ONLY BE SENT OUT UPON PHYSICIAN ORDER. VISTA Urine Drug Screen methods provide only preliminary analytical test results. A more specific alternate chemical method must be used in order to obtain a confirmed analytical result. Gas chromatography/mass spectrometery (GC/MS) is the preferred confirmatory method. Clinical consideration and professional judgement should be applied to any drug of abuse test result, particularly when preliminary positive results are used. URINE TCA TESTING MUST BE ORDERED SEPARATELY. USE TEST MNEMONIC: [facility]CA LAB L505.5005 VISTA UDS PH 7 Normal LAB L505.5015 <1000 ng/mL AMPHETAMINES Normal NEGATIVE LAB L505.5025 < 200 ng/mL BARBITIURATES Normal NEGATIVE LAB L505.5035 < 200 ng/mL BENZODIAZIPINE Normal NEGATIVE LAB L505.5045 < 300 ng/mL COCAINE Normal NEGATIVE LAB L505.5055 < 500 ng/mL ECSTACY Normal NEGATIVE LAB L505.5065 < 300 ng/mL METHADONE Normal NEGATIVE LAB L505.5075 < 300 High ng/mL OPIATES POSITIVE LAB L505.5085 < 25 ng/mL PCP Normal NEGATIVE LAB L505.5095 < 50 ng/mL THC Normal NEGATIVE Performed By: #### L505.5000 #### [facility] [place], [address] MISCELLANEOUS LAB Collected: 02/03/2018 Status: F Source: KE PROCEDURE 1:17 PM [facility] REPOSITORY Order Comment: Comments: [id number] URINE DRUG SCREEN RUN LOWEST TEST Test(s) Ordered: [id number] URINE DRUG SCREEN RUN LOWEST TEST TYPE CODE TESTS RESULT OUT OF RANGE REFERENCE UNITS LAB L801.1541 Normal [facility] LAB TEST Result Comment: [id number] 6+OXYCODONE-BUND (ng/mL) DRUG RESULT SCREEN CUTOFF ____ Amphetamines,Urine Negative ng/mL 1000 Amphetamine test includes Amphetamine and Methamphetamine. Barbiturates Negative ng/mL 200 Benzodiazepines Negative ng/mL 200 Cannabinoid Negative ng/mL 20 Cocaine (Metab) Negative ng/mL 300 Opiates Negative ng/mL 300 Opiates test includes Codeine, Morphine, Hydromorphone, Hydrocodone. Oxycodone/Oxymorphone,Urine Negative ng/mL 300 Test includes Oxydodone and Oxymorphone. TESTING PERFORMED AT [facility]. ORIGINAL REPORT ON FILE IN LAB CONTAINS ADDITIONAL TEST SITE INFORMATION. Performed By: #### L801.1541 #### [facility] [address] [place], [address] CBC Collected: 11/07/2017 Status: F Source: [facility] 1:52 PM [facility] REPOSITORY TYPE CODE TESTS RESULT OUT OF REFERENCE UNITS RANGE LAB WBC(LOINC) 4.50-10.80 10 3/mcL WBC 6.70 LAB RBCCT(LOINC 4.50-6.00 10 6/mcL ) Low RBC 4.25 LAB HGB(LOINC) 13.0-17.5 G/dL Hgb 14.4 LAB HCT(LOINC) 40.0-52.0 % Hct 42.5 LAB MCV(LOINC) 81.0-100.0 fL MCV 100.0 LAB MCH(LOINC) 27.0-33.0 pg High MCH 33.9 LAB MCHC(LOINC) 32.0-36.0 G/dL MCHC 33.9 LAB RDW(LOINC) 11.5-15.5 % RDW 13.2 LAB PLT(LOINC) 150-450 10 3/mcL Platelet 178 LAB MPV(LOINC) 6.4-10.5 fL MPV 9.2 Performed By: #### CBC, ADIFF, ANEU, CMP, GFR, VIDH #### [place] [address] .AUTO DIFF Collected: 11/07/2017 Status: F Source: [facility] 1:52 PM [facility] REPOSITORY TYPE CODE TESTS RESULT OUT OF REFERENCE UNITS RANGE LAB SANDRA(LOINC) 50.0-75.0 % Neutrophil % 67.5 LAB LYM(LOINC) 20.0-40.0 % Lymphocyte % 21.4 LAB MON(LOINC) 2.0-13.0 % Monocyte % 5.3 LAB EO(LOINC) 0.0-6.0 % Eosinophil % 4.9 LAB BAS(LOINC) 0.0-2.5 % Basophil % 0.9 LAB ABLYM(LOIN 0.90-4.32 10 3/mcL C) Lymphocyte, 1.40 Absolute LAB ALFREDA(LOINC 0.09-1.40 10 3/mcL ) Monocyte, 0.40 Absolute LAB AEOS(LOINC 0.00-0.65 10 3/mcL ) Eosinophil, 0.30 Absolute LAB ABAS(LOINC 0.00-0.27 10 3/mcL ) Basophil, 0.10 Absolute Performed By: #### CBC, ADIFF, ANEU, CMP, GFR, VIDH #### [place] [address] .NEUABS Collected: 11/07/2017 Status: F Source: [facility] 1:52 [facility] REPOSITORY TYPE CODE TESTS RESULT OUT OF REFERENCE UNITS RANGE LAB ANEU(LOINC) 2.25-8.10 10 3/mcL Neutrophil, 4.50 Absolute Performed By: #### CBC, ADIFF, ANEU, CMP, GFR, VIDH #### [place] [address] CMP Collected: 11/07/2017 Status: F Source: [facility] 1:52 [facility] REPOSITORY TYPE CODE TESTS RESULT OUT OF REFERENCE UNITS RANGE LAB GLU(LOINC) 82-115 mg/dL Glucose Level 103 LAB NA(LOINC) 136-145 mEq/L Sodium Level 139 LAB K(LOINC) 3.5-5.0 mEq/L Potassium Level 3.8 LAB CL(LOINC) 98-110 mEq/L Chloride 103 LAB CO2(LOINC) 22-32 mEq/L CO2 27 LAB EBAL(LOINC 4.0-15.0 mEq/L ) Electrolyte Balance 9.0 LAB BUN(LOINC) 8.0-22.0 mg/dL BUN 19.0 LAB CRE(LOINC) 0.60-1.40 mg/dL Creatinine Lvl (s) 0.84 LAB BC(LOINC) 10.0-22.0 ratio High BUN/Creatinine 22.6 Ratio LAB CA(LOINC) 8.4-10.1 mg/dL Calcium Lvl 9.6 LAB PROT(LOINC 6.0-8.5 G/dL ) Total Protein 6.8 LAB ALB(LOINC) 3.2-4.8 G/dL Albumin Level 3.9 LAB GLB(LOINC) 1.5-3.8 G/dL Globulin 2.9 LAB AG(LOINC) 0.9-1.6 ratio A/G Ratio 1.3 LAB BILT(LOINC 0.2-1.2 mg/dL ) Bili Total 0.5 LAB AP(LOINC) 38-126 U/L Alk Phos 91 LAB AST(LOINC) 8-34 U/L AST/SGOT High 69 LAB ALT(LOINC) 12-55 U/L ALT/SGPT High 66 Performed By: #### CBC, ADIFF, ANEU, CMP, GFR, VIDH #### [place] [address] .GFR Collected: 11/07/2017 Status: F Source: [facility] 1:52 PM [facility] REPOSITORY TYPE CODE TESTS RESULT OUT OF REFERENCE UNITS RANGE LAB GFRAA(LOINC ml/min/1.73 ) sqm GFR >60 [place] Result Comment: GFR Population mean for , Non- Americans Ages 20-29 = 116 mL/min/1.73 sq.m. Ages 30-39 = 107 mL/min/1.73 sq.m. Ages 40-49 = 99 mL/min/1.73 sq.m. Ages 50-59 = 93 mL/min/1.73 sq.m. Ages 60-69 = 85 mL/min/1.73 sq.m. Ages 70+ = 75 mL/min/1.73 sq.m. Chronic Kidney Disease: Less than 60 mL/min/1.73 square meters End Stage Renal Disease: Less than 15 mL/min/1.73 square meters LAB GFRNO(LOINC) ml/min/1.73sqm GFR Non- >60 Result Comment: GFR Population mean for , Non- Americans Ages 20-29 = 116 mL/min/1.73 sq.m. Ages 30-39 = 107 mL/min/1.73 sq.m. Ages 40-49 = 99 mL/min/1.73 sq.m. Ages 50-59 = 93 mL/min/1.73 sq.m. Ages 60-69 = 85 mL/min/1.73 sq.m. Ages 70+ = 75 mL/min/1.73 sq.m. Chronic Kidney Disease: Less than 60 mL/min/1.73 square meters End Stage Renal Disease: Less than 15 mL/min/1.73 square meters Performed By: #### CBC, ADIFF, ANEU, CMP, GFR, VIDH #### [address] [address] VIDH Collected: 11/07/2017 Status: F Source: [facility] 1:52 PM [facility] REPOSITORY TYPE CODE TESTS RESULT OUT OF RANGE REFERENCE UNITS LAB VIDH(LOINC) ng/mL Vit. D 60 25-Hydroxy Result Comment: Interpretive Values Based on Total 25(OH)D: Severe Deficiency <20 ng/mL Mild to Moderate Deficiency 20-30 ng/mL Optimum Levels 30-100 ng/mL Toxicity Possible >100 ng/mL Performed By: #### CBC, ADIFF, ANEU, CMP, GFR, VIDH #### [address] [address] ALLERGIES ALLERGIES DATE TYPE / CODE NAME / CODE REACTION SEVERITY SOURCE 06/17/2018 Drug No Known Unknown [facility] Allergy/4160 Allergies/F00 [facility] 37724(SNOMED 6019920(RXNOR Repository CT) M) ENCOUNTERS ENCOUNTERS ADMIT/DISCHARGE ACCOUNT NUMBER ADMITTING ENCOUNTER LOCATION SOURCE CLASS 06/17/2018/06/17/20 [id number] Ambulatory BMSBuilding: Ke [address] [facility] Repository 06/09/2018 [id number] Ambulatory BMSBuilding: Ke [facility] Repository 06/03/2018/06/03/20 [id number] Emergency [address] ding:ED Repository 05/29/2018/06/01/20 [id number] Ambulatory BMSBuilding: Ke 18 [facility] Repository 05/29/2018/06/01/20 [id number] Tereletsky, Inpatient Ke [place] 18 Gustavo Encounter [facility] [place] [facility] ding:PCURoom Repository : NJV967Ymk: 1 05/29/2018 [id number] Tereletsky, Ambulatory BMSBuilding: [place] Gustavo BMS.[facility] Repository 05/29/2018 [id number] Tereletsky, Ambulatory BMSBuilding: Ke Gustavo BMS.[facility] Repository 05/29/2018 [id number] Tereletsky, Ambulatory BMSBuilding: Ke Gustavo BMS.[facility] Repository 05/29/2018 [id number] Tereletsky, Ambulatory BMSBuilding: Ke Gustavo BMS.[facility] Repository 02/03/2018 [id number] Ambulatory [facility] ding:LAB Repository 11/07/2017/11/12/19 [id number] Ambulatory ALSBuilding: Dmitry 18 [facility] Repository 10/20/2017 [id number] Ambulatory BMS [facility] Repository 10/13/2017 [id number] Ambulatory BMSBuilding: Ke BMS.[facility] Repository 07/17/2017 [id number] Ambulatory BMSBuilding: [place] BMS.[facility] Repository PAYERS PAYERS ENCOUNTER GUARANTOR PAYER SUBSCRIBER SOURCE 06/17/2018 YAHIR BUCKNER Primary YAHIR BUCKNER [place] [id number] [address] Insurance:SEJAL WILLIAM: Community [employer] [id number]oly Number: Repository [id number]: [phone]) [id number] [phone] () Date:4113-49-43CS [address] [address]NQ: 06/17/2018 Secondary NOT GIVENUNK [place] Insurance:SELF PAY [facility] Number: Effective Repository Date:2018-06-03 06/09/2018 YAHIR BUCKNER Primary YAHIR Dempsey [id number] W Insurance:SEJAL WILLIAM: Community [employer] [id number] [place] ADV[place]APolicy Number: Repository [id number]: (330) [id number] [phone]) Date:7435-73-45WJ [address] [place] [address]DA: 06/09/2018 Secondary NOT GIVENUNK Ke Insurance:SELF PAY [facility] Number: Effective Repository Date:2018-06-09 06/03/2018 YAHIR BUCKNER Primary YAHIR BUCKNER [place] [id number] [address] Insurance:SEJAL CASEB: Community [employer] [id number] [place]APolicy Number: Repository [id number]: (330) [id number] [phone]) Date:3456-88-47DR [address] [place] [address] [place] [address]QW: 06/03/2018 Secondary NOT GIVENUNK [place] Insurance:SELF PAY [facility] Number: Effective Repository Date:2018-06-03 05/29/2018 YAHIR BUCKNER Primary YAHIR BUCKNER [place] [id number] [address] Insurance:SEJAL CASEB: Community [employer] [id number] [place] ADV[place]APoly Number: Repository [id number]: (330) [id number] [phone]) Date:9644-36-55EP [address] [place] [address] [place] [address]DU: 05/29/2018 Secondary NOT GIVENUNK Ke Insurance:SELF PAY [facility] Number: Effective Repository Date:2018-05-29 05/29/2018 YAHIR Ross Primary YAHIR Ross Ke [id number] W Insurance:SEJAL GARCIADOB: Community [employer] [id number] [place] [facility] Number: Repository [id number]: (330) [id number] [phone] (HP) Date:3233-92-75TR [address], [place] [address]IH: 05/29/2018 Secondary NOT GIVENUNK [place] Insurance:SELF PAY [facility] Number: Effective Repository Date:2018-05-29 05/29/2018 YAHIR BUCKNER Primary YAHIR Dempsey [id number] W Insurance:SEJAL CASEB: Community [employer] [id number] [place] ADV[place]APolicy Number: Repository [id number]: 330 [id number] [phone] (HP) Date:2275-42-39NB [address] [place] [address]HQ: 05/29/2018 Secondary NOT GIVENUNK [place] Insurance:SELF PAY [facility] Number: Effective Repository Date:2018-05-29 05/29/2018 YAHIR BUCKNER Primary YAHIR Dempsey [id number] [address] Insurance:SEJAL CASEB: Community [employer] [id number] [place] Number: Repository [id number]: 330 [id number] [phone] (HP) Date:8664-97-49VM [address] [place] [address] 87[address]TF: 05/29/2018 Secondary NOT GIVENUNK [place] Insurance:SELF PAY [facility] Number: Effective Repository Date:2018-05-29 05/29/2018 YAHIR BUCKNER Primary YAHIR Dempsey [id number] W Insurance:SEJAL CASEB: Community [employer] [id number] [place]AP[place]icy Number: Repository [id number]: 330 [id number] [phone] (HP) Date:9486-76-22ZB [address] [place] [address] 40[address]GT: 05/29/2018 Secondary NOT GIVENUNK [place] Insurance:SELF PAY [facility] Number: Effective Repository Date:2018-05-29 05/29/2018 YAHIR BUCKNER Primary YAHIR Dempsey [id number] W Insurance:SEJAL CASEB: Community [employer] [id number] [place]APolicy Number: Repository [id number]: 330 [id number] [phone] (HP) Date:3523-59-62OF [address] [place] [address]FZ: 05/29/2018 Secondary NOT GIVENUNK Ke Insurance:SELF PAY [facility] Number: Effective Repository Date:2018-05-29 02/03/2018 YAHIR Ross Primary YAHIR Dempsey [id number] W Insurance:ANTH GARNESDOB: Community [employer] [id number] [place]APolicy Number: Repository [id number]: (330 [id number] [phone] () Date:0456-32-47ZQ [address] [place] [address] 500[address]DE: 02/03/2018 Secondary YAHIR Dempsey Insurance:MEDICAIDPol GARNESDOB: [facility] Number: [id number] Hospital [id number] Repository Date:2018-02-03 02/03/2018 Tertiary NOT GIVENUNK Ke Insurance:SELF PAY [facility] Number: Effective Repository Date:2018-02-03 11/07/2017 YAHIR Ross Primary YAHIR Ross [facility] GARNESDOB: Insurance:MEDICARE GARNESDOB: [facility] [id number] W PART BPolicy Number: [id number] [facility] [id number] [place], [place] Date:2017-11-07 [place], [place] [address]Sdm: [phone]) [id number]: Name:[facility] [phone] ()Tel: (000) Administrators LLCPO (HP) (WP) [address]Spdkfbzmc, 000-0000 (WP) [place] [address]GT: 10/20/2017 YAHIR Ross Primary YAHIR Dempsey [id number] W Insurance:MEDICARE GARNESDOB: [facility] PART A BPolicy [id number] [place] Number: Repository [address]Dhd: 330 [id number] [phone] (HP) Date:2017-10-20 10/20/2017 Secondary YAHIR Dempsey Insurance:MEDICAIDPol GARNESDOB: Community icy Number: [id number] [id number] Repository Date:2017-10-20 10/20/2017 Tertiary NOT GIVENUNK [place] Insurance:SELF PAY [facility] Number: Effective Repository Date:2017-10-20 10/13/2017 YAHIR Ross Primary YAHIR Dempsey [id number] W Insurance:MEDICARE GARNESDOB: Community [place]AR[place] PART A [facility] [id number] [place] Number: Repository [id number]: 330 [id number] [phone] (HP) Date:2017-10-13 10/13/2017 Secondary YAHIR Ross Carlyle Insurance:MEDICAIDPol GARNESDOB: [facility] icy Number: [id number] [id number] Repository Date:2017-10-13 10/13/2017 Tertiary NOT GIVENUNK Ke Insurance:SELF PAY [facility] Number: Effective Repository Date:2017-10-13 07/17/2017 YAHIR G Primary YAHIR Dempsey [id number] W Insurance:MEDICARE GARNESDOB: [facility] [place] [id number] [place] Number: Repository [address]Ecu: 330 [id number] [phone] (HP) Date:2017-06-18 07/17/2017 Secondary YAHIR Ross Ke Insurance:MEDICAIDPol GARNESDOB: [facility] icy Number: [id number] [id number] Repository Date:2017-06-18 07/17/2017 Tertiary NOT GIVENUNK [place]le Insurance:SELF PAY [facility] Number: Effective Repository Date:2017-06-18
== END 2018-06-03 16:30 | disposition home or self-care (01) ==
PROVIDERS: Emergency Provider Emergency Medicine; Family Provider Family Medicine; PCP Family Medicine
DX: J44.1 Chronic obstructive pulmonary disease with (acute) exacerbation (principal); I11.0 Hypertensive heart disease with heart failure; I50.9 Heart failure, unspecified; I48.91 Unspecified atrial fibrillation; E11.9 Type 2 diabetes mellitus without complications; E78.00 Pure hypercholesterolemia, unspecified; G47.33 Obstructive sleep apnea (adult) (pediatric); G89.29 Other chronic pain; G43.909 Migraine, unspecified, not intractable, without status migrainosus; Z79.51 Long term (current) use of inhaled steroids; Z79.84 Long term (current) use of oral hypoglycemic drugs; Z79.02 Long term (current) use of antithrombotics/antiplatelets; Z79.82 Long term (current) use of aspirin; Z87.891 Personal history of nicotine dependence; Z79.899 Other long term (current) drug therapy
CPT/HCPCS: 71045; 80048; 83880; 84484; 85025; 93005; 94640; 96374; 99285; A4216

== ENCOUNTER → 2019-02-09 | Outpatient (CLI) | payer MEDICARE, MEDICAID, SELFPAY ==
[2018-06-17 11:09] VITALS: BMI 50.8
[2019-02-09 12:19] LABS: Anion Gap 9 (5-15); BUN 20 mg/dL (7-18); BUN/Creat Ratio 17.1 RATIO (10-20); Calcium,Total 9.3 mg/dL (8.5-10.1); Chloride 101 mmol/L (98-107); Creatinine, Serum 1.17 mg/dL (0.70-1.30); EST Glomerular Filtration Rate 66 mL/min (>60); Est Glom Filt Rate - Afr Amer 80 mL/min (>60); Glucose 130 mg/dL (74-106); Potassium 3.5 mmol/L (3.5-5.1); Sodium Level 137 mmol/L (136-145)
== END | disposition home or self-care (01) ==
LOC: LAB.FUTURE 11:24
PROVIDERS: Family Provider Family Medicine; PCP Family Medicine
DX: I50.9 Heart failure, unspecified (principal)
CPT/HCPCS: 36415; 80048

== ENCOUNTER 2019-03-21 18:04 | Inpatient (IN) | payer MEDICARE, MEDICAID, SELFPAY ==
[2018-06-17 11:09] VITALS: BMI 50.8
[2019-03-21] VITALS (9 sets, daily range): BP systolic 88–130; BP diastolic 52–69; PULSE 59–77; RESP 12–18; TEMP 36.6–37.2; O2SAT 93–96; BMI 43.7; BMI 41.2
--- NOTE | 2019-03-21 18:32 | RAD_ITS ---
STUDY: X-RAY CHEST REASON FOR EXAM: Male, 69 years old. Fall, right hip pain. TECHNIQUE: Portable chest. COMPARISON: 06/03/2018. FINDINGS: The lungs are clear and expanded. There is no demonstrated pleural abnormality. Normal size heart. Normal mediastinum and lyndsey. Normal visualized pulmonary arteries. Normal visualized aortic arch and descending thoracic aorta. Normal visualized thoracic spine. Bilateral shoulder replacements. Soft tissues are unremarkable. RAD/Chest 1 View (Portable) IMPRESSION: No acute findings. Electronically Signed: Emily Ortiz MD at 20:23 EDT Tel , Service support ,
--- NOTE | 2019-03-21 18:32 | CT_ITS ---
STUDY: CT BRAIN WITHOUT CONTRAST REASON FOR EXAM: Male, 69 years old. Closed head injury, syncope RADIATION DOSAGE (If Supplied By Facility): CTDIvol = ( 44.99 ) mGy, DLP = ( 796.11 ) mGycm TECHNIQUE: Transaxial CT imaging of the brain was performed without administration of intravenous contrast material. Individualized dose optimization techniques were used for this CT. COMPARISON: No relevant priors. FINDINGS: Normal soft tissue structures. Normal calvarium. Normal size ventricles and extra-axial spaces for the patient's age. Normal white matter tracts of the cerebral hemispheres. Normal basal ganglia and thalami. Normal brainstem. Normal cerebellum. There is no intracranial hemorrhage. There are no findings of an acute ischemic infarction. There is atherosclerosis of the carotid siphons. Normal visualized paranasal sinuses. CT/Brain/Head without Contrast IMPRESSION: No acute intracranial hemorrhage or mass effect. Electronically Signed: Elvis Marks MD ([place]) at 19:30 EDT , Service support ,
--- NOTE | 2019-03-21 18:33 | EKG12_ITS ---
Test Reason : Blood Pressure : / mmHG Vent. Rate : 060 BPM Atrial Rate : 060 BPM P-R Int : 198 ms QRS Dur : 162 ms QT Int : 518 ms P-R-T Axes : 000 -02 023 degrees QTc Int : 518 ms Normal sinus rhythm Right bundle branch block Inferior infarct , age undetermined Abnormal ECG Confirmed by CHANTELLE ALCANTAR, LIONEL ([id number]), photo editor SILAS MORGAN ([id number]) on 03/22/2019 3:03:08 PM Referred By: ADEN Confirmed By:LIONEL LOCKHART MD
--- NOTE | 2019-03-21 18:35 | RAD_ITS ---
STUDY: X-RAY - PELVIS AND RIGHT HIP REASON FOR EXAM: Male, 69 years old. Fall. TECHNIQUE: 5 views of the pelvis and hip. COMPARISON: None. FINDINGS: Limited due to patient immobility. Acute comminuted intertrochanteric fracture of the right femoral neck and proximal shaft with 3 cm medial displacement of the femoral shaft and mild varus angulation. There is 6 mm medial displacement of the lesser trochanter, which is comminuted. Moderate lateral acetabular spurring. Hip joint is otherwise well-maintained. No additional fractures are identified. There is moderate to marked distention of the visualized small and large bowel. RAD/HIP, UNI W/ Pelvis 2-3 Views IMPRESSION: 1. Acute, comminuted intertrochanteric fracture of the right femoral neck and shaft. 2. Distended small and large bowel concerning for ileus or obstruction. Further evaluation with flat and decubitus radiographs of the abdomen or CT of the abdomen is advised. Electronically Signed: Emily Ortiz MD at 20:17 EDT Tel , Service support ,
[2019-03-21] MEDS: Ondansetron 4 MG/2 ML Vial IV (18:51)
[2019-03-21] MEDS: Morphine 4 MG/ML Syringe IV (18:52)
[2019-03-21] MEDS: 0.9% Normal Saline 1,000 ML 150 ML IV (19:00)
[2019-03-21 19:05] LABS: Absolute Lymphocyte Count 2.07 X10^3/uL (0.83-4.51); Absolute Neutrophil Count 6.5 X10^3/uL (2.0-7.7); Basophil# 0.03 X10^3/uL; Basophil% 0.3 % (0-1); Eosinophil# 0.14 X10^3/uL; Eosinophils% 1.5 % (0-5); Hematocrit 37.6 % (40-54); Hemoglobin 12.6 g/dL (13.0-16.5); Lymphocyte # 2.07 X10^3/ul (4.0); Lymphocyte % 22.6 % (19-41); Mean Corp Hgb Conc 33.5 g/dL (32-36); Mean Corpuscular Hgb 32.4 pg (27.0-32.0); Mean Corpuscular Volume 96.7 fL (80-94); Mean Platelet Vol. 9.7 fl (6.2-12.0); Monocyte# 0.38 X10^3/uL; Monocyte% 4.1 % (0-10); NRBC Flagged by Analyzer 0 % (0-5); Neutrophil # 6.48 X10^3/uL (2.7-7.7); Neutrophil % 70.8 % (47-70); Platelet Count 298 K/mm3 (150-450); RBC Distribution Width CV 13.2 % (11.6-14.6); Red Blood Count 3.89 M/mm3 (4.6-6.2); White Blood Count 9.2 K/mm3 (4.4-11.0)
[2019-03-21 19:11] LABS: ALB/GLOB Ratio 0.8 RATIO (0.9-2.4); AST(SGOT) 22 U/L (15-37); Alanine Aminotransfer ALT/SGPT 40 U/L (16-61); Albumin, Serum 3.2 g/dL (3.2-5.0); Alkaline Phosphatase 113 U/L (45-117); Anion Gap 13 (5-15); BUN 24 mg/dL (7-18); BUN/Creat Ratio 17.5 RATIO (10-20); Calcium,Total 8.6 mg/dL (8.5-10.1); Chloride 99 mmol/L (98-107); Creatinine, Serum 1.37 mg/dL (0.70-1.30); EST Glomerular Filtration Rate 55 mL/min (>60); Est Glom Filt Rate - Afr Amer 66 mL/min (>60); Estimated Creatinine Clearance 49.23 ml/min; Glucose 103 mg/dL (74-106); Potassium 3.9 mmol/L (3.5-5.1); Protein, Total 7.2 g/dL (6.4-8.2); Sodium Level 135 mmol/L (136-145)
[2019-03-21 19:30] LABS: International Normalized Ratio 1.2; Partial Thromboplast Time 28.4 Seconds (24.1-36.2); Prothrombin Time (Protime)PT. 14.7 SECONDS (11.7-14.9)
[2019-03-21 19:39] LABS: Lactic Acid 3.1 mmol/L (0.4-2.0)
--- NOTE | 2019-03-21 19:40 | ED.RN ---
LAB CALLED WITH CRITICAL LAB RESULT.S LACTIC ACID 3.1. DR. CRISOSTOMO MADE AWARE NO NEW ORDERS AT THIS TIME
--- NOTE | 2019-03-21 20:05 | ED.DCSUM_ITS ---
History of Present Illness Chief Complaint: Syncope Informant: Patient, Significant Other Onset: Today Context: Sudden Onset Timing: Intermittent Quality: Lightheadedness and passed out Location: Home Current Severity: Mild Maximum Severity: Severe Worsened by: Upright position and pain Relieved by: Better supine position Associated Symptoms: Inability to ambulate after fall, right hip pain and lightheadedness Narrative: Patient's an elderly male who was walking to the restroom. As he was walking restroom he passed out. He was unable to rise after he fell. He had 2 episodes of hypotension per squad. Heart rate was in the 50s. Suspect this is a vasovagal response in Jaime to pain when he was being moved. Patient does complain of head pain and is on Eliquis. He denies double vision, blurred vision or loss of vision. Denies neck pain. Denies trouble speech or swallowing. He denies anginal anginal equivalent symptoms. He denies black or maroon stool. Prior similar symptoms: No Recent Illness/Hospitalization: No - Past Medical History (1) Atrial fibrillation with rapid ventricular response Status: Acute (2) COPD (chronic obstructive pulmonary disease) Status: Chronic (3) Dilated cardiomyopathy Status: Chronic (4) Essential (primary) hypertension Status: Chronic (5) Hyperlipidemia Status: Chronic (6) Morbid obesity Status: Chronic (7) TYLER (obstructive sleep apnea) Status: Chronic Comment: use BiPAP (8) Right bundle branch block Status: Chronic Past Medical History - Allergies and Home Meds Allergies/Adverse Reactions: Allergies No Known Allergies Allergy (Verified 03/21/19 18:20) Primary Care Physician: Felix Matias DO [Primary Care Provider] - Prior records reviewed: Yes Surgical History: - - Bilateral shoulder replacement, gastric bypass, appendectomy, cholecystectomy, right knee arthroscopy, tonsillectomy, sinus s urgery. Lives: Spouse/ Significant Other Smoking Status: Former smoker Alcohol: None Drugs: None - Family History Maternal Family History: Family History (Last Reviewed 06/17/18 @ 11:36 by Pieter Shi MD) Mother CAD (coronary artery disease) Family History: Reports: Heart Disease Additional Family History: No heart disease Paternal Family History: Family History (Last Reviewed 06/17/18 @ 11:36 by Pieter Shi MD) Mother CAD (coronary artery disease) Family History: Reports: - - Lung cancer Review of Systems General: Reports: Malaise, Sweats. Denies: Chills, Fever, Subjective Eyes: Denies: Visual changes - bilaterally, Blurred Vision - bilaterally ENT: Reports: - - He denies decreased hearing or ringing in his ears.. Denies: Bilateral ear pain, Rhinorrhea, Sore throat Cardiovascular: Denies: Chest pain, Palpitations Respiratory: Denies: Dyspnea, Cough, Dyspnea on exertion Gastrointestinal: Reports: Nausea. Denies: Abdominal pain, Vomiting, Diarrhea, Melena, Hematochezia Genitourinary: Reports: - - Patient reports trouble with stream and decreased urine output. Denies: Dysuria, Hematuria, Frequency Musculoskeletal: Reports: Extremity Pain. Denies: Myalgias, Arthralgias, Neck pain, Back pain, Swelling Skin: Denies: Rash, Wounds Neurological: Reports: Headache. Denies: Weakness, Numbness Hematologic: Reports: Easy bruising. Denies: Easy bleeding Allergy: Denies: Uticaria, Swelling of the mouth Physical Exam Vital Signs/Narrative: Vital Signs Temp Pulse Resp BP Pulse Ox 03/21/19 18:48 59 L 15 111/69 96 03/21/19 18:12 60 03/21/19 18:05 98.9 F 63 18 88/52 L 93 Inital Vital Signs reviewed: Yes General: Well nourished, Well developed, Acute Distress Head: Normocephalic, Trauma, Tenderness - Forehead Eyes: Perrl, EOMI, - - No subconjunctival hemorrhage. Negative for: Pale conjunctiva, Scleral icterus ENT: Moist mucous membranes, No rhinorrhea, TM's clear, - - There is no clinical findings of basal skull fracture. Negative for: Dry mucous membranes, Nasal congestion, Sinus tenderness Neck: Supple, Nontender, No lymphadenopathy, No JVD, - - There is no pain the patient the posterior neck and full active range of motion. C-spine was cleared per Nexus criteria. Cardiovascular: Regular rate, No murmurs, Normal S1, Normal S2, Irregular Respiratory: No distress, CTA bilaterally, Chest nontender Abdomen: Soft, Nontender, Nondistended, Normal bowel sounds, No masses Rectal: Deferred Back: Nontender, Normal Inspection. Negative for: Spinal tenderness Extremities: Edema, - - Right lower extremity is shortened and externally rot ated. Negative for: Nontender, No edema Skin: Normal color, No rash, Trauma. Negative for: Cyanosis, Diaphoresis, Jaundice Neurological: Alert, Oriented x3, Cranial nerves II-XII grossly intact, Normal Strength, Normal Sensation, Normal DTR. Negative for: Normal Gait Psychological: Normal affect, Normal Mood Diagnostic/Tx/Re-eval Chest X-Ray - ED: 1 View, Read by ED Physician, Normal, Heart, Lungs, No Acute Disease, Chronic Changes, - - Hemiarthroplasty right and left proximal humerus. Three-view x-ray of the hip reveals an intertrochanteric fracture on the left. Impressions Brain CT 03/21/19 18:32 IMPRESSION: No acute intracranial hemorrhage or mass effect. Electronically Signed: Elvis Marks MD ([place]) at 19:30 EDT , Service support , 03/21/19 18:32 Brain/Head without Contrast [CT] Stat Chest 1 View (Portable) [RAD] Stat 03/21/19 18:35 HIP, UNI W/ Pelvis 2-3 Views [RAD] Stat Laboratory Results 03/21/19 03/21/19 03/21/19 18:17 18:17 18:17 WBC 9.2 RBC 3.89 L Hgb 12.6 L Hct 37.6 L MCV 96.7 H MCH 32.4 H MCHC 33.5 RDW Std Deviation 46.0 H RDW Coeff of Bruno 13.2 Plt Count 298 MPV 9.7 Immature Gran % (Auto) 0.700 Neut % (Auto) 70.8 H Lymph % (Auto) 22.6 [place] % (Auto) 4.1 Eos % (Auto) 1.5 Baso % (Auto) 0.3 Absolute Neuts (auto) 6.5 Absolute Lymphs (auto) 2.07 Nucleated RBC % 0 PT 14.7 INR 1.2 APTT 28.4 Sodium 135 L Potassium 3.9 Chloride 99 Carbon Dioxide 23.0 Anion Gap 13 BUN 24 H Creatinine 1.37 H Estim Creat Clear Calc 49.23 Est GFR (MDRD) Af Amer 66 Est GFR (MDRD) Non-Af 55 L BUN/Creatinine Ratio 17.5 Glucose 103 Lactic Acid Calcium 8.6 Total Bilirubin 0.30 AST 22 ALT 40 Alkaline Phosphatase 113 Troponin I < 0.015 Total Protein 7.2 Albumin 3.2 Globulin 4.0 Albumin/Globulin Ratio 0.8 L 03/21/19 18:58 WBC RBC Hgb Hct MCV MCH MCHC RDW Std Deviation RDW Coeff of Bruno Plt Count MPV Immature Gran % (Auto) Neut % (Auto) Lymph % (Auto) [place] % (Auto) Eos % (Auto) Baso % (Auto) Absolute Neuts (auto) Absolute Lymphs (auto) Nucleated RBC % PT INR APTT Sodium Potassium Chloride Carbon Dioxide Anion Gap BUN Creatinine Estim Creat Clear Calc Est GFR (MDRD) Af Amer Est GFR (MDRD) Non-Af BUN/Creatinine Ratio Glucose Lactic Acid 3.1 H Calcium Total Bilirubin AST ALT Alkaline Phosphatase Troponin I Total Protein Albumin Globulin Albumin/Globulin Ratio His lactate is up and is consistent with shock from hypotension. Etiology of his hypertension is unknown. He does have evidence of renal insufficiency/chronic mild renal failure. CT of the head was negative. Will contact orthopedist on-call and hospitalist for admission. - EKG Initial EKG Interpretation: Sinus Rhythm - Sinus rhythm with ventricular rate of 60. There is evidence of right bundle branch block, which is chronic. MT interval 198 ms. QS duration 160 ms. QT duration is 518 ms. - Medical Decision Making Since patient is hypotensive he received IV fluids. Need to rule out cardiac ischemia, versus vasovagal versus GI bleed. Lactate elevated 3.1 which would indicate that he had poor perfusion. He was typed and screened. X-ray of the right hip was obtained to evaluate for fracture and specifically type. Chest x- ray for preoperative clearance. - Critical Care Time Critical care time (excluding procedures): 30-74 minutes, Discussing w/Patient &/or Family/Cement Tester Assistant, Discussing w/Consultants, Arranging Admission or Transfer - Critical care time 33 minutes ED Disposition - Plan for ED Patient: Disposition: Acute Care Hospital [facility] Diagnosis: Hypotension, unspecified, Lactic acidosis, Closed intertrochanteric fracture of right femur, History of heart failure, Hyperlipidemia, Essential (primary) hypertension, TYLER (obstructive sleep apnea), Anticoagulant long-term use Referrals: Felix Matias DO [Primary Care Provider] -
--- NOTE | 2019-03-21 20:15 | PCM.HP.STD ---
Problem List (1) Closed intertrochanteric fracture of right femur Status: Acute (2) Syncope and collapse Status: Acute (3) UTI (urinary tract infection) Status: Acute Qualifiers: Urinary tract infection type: acute cystitis (4) Urinary retention Status: Acute (5) Hypotension, unspecified Status: Acute Qualifiers: Hypotension type: unspecified hypotension type Qualified Code(s): I95.9 - Hypotension, unspecified (6) Lactic acidosis Status: Acute (7) Diastolic CHF Status: Chronic Qualifiers: Heart failure chronicity: chronic Qualified Code(s): I50.32 - Chronic diastolic (congestive) heart failure (8) PAF (paroxysmal atrial fibrillation) Status: Chronic (9) Essential (primary) hypertension Status: Chronic (10) Hyperlipidemia Status: Chronic Qualifiers: Hyperlipidemia type: unspecified Qualified Code(s): E78.5 - Hyperlipidemia, unspecified (11) Dilated cardiomyopathy Status: Chronic (12) Morbid obesity Status: Chronic (13) TYLER (obstructive sleep apnea) Status: Chronic Comment: use BiPAP (14) COPD (chronic obstructive pulmonary disease) Status: Chronic History of Present Illness Date of Admission: 03/21/19 Chief Complaint: Syncopal event, fall, dysuria/retention, R hip pain/debility The patient is a 69 y/o M w/ PMHx: Morbid Obesity, TYLER on BIPAP q HS, HTN, HLD, Chronic COPD, PAF s/p prior cardioversion and from discussion planning upcoming MAZE on oral anticoagulation, Chronic Diastolic CHF, Dilated Cardiomyopathy, Diabetes mellitus type II who presents to the [facility] ED on 03/21/19 with history of fatigue, malaise, syncopal event with lightheadedness, dizziness immediate onset while attempting to walk from a seated position, passing out, hitting his head specifically his upper forehead upon his fall as well as landing very hard onto his right hip with debility and pain following with quick resumption of consciousness, approximately 30 seconds witnessed per spouse with recent history of difficulty urinating, frequency, retention with no specific fevers or chills associated. He does state that with quick positional changes he can get lightheaded and that his global climate change analyst has asked him to take time with positional changes. He states that prior to attempting to walk he got up very quickly and immediately started moving and it was only steps prior to his syncopal event. Work-up in the ED included T 98.9, heart rate 63, BP 88/52, respiratory rate 18, 93% on room air with improvement in the ED with BP 125/66, CBC with W BC 9.2, heme globin 12.6, platelet 298 with no market shift, unremarkable coags, CMP with sodium 135, BUN/creatinine 24/1.37, lactic acid 3.1 with repeat 0.7, troponin less than 0.015, EKG with no acute evidence of ischemia, urinalysis with specific gravity 1.015, evidence of urinary tract infection, urine culture pending per ED, CT brain with no acute intracranial findings, chest x-ray with no acute cardiopulmonary findings, plain film of the hip and pelvis with acute comminuted intertrochanteric fracture of the right femoral neck and shaft as well as noted distended small and large bowel concerning for ileus however patient with no recent nausea, emesis, abdominal pain or lack of bowel movements with repeat KUB pending for a.m, Wall catheter placed in the emergency room secondary to urinary retention. in the ED patient ministered normal saline, Zofran, morphine, Rocephin therapy. ED physician did discuss case as well as hospitalist with orthopedic surgeon, Dr. Forte with plan for cardiac evaluation, cardiac consultation, update the patient is a Buddhist with plan for operative intervention likely Friday pending cardiac evaluation. Past Medical History Past Medical History (Chronic Problems): Chronic Problems (Last Reviewed 06/17/18 @ 11:36 by Pieter Shi MD) Diastolic CHF (Chronic) PAF (paroxysmal atrial fibrillation) (Chronic) Right bundle branch block (Chronic) Acute on chronic diastolic (congestive) heart failure (Chronic) Essential (primary) hypertension (Chronic) Hyperlipidemia (Chronic) Dilated cardiomyopathy (Chronic) Morbid obesity (Chronic) TYLER (obstructive sleep apnea) (Chronic) use BiPAP COPD (chronic obstructive pulmonary disease) (Chronic) Medical History: Medical History (Last Reviewed 06/17/18 @ 11:36 by Pieter Shi MD) Right bundle branch block (Chronic) I45.10 Atrial fibrillation with rapid ventricular response (Acute) I48.91 New onset atrial fibrillation (Acute) I48.91 Acute on chronic diastolic (congestive) heart failure (Chronic) I50.33 Essential (primary) hypertension (Chronic) I10 Hyperlipidemia (Chronic) E78.5 Dilated cardiomyopathy (Chronic) I42.0 Morbid obesity (Chronic) E66.01 TYLER (obstructive sleep apnea) (Chronic) G47.33 use BiPAP COPD (chronic obstructive pulmonary disease) (Chronic) J44.9 Chronic pain G89.29 Lymphedema I89.0 Migraine G43.909 Osteoarthritis M19.90 Type 2 diabetes mellitus E11.9 History of left heart catheterization Onset Date: 03/31/17 Z98.890 Allergies No Known Allergies Allergy (Verified 03/21/19 18:20) Home Medications: Ambulatory Orders Medication Instructions Recorded Calcitriol [Rocaltrol] 0.25 mcg PO SUTUTHSA 03/28/17 Calcitriol [Rocaltrol] 0.5 mcg PO MOWEFR 03/28/17 Duloxetine HCl 60 mg PO BID 03/28/17 Ergocalciferol [Vitamin D] 1 cap PO DAN 03/28/17 Esomeprazole Magnesium 40 mg PO DAILY 03/28/17 Fluticasone/Salmeterol [Advair Hfa 2 puff INHALATION BID 03/28/17 45-21 Mcg Inhaler] Hydrocodone Bitart/Apap 5-325 1 tab PO Q6H PRN PRN 03/28/17 [[place] 5/325] Lorazepam [Ativan] 1 mg PO BID 03/28/17 cyanocobalamin (vit B-12) 2,500 2,500 mcg SUBLINGUAL QDAY 06/13/17 mcg sublingual tablet albuterol sulfate HFA 90 2 puff INHALATION .as needed g 07/22/17 mcg/actuation aerosol inhaler Cetirizine HCl [Zyrtec] 10 mg PO DAILY 05/29/18 Cholecalciferol (VIT D3) [Vitamin 1,000 unit PO DAILY 05/29/18 D3] Cyclobenzaprine HCl 10 mg PO QHS 05/29/18 Ferrous Sulfate [Iron] 325 mg PO DAILY 05/29/18 Fluoxetine HCl 40 mg PO QHS 05/29/18 Multivit-Mins/Iron/Folic/Lycop 1 tab PO DAILY 05/29/18 [Centrum Ultra Men's Tablet] Atorvastatin Calcium [Lipitor] 20 mg PO QHS #30 tab 06/01/18 Metformin HCl [Metformin HCl ER] 500 mg PO DAILY #30 [id number] 06/01/18 Rivaroxaban [Xarelto] 20 mg PO DAILY@1700 #30 tab 06/01/18 furosemide 40 mg tablet 80 mg PO BID #90 tab 06/17/18 spironolactone 50 mg tablet 50 mg PO DAILY #90 tab 06/17/18 Amiodarone HCl 200 mg PO DAILY 03/21/19 Finasteride 5 mg PO DAILY 03/21/19 Metoprolol Tartrate [Lopressor 100 mg PO DAILY 03/21/19 (beta boogie)] Potassium Chloride 20 meq PO TID 03/21/19 Tamsulosin HCl 0.4 mg PO DAILY 03/21/19 Surgical History: Surgical History (Last Reviewed 06/17/18 @ 11:36 by Pieter Shi MD) H/O right knee surgery Z98.890 History of appendectomy Z90.49 History of gastric bypass Z98.84 History of neck surgery Z98.890 History of right shoulder replacement Z96.611 Hx of cholecystectomy Z90.49 Surgical History: - - Bilateral shoulder replacement, gastric bypass (Kenny-en-Y), appendectomy, cholecystectomy, right knee arthroscopy, tonsillectomy, sinus surgery, history of facial tumor with resection with reconstructive surgery. Psychiatric History: No pertinent psych hx Lives: Spouse/ Significant Other Smoking Status: Former smoker - Patient quit cigarette tobacco usage of proximal 0.35 years prior to current presentation. Tobacco Use: Non-smoker Alcohol: Occasional Drugs: None - *Family History Maternal Family History: Family History (Last Reviewed 06/17/18 @ 11:36 by Pieter Shi MD) Mother CAD (coronary artery disease) History Items: Heart Disease, Pulmonary Disease Paternal Family History: Family History (Last Reviewed 06/17/18 @ 11:36 by Pieter Shi MD) Mother CAD (coronary artery disease) History Items: - - Lung cancer with history of concurrent tobacco use. Review of Systems Constitutional: Reports: Malaise, Weakness, Fatigue. Denies: Chills, Fever, Weight Change HEENT: Reports: Head Aches. Denies: Sinus Congestion, Sinus Drainage Cardiovascular: Reports: Light Headedness, Syncope. Denies: Chest Pain, Chest Pressure, Chest Tightness, Edema, Orthopnea, Palpitations Respiratory: Denies: Cough, Shortness of Breath, Shortness of breath at rest, Shortness of breath upon exertion, Sputum production, Wheezing Gastrointestinal: Denies: Abdominal Pain, Nausea, Vomiting Genitourinary: Reports: Frequency, Retention. Denies: Dysuria Musculoskeletal: Reports: Joint Pain, Joint stiffness, Joint swelling, Joint Tenderness, Leg Pain Skin: Denies: Rash, Wounds Neurological: Denies: Numbness, Tingling, Focal weakness Psychiatric: Denies: Anxiety, Depression, Homicidal Ideations, Suicidal Ideations Hematologic/ Lymphatic: Reports: Anemia, Easy Bruising, Easy Bleeding VTE Information - Inpt Only VTE Present on Admission: No VTE Mechan Device Prophylaxis: SCD's VTE Pharm Prophylaxis ordered?: No Reason prophylaxis not ordered:: Treatment Not Indicated - Patient with recent oral anticoagulant on day of ED presentation. Patient Problems: Active and Suspected Problems (Last Reviewed 06/17/18 @ 11:36 by Pieter Shi MD) Hypotension, unspecified (Acute) Lactic acidosis (Acute) Closed intertrochanteric fracture of right femur (Acute) History of heart failure (Acute) Anticoagulant long-term use (Acute) Syncope and collapse (Acute) UTI (urinary tract infection) (Acute) Urinary retention (Acute) Subjective: Laying in the ED bed, fatigued appearance, notes ongoing expected right hip discomfort. Objective: Physical Examination: General: awake, alert, oriented x 3 and cooperative, laying in the ED bed, uncomfortable appearing, notes need of more pain medication. Skin: normal color, turgor, no icterus, cyanosis. HEENT: AT/NC, EOMI, PERRLA, dry MM, no carotid bruits or JVD noted; however, thickened neck makes examination difficult. Lungs: Diminished breath sounds bilaterally, greater bases, moderate effort, no rales, rhonchi or wheezing to anterior and side examination. Heart: Regular rate and rhythm; no gallop, rub audible. Abdomen: soft, obese, NTTP, ND, distant but normal BS, no HSM; ever, habitus makes examination difficult.. Extremities: no cyanosis, clubbing, status post fall with right hip fracture, peripheral pulses intact, sensation intact. Neurological: patient awake, alert, oriented x 3; cognitive function intact; pupils equally reactive to light and accomodation; cranial nerves II-XII grossly normal, limited right lower extremity movement given acute presentation with fracture however other extremities appropriately able to be moved, strength currently severely global decrease. Psychiatric: affect appears fatigued and uncomfortable, no acute evidence of depressive or anxiety feelings. - Physical Exam Vital Signs Temp Pulse Resp BP Pulse Ox 98.9 F 60 16 130/65 H 94 03/21/19 18:05 03/21/19 20:12 03/21/19 20:12 03/21/19 20:12 03/21/19 20:12 Oxygen Delivery Method Room Air Weight: 287 lb 7.724 oz Body Mass Index (BMI) 43.7 Laboratory Tests Past 24 Hrs 03/21/19 03/21/19 03/21/19 18:17 18:17 18:17 WBC 9.2 RBC 3.89 L Hgb 12.6 L Hct 37.6 L MCV 96.7 H MCH 32.4 H MCHC 33.5 RDW Std Deviation 46.0 H RDW Coeff of Bruno 13.2 Plt Count 298 MPV 9.7 Immature Gran % (Auto) 0.700 Neut % (Auto) 70.8 H Lymph % (Auto) 22.6 [place] % (Auto) 4.1 Eos % (Auto) 1.5 Baso % (Auto) 0.3 Absolute Neuts (auto) 6.5 Absolute Lymphs (auto) 2.07 Nucleated RBC % 0 PT 14.7 INR 1.2 APTT 28.4 Sodium 135 L Potassium 3.9 Chloride 99 Carbon Dioxide 23.0 Anion Gap 13 BUN 24 H Creatinine 1.37 H Estim Creat Clear Calc 49.23 Est GFR (MDRD) Af Amer 66 Est GFR (MDRD) Non-Af 55 L BUN/Creatinine Ratio 17.5 Glucose 103 Lactic Acid Calcium 8.6 Total Bilirubin 0.30 AST 22 ALT 40 Alkaline Phosphatase 113 Troponin I < 0.015 Total Protein 7.2 Albumin 3.2 Globulin 4.0 Albumin/Globulin Ratio 0.8 L 03/21/19 18:58 WBC RBC Hgb Hct MCV MCH MCHC RDW Std Deviation RDW Coeff of Bruno Plt Count MPV Immature Gran % (Auto) Neut % (Auto) Lymph % (Auto) [place] % (Auto) Eos % (Auto) Baso % (Auto) Absolute Neuts (auto) Absolute Lymphs (auto) Nucleated RBC % PT INR APTT Sodium Potassium Chloride Carbon Dioxide Anion Gap BUN Creatinine Estim Creat Clear Calc Est GFR (MDRD) Af Amer Est GFR (MDRD) Non-Af BUN/Creatinine Ratio Glucose Lactic Acid 3.1 H Calcium Total Bilirubin AST ALT Alkaline Phosphatase Troponin I Total Protein Albumin Globulin Albumin/Globulin Ratio Assessment/Plan All Active Problems (Last Reviewed 06/17/18 @ 11:36 by Pieter Shi MD) Hypotension, unspecified (Acute) Lactic acidosis (Acute) Closed intertrochanteric fracture of right femur (Acute) History of heart failure (Acute) Anticoagulant long-term use (Acute) Syncope and collapse (Acute) UTI (urinary tract infection) (Acute) Urinary retention (Acute) Atrial fibrillation with rapid ventricular response (Acute) New onset atrial fibrillation (Acute) The patient is a 69 y/o M w/ PMHx: Morbid Obesity, TYLER on BIPAP q HS, HTN, HLD, Chronic COPD, PAF s/p prior cardioversion and from discussion planning upcoming MAZE on oral anticoagulation, Chronic Diastolic CHF, Dilated Cardiomyopathy, Diabetes mellitus type II who presents to the [facility] ED on 03/21/19 with history of fatigue, malaise, syncopal event with lightheadedness, dizziness immediate onset while attempting to walk from a seated position, passing out, hitting his head specifically his upper forehead upon his fall as well as landing very hard onto his right hip with debility and pain following with quick resumption of consciousness, approximately 30 seconds witnessed per spouse with recent history of difficulty urinating, frequency, retention with no specific fevers or chills associated. (1) General debility, R hip pain s/p Fall with Syncopal event w/ right femoral neck and shaft commuted intertrochanteric fracture: Will admit to PCU given history prior to fracture, continue gentle IVFs, obtain TSH, Mag level, UA w/ evidence UTI w/ pending UCx, wall placement secondary to urinary retention, monitor I/Os, frequent positioning, fall precautions, defer T+S given Buddhist status, will order minimal draw policy which has been relayed to lab per discussion with PCU charge nurse. Pain, anti-emetic regimen. PT/OT following operative intervention. CM consulted for discharge planning. Per [place] Perioperative Cardiac Risk Index given > METS, age 69, Cr < 1.5, independent living status, ASA 3/4 for orthopedic intervention, estimated risk of perioperative myocardial infarction or cardiac arrest 1.8%. Continue evaluation as noted with planned cardiac echo, cardiac enzyme trending, cardiology consultation given underlying history with progression to operative intervention if amenable. (2) Lactic Acidosis: Likely secondary to acute presentation with as noted #2, #3 as well as #1, just with IV fluid administration repeat lactic acid 0.7, resolved, continue to hydrating judiciously. (3) Renal insufficiency w/ CKD stage II: Admission BUN/Cr 24/1.37, baseline 1.1, mild dehydrated appearance with SG 1.015, continue gentle hydration, repeat BMP in AM. (4) Acute Urinary Tract Infection w/ Urinary retention: UA upon ED evaluation remarkable, pending UCx, will continue IVFs, monitor I/Os, continue IV Rocephin w/ transition as able pending sensitivities and speciation, maintain wall catheter given retention. Bld cx x 2 obtained in the ED. (5) Syncopal event with hypotension: Suspected secondary to positional changes, BP regimen as well as acute urinary tract infection is noted, will maintain on telemetry monitoring, cycle cardiac enzymes to be cautious, repeat EKG in a.m., obtain echocardiogram with last noted 05/30/19. (6) Fe Deficiency Anemia: Admission hemoglobin 12.6, usually normal range and only mildly decreased from his prior noted levels, will continue Fe supplementation, possibly secondary to acute presentation, repeat CBC in AM. (7) Anxiety and depression: We will continue home Prozac, Ativan regimen as well as patient Cymbalta although benefit from consideration of single agent given risk of serotonin syndrome. (8) Diabetes mellitus type II: Hold oral home regimen, ADA diet, accu checks w/ ISS, nutrition consulted for education and teaching. (9) ? Diastolic CHF, Dilated Cardiomyopathy: Holding Xarelto, continue home statin, metoprolol, spironolactone, not on RAFA inhibitor or ARB. Judiciously hydrating given acute presentation with transient hypotension. (10) Morbid Obesity: Weight loss and lifestyle changes encouraged, nutrition consulted. (11) Chronic COPD: ATC duonebs, PRN albuterol, HOB, IS parameters. (12) GERD: Continue home famotidine regimen. (13) Hypertension: Given BP improvement in the ED with minimal intervention (14) Hyperlipidemia: Continue home statin regimen. (15) BPH: We will continue home finasteride and Flomax regimen. (16) DVT Prophylaxis: SCDs, holding anticoagulant therapy given planned operative intervention, last dosing evening of presentation. (17) CODE status: Patient family and present, healthcare power of mergers and acquisitions attorney and living will in place. Discussed CODE status at length including difference between FULL code, DNR-CCA and DNR-CC status. Following discussions about the differences in these status, requested full CODE STATUS. Advanced Care Planning Face to Face Time: 20 minutes. Code Visit Inpatient E&M: 43822 Init Hosp L3 Procedures: 51167 Advncd Care Plan 30 Min
[2019-03-21 20:19] LABS: Mucous, Urine 0 SEEN /hpf (<or=2+)
[2019-03-21 20:26] LABS: Color, Urine Yellow (Yellow); Glucose, Dipstick Normal (Normal); Ketone-Dipstick Negative (Negative); Leukocyte Esterase-Dipstick 500 /ul (Negative); Nitrite-Dipstick Negative (Negative); Occult Blood-Urine 150 /ul (Negative); Protein-Dipstick 100 mg/dl (Negative); Specific Gravity, Urine 1.015 (1.002-1.030); Urine Bilirubin Dipstick Negative (Negative); Urine Clarity Turbid (Clear); Urine Urobilinogen Normal (Normal)
[2019-03-21 20:33] LABS: White Blood Cells >100 SEEN /hpf (0-5)
[2019-03-21 20:34] LABS: Red Blood Cells-Urine 10-25 SEEN /hpf (0-5)
[2019-03-21 20:35] LABS: Squamous Epithelial Cells - UA 5-10 SEEN /hpf (0-5)
[2019-03-21 20:36] LABS: Amorphous Sediment 1+ URATE; Bacteria 1+ /hpf (None Seen)
[2019-03-21] MEDS: Ceftriaxone 1 GM/50 ML BAG IV (21:18)
--- NOTE | 2019-03-21 21:47 | ECHOCS_ITS ---
Reason For Study: Syncope Procedure This was a 2D Doppler, Color Flow transthoracic echocardiogram. The study was technically difficult. Contrast injection was performed. Exam performed portable in patient room. Left Ventricle Normal LV size. The estimated ejection fraction is 55 %. Left ventricular systolic function is normal. Stage 1 diastolic dysfunction. No regional wall motion abnormalities noted. Right Ventricle Normal RV size. Normal systolic function. Atria Normal left atrium. Normal right atrium. Mitral Valve Mitral valve not well visualized. Tricuspid Valve The tricuspid valve is not well visualized. Aortic Valve The aortic valve is not well visualized. Pulmonic Valve Normal pulmonic valve. Great Vessels Normal aortic root. Pericardium/Pleural No pericardial effusion. Medication Diluted definity 5ml given slow IV push to enhance endocardial definition. MMode/2D Measurements & Calculations LVIDd: 5.4 cm IVSd: 1.1 cm Ao root diam: 3.9 cm LVIDs: 3.4 cm LVPWd: 0.97 cm FS: 37.8 % LAV(MOD-sp4): 62.3 ml LVAd ap4: 30.3 cm2 SV(MOD-sp4): 52.0 ml EDV(MOD-sp4): 101.3 ml EDV(sp4-el): 101.0 ml LVAs ap4: 20.4 cm2 ESV(MOD-sp4): 49.3 ml ESV(sp4-el): 46.4 ml EF(MOD-sp4): 51.4 % EF(sp4-el): 54.0 % SV(sp4-el): 54.5 ml LA A4 area: 21.7 cm2 RA A4 area: 20.0 cm2 Time Measurements MV dec time: 0.34 sec Doppler Measurements & Calculations MV E max wale: 92.5 cm/sec Lat Peak E' Wale: 10.6 cm/sec Med Peak E' Wale: 6.0 cm/sec MV A max wale: 124.4 cm/sec E/E' lat: 8.7 E/E' med: 15.4 MV E/A: 0.74 MV V2 max: 161.8 cm/sec MV P1/2t max wale: 135.8 cm/sec Ao V2 max: 170.5 cm/sec MV max P.5 mmHg MV P1/2t: 94.2 msec Ao max P.6 mmHg MV V2 mean: 92.0 cm/sec MV mean P.9 mmHg MV dec slope: 422.1 cm/sec2 MV V2 VTI: 45.4 cm MVA(P1/2t): 2.3 cm2 LV V1 max: 126.5 cm/sec PA V2 max: 109.8 cm/sec TR max wale: 271.1 cm/sec LV V1 max P.4 mmHg TR max P.4 mmHg Interpretation Summary Normal LV size. The estimated ejection fraction is 55 %. Left ventricular systolic function is normal. Stage 1 diastolic dysfunction. Contrast injection was performed. Compared to previous study, the left ventricular systolic function is the same.. Ordering Physician: Isela Arrieta Referring Physician: Felix Matias Performed By: Liam Palma RCS
[2019-03-21] MEDS: Morphine 2 MG/ML Syringe IV (22:38)
[2019-03-21] MEDS: LORazepam 1 MG Tablet PO (22:39)
[2019-03-21] MEDS: 0.9% Normal Saline 1,000 ML 125 ML IV (22:39)
[2019-03-21] MEDS: DULoxetine Hcl 60 MG Capsule PO (22:39)
[2019-03-21] MEDS: FLUoxetine 20 MG Capsule 40 MG PO (22:40)
[2019-03-21] MEDS: Atorvastatin Calcium 20 MG Tablet PO (22:40)
[2019-03-21] MEDS: Famotidine 20 MG Tablet PO (22:40)
[2019-03-21] MEDS: Ipratropium/Albuterol Sulfate 3 ML AMPUL.NEB INHALATION (23:02)
[2019-03-21 23:04] LABS: Reflex Lactate? Y
--- NOTE | 2019-03-21 23:08 | CPS ---
PATIENT INFORMED RT THAT HE WEARS BIPAP AT HOME AT 18/14 WITH 2 LPM OXYGEN BLED IN. PATIENT STATED THAT HE CANNOT TOLERATE THESE PRESSURES. DR. ALTMAN WROTE FOR RT TO ADJUST BIPAP FOR COMFORT. RT WILL ATTEMPT AT 21/06 RR 12 30%.
[2019-03-21] MEDS: HYDROcodone Bitartrate/Apap 5/325 Tablet PO (23:44)
[2019-03-21 23:57] LABS: Lactic Acid 0.7 mmol/L (0.4-2.0)
[2019-03-22] VITALS (17 sets, daily range): BP systolic 110–151; BP diastolic 67–97; PULSE 67–93; RESP 12–20; TEMP 36.7–37.1; O2SAT 91–97
[2019-03-22 01:00] LABS: Bedside Glucose 153 mg/dL (70-110)
--- NOTE | 2019-03-22 02:45 | NURSING ---
03/21/192229 Notified lab patient is a Jehovah Witness, minimal blood for lab draws.
[2019-03-22] MEDS: 0.9% NaCl Peripheral Flush Adult/Peds IV ×2 (03:16→11:31)
[2019-03-22] MEDS: HYDROmorphone 0.5 MG/0.5 ML SYRINGE IV ×6 (03:16→22:27)
[2019-03-22 05:26] LABS: Absolute Lymphocyte Count 1.45 X10^3/uL (0.83-4.51); Basophil# 0.04 X10^3/uL; Basophil% 0.5 % (0-1); Eosinophil# 0.07 X10^3/uL; Eosinophils% 0.8 % (0-5); Hematocrit 33.6 % (40-54); Hemoglobin 11.3 g/dL (13.0-16.5); Lymphocyte # 1.45 X10^3/ul (4.0); Lymphocyte % 16.4 % (19-41); Mean Corp Hgb Conc 33.6 g/dL (32-36); Mean Corpuscular Hgb 31.9 pg (27.0-32.0); Mean Corpuscular Volume 94.9 fL (80-94); Mean Platelet Vol. 10.2 fl (6.2-12.0); Monocyte# 0.29 X10^3/uL; Monocyte% 3.3 % (0-10); NRBC Flagged by Analyzer 0 % (0-5); Neutrophil # 6.96 X10^3/uL (2.7-7.7); Neutrophil % 78.4 % (47-70); Platelet Count 179 K/mm3 (150-450); RBC Distribution Width CV 13.3 % (11.6-14.6); RBC Distribution Width SD 45.7 fl (35.1-43.9); Red Blood Count 3.54 M/mm3 (4.6-6.2); White Blood Count 8.9 K/mm3 (4.4-11.0)
--- NOTE | 2019-03-22 05:55 | RAD_ITS ---
STUDY: X-RAY - ABDOMEN/PELVIS REASON FOR EXAM: Male, 69 years old. Abdominal distention. TECHNIQUE: Single AP view of the abdomen / pelvis. COMPARISON: None. FINDINGS: Normal visualized lung bases. There is a moderate amount of colonic fecal material. The visualized liver, spleen and kidneys are grossly normal in size and morphology. Normal soft tissue structures. There are diffuse degenerative changes of the visualized lumbar spine. Comminuted right intertrochanteric fracture. Degenerative changes of the left hip joint. RAD/Abdomen Single View IMPRESSION: Moderate amount of fecal material is in the colon. Electronically Signed: Camilo Khan, at 9:32 EDT , Service support ,
--- NOTE | 2019-03-22 05:55 | EKG12_ITS ---
Test Reason : AM EKG Blood Pressure : / mmHG Vent. Rate : 069 BPM Atrial Rate : 069 BPM P-R Int : 178 ms QRS Dur : 166 ms QT Int : 488 ms P-R-T Axes : -06 -03 012 degrees QTc Int : 522 ms Normal sinus rhythm Right bundle branch block Inferior infarct , age undetermined Abnormal ECG When compared with ECG of 03-JUN-2018 14:21, Sinus rhythm has replaced Atrial fibrillation Vent. rate has decreased BY 47 BPM Confirmed by LIONEL LOCKHART MD ([id number]), proposal editor SILAS MORGAN ([id number]) on 03/23/2019 12:14:15 PM Referred By: AGAPITO Confirmed By:LIONEL LOCKHART MD
[2019-03-22 05:57] LABS: Anion Gap 13 (5-15); BUN 21 mg/dL (7-18); BUN/Creat Ratio 18.4 RATIO (10-20); Calcium,Total 8.5 mg/dL (8.5-10.1); Chloride 105 mmol/L (98-107); Creatinine, Serum 1.14 mg/dL (0.70-1.30); EST Glomerular Filtration Rate 68 mL/min (>60); Est Glom Filt Rate - Afr Amer 82 mL/min (>60); Estimated Creatinine Clearance 59.17 ml/min; Glucose 140 mg/dL (74-106); Potassium 4.2 mmol/L (3.5-5.1); Sodium Level 141 mmol/L (136-145); T4 Free Direct 1.35 ng/dL (0.76-1.46)
[2019-03-22] MEDS: 0.9% Normal Saline 1,000 ML 125 ML IV ×3 (06:06→20:43)
[2019-03-22] MEDS: Ipratropium/Albuterol Sulfate 3 ML AMPUL.NEB INHALATION ×2 (06:42→18:40)
[2019-03-22 06:51] LABS: Bedside Glucose 139 mg/dL (70-110)
[2019-03-22] MEDS: Ferrous Sulfate 325 MG Tablet PO (08:15)
[2019-03-22] MEDS: oxyCODONE 5 MG Tablet PO ×4 (08:17→20:40)
[2019-03-22] MEDS: Metoprolol Tartrate 100 MG Tablet PO (09:08)
[2019-03-22] MEDS: Tamsulosin HCl 0.4 MG Capsule PO (09:08)
[2019-03-22] MEDS: Famotidine 20 MG Tablet PO ×2 (09:08→22:27)
[2019-03-22] MEDS: Calcitriol 0.25 MCG Capsule 0.5 MCG PO (09:08)
[2019-03-22] MEDS: Finasteride 5 MG Tablet PO (09:09)
[2019-03-22] MEDS: DULoxetine Hcl 60 MG Capsule PO ×2 (09:09→22:42)
[2019-03-22] MEDS: LORazepam 1 MG Tablet PO ×2 (09:09→22:27)
[2019-03-22] MEDS: Amiodarone 200 MG Tablet PO (09:15)
[2019-03-22] MEDS: Loratadine 10 MG Tablet PO (09:15)
[2019-03-22] MEDS: Acetaminophen 325 MG Tablet 650 MG PO ×2 (09:15→20:40)
--- NOTE | 2019-03-22 10:23 | CON.PCM_ITS ---
Reason for Consult Date of Consultation: 03/22/19 Reason for Consultation: Pre-operative cardiac evaluation. History of Present Illness: YAHIR GARCIA, is a 69 M who unfortunately sustained a fracture of his hip. Cardiology recommendation is being requested for preoperative evaluation. He is a gentleman with a history of hypertension, atrial fibrillation which appears to be fairly new in onset with rapid ventricular response rate as well as diastolic heart failure. His last ejection fraction was noted to be 50% on a recent hospitalization in May 2018. He also has a history of diabetes mellitus. You do remember that he underwent a cardiac catheterization in March 2017 which demonstrated nonobstructive coronary disease. During this recent hospitalization he was noted to be short of breath with palpitations. He apparently has been having some dizziness and prior to presentation he got up felt dizzy and apparently fell down hit his head and sustained a fracture of his hip. He was admitted to the hospital and he is scheduled to have surgery. He denies any neck arm or jaw discomfort suggest angina and no paroxysmal nocturnal dyspnea and he has minimal pedal edema. In the emergency room he was noted to be normal sinus rhythm. His electrocardiogram demonstrates normal sinus rhythm with no acute changes in his physical exam demonstrates clear lung davies regular rate and rhythm and 1+ pitting edema. Past Medical History Allergies/Adverse Reactions: Allergies No Known Allergies Allergy (Verified 03/21/19 18:20) Home Medications: Ambulatory Orders Medication Instructions Recorded Calcitriol [Rocaltrol] 0.25 mcg PO SUTUTHSA 03/28/17 Calcitriol [Rocaltrol] 0.5 mcg PO MOWEFR 03/28/17 Duloxetine HCl 60 mg PO BID 03/28/17 Ergocalciferol [Vitamin D] 1 cap PO DAN 03/28/17 Esomeprazole Magnesium 40 mg PO DAILY 03/28/17 Fluticasone/Salmeterol [Advair Hfa 2 puff INHALATION BID 03/28/17 45-21 Mcg Inhaler] Hydrocodone Bitart/Apap 5-325 1 tab PO Q6H PRN PRN 03/28/17 [[place] 5/325] Lorazepam [Ativan] 1 mg PO BID 03/28/17 cyanocobalamin (vit B-12) 2,500 2,500 mcg SUBLINGUAL QDAY 06/13/17 mcg sublingual tablet albuterol sulfate HFA 90 2 puff INHALATION .as needed g 07/22/17 mcg/actuation aerosol inhaler Cetirizine HCl [Zyrtec] 10 mg PO DAILY 05/29/18 Cholecalciferol (VIT D3) [Vitamin 1,000 unit PO DAILY 05/29/18 D3] Cyclobenzaprine HCl 10 mg PO QHS 05/29/18 Ferrous Sulfate [Iron] 325 mg PO DAILY 05/29/18 Fluoxetine HCl 40 mg PO QHS 05/29/18 Multivit-Mins/Iron/Folic/Lycop 1 tab PO DAILY 05/29/18 [Centrum Ultra Men's Tablet] Atorvastatin Calcium [Lipitor] 20 mg PO QHS #30 tab 06/01/18 Metformin HCl [Metformin HCl ER] 500 mg PO DAILY #30 [id number] 06/01/18 Rivaroxaban [Xarelto] 20 mg PO DAILY@1700 #30 tab 06/01/18 furosemide 40 mg tablet 80 mg PO BID #90 tab 06/17/18 spironolactone 50 mg tablet 50 mg PO DAILY #90 tab 06/17/18 Amiodarone HCl 200 mg PO DAILY 03/21/19 Finasteride 5 mg PO DAILY 03/21/19 Metoprolol Tartrate [Lopressor 100 mg PO DAILY 03/21/19 (beta boogie)] Potassium Chloride 20 meq PO TID 03/21/19 Tamsulosin HCl 0.4 mg PO DAILY 03/21/19 Past Medical History (Chronic Problems): Chronic Problems (Last Reviewed 06/17/18 @ 11:36 by Pieter Shi MD) Diastolic CHF (Chronic) PAF (paroxysmal atrial fibrillation) (Chronic) Right bundle branch block (Chronic) Acute on chronic diastolic (congestive) heart failure (Chronic) Essential (primary) hypertension (Chronic) Hyperlipidemia (Chronic) Dilated cardiomyopathy (Chronic) Morbid obesity (Chronic) TYLER (obstructive sleep apnea) (Chronic) use BiPAP COPD (chronic obstructive pulmonary disease) (Chronic) Surgical History: - - Bilateral shoulder replacement, gastric bypass (Kenny-en-Y), appendectomy, cholecystectomy, right knee arthroscopy, tonsillectomy, sinus surgery, history of facial tumor with resection with reconstructive surgery. Psychiatric History: No pertinent psych hx - *Family History Maternal Family History: Family History (Last Reviewed 06/17/18 @ 11:36 by Pieter Shi MD) Mother CAD (coronary artery disease) History Items: Heart Disease, Pulmonary Disease Paternal Family History: Family History (Last Reviewed 06/17/18 @ 11:36 by Pieter Shi MD) Mother CAD (coronary artery disease) History Items: - - Lung cancer with history of concurrent tobacco use. Lives: Spouse/ Significant Other Smoking Status: Former smoker - Patient quit cigarette tobacco usage of proximal 0.35 years prior to current presentation. Tobacco Use: Non-smoker Alcohol: Occasional Drugs: None Review of Systems - Review of Systems General: Denies: Fever, Night Sweats, Fatigue HEENT: Denies: Vision Change Cardiovascular: Reports: Dizziness. Denies: Chest Discomfort, Shortness of Breath, Orthopnea, PND, Peripheral Edema, Palpitations, Lightheadedness, Near Syncope, Syncope Respiratory: Denies: Cough, Sputum Production, Hemoptysis Gastrointestinal: Denies: Hematemesis, Hematochezia, Melena Genitourinary: Denies: Dysuria, Hematuria Skin: Denies: Rash Neurological: Reports: Dizziness Psychiatric: Denies: Anxiety Endocrine: Denies: Heat Intolerance Hematologic/ Lymphatic: Denies: Anemia Subjectve: Middle-aged man in no apparent distress Objective: Vital Signs Temp Pulse Resp BP Pulse Ox 98.1 F 84 18 151/69 H 95 03/22/19 09:02 03/22/19 09:08 03/22/19 09:02 03/22/19 09:08 03/22/19 09:02 Oxygen Delivery Method Room Air Weight: 271 lb 2.697 oz Body Mass Index (BMI) 41.2 Intake and Output for Last 24 Hours 03/20/19 03/21/19 03/22/19 23:59 23:59 23:59 Intake Total 850 / 850 1131.25 / 1131.25 Output Total 1200 / 1200 600 / 600 Balance -350 / -350 531.25 / 531.25 General: Awake, Alert, Oriented x 3 HEENT: PERRL, EOMI, Sclera Non Icteric Neck: Supple, Good ROM, No Lymph Node Enlargement Lungs: Clear to auscultation Cardiovascular: Regular Rhythm, Normal S1, Normal S2, No Murmurs, No Rubs, No Gallops Vascular: No Carotid Bruits, Normal Femoral Pulses, Normal Radial Pulses, Normal Dorsalis Pedal Pulse, Normal Posterior Tibial Pulses Abdomen: Bowel Sounds Present, Soft, Non Tender, No HSM, No Organomegaly Extremities: No Cyanosis, No Clubbing, No edema Musculoskeletal: No Erythema Skin: No Rashes Lymphatic: No Lymph Node Enlargement Neurological: No Focal Motor or Sensory Deficit Psych/Mental Status: Appropriate 03/21/19 18:17: WBC 9.2, RBC 3.89 L, Hgb 12.6 L, Hct 37.6 L, MCV 96.7 H, MCH 32.4 H, MCHC 33.5, Plt Count 298, MPV 9.7, Immature Gran % (Auto) 0.700, Neut % (Auto) 70.8 H, Lymph % (Auto) 22.6, [place] % (Auto) 4.1, Eos % (Auto) 1.5, Baso % (Auto) 0.3, Absolute Neuts (auto) 6.5, Nucleated RBC % 0 03/21/19 18:17: PT 14.7, INR 1.2, APTT 28.4 03/21/19 18:17: Sodium 135 L, Potassium 3.9, Chloride 99, Carbon Dioxide 23.0, Anion Gap 13, BUN 24 H, Creatinine 1.37 H, Est GFR (MDRD) Af Amer 66, Est GFR (MDRD) Non-Af 55 L, BUN/Creatinine Ratio 17.5, Glucose 103, Calcium 8.6, Total Bilirubin 0.30, Troponin I < 0.015 03/21/19 18:58: Lactic Acid 3.1 H 03/21/19 20:14: Urine Color Yellow, Urine Clarity Turbid, Urine pH 5.0, Ur Specific [place] 1.015, Urine Protein 100 H, Urine Glucose (UA) Normal, Urine Ketones Negative, Urine Occult Blood 150 H, Urine Nitrite Negative, Urine Bilirubin Negative, Urine Urobilinogen Normal, Ur Leukocyte Esterase 500 H, Urine RBC 10-25 SEEN, Urine WBC >100 SEEN 03/21/19 21:47: Magnesium 2.0 03/21/19 22:30: Troponin I < 0.015 03/21/19 23:22: Lactic Acid 0.7 03/22/19 01:09: Troponin I < 0.015 03/22/19 05:10: Sodium 141, Potassium 4.2, Chloride 105, Carbon Dioxide 23.0, Anion Gap 13, BUN 21 H, Creatinine 1.14, Est GFR (MDRD) Af Amer 82, Est GFR (MDRD) Non-Af 68, BUN/Creatinine Ratio 18.4, Glucose 140 H, Calcium 8.5 03/22/19 05:10: WBC 8.9, RBC 3.54 L, Hgb 11.3 L, Hct 33.6 L, MCV 94.9 H, MCH 31.9, MCHC 33.6, Plt Count 179, MPV 10.2, Immature Gran % (Auto) 0.600, Neut % (Auto) 78.4 H, Lymph % (Auto) 16.4 L, [place] % (Auto) 3.3, Eos % (Auto) 0.8, Baso % (Auto) 0.5, Absolute Neuts (auto) 7.0, Nucleated RBC % 0 Rhythm: EKG: ECHO: Stress Test: Cardiac Cath: PCI: CT Surgery: Holter monitor: EPS: PPM: CXR: Chest CT Scan: Assessment/Plan 1. Preoperative cardiac evaluation. * He is a gentleman with known paroxysmal atrial fibrillation hypertension and no obstructive coronary disease. His last echocardiogram had demonstrated an ejection fraction of approximately 50% he has had a repeat in the reading is pending. At this particular time I do not see any contraindications to him undergoing the intended surgery. I would not suggest any further testing. * 2. Syncope * The etiology of the above is not entirely clear it is not apparent that this was an arrhythmic event. My recommendation however would continue to monitor him via telemetry monitoring. * Any on his echocardiographic findings further recommendations will be made. * 3. Hypertension * Continue with current medications for blood pressure control. * 4. Paroxysmal atrial fibrillation * Patient is maintaining sinus rhythm at this time with a right bundle branch block. We will continue to monitor him. * * Thank you for allowing me to participate in the care of your patient. Please don't hesitate to call if any issues arise
[2019-03-22 11:30] LABS: Bedside Glucose 212 mg/dL (70-110)
[2019-03-22] MEDS: Insulin Lispro 100 UNIT/ML INSULN.PEN SC (11:31)
--- NOTE | 2019-03-22 12:33 | CASEMGMT ---
SW met with patient and his . Introduced self as well as role at [facility]. Discussed d/c plan. SW explained that patient's with hip fractures generally have to go to a group home for rehab. They said they were told this. SW gave them a list of facilities that are in network with their insurance and asked that they pick at least 3. SW encouraged patient's to visit facilities or to go online to see ratings. Patient is having surgery tomorrow. SW told them SW will check back tomorrow. Ping MICHEL MSW
--- NOTE | 2019-03-22 14:35 | CON.PCM_ITS ---
Problem List (1) Closed intertrochanteric fracture of right femur Status: Acute Qualifiers: Encounter type: initial encounter Fracture alignment: displaced Qualified Code(s): S72.141A - Displaced intertrochanteric fracture of right femur, initial encounter for closed fracture - Consult Date of Consult: 03/22/19 Reason for consul: Right hip displaced intertrochanteric fracture Plan 1. Continue all pain medications as prescribed 2. Continue antibiotics as prescribed by medicine for UTI 3. Cardiac clearance from Dr. Shi 4. ORIF right hip with long gamma nail on 03/23/2019 to be performed by Dr. Sudeep vann 5. Patient to be n.p.o. after midnight 6. Ice to right hip 7. Continue SCDs 8. Patient remain nonweightbearing History This is a morbidly obese male who was brought to the emergency department via squad as result for fall at home. This patient has a long significant medical history of cardiac, diabetes, and morbid obesity. Apparently at home patient stated he was attempting to come from a sitting to standing position when he passed out causing him to fall to the floor. She denies any other associated injury with this fall. Patient states after the fall he was in severe pain and was unable to weight-bear to the right hip. Patient denies any previous injury to this hip in the past. At this time the patient denies any chest pain, shortness of breath, calf pain, nausea vomiting. Headaches blurred vision numbness or tingling the arms face or legs. Patient was seen today by Dr. Yuridia lawson and has been cleared cardiac to proceed with surgery. We otherwise reviewed and discussed 10 review of systems all pertinent positive negatives were noted in the medical record Exam Upon entering the room I found a morbidly obese male lying in bed with his at his side. Patient was alert oriented, in no obvious distress. Patient's cranial nerves II through XII are grossly intact. HEENT was otherwise within normal limits. Patient had no signs of trauma to the head face and neck. Patient has good range of motion of the upper extremities, including the bilateral shoulders, bilateral elbows, bilateral wrists and hands. Patient has good muscle tone and strength of bilateral upper extremities. Patient had no signs of trauma to the anterior posterior chest wall or abdomen. Lungs clear, cardio there were no heaves, thrills, or murmurs, with a regular rate and rhythm. Patient's abdomen was morbidly obese. He has good motion of the left hip knee and ankle. Exam of the right hip overlying tissue was intact, with no indication of an open fracture. Patient's had no attempted motion of the right leg secondary to pain. Patient had strong posterior tibial and dorsalis pedis pulses. No signs of trauma to the lower extremity. Labs As noted in the medical record Imaging study 3 views, AP pelvis, AP right hip, frog-leg, show patient has a displaced intertrochanteric fracture of the right hip. Plan as discussed above, patient will undergo an ORIF with a long gamma nail on 03/23/[address] David Forte. During my evaluation today it was determined patient had a meal 1 hour prior to my exam. Patient is also presently receiving antibiotics for an acute UTI. Patient is remain n.p.o. after midnight. Please note I spent approximately 65 minutes in review of medical records, history taking, physical examination, decision making, and discussing clinical findings with Dr. David Forte
--- NOTE | 2019-03-22 16:18 | PCM.PN.HOSP ---
Patient Problems: Active and Suspected Problems (Last Reviewed 06/17/18 @ 11:36 by Pieter Shi MD) Closed intertrochanteric fracture of right femur (Acute) Syncope and collapse (Acute) UTI (urinary tract infection) (Acute) Subjective: States he had a syncopal episode and has had them previously. Right hip pain post fracture. Vitals/I&O's: Vital Signs Temp Pulse Resp BP Pulse Ox 36.7 C 70 18 122/70 H 96 03/22/19 14:35 03/22/19 15:00 03/22/19 14:35 03/22/19 14:35 03/22/19 14:35 Oxygen Delivery Method Room Air Weight: 123 kg Body Mass Index (BMI) 41.2 Intake and Output for Last 24 Hours 03/20/19 03/21/19 03/22/19 23:59 23:59 23:59 Intake Total 850 / 850 2485.83 / 2485.83 Output Total 1200 / 1200 1000 / 1000 Balance -350 / -350 1485.83 / 1485.83 General: Alert, No apparent distress HEENT: Atraumatic Oral: Moist Mucosa, No Gingival or Mucosal Lesions/ Ulcerations Neck: No Nodes, Thyroid Normal Size and Texture Lungs: Clear to auscultation, Normal air movement, No rhonchi, No wheeze, No rales Cardiovascular: Regular rate, Regular Rhythm, Normal S1, Normal S2, No murmurs Abdomen: Bowel Sounds Present, Soft, Non Tender, Non-Distended, No Hepato-splenomegaly Extremities: No Calf Tenderness, Edema Skin: No rashes, No breakdown Psych/Mental Status: Normal Affect, Appropriate Microbiology Past 72 Hours 03/21/19 20:14 Urine Catheter - Catheter Urine Culture - Preliminary Presumptive E. coli Laboratory Results 03/21/19 18:17: WBC 9.2, RBC 3.89 L, Hgb 12.6 L, Hct 37.6 L, MCV 96.7 H, MCH 32.4 H, MCHC 33.5, RDW Std Deviation 46.0 H, RDW Coeff of [place] 13.2, Plt Count 298, MPV 9.7, Immature Gran % (Auto) 0.700, Neut % (Auto) 70.8 H, Lymph % (Auto) 22.6, [place] % (Auto) 4.1, Eos % (Auto) 1.5, Baso % (Auto) 0.3, Absolute Neuts (auto) 6.5, Absolute Lymphs (auto) 2.07, Nucleated RBC % 0 03/21/19 18:17: PT 14.7, INR 1.2, APTT 28.4 03/21/19 18:17: Sodium 135 L, Potassium 3.9, Chloride 99, Carbon Dioxide 23.0, Anion Gap 13, BUN 24 H, Creatinine 1.37 H, Estim Creat Clear Calc 49.23, Est GFR (MDRD) Af Amer 66, Est GFR (MDRD) Non-Af 55 L, BUN/Creatinine Ratio 17.5, Glucose 103, Calcium 8.6, Total Bilirubin 0.30, AST 22, ALT 40, Alkaline Phosphatase 113, Troponin I < 0.015, Total Protein 7.2, Albumin 3.2, Globulin 4.0, Albumin/Globulin Ratio 0.8 L 03/21/19 18:58: Lactic Acid 3.1 H 03/21/19 20:14: Urine Color Yellow, Urine Clarity Turbid, Urine pH 5.0, Ur Specific [place] 1.015, Urine Protein 100 H, Urine Glucose (UA) Normal, Urine Ketones Negative, Urine Occult Blood 150 H, Urine Nitrite Negative, Urine Bilirubin Negative, Urine Urobilinogen Normal, Ur Leukocyte Esterase 500 H, Urine RBC 10-25 SEEN, Urine WBC >100 SEEN, Ur Squamous Epith Cells 5-10 SEEN, Amorphous Sediment 1+ URATE, Urine Bacteria 1+, Urine Mucus 0 SEEN 03/21/19 21:47: Magnesium 2.0, TSH 3.80 H 03/21/19 22:30: Troponin I < 0.015 03/21/19 22:52: POC Glucose 153 H 03/21/19 23:22: Lactic Acid 0.7 03/22/19 01:09: Troponin I < 0.015 03/22/19 05:10: Sodium 141, Potassium 4.2, Chloride 105, Carbon Dioxide 23.0, Anion Gap 13, BUN 21 H, Creatinine 1.14, Estim Creat Clear Calc 59.17, Est GFR (MDRD) Af Amer 82, Est GFR (MDRD) Non-Af 68, BUN/Creatinine Ratio 18.4, Glucose 140 H, Calcium 8.5, Free T4 1.35 03/22/19 05:10: WBC 8.9, RBC 3.54 L, Hgb 11.3 L, Hct 33.6 L, MCV 94.9 H, MCH 31.9, MCHC 33.6, RDW Std Deviation 45.7 H, RDW Coeff of [place] 13.3, Plt Count 179, MPV 10.2, Immature Gran % (Auto) 0.600, Neut % (Auto) 78.4 H, Lymph % (Auto) 16.4 L, [place] % (Auto) 3.3, Eos % (Auto) 0.8, Baso % (Auto) 0.5, Absolute Neuts (auto) 7.0, Absolute Lymphs (auto) 1.45, Nucleated RBC % 0 03/22/19 06:15: POC Glucose 139 H 03/22/19 11:25: POC Glucose 212 H Current Medications Acetaminophen (Tylenol) 650 mg PO Q6H PRN PRN PRN Reason: Non-cardiac pain (mod-severe) Last Admin: 03/22/19 09:15 Dose: 650 mg Documented by: Al Hydroxide/Mg Hydroxide (Mylanta Ii) 15 - 30 ml PO Q4H PRN PRN PRN Reason: INDIGESTION Albuterol Sulfate (Ventolin Aerosols) 2.5 mg INHALATION Q2H PRN PRN PRN Reason: dyspnea, wheezing Albuterol/Ipratropium (Duoneb) 3 ml INHALATION Q6HWA.RT [facility] Last Admin: 03/22/19 06:42 Dose: 3 ml Documented by: Amiodarone HCl (Cordarone) 200 mg PO DAILY [facility] Last Admin: 03/22/19 09:15 Dose: 200 mg Documented by: Atorvastatin Calcium (Lipitor) 20 mg PO QHS [facility] Last Admin: 03/21/19 22:40 Dose: 20 mg Documented by: Calcitriol (Rocaltrol) 0.5 mcg PO MoWeFr@1000 [facility] Last Admin: 03/22/19 09:08 Dose: 0.5 mcg Documented by: Calcitriol (Rocaltrol) 0.25 mcg PO SuTuThSa@1000 [facility] Dextrose (D50w Syringe) 0 gm IV X1 PRN; Protocol PRN Reason: Hypoglycemia Duloxetine HCl (Cymbalta) 60 mg PO BID [facility] Last Admin: 03/22/19 09:09 Dose: 60 mg Documented by: Famotidine (Pepcid) 20 mg PO BID [facility] Last Admin: 03/22/19 09:08 Dose: 20 mg Documented by: Ferrous Sulfate (F[facility]ous Sulfate) [facility] Last Admin: 03/22/19 08:15 Dose: 325 mg Documented by: Finasteride (Proscar) 5 mg PO DAILY [facility] Last Admin: 03/22/19 09:09 Dose: 5 mg Documented by: Fluoxetine HCl (Prozac) 40 mg PO QHS [facility] Last Admin: 03/21/19 22:40 Dose: 40 mg Documented by: Glucagon () 1 mg IM .X1 PRN PRN Reason: Hypoglycemia Hydralazine HCl (Apresoline Iv) 10 mg IV Q4H PRN PRN PRN Reason: SBP > 160 Hydromorphone HCl (Dilaudid Inj) 0.5 mg IV Q3H PRN PRN PRN Reason: SEVERE PAIN (6-10/10) Last Admin: 03/22/19 15:22 Dose: 0.5 mg Documented by: Sodium Chloride () 1,000 mls @ 125 mls/hr IV .Q8H [facility] Last Admin: 03/22/19 13:25 Dose: 125 mls/hr Documented by: Ceftriaxone Sodium (Rocephin) 1 gm in 50 mls @ 100 mls/hr IV Q24H [facility] Sodium Chloride () 250 mls @ 15 mls/hr IV .[id number] PRN PRN Reason: SALINE FLUSH Insulin Human Lispro (Humalog Kwikpen (Bkc)) 0 unit SC ACHS [facility]; Protocol Last Admin: 03/22/19 11:31 Dose: 2 unit Documented by: Loratadine (Claritin) 10 mg PO DAILY [facility] Last Admin: 03/22/19 09:15 Dose: 10 mg Documented by: Lorazepam (Ativan) 1 mg PO BID [facility] Last Admin: 03/22/19 09:09 Dose: 1 mg Documented by: Lorazepam (Ativan) 0.5 mg PO Q4H PRN PRN PRN Reason: Severe muscle cramping Magnesium Hydroxide (Milk Of Magnesia) 30 ml PO DAILY PRN PRN Reason: Constipation Melatonin (Melatonin) 3 mg PO QHS PRN PRN PRN Reason: INSOMNIA Metoprolol Tartrate (Lopressor (Beta Yunior)) 100 mg PO DAILY [facility] Last Admin: 03/22/19 09:08 Dose: 100 mg Documented by: Nitroglycerin (Nitrostat) 0.4 mg SUBLINGUAL Q5M PRN PRN Reason: CARDIAC/CHEST PAIN Ondansetron HCl (Zofran) 4 mg IV Q8H PRN PRN PRN Reason: NAUSEA/VOMITING Oxycodone HCl (Oxyir) 5 - 10 mg PO Q4H PRN PRN PRN Reason: SEVERE PAIN (6-10/10) Last Admin: 03/22/19 12:17 Dose: 10 mg Documented by: Sodium Chloride () 10 - 40 ml IV UD PRN PRN Reason: SALINE FLUSH Last Admin: 03/22/19 11:31 Dose: 10 ml Documented by: Tamsulosin HCl (Flomax) 0.4 mg PO DAILY [facility] Last Admin: 03/22/19 09:08 Dose: 0.4 mg Documented by: Medical Necessity - Tobacco Use Smoking Status: Former smoker - Patient quit cigarette tobacco usage of proximal 0.35 years prior to current presentation. Tobacco Use: Non-smoker Assessment/Plan All Active Problems (Last Reviewed 06/17/18 @ 11:36 by Pieter Shi MD) Hypotension, unspecified (Resolved) Lactic acidosis (Resolved) Closed intertrochanteric fracture of right femur (Acute) Syncope and collapse (Acute) UTI (urinary tract infection) (Acute) Atrial fibrillation with rapid ventricular response (Acute) New onset atrial fibrillation (Acute) 1. right intertrochanteric fracture of right femoral neck and shaft status post fall medically stable for surgery cleared by cardiology check 25-oh d level and replace if low (goal of 50) 2. possible UTI pyuria, but also with epithelial cells noted on UA continue empiric treatment for now with CTX DC abx if cultures are unremarkable 3. Syncope unclear if orthostatic, vasovagal v other. continue tele for now echo showed an EF of 50% 4. pAfib rivaroxaban held for surgery, resume post-op when ok with orthopaedics continue metoprolol 5. VTE prophylaxis: moderate risk. SCDs until can be resumed on anticoagulation DW patient's . Code Visit Inpatient E&M: 04401 Subs Hosp L2
--- NOTE | 2019-03-22 16:31 | CHAPLAIN ---
Type of Pastoral Visit _x__ Initial Visit ___ Follow-up Visit ___ On-call Visit ___ General Patient Visit ___ Spiritual Assessment ___ Family Conference ___ Bereavement ___ Rapid Response ___ Code Blue ___ Other (describe below) Pastoral Care Referral From _x__ Patient _x__ Family ___ Nurse ___ Physician ___ Barn Boss ___ Manager Medicaid ___ Other (describe below) Sacrament/Intervention _x__ Active listening ___ Anointing ___ Moravian ___ Bereavement ___ Communion _x__ Sri exploration ___ _x__ Life review _x__ Prayer ___ Reconciliation ___ Sacrament of Sick _x__ Supportive presence ___ Wedding ___ Other (describe below) Pastoral Comments patient is of the Lutheran; pt welcomes visits and conversation
[2019-03-22 17:00] LABS: Bedside Glucose 126 mg/dL (70-110)
[2019-03-22 19:03] LABS: Vitamin D,25 Hydroxy 85.1 ng/mL (29.95-100.01)
[2019-03-22] MEDS: Ceftriaxone 1 GM/50 ML BAG IV (22:26)
[2019-03-22] MEDS: FLUoxetine 20 MG Capsule 40 MG PO (22:27)
[2019-03-22] MEDS: Atorvastatin Calcium 20 MG Tablet PO (22:27)
[2019-03-22 22:41] LABS: Bedside Glucose 149 mg/dL (70-110)
[2019-03-23] VITALS (22 sets, daily range): BP systolic 121–141; BP diastolic 57–81; PULSE 59–83; RESP 12–22; TEMP 36.5–37.1; O2SAT 94–100; BMI 41.2
[2019-03-23] MEDS: HYDROmorphone 0.5 MG/0.5 ML SYRINGE IV ×3 (02:41→08:46)
[2019-03-23] MEDS: 0.9% Normal Saline 1,000 ML 125 ML IV ×4 (05:33→23:45)
[2019-03-23 06:36] LABS: Bedside Glucose 133 mg/dL (70-110)
[2019-03-23 07:10] LABS: Absolute Lymphocyte Count 1.13 X10^3/uL (0.83-4.51); Absolute Neutrophil Count 6.2 X10^3/uL (2.0-7.7); Basophil# 0.03 X10^3/uL; Basophil% 0.4 % (0-1); Eosinophil# 0.15 X10^3/uL; Eosinophils% 1.9 % (0-5); Hematocrit 30.2 % (40-54); Hemoglobin 9.9 g/dL (13.0-16.5); Lymphocyte # 1.13 X10^3/ul (4.0); Lymphocyte % 14.3 % (19-41); Mean Corp Hgb Conc 32.8 g/dL (32-36); Mean Corpuscular Hgb 32.5 pg (27.0-32.0); Mean Platelet Vol. 9.6 fl (6.2-12.0); Monocyte# 0.27 X10^3/uL; Monocyte% 3.4 % (0-10); NRBC Flagged by Analyzer 0 % (0-5); Neutrophil # 6.21 X10^3/uL (2.7-7.7); Neutrophil % 78.7 % (47-70); Platelet Count 227 K/mm3 (150-450); RBC Distribution Width CV 13.6 % (11.6-14.6); RBC Distribution Width SD 49.2 fl (35.1-43.9); Red Blood Count 3.05 M/mm3 (4.6-6.2); White Blood Count 7.9 K/mm3 (4.4-11.0)
[2019-03-23] MEDS: Ipratropium/Albuterol Sulfate 3 ML AMPUL.NEB INHALATION ×2 (07:12→19:09)
[2019-03-23 07:27] LABS: Hemoglobin A1c 5.8 % (4.2-6.3)
[2019-03-23 07:38] LABS: Anion Gap 7 (5-15); BUN 14 mg/dL (7-18); BUN/Creat Ratio 16.7 RATIO (10-20); Calcium,Total 8.5 mg/dL (8.5-10.1); Chloride 106 mmol/L (98-107); Creatinine, Serum 0.84 mg/dL (0.70-1.30); EST Glomerular Filtration Rate 97 mL/min (>60); Est Glom Filt Rate - Afr Amer 117 mL/min (>60); Glucose 136 mg/dL (74-106); Potassium 3.3 mmol/L (3.5-5.1); Sodium Level 140 mmol/L (136-145)
[2019-03-23] MEDS: LORazepam 1 MG Tablet PO ×2 (08:48→22:12)
[2019-03-23] MEDS: DULoxetine Hcl 60 MG Capsule PO ×2 (08:49→22:06)
[2019-03-23] MEDS: Loratadine 10 MG Tablet PO (08:50)
[2019-03-23] MEDS: Amiodarone 200 MG Tablet PO (08:50)
[2019-03-23] MEDS: Metoprolol Tartrate 100 MG Tablet PO (08:54)
--- NOTE | 2019-03-23 10:43 | NURSING ---
Pt being taken off of floor for surgery
--- NOTE | 2019-03-23 11:35 | RAD_ITS ---
STUDY: X-RAY - PELVIS AND RIGHT HIP REASON FOR EXAM: Male, 69 years old. Repair in the operating room TECHNIQUE: 8 views of the pelvis and hip. COMPARISON: None. FINDINGS: ORIF noted of the right hip. However appears intact. Comminuted fracture of the right femoral neck is noted. RAD/Hip Min 2 Views (Portable) IMPRESSION: As above Electronically Signed: Yon Michael DO at 15:27 EDT Tel , Service support ,
--- NOTE | 2019-03-23 13:56 | OP.PCM_ITS ---
Report of Operation Date of Procedure: 03/23/19 Pre-Operative Diagnosis: Comminuted, subtrochanteric fracture right hip Post-Operative Diagnosis: same with significant peritrochanteric involvement Surgery/Procedure Performed:: ORIF right hip dry kiln loader: [place] Type of Anesthesia:: General Anesthesiologist: Ed Campbell Estimated Blood Loss (mL): 250 cc - Admit VTE Documentation VTE Present on Admission: No VTE Mechan Device Prophylaxis: SCD's VTE Pharm Prophylaxis ordered?: Yes
[2019-03-23 14:43] LABS: Absolute Lymphocyte Count 1.04 X10^3/uL (0.83-4.51); Absolute Neutrophil Count 10.1 X10^3/uL (2.0-7.7); Basophil# 0.04 X10^3/uL; Basophil% 0.3 % (0-1); Eosinophil# 0.11 X10^3/uL; Eosinophils% 0.9 % (0-5); Hematocrit 29.7 % (40-54); Hemoglobin 9.5 g/dL (13.0-16.5); Lymphocyte # 1.04 X10^3/ul (4.0); Mean Corpuscular Hgb 32.8 pg (27.0-32.0); Mean Corpuscular Volume 102.4 fL (80-94); Mean Platelet Vol. 9.3 fl (6.2-12.0); Monocyte# 0.17 X10^3/uL; Monocyte% 1.5 % (0-10); NRBC Flagged by Analyzer 0 % (0-5); Neutrophil # 10.12 X10^3/uL (2.7-7.7); Neutrophil % 87.2 % (47-70); Platelet Count 270 K/mm3 (150-450); RBC Distribution Width CV 13.7 % (11.6-14.6); RBC Distribution Width SD 50.5 fl (35.1-43.9); White Blood Count 11.6 K/mm3 (4.4-11.0)
[2019-03-23 14:55] LABS: Bedside Glucose 143 mg/dL (70-110)
[2019-03-23 15:01] LABS: Anion Gap 6 (5-15); BUN 12 mg/dL (7-18); BUN/Creat Ratio 12.3 RATIO (10-20); Calcium,Total 8.7 mg/dL (8.5-10.1); Chloride 107 mmol/L (98-107); Creatinine, Serum 0.98 mg/dL (0.70-1.30); EST Glomerular Filtration Rate 81 mL/min (>60); Est Glom Filt Rate - Afr Amer 98 mL/min (>60); Estimated Creatinine Clearance 68.83 ml/min; Glucose 158 mg/dL (74-106); Sodium Level 140 mmol/L (136-145)
--- NOTE | 2019-03-23 15:41 | PCM.PN.HOSP ---
Patient Problems: Active and Suspected Problems (Last Reviewed 06/17/18 @ 11:36 by Pieter Shi MD) Closed intertrochanteric fracture of right femur (Acute) Syncope and collapse (Acute) UTI (urinary tract infection) (Acute) Subjective: Feel tired post-op. Denies nausea. Vitals/I&O's: Vital Signs Temp Pulse Resp BP Pulse Ox 36.7 C 60 18 123/68 H 95 03/23/19 15:33 03/23/19 15:33 03/23/19 15:33 03/23/19 15:33 03/23/19 15:33 Oxygen Flow Rate (L/min) 2 Oxygen Delivery Method Room Air Weight: 122.924 kg Body Mass Index (BMI) 41.2 Intake and Output for Last 24 Hours 03/21/19 03/22/19 03/23/19 23:59 23:59 23:59 Intake Total 850 / 850 4186.24 / 4186.24 1891.67 / 1891.67 Output Total 1200 / 1200 1800 / 1800 593 / 593 Balance -350 / -350 2386.24 / 2386.24 1298.67 / 1298.67 General: Alert, No apparent distress HEENT: Atraumatic, Normocephalic Oral: Moist Mucosa, No Gingival or Mucosal Lesions/ Ulcerations Neck: No Nodes, Thyroid Normal Size and Texture Lungs: Clear to auscultation, Diminished Cardiovascular: Regular rate, Regular Rhythm, Normal S1, Normal S2 Abdomen: Bowel Sounds Present, Soft, Non Tender, Non-Distended, No Hepato-splenomegaly Extremities: No Calf Tenderness, Edema Psych/Mental Status: Appropriate, Flat Affect Microbiology Past 72 Hours 03/21/19 20:14 Urine Catheter - Catheter Urine Culture - Final Presumptive E. coli Laboratory Results 03/22/19 16:38: POC Glucose 126 H 03/22/19 17:25: Vitamin D 25-Hydroxy 85.1 03/22/19 22:25: POC Glucose 149 H 03/23/19 06:32: POC Glucose 133 H 03/23/19 06:55: WBC 7.9, RBC 3.05 L, Hgb 9.9 L, Hct 30.2 L, MCV 99.0 H, MCH 32.5 H, MCHC 32.8, RDW Std Deviation 49.2 H, RDW Coeff of Bruno 13.6, Plt Count 227, MPV 9.6, Immature Gran % (Auto) 1.300 H, Neut % (Auto) 78.7 H, Lymph % (Auto) 14.3 L, [place] % (Auto) 3.4, Eos % (Auto) 1.9, Baso % (Auto) 0.4, Absolute Neuts (auto) 6.2, Absolute Lymphs (auto) 1.13, Nucleated RBC % 0 03/23/19 06:55: Sodium 140, Potassium 3.3 L, Chloride 106, Carbon Dioxide 27.0, Anion Gap 7, BUN 14, Creatinine 0.84, Estim Creat Clear Calc 80.30, Est GFR (MDRD) Af Amer 117, Est GFR (MDRD) Non-Af 97, BUN/Creatinine Ratio 16.7, Glucose 136 H, Calcium 8.5 03/23/19 06:55: Hemoglobin A1c 5.8 03/23/19 14:30: WBC 11.6 H, RBC 2.90 L, Hgb 9.5 L, Hct 29.7 L, MCV 102.4 H, MCH 32.8 H, MCHC 32.0, RDW Std Deviation 50.5 H, RDW Coeff of Bruno 13.7, Plt Count 270, MPV 9.3, Immature Gran % (Auto) 1.100 H, Neut % (Auto) 87.2 H, Lymph % (Auto) 9.0 L, [place] % (Auto) 1.5, Eos % (Auto) 0.9, Baso % (Auto) 0.3, Absolute Neuts (auto) 10.1 H, Absolute Lymphs (auto) 1.04, Nucleated RBC % 0 03/23/19 14:30: Sodium 140, Potassium 4.0, Chloride 107, Carbon Dioxide 27.0, Anion Gap 6, BUN 12, Creatinine 0.98, Estim Creat Clear Calc 68.83, Est GFR (MDRD) Af Amer 98, Est GFR (MDRD) Non-Af 81, BUN/Creatinine Ratio 12.3, Glucose 158 H, Calcium 8.7 03/23/19 14:52: POC Glucose 143 H Current Medications Acetaminophen (Tylenol) 650 mg PO Q6H PRN PRN PRN Reason: Non-cardiac pain (mod-severe) Last Admin: 03/22/19 20:40 Dose: 650 mg Documented by: Al Hydroxide/Mg Hydroxide (Mylanta Ii) 15 - 30 ml PO Q4H PRN PRN PRN Reason: INDIGESTION Albuterol Sulfate (Ventolin Aerosols) 2.5 mg INHALATION Q2H PRN PRN PRN Reason: dyspnea, wheezing Albuterol/Ipratropium (Duoneb) 3 ml INHALATION Q6HWA.RT [facility] Last Admin: 03/23/19 13:15 Dose: Not Given Documented by: Amiodarone HCl (Cordarone) 200 mg PO DAILY [facility] Last Admin: 03/23/19 08:50 Dose: 200 mg Documented by: Atorvastatin Calcium (Lipitor) 20 mg PO QHS [facility] Last Admin: 03/22/19 22:27 Dose: 20 mg Documented by: Calcitriol (Rocaltrol) 0.5 mcg PO MoWeFr@1000 [facility] Last Admin: 03/22/19 09:08 Dose: 0.5 mcg Documented by: Calcitriol (Rocaltrol) 0.25 mcg PO SuTuThSa@1000 [facility] Last Admin: 03/23/19 08:57 Dose: Not Given Documented by: Dextrose (D50w Syringe) 0 gm IV X1 PRN; Protocol PRN Reason: Hypoglycemia Duloxetine HCl (Cymbalta) 60 mg PO BID [facility] Last Admin: 03/23/19 08:49 Dose: 60 mg Documented by: Famotidine (Pepcid) 20 mg PO BID [facility] Last Admin: 03/23/19 08:56 Dose: Not Given Documented by: Ferrous Sulfate (Ferrous Sulfate) [facility] Last Admin: 03/23/19 08:50 Dose: Not Given Documented by: Finasteride (Proscar) 5 mg PO DAILY [facility] Last Admin: 03/23/19 08:57 Dose: Not Given Documented by: Fluoxetine HCl (Prozac) 40 mg PO QHS [facility] Last Admin: 03/22/19 22:27 Dose: 40 mg Documented by: Glucagon () 1 mg IM .X1 PRN PRN Reason: Hypoglycemia Hydralazine HCl (Apresoline Iv) 10 mg IV Q4H PRN PRN PRN Reason: SBP > 160 Hydromorphone HCl (Dilaudid Inj) 0.5 mg IV Q3H PRN PRN PRN Reason: SEVERE PAIN (6-10/10) Last Admin: 03/23/19 08:46 Dose: 0.5 mg Documented by: Sodium Chloride () 1,000 mls @ 125 mls/hr IV .Q8H [facility] Last Admin: 03/23/19 15:40 Dose: 125 mls/hr Documented by: Ceftriaxone Sodium (Rocephin) 1 gm in 50 mls @ 100 mls/hr IV Q24H [facility] Last Infusion: 03/22/19 22:56 Dose: Infused Documented by: Sodium Chloride () 250 mls @ 15 mls/hr IV .[id number] PRN PRN Reason: SALINE FLUSH Insulin Human Lispro (Humalog Kwikpen (Bkc)) 0 unit SC ACHS [facility]; Protocol Last Admin: 03/23/19 12:11 Dose: Not Given Documented by: Loratadine (Claritin) 10 mg PO DAILY [facility] Last Admin: 03/23/19 08:50 Dose: 10 mg Documented by: Lorazepam (Ativan) 1 mg PO BID [facility] Last Admin: 03/23/19 08:48 Dose: 1 mg Documented by: Lorazepam (Ativan) 0.5 mg PO Q4H PRN PRN PRN Reason: Severe muscle cramping Magnesium Hydroxide (Milk Of Magnesia) 30 ml PO DAILY PRN PRN Reason: Constipation Melatonin (Melatonin) 3 mg PO QHS PRN PRN PRN Reason: INSOMNIA Metoprolol Tartrate (Lopressor (Beta Yunior)) 100 mg PO DAILY [facility] Last Admin: 03/23/19 08:54 Dose: 100 mg Documented by: Nitroglycerin (Nitrostat) 0.4 mg SUBLINGUAL Q5M PRN PRN Reason: CARDIAC/CHEST PAIN Ondansetron HCl (Zofran) 4 mg IV Q8H PRN PRN PRN Reason: NAUSEA/VOMITING Oxycodone HCl (Oxyir) 5 - 10 mg PO Q4H PRN PRN PRN Reason: SEVERE PAIN () Last Admin: 03/22/19 20:40 Dose: 10 mg Documented by: Sodium Chloride () 10 - 40 ml IV UD PRN PRN Reason: SALINE FLUSH Last Admin: 03/22/19 11:31 Dose: 10 ml Documented by: Tamsulosin HCl (Flomax) 0.4 mg PO DAILY [facility] Last Admin: 03/23/19 08:56 Dose: Not Given Documented by: Medical Necessity - Tobacco Use Smoking Status: Former smoker - Patient quit cigarette tobacco usage of proximal 0.35 years prior to current presentation. Tobacco Use: Non-smoker Assessment/Plan All Active Problems (Last Reviewed 06/17/18 @ 11:36 by Pieter Shi MD) Hypotension, unspecified (Resolved) Lactic acidosis (Resolved) Closed intertrochanteric fracture of right femur (Acute) Syncope and collapse (Acute) UTI (urinary tract infection) (Acute) Atrial fibrillation with rapid ventricular response (Acute) New onset atrial fibrillation (Acute) 1. right intertrochanteric fracture of right femoral neck and shaft status post fall s/p ORIF on 03/23 cleared by cardiology 25 OH d 85.1, no replacement needed at this time 2. UTI E. coli, lovelace-sensitive change to nitrofurantoin 3. Syncope unclear if orthostatic, vasovagal v other. continue tele for now echo showed an EF of 50% 4. pAfib rivaroxaban held for surgery, resume post-op when ok with orthopaedics continue metoprolol resume rivaroxaban 03/24 5. VTE prophylaxis: moderate risk. SCDs until can be resumed on anticoagulation DW patient's . Code Visit Inpatient E&M: 68716 Subs Hosp L2
[2019-03-23] MEDS: oxyCODONE 5 MG Tablet PO ×3 (16:22→22:06)
[2019-03-23] MEDS: Insulin Lispro 100 UNIT/ML INSULN.PEN SC ×2 (16:27→22:07)
[2019-03-23 16:40] LABS: Bedside Glucose 166 mg/dL (70-110)
[2019-03-23] MEDS: Budesonide Respules 0.5 MG/2 ML AMPUL.NEB. INHALATION (19:09)
[2019-03-23] MEDS: Famotidine 20 MG Tablet PO (22:02)
[2019-03-23] MEDS: Atorvastatin Calcium 20 MG Tablet PO (22:02)
[2019-03-23] MEDS: FLUoxetine 20 MG Capsule 40 MG PO (22:03)
[2019-03-23] MEDS: Nitrofurantoin Macrocrystals 100 MG Capsule PO (22:05)
[2019-03-23] MEDS: cycloBENZAPRine HCl 10 MG Tablet PO (22:06)
[2019-03-23 22:41] LABS: Bedside Glucose 204 mg/dL (70-110)
[2019-03-24] VITALS (18 sets, daily range): BP systolic 114–143; BP diastolic 55–71; PULSE 60–86; RESP 12–29; TEMP 36.6–37; O2SAT 94–99
[2019-03-24] MEDS: oxyCODONE 5 MG Tablet PO ×4 (06:28→20:42)
[2019-03-24] MEDS: Insulin Lispro 100 UNIT/ML INSULN.PEN SC ×3 (06:28→21:44)
[2019-03-24] MEDS: 0.9% Normal Saline 1,000 ML 125 ML IV ×2 (06:31→06:33)
[2019-03-24 06:36] LABS: Absolute Lymphocyte Count 1.38 X10^3/uL (0.83-4.51); Absolute Neutrophil Count 7.5 X10^3/uL (2.0-7.7); Basophil# 0.01 X10^3/uL; Basophil% 0.1 % (0-1); Hematocrit 22.5 % (40-54); Hemoglobin 7.2 g/dL (13.0-16.5); Lymphocyte # 1.38 X10^3/ul (4.0); Lymphocyte % 14.9 % (19-41); Mean Corpuscular Hgb 32.4 pg (27.0-32.0); Mean Corpuscular Volume 101.4 fL (80-94); Mean Platelet Vol. 9.4 fl (6.2-12.0); Monocyte# 0.34 X10^3/uL; Monocyte% 3.7 % (0-10); NRBC Flagged by Analyzer 0 % (0-5); Neutrophil # 7.47 X10^3/uL (2.7-7.7); Neutrophil % 80.4 % (47-70); Platelet Count 237 K/mm3 (150-450); RBC Distribution Width CV 13.6 % (11.6-14.6); RBC Distribution Width SD 49.5 fl (35.1-43.9); Red Blood Count 2.22 M/mm3 (4.6-6.2); White Blood Count 9.3 K/mm3 (4.4-11.0)
[2019-03-24 06:46] LABS: Bedside Glucose 166 mg/dL (70-110)
[2019-03-24] MEDS: Ipratropium/Albuterol Sulfate 3 ML AMPUL.NEB INHALATION ×2 (06:49→12:59)
[2019-03-24] MEDS: Budesonide Respules 0.5 MG/2 ML AMPUL.NEB. INHALATION (06:49)
[2019-03-24 06:50] LABS: Anion Gap 6 (5-15); BUN 14 mg/dL (7-18); BUN/Creat Ratio 16.4 RATIO (10-20); Calcium,Total 8.4 mg/dL (8.5-10.1); Chloride 110 mmol/L (98-107); Creatinine, Serum 0.86 mg/dL (0.70-1.30); EST Glomerular Filtration Rate 94 mL/min (>60); Est Glom Filt Rate - Afr Amer 114 mL/min (>60); Estimated Creatinine Clearance 78.43 ml/min; Glucose 157 mg/dL (74-106); Potassium 4.1 mmol/L (3.5-5.1); Sodium Level 141 mmol/L (136-145)
[2019-03-24] MEDS: HYDROmorphone 0.5 MG/0.5 ML SYRINGE IV ×2 (09:11→15:21)
[2019-03-24] MEDS: LORazepam 1 MG Tablet PO ×2 (09:12→21:44)
[2019-03-24] MEDS: Pantoprazole Sodium 40 MG Tablet PO (09:13)
[2019-03-24] MEDS: Nitrofurantoin Macrocrystals 100 MG Capsule PO ×2 (09:13→21:44)
[2019-03-24] MEDS: DULoxetine Hcl 60 MG Capsule PO ×2 (09:14→21:44)
[2019-03-24] MEDS: Metoprolol Tartrate 100 MG Tablet PO (09:20)
[2019-03-24] MEDS: Ferrous Sulfate 325 MG Tablet PO (09:20)
[2019-03-24] MEDS: Famotidine 20 MG Tablet PO ×2 (09:20→21:44)
[2019-03-24] MEDS: Amiodarone 200 MG Tablet PO (09:20)
[2019-03-24] MEDS: Loratadine 10 MG Tablet PO (09:20)
--- NOTE | 2019-03-24 11:12 | CASEMGMT ---
SW spoke with patient and his son. Introduced self and role at [facility]. Patient said he would really like to stay at [facility] for rehab. SW went over both units. SW did explain that with TCU if he needs more than 20 days of therapy he will have to go to another group home as TCU does not accept Medicaid. SW told him about rehab and he was very interested in the rehab unit. SW told him we can see how he does with therapy. Patient's son asked for another list, SW printed one from patient's insurance website and gave it to him. CAMILO did call Ariela in TCU and put patient's name on the list. CAMILO also called Claudia in Rehab and let her know about patient. SW to follow for appropriate d/c plan. Ping MICHEL MSW
--- NOTE | 2019-03-24 11:59 | PN.ORTHO_ITS ---
Patient Problems: Active and Suspected Problems (Last Reviewed 06/17/18 @ 11:36 by Pieter Shi MD) Closed intertrochanteric fracture of right femur (Acute) Syncope and collapse (Acute) UTI (urinary tract infection) (Acute) Subjective: Patient sitting up in bed with family at his side. Pain well managed. Patient did admit that he had had a fall back on 03/13/2019, where he was treated at an urgent care center and told that he had a nondisplaced fracture of his distal radius. Patient has been wearing a splint since that time he says he has had little to no swelling or pain at this time. Initial examination and interaction with this patient he denied any other injury. Patient denies chest pain, shortness of breath, calf pain, nausea vomiting. Objective: Upon exam, I found a morbidly obese male lying in bed. Patient is no respiratory distress, speaking full sentences. Exam of the right wrist to palpation a Velcro wrist brace in place there is minimal swelling of the volar, dorsal aspect of the hand. No no lacerations or abrasion over the wrist. He has good cap refill he has good flexion-extension of the digits of the right hand. The right elbow shoulder without pain. Dressings in the right hip are clean dry intact. Patient had no excessive swelling of the thigh. Good flexion-extension of the elbow good plantar flexion dorsiflexion of the right foot. Neurovascular is otherwise intact. Vital signs labs within normal limits. Symptoms of DVT. Patient afebrile - Physical Exam General: Alert, Oriented x3, Cooperative HEENT: PERRLA Oral: Moist Mucosa Neurological: Cranial nerves II-XII grossly intact Psych/Mental Status: Normal Affect, Alert and oriented to time, place, person, mood and affect Vital Signs Temp Pulse Resp BP Pulse Ox 97.8 F 86 18 134/63 H 94 03/24/19 08:10 03/24/19 09:20 03/24/19 08:10 03/24/19 08:10 03/24/19 08:10 Oxygen Flow Rate (L/min) 1 Oxygen Delivery Method Room Air Weight: 129.1 kg Body Mass Index (BMI) 41.2 Intake and Output for Last 24 Hours 03/22/19 03/23/19 03/24/19 23:59 23:59 23:59 Intake Total 4186.24 / 4186.24 3798.75 / 3798.75 1297.92 / 1297.92 Output Total 1800 / 1800 1193 / 1193 400 / 400 Balance 2386.24 / 2386.24 2605.75 / 2605.75 897.92 / 897.92 Microbiology Past 72 Hours 03/21/19 20:14 Urine Culture - Final Urine Catheter - Catheter Presumptive E. coli Laboratory Tests Past 24 Hrs 03/23/19 03/23/19 03/24/19 14:30 14:30 06:15 WBC 11.6 H 9.3 RBC 2.90 L 2.22 L Hgb 9.5 L 7.2 L Hct 29.7 L 22.5 L MCV 102.4 H 101.4 H MCH 32.8 H 32.4 H MCHC 32.0 32.0 RDW Std Deviation 50.5 H 49.5 H RDW Coeff of Bruno 13.7 13.6 Plt Count 270 237 MPV 9.3 9.4 Immature Gran % (Auto) 1.100 H 0.900 Neut % (Auto) 87.2 H 80.4 H Lymph % (Auto) 9.0 L 14.9 L [place] % (Auto) 1.5 3.7 Eos % (Auto) 0.9 0.0 Baso % (Auto) 0.3 0.1 Absolute Neuts (auto) 10.1 H 7.5 Absolute Lymphs (auto) 1.04 1.38 Nucleated RBC % 0 0 Sodium 140 Potassium 4.0 Chloride 107 Carbon Dioxide 27.0 Anion Gap 6 BUN 12 Creatinine 0.98 Estim Creat Clear Calc 68.83 Est GFR (MDRD) Af Amer 98 Est GFR (MDRD) Non-Af 81 BUN/Creatinine Ratio 12.3 Glucose 158 H Calcium 8.7 03/24/19 06:15 WBC RBC Hgb Hct MCV MCH MCHC RDW Std Deviation RDW Coeff of Bruno Plt Count MPV Immature Gran % (Auto) Neut % (Auto) Lymph % (Auto) [place] % (Auto) Eos % (Auto) Baso % (Auto) Absolute Neuts (auto) Absolute Lymphs (auto) Nucleated RBC % Sodium 141 Potassium 4.1 Chloride 110 H Carbon Dioxide 25.0 Anion Gap 6 BUN 14 Creatinine 0.86 Estim Creat Clear Calc 78.43 Est GFR (MDRD) Af Amer 114 Est GFR (MDRD) Non-Af 94 BUN/Creatinine Ratio 16.4 Glucose 157 H Calcium 8.4 L POC Glucose 03/24/19 03/23/19 03/23/19 06:27 21:55 16:27 POC Glucose 166 H 204 H 166 H 03/23/19 14:52 POC Glucose 143 H Medical Necessity - Tobacco Use Smoking Status: Former smoker - Patient quit cigarette tobacco usage of proximal 0.35 years prior to current presentation. Tobacco Use: Non-smoker Assessment/Plan All Active Problems (Last Reviewed 06/17/18 @ 11:36 by Pieter Shi MD) Hypotension, unspecified (Resolved) Lactic acidosis (Resolved) Closed intertrochanteric fracture of right femur (Acute) Syncope and collapse (Acute) UTI (urinary tract infection) (Acute) Atrial fibrillation with rapid ventricular response (Acute) New onset atrial fibrillation (Acute) Status post ORIF subtrochanteric right hip fracture Right wrist fracture Plan 1. Continue all pain medication as prescribed 2. Patient is to remain nonweightbearing on the right leg. 3. Continue Xarelto as prescribed by medicine for postop DVT prophylaxis 4. Encourage incentive spirometry 5. Obtain repeat x-ray, as there is no x-rays of the right wrist fracture. 6. Continue use of the Velcro brace of the right wrist, remaining nonweightbearing 7. Possible discharge to [facility] tomorrow
[2019-03-24] MEDS: Tamsulosin HCl 0.4 MG Capsule PO (12:04)
[2019-03-24] MEDS: Finasteride 5 MG Tablet PO (12:04)
[2019-03-24] MEDS: Calcitriol 0.25 MCG Capsule 0.5 MCG PO (12:04)
[2019-03-24] MEDS: Magnesium Hydroxide 30 ML UDC PO (12:13)
[2019-03-24 12:16] LABS: Bedside Glucose 144 mg/dL (70-110)
--- NOTE | 2019-03-24 12:52 | PN_ITS ---
Patient Problems: Active and Suspected Problems (Last Reviewed 06/17/18 @ 11:36 by Pieter Shi MD) Closed intertrochanteric fracture of right femur (Acute) Syncope and collapse (Acute) UTI (urinary tract infection) (Acute) Subjective: Feels good. Denies any hip pain. Vitals/I&O's: Vital Signs Temp Pulse Resp BP Pulse Ox 36.6 C 86 18 134/63 H 94 03/24/19 08:10 03/24/19 09:20 03/24/19 08:10 03/24/19 08:10 03/24/19 08:10 Oxygen Flow Rate (L/min) 1 Oxygen Delivery Method Room Air Weight: 129.1 kg Body Mass Index (BMI) 41.2 Intake and Output for Last 24 Hours 03/22/19 03/23/19 03/24/19 23:59 23:59 23:59 Intake Total 4186.24 / 4186.24 3798.75 / 3798.75 2217.92 / 2217.92 Output Total 1800 / 1800 1193 / 1193 700 / 700 Balance 2386.24 / 2386.24 2605.75 / 2605.75 1517.92 / 1517.92 General: Alert, No apparent distress HEENT: Atraumatic, Normocephalic Oral: Moist Mucosa, No Gingival or Mucosal Lesions/ Ulcerations Neck: No Nodes, Thyroid Normal Size and Texture Lungs: Clear to auscultation, Normal air movement, No rhonchi, No wheeze Cardiovascular: Regular rate, Regular Rhythm, Normal S1, Normal S2, No murmurs Abdomen: Bowel Sounds Present, Soft, Non Tender, Non-Distended, No Hepato- splenomegaly Extremities: No edema, No Calf Tenderness, - - right wrist in spint Skin: No rashes, No breakdown Musculoskeletal: No Tenderness to Palpation of Joints or Extremities, No Muscle Wasting Psych/Mental Status: Normal Affect, Appropriate Microbiology Past 72 Hours 03/21/19 20:14 Urine Catheter - Catheter Urine Culture - Final Presumptive E. coli Laboratory Results 03/23/19 14:30: WBC 11.6 H, RBC 2.90 L, Hgb 9.5 L, Hct 29.7 L, MCV 102.4 H, MCH 32.8 H, MCHC 32.0, RDW Std Deviation 50.5 H, RDW Coeff of Bruno 13.7, Plt Count 270, MPV 9.3, Immature Gran % (Auto) 1.100 H, Neut % (Auto) 87.2 H, Lymph % (Auto) 9.0 L, [place] % (Auto) 1.5, Eos % (Auto) 0.9, Baso % (Auto) 0.3, Absolute Neuts (auto) 10.1 H, Absolute Lymphs (auto) 1.04, Nucleated RBC % 0 03/23/19 14:30: Sodium 140, Potassium 4.0, Chloride 107, Carbon Dioxide 27.0, Anion Gap 6, BUN 12, Creatinine 0.98, Estim Creat Clear Calc 68.83, Est GFR (MDRD) Af Amer 98, Est GFR (MDRD) Non-Af 81, BUN/Creatinine Ratio 12.3, Glucose 158 H, Calcium 8.7 03/23/19 14:52: POC Glucose 143 H 03/23/19 16:27: POC Glucose 166 H 03/23/19 21:55: POC Glucose 204 H 03/24/19 06:15: WBC 9.3, RBC 2.22 L, Hgb 7.2 L, Hct 22.5 L, MCV 101.4 H, MCH 32.4 H, MCHC 32.0, RDW Std Deviation 49.5 H, RDW Coeff of Bruno 13.6, Plt Count 237, MPV 9.4, Immature Gran % (Auto) 0.900, Neut % (Auto) 80.4 H, Lymph % (Auto) 14.9 L, [place] % (Auto) 3.7, Eos % (Auto) 0.0, Baso % (Auto) 0.1, Absolute Neuts (auto) 7.5, Absolute Lymphs (auto) 1.38, Nucleated RBC % 0 03/24/19 06:15: Sodium 141, Potassium 4.1, Chloride 110 H, Carbon Dioxide 25.0, Anion Gap 6, BUN 14, Creatinine 0.86, Estim Creat Clear Calc 78.43, Est GFR (MDRD) Af Amer 114, Est GFR (MDRD) Non-Af 94, BUN/Creatinine Ratio 16.4, Glucose 157 H, Calcium 8.4 L 03/24/19 06:27: POC Glucose 166 H 03/24/19 12:07: POC Glucose 144 H Current Medications Acetaminophen (Tylenol) 650 mg PO Q6H PRN PRN PRN Reason: Non-cardiac pain (mod-severe) Last Admin: 03/22/19 20:40 Dose: 650 mg Documented by: Al Hydroxide/Mg Hydroxide (Mylanta Ii) 15 - 30 ml PO Q4H PRN PRN PRN Reason: INDIGESTION Albuterol Sulfate (Ventolin Aerosols) 2.5 mg INHALATION Q2H PRN PRN PRN Reason: dyspnea, wheezing Albuterol/Ipratropium (Duoneb) 3 ml INHALATION Q6HWA.RT [facility] Last Admin: 03/24/19 06:49 Dose: 3 ml Documented by: Amiodarone HCl (Cordarone) 200 mg PO DAILY [facility] Last Admin: 03/24/19 09:20 Dose: 200 mg Documented by: Atorvastatin Calcium (Lipitor) 20 mg PO QHS [facility] Last Admin: 03/23/19 22:02 Dose: 20 mg Documented by: Budesonide (Pulmicort Aerosol) 0.5 mg INHALATION Q12H.RT [facility] Last Admin: 03/24/19 06:49 Dose: 0.5 mg Documented by: Calcitriol (Rocaltrol) 0.5 mcg PO MoWeFr@1000 [facility] Last Admin: 03/24/19 12:04 Dose: 0.5 mcg Documented by: Calcitriol (Rocaltrol) 0.25 mcg PO SuTuThSa@1000 [facility] Last Admin: 03/23/19 08:57 Dose: Not Given Documented by: Cyclobenzaprine HCl (Flexeril) 10 mg PO QHS [facility] Last Admin: 03/23/19 22:06 Dose: 10 mg Documented by: Dextrose (D50w Syringe) 0 gm IV X1 PRN; Protocol PRN Reason: Hypoglycemia Duloxetine HCl (Cymbalta) 60 mg PO BID [facility] Last Admin: 03/24/19 09:14 Dose: 60 mg Documented by: Famotidine (Pepcid) 20 mg PO BID [facility] Last Admin: 03/24/19 09:20 Dose: 20 mg Documented by: [facility]ous [facility]) [facility] Last Admin: 03/24/19 09:20 Dose: 325 mg Documented by: Finasteride (Proscar) 5 mg PO DAILY [facility] Last Admin: 03/24/19 12:04 Dose: 5 mg Documented by: Fluoxetine HCl (Prozac) 40 mg PO QHS [facility] Last Admin: 03/23/19 22:03 Dose: 40 mg Documented by: Glucagon () 1 mg IM .X1 PRN PRN Reason: Hypoglycemia Hydralazine HCl (Apresoline Iv) 10 mg IV Q4H PRN PRN PRN Reason: SBP > 160 Hydromorphone HCl (Dilaudid Inj) 0.5 mg IV Q3H PRN PRN PRN Reason: SEVERE PAIN (6-10/10) Last Admin: 03/24/19 09:11 Dose: 0.5 mg Documented by: Insulin Human Lispro (Humalog Kwikpen (Bkc)) 0 unit SC [facility]; Protocol Last Admin: 03/24/19 12:08 Dose: Not Given Documented by: Loratadine (Claritin) 10 mg PO DAILY [facility] Last Admin: 03/24/19 09:20 Dose: 10 mg Documented by: Lorazepam (Ativan) 1 mg PO BID [facility] Last Admin: 03/24/19 09:12 Dose: 1 mg Documented by: Lorazepam (Ativan) 0.5 mg PO Q4H PRN PRN PRN Reason: Severe muscle cramping Magnesium Hydroxide (Milk Of Magnesia) 30 ml PO DAILY PRN PRN Reason: Constipation Last Admin: 03/24/19 12:13 Dose: 30 ml Documented by: Melatonin (Melatonin) 3 mg PO QHS PRN PRN PRN Reason: INSOMNIA Metoprolol Tartrate (Lopressor (Beta Yunior)) 100 mg PO DAILY [facility] Last Admin: 03/24/19 09:20 Dose: 100 mg Documented by: Nitrofurantoin Macrocrystals (Macrobid) 100 mg PO BID [facility] Last Admin: 03/24/19 09:13 Dose: 100 mg Documented by: Nitroglycerin (Nitrostat) 0.4 mg SUBLINGUAL Q5M PRN PRN Reason: CARDIAC/CHEST PAIN Ondansetron HCl (Zofran) 4 mg IV Q8H PRN PRN PRN Reason: NAUSEA/VOMITING Oxycodone HCl (Oxyir) 5 - 10 mg PO Q4H PRN PRN PRN Reason: SEVERE PAIN (6-10/10) Last Admin: 03/24/19 12:13 Dose: 10 mg Documented by: Pantoprazole Sodium (Protonix) 40 mg PO DAILY [facility] Last Admin: 03/24/19 09:13 Dose: 40 mg Documented by: Rivaroxaban (Xarelto) 20 mg PO DAILY@1700 [facility] Sodium Chloride () 10 - 40 ml IV UD PRN PRN Reason: SALINE FLUSH Last Admin: 03/22/19 11:31 Dose: 10 ml Documented by: Tamsulosin HCl (Flomax) 0.4 mg PO DAILY [facility] Last Admin: 03/24/19 12:04 Dose: 0.4 mg Documented by: Medical Necessity - Tobacco Use Smoking Status: Former smoker - Patient quit cigarette tobacco usage of proximal 0.35 years prior to current presentation. Tobacco Use: Non-smoker Assessment/Plan All Active Problems (Last Reviewed 06/17/18 @ 11:36 by Pieter Shi MD) Hypotension, unspecified (Resolved) Lactic acidosis (Resolved) Closed intertrochanteric fracture of right femur (Acute) Syncope and collapse (Acute) UTI (urinary tract infection) (Acute) Atrial fibrillation with rapid ventricular response (Acute) New onset atrial fibrillation (Acute) 1. right intertrochanteric fracture of right femoral neck and shaft * status post fall * s/p ORIF on 03/23 * 25 OH d 85.1, no replacement needed at this time * non-weight bearing RLE 2. UTI * E. coli, lovelace-sensitive * change to nitrofurantoin, treat through 03/28 3. Syncope * unclear if orthostatic, vasovagal v other. * continue tele for now * echo showed an EF of 50% 4. pAfib * rivaroxaban held for surgery * continue metoprolol * resume rivaroxaban 03/24 5. Right wrist fracture * occurred on 03/13 * had xray at an urgent care (not accessible here), will repeat * ortho for further recommendations * continue non-weight bearing status for right wrist and splint 6. VTE prophylaxis: anticoagulated DW patient's son. Greater than 35 minutes of which greater than 50% of the time was discussing with the patient and his family about his risks, and the fact that it sounded that it was a nondisplaced fracture and that would likely continue to be nonweightbearing. Ventral plan for the patient go to rehab or nursing home facility for discharge. Code Visit Inpatient E&M: 75075 [facility] Hosp L3
--- NOTE | 2019-03-24 13:02 | CASEMGMT ---
CAMILO verified with CLIFF [facility] that patient is non weight bearing with both his arm and leg. He had a bad fracture which he needs to remain non weight bearing for at least 6 weeks. Ping MICHEL MSW
--- NOTE | 2019-03-24 13:05 | RAD_ITS ---
STUDY: X-RAY - RIGHT WRIST REASON FOR EXAM: Male, 69 years old. Distal radial fracture secondary to a fall. TECHNIQUE: 3 view(s) of the wrist were obtained. COMPARISON: None. FINDINGS: Nondisplaced impacted transverse fracture of the distal radial metaphysis. Normal radiocarpal articulation. Normal distal radioulnar articulation. Normal carpal bones. Normal carpal articulations. There is degenerative arthrosis of the carpometacarpal articulation of the thumb. Normal second through fifth carpometacarpal articulations. Normal visualized metacarpal bones. Soft tissue swelling. RAD/Wrist min 3 Views IMPRESSION: Nondisplaced impacted transverse fracture of the distal radial metaphysis. Soft tissue swelling. Electronically Signed: Camilo Khan, at 14:38 EDT , Service support ,
--- NOTE | 2019-03-24 14:29 | CASEMGMT ---
Therapy spoke with SW regarding patient and that he would be a great rehab candidate. SW spoke with patient and his family and they want the inpatient rehab unit. CAMILO called Claudia in the rehab unit and left her a message letting her know to please start the pre-cert. SW explained information will be submitted to his insurance and he will stay here at the hospital until we get an answer. Plan: [facility] 4th floor rehab pending insurance approval. Ping MICHEL MSW
--- NOTE | 2019-03-24 14:32 | NURSING ---
Read and reviewed SN documentation
[2019-03-24] MEDS: 0.9% NaCl Peripheral Flush Adult/Peds IV (15:21)
--- NOTE | 2019-03-24 16:29 | CASEMGMT ---
CAMILO received a call from [facility] and she will start the pre-cert for patient. Plan: [facility] 4th floor rehab unit pending insurance approval. Ping MICHEL MSW
[2019-03-24] MEDS: Furosemide 40 MG Tablet 60 MG PO (16:32)
[2019-03-24] MEDS: Rivaroxaban 20 MG Tablet PO (16:32)
--- NOTE | 2019-03-24 19:03 | NURSING ---
read and reviewed SN charting
[2019-03-24 21:40] LABS: Bedside Glucose 177 mg/dL (70-110)
[2019-03-24] MEDS: Atorvastatin Calcium 20 MG Tablet PO (21:44)
[2019-03-24] MEDS: cycloBENZAPRine HCl 10 MG Tablet PO (21:44)
[2019-03-24] MEDS: FLUoxetine 20 MG Capsule 40 MG PO (21:44)
[2019-03-24 21:55] LABS: Bedside Glucose 169 mg/dL (70-110)
[2019-03-25] VITALS (13 sets, daily range): BP systolic 113–140; BP diastolic 52–64; PULSE 67–80; RESP 12–22; TEMP 36.7–37.2; O2SAT 95–99
[2019-03-25 06:35] LABS: Absolute Lymphocyte Count 1.57 X10^3/uL (0.83-4.51); Absolute Neutrophil Count 5.8 X10^3/uL (2.0-7.7); Basophil# 0.02 X10^3/uL; Basophil% 0.2 % (0-1); Eosinophil# 0.18 X10^3/uL; Eosinophils% 2.2 % (0-5); Hematocrit 19.6 % (40-54); Hemoglobin 6.3 g/dL (13.0-16.5); Lymphocyte # 1.57 X10^3/ul (4.0); Lymphocyte % 19.5 % (19-41); Mean Corp Hgb Conc 32.1 g/dL (32-36); Mean Corpuscular Hgb 32.1 pg (27.0-32.0); Mean Platelet Vol. 9.8 fl (6.2-12.0); Monocyte# 0.39 X10^3/uL; Monocyte% 4.8 % (0-10); NRBC Flagged by Analyzer 0.4 % (0-5); Neutrophil # 5.75 X10^3/uL (2.7-7.7); Neutrophil % 71.3 % (47-70); Platelet Count 241 K/mm3 (150-450); RBC Distribution Width CV 13.9 % (11.6-14.6); RBC Distribution Width SD 49.9 fl (35.1-43.9); Red Blood Count 1.96 M/mm3 (4.6-6.2); White Blood Count 8.1 K/mm3 (4.4-11.0)
[2019-03-25] MEDS: oxyCODONE 5 MG Tablet PO ×4 (06:45→21:37)
[2019-03-25] MEDS: Magnesium Hydroxide 30 ML UDC PO (06:45)
[2019-03-25 06:56] LABS: Bedside Glucose 141 mg/dL (70-110)
--- NOTE | 2019-03-25 07:54 | PCM.PN.ORT ---
Patient Problems: Active and Suspected Problems (Last Reviewed 06/17/18 @ 11:36 by Pieter Shi MD) Closed intertrochanteric fracture of right femur (Acute) Syncope and collapse (Acute) UTI (urinary tract infection) (Acute) Subjective: Patient sitting up in bed watching TV. Patient states pain is well-managed. Patient denies any pain in his right wrist. States he has no pain while lying in bed with his right hip. Patient states he was able to stand at bedside with a walker nonweightbearing on the right leg yesterday. Patient denies chest pain, shortness of breath, calf pain, nausea vomiting. Objective: Dressings clean dry intact. Negative signs or symptoms of DVT. Patient's vitals labs within normal limits. Patient is afebrile. Patient no respiratory distress, speaking full sentences. 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 Neurovascular is otherwise intact. Patient does have a short Velcro wrist splint in place in the right wrist review of imaging studies 3 views of the right wrist shows patient does have a slightly impacted distal radius fracture. It is not displaced. Patient has no involvement of the articular surface. Body alignment is well-maintained. - Physical Exam General: Alert, Oriented x3, Cooperative HEENT: PERRLA Oral: Moist Mucosa Cardiovascular: Regular rate Neurological: Cranial nerves II-XII grossly intact Psych/Mental Status: Normal Affect, Alert and oriented to time, place, person, mood and affect Vital Signs Temp Pulse Resp BP Pulse Ox 98.9 F 70 18 120/55 L 97 03/25/19 03:50 03/25/19 03:50 03/25/19 03:50 03/25/19 03:50 03/25/19 07:29 Oxygen Flow Rate (L/min) 2 Oxygen Delivery Method Nasal Cannula Weight: 129.1 kg Body Mass Index (BMI) 41.2 Intake and Output for Last 24 Hours 03/23/19 03/24/19 03/25/19 23:59 23:59 23:59 Intake Total 3798.75 / 3798.75 2691.92 / 2891.92 200 / 200 Output Total 1193 / 1193 920 / 1320 800 / 800 Balance 2605.75 / 2605.75 1771.92 / 1571.92 -600 / -600 Microbiology Past 72 Hours 03/21/19 20:14 Urine Culture - Final Urine Catheter - Catheter Presumptive E. coli Laboratory Tests Past 24 Hrs 03/25/19 05:55 WBC 8.1 RBC 1.96 L Hgb 6.3 L Hct 19.6 L MCV 100.0 H MCH 32.1 H MCHC 32.1 RDW Std Deviation 49.9 H RDW Coeff of Bruno 13.9 Plt Count 241 MPV 9.8 Immature Gran % (Auto) 2.000 H Neut % (Auto) 71.3 H Lymph % (Auto) 19.5 Cass % (Auto) 4.8 Eos % (Auto) 2.2 Baso % (Auto) 0.2 Absolute Neuts (auto) 5.8 Absolute Lymphs (auto) 1.57 Nucleated RBC % 0.4 POC Glucose 03/25/19 03/24/19 03/24/19 06:33 21:39 16:30 POC Glucose 141 H 169 H 177 H 03/24/19 12:07 POC Glucose 144 H Medical Necessity - Tobacco Use Smoking Status: Former smoker - Patient quit cigarette tobacco usage of proximal 0.35 years prior to current presentation. Tobacco Use: Non-smoker Assessment/Plan All Active Problems (Last Reviewed 06/17/18 @ 11:36 by Pieter Shi MD) Hypotension, unspecified (Resolved) Lactic acidosis (Resolved) Closed intertrochanteric fracture of right femur (Acute) Syncope and collapse (Acute) UTI (urinary tract infection) (Acute) Atrial fibrillation with rapid ventricular response (Acute) New onset atrial fibrillation (Acute) Status post ORIF subtrochanteric right hip fracture Nondisplaced right distal radius fracture Plan 1. Continue all pain medication as prescribed 2. Patient is to remain nonweightbearing on the right leg. Anticipated length of nonweightbearing 6 to 8 weeks 3. Continue Xarelto as prescribed by medicine for postop DVT prophylaxis 4. Encourage incentive spirometry 5. Continue wearing the Velcro wrist brace 6. Patient can use right arm for platform of walker no twisting turning or lifting with his right hand. 7. Patient can shower on 03/27/2019 8. Change dressing at the day of discharge, To Ag dressing 9. Remove krys 04/05/2019 10. Follow-up with Dr. Forte in 2 weeks, call for appointment 11. Orthopedically stable, discharge when cleared with medicine.
[2019-03-25] MEDS: Acetaminophen 325 MG Tablet 650 MG PO ×2 (09:20→15:01)
[2019-03-25] MEDS: Pantoprazole Sodium 40 MG Tablet PO (09:21)
[2019-03-25] MEDS: Furosemide 40 MG Tablet 60 MG PO ×2 (09:22→17:28)
[2019-03-25] MEDS: Famotidine 20 MG Tablet PO ×2 (09:22→21:01)
[2019-03-25] MEDS: DULoxetine Hcl 60 MG Capsule PO ×2 (09:22→21:01)
[2019-03-25] MEDS: Calcitriol 0.25 MCG Capsule PO (09:22)
[2019-03-25] MEDS: Loratadine 10 MG Tablet PO (09:22)
[2019-03-25] MEDS: Amiodarone 200 MG Tablet PO (09:22)
[2019-03-25] MEDS: Tamsulosin HCl 0.4 MG Capsule PO (09:22)
[2019-03-25] MEDS: Finasteride 5 MG Tablet PO (09:23)
[2019-03-25] MEDS: Metoprolol Tartrate 100 MG Tablet PO (09:23)
[2019-03-25] MEDS: Ferrous Sulfate 325 MG Tablet PO (09:23)
[2019-03-25] MEDS: metFORMIN (XR) 500 MG Tablet PO (09:23)
[2019-03-25] MEDS: Spironolactone 50 MG Tablet PO (09:23)
[2019-03-25] MEDS: Multivitamins,Ther W-Minerals Tablet 1 TABLET PO (09:23)
[2019-03-25] MEDS: Nitrofurantoin Macrocrystals 100 MG Capsule PO ×2 (09:24→21:02)
[2019-03-25] MEDS: LORazepam 1 MG Tablet PO ×2 (09:27→21:37)
--- NOTE | 2019-03-25 10:25 | CASEMGMT ---
CAMILO returned a phone call to Shelby Parikh from [facility]. SW left her a voice mail letting her know that patient will be going to the Inpatient Rehab Unit at [facility] pending insurance approval. Ping REYES
[2019-03-25 12:41] LABS: Bedside Glucose 139 mg/dL (70-110)
--- NOTE | 2019-03-25 12:54 | CHAPLAIN ---
Type of Pastoral Visit ___ Initial Visit _x__ Follow-up Visit ___ On-call Visit ___ General Patient Visit ___ Spiritual Assessment ___ Family Conference ___ Bereavement ___ Rapid Response ___ Code Blue ___ Other (describe below) Pastoral Care Referral From _x__ Patient ___ Family ___ Nurse ___ Physician ___ Service Station Attendant ___ Supervisor Fiber Locking ___ Other (describe below) Sacrament/Intervention _x__ Active listening ___ Anointing ___ Judaism ___ Bereavement ___ Communion ___ Sri exploration ___ ___ Life review ___ Prayer ___ Reconciliation ___ Sacrament of Sick ___ Supportive presence ___ Wedding ___ Other (describe below) Pastoral Comments
--- NOTE | 2019-03-25 13:32 | PN_ITS ---
Patient Problems: Active and Suspected Problems (Last Reviewed 06/17/18 @ 11:36 by Pieter Shi MD) Closed intertrochanteric fracture of right femur (Acute) Syncope and collapse (Acute) UTI (urinary tract infection) (Acute) Subjective: Feels good. Some pain in left hip. Vitals/I&O's: Vital Signs Temp Pulse Resp BP Pulse Ox 37.1 C 69 16 140/57 H 95 03/25/19 08:00 03/25/19 11:31 03/25/19 08:00 03/25/19 09:23 03/25/19 08:00 Oxygen Flow Rate (L/min) 2 Oxygen Delivery Method Nasal Cannula Weight: 129.1 kg Body Mass Index (BMI) 41.2 Intake and Output for Last 24 Hours 03/23/19 03/24/19 03/25/19 23:59 23:59 23:59 Intake Total 3798.75 / 3798.75 2691.92 / 2891.92 650 / 650 Output Total 1193 / 1193 920 / 1320 1350 / 1350 Balance 2605.75 / 2605.75 1771.92 / 1571.92 -700 / -700 General: Alert, No apparent distress HEENT: Atraumatic, Normocephalic Oral: Moist Mucosa, No Gingival or Mucosal Lesions/ Ulcerations Neck: No Nodes, Thyroid Normal Size and Texture Lungs: Clear to auscultation, Normal air movement, No rhonchi, No wheeze, No rales Cardiovascular: Regular rate, Regular Rhythm, Normal S1, Normal S2, No murmurs Abdomen: Bowel Sounds Present, Soft, Non Tender, Non-Distended, No Hepato- splenomegaly Extremities: No clubbing, No cyanosis, No edema Skin: No rashes, No breakdown, - Musculoskeletal: - - right wrist in brace Psych/Mental Status: Normal Affect, Appropriate Microbiology Past 72 Hours 03/21/19 20:14 Urine Catheter - Catheter Urine Culture - Final Presumptive E. coli Laboratory Results 03/24/19 16:30: POC Glucose 177 H 03/24/19 21:39: POC Glucose 169 H 03/25/19 05:55: WBC 8.1, RBC 1.96 L, Hgb 6.3 L, Hct 19.6 L, MCV 100.0 H, MCH 32.1 H, MCHC 32.1, RDW Std Deviation 49.9 H, RDW Coeff of Bruno 13.9, Plt Count 241, MPV 9.8, Immature Gran % (Auto) 2.000 H, Neut % (Auto) 71.3 H, Lymph % (Auto) 19.5, [place] % (Auto) 4.8, Eos % (Auto) 2.2, Baso % (Auto) 0.2, Absolute Neuts (auto) 5.8, Absolute Lymphs (auto) 1.57, Nucleated RBC % 0.4 03/25/19 06:33: POC Glucose 141 H 03/25/19 12:34: POC Glucose 139 H Current Medications Acetaminophen (Tylenol) 650 mg PO Q6H PRN PRN PRN Reason: Non-cardiac pain (mod-severe) Last Admin: 03/25/19 09:20 Dose: 650 mg Documented by: Al Hydroxide/Mg Hydroxide (Mylanta Ii) 15 - 30 ml PO Q4H PRN PRN PRN Reason: INDIGESTION Albuterol Sulfate (Ventolin Aerosols) 2.5 mg INHALATION Q2H PRN PRN PRN Reason: dyspnea, wheezing Albuterol/Ipratropium (Duoneb) 3 ml INHALATION Q6HWA.RT [facility] Last Admin: 03/25/19 13:09 Dose: Not Given Documented by: Amiodarone HCl (Cordarone) 200 mg PO DAILY [facility] Last Admin: 03/25/19 09:22 Dose: 200 mg Documented by: Atorvastatin Calcium (Lipitor) 20 mg PO QHS [facility] Last Admin: 03/24/19 21:44 Dose: 20 mg Documented by: Budesonide (Pulmicort Aerosol) 0.5 mg INHALATION Q12H.RT [facility] Last Admin: 03/25/19 07:29 Dose: Not Given Documented by: Calcitriol (Rocaltrol) 0.5 mcg PO MoWeFr@1000 [facility] Last Admin: 03/24/19 12:04 Dose: 0.5 mcg Documented by: Calcitriol (Rocaltrol) 0.25 mcg PO SuTuThSa@1000 [facility] Last Admin: 03/25/19 09:22 Dose: 0.25 mcg Documented by: Cyclobenzaprine HCl (Flexeril) 10 mg PO QHS [facility] Last Admin: 03/24/19 21:44 Dose: 10 mg Documented by: Dextrose (D50w Syringe) 0 gm IV X1 PRN; Protocol PRN Reason: Hypoglycemia Duloxetine HCl (Cymbalta) 60 mg PO BID [facility] Last Admin: 03/25/19 09:22 Dose: 60 mg Documented by: Famotidine (Pepcid) 20 mg PO BID [facility] Last Admin: 03/25/19 09:22 Dose: 20 mg Documented by: [facility]ous S[facility] ([facility] S[facility]ate) [facility] Last Admin: 03/25/19 09:23 Dose: 325 mg Documented by: Finasteride (Proscar) 5 mg PO DAILY [facility] Last Admin: 03/25/19 09:23 Dose: 5 mg Documented by: Fluoxetine HCl (Prozac) 40 mg PO QHS [facility] Last Admin: 03/24/19 21:44 Dose: 40 mg Documented by: Furosemide (Lasix) 60 mg PO BIDLX [facility] Last Admin: 03/25/19 09:22 Dose: 60 mg Documented by: Glucagon () 1 mg IM .X1 PRN PRN Reason: Hypoglycemia Hydralazine HCl (Apresoline Iv) 10 mg IV Q4H PRN PRN PRN Reason: SBP > 160 Hydromorphone HCl (Dilaudid Inj) 0.5 mg IV Q3H PRN PRN PRN Reason: SEVERE PAIN (6-10/10) Last Admin: 03/24/19 15:21 Dose: 0.5 mg Documented by: Insulin Human Lispro (Humalog Kwikpen (Bkc)) 0 unit SC [facility]; Protocol Last Admin: 03/25/19 12:34 Dose: Not Given Documented by: Loratadine (Claritin) 10 mg PO DAILY [facility] Last Admin: 03/25/19 09:22 Dose: 10 mg Documented by: Lorazepam (Ativan) 1 mg PO BID [facility] Last Admin: 03/25/19 09:27 Dose: 1 mg Documented by: Lorazepam (Ativan) 0.5 mg PO Q4H PRN PRN PRN Reason: Severe muscle cramping Magnesium Hydroxide (Milk Of Magnesia) 30 ml PO DAILY PRN PRN Reason: Constipation Last Admin: 03/25/19 06:45 Dose: 30 ml Documented by: Melatonin (Melatonin) 3 mg PO QHS PRN PRN PRN Reason: INSOMNIA Metformin HCl (Glucophage Xr) [facility] Last Admin: 03/25/19 09:23 Dose: 500 mg Documented by: Metoprolol Tartrate (Lopressor (Beta Yunior)) 100 mg PO DAILY [facility] Last Admin: 03/25/19 09:23 Dose: 100 mg Documented by: Multivitamins/Minerals (Multivitamin With Minerals) 1 tablet PO DAILY@0800 [facility] Last Admin: 03/25/19 09:23 Dose: 1 tablet Documented by: Nitrofurantoin Macrocrystals (Macrobid) 100 mg PO BID [facility] Last Admin: 03/25/19 09:24 Dose: 100 mg Documented by: Nitroglycerin (Nitrostat) 0.4 mg SUBLINGUAL Q5M PRN PRN Reason: CARDIAC/CHEST PAIN Ondansetron HCl (Zofran) 4 mg IV Q8H PRN PRN PRN Reason: NAUSEA/VOMITING Oxycodone HCl (Oxyir) 5 - 10 mg PO Q4H PRN PRN PRN Reason: SEVERE PAIN (6-10/10) Last Admin: 03/25/19 12:39 Dose: 10 mg Documented by: Pantoprazole Sodium (Protonix) 40 mg PO DAILY [facility] Last Admin: 03/25/19 09:21 Dose: 40 mg Documented by: Rivaroxaban (Xarelto) 20 mg PO DAILY@1700 [facility] Last Admin: 03/24/19 16:32 Dose: 20 mg Documented by: Sodium Chloride () 10 - 40 ml IV UD PRN PRN Reason: SALINE FLUSH Last Admin: 03/24/19 15:21 Dose: 10 ml Documented by: Spironolactone (Aldactone) [facility] Last Admin: 03/25/19 09:23 Dose: 50 mg Documented by: Tamsulosin HCl (Flomax) 0.4 mg PO DAILY [facility] Last Admin: 03/25/19 09:22 Dose: 0.4 mg Documented by: Medical Necessity - Tobacco Use Smoking Status: Former smoker - Patient quit cigarette tobacco usage of proximal 0.35 years prior to current presentation. Tobacco Use: Non-smoker Assessment/Plan All Active Problems (Last Reviewed 06/17/18 @ 11:36 by Pieter Shi MD) Hypotension, unspecified (Resolved) Lactic acidosis (Resolved) Closed intertrochanteric fracture of right femur (Acute) Syncope and collapse (Acute) UTI (urinary tract infection) (Acute) Atrial fibrillation with rapid ventricular response (Acute) New onset atrial fibrillation (Acute) 1. right intertrochanteric fracture of right femoral neck and shaft * status post fall * s/p ORIF on 03/23 * 25 OH d 85.1, no replacement needed at this time * non-weight bearing RLE * follow up with Dr. Forte in 2 weeks. 2. UTI * E. coli, lovelace-sensitive * change to nitrofurantoin, treat through 03/28 3. Syncope * unclear if orthostatic, vasovagal v other. * continue tele for now * echo showed an EF of 50% 4. pAfib * continue metoprolol * resume rivaroxaban 03/24 5. Right wrist fracture * occurred on 03/13 * had xray at an urgent care (not accessible here), will repeat * ortho for further recommendations * continue non-weight bearing status for right wrist and splint 6. VTE prophylaxis: anticoagulated DW patient's son. Greater than 35 minutes of which greater than 50% of the time was discussing with the patient about the fractures, reviewing xrays with him and plan for rehab. Code Visit Inpatient E&M: 14514 Subs Hosp L3
[2019-03-25] MEDS: Rivaroxaban 20 MG Tablet PO (17:28)
[2019-03-25 17:41] LABS: Bedside Glucose 114 mg/dL (70-110)
[2019-03-25] MEDS: FLUoxetine 20 MG Capsule 40 MG PO (21:00)
[2019-03-25] MEDS: cycloBENZAPRine HCl 10 MG Tablet PO (21:00)
[2019-03-25] MEDS: Atorvastatin Calcium 20 MG Tablet PO (21:01)
[2019-03-25 21:11] LABS: Bedside Glucose 142 mg/dL (70-110)
[2019-03-26] VITALS (14 sets, daily range): BP systolic 101–131; BP diastolic 48–59; PULSE 61–80; RESP 12–20; TEMP 36.4–36.7; O2SAT 96–98
--- NOTE | 2019-03-26 02:07 | NURSING ---
pt refusing BiPAP. Education was provided but pt still refusing BiPAP. 2L NC was placed on pt.
[2019-03-26] MEDS: oxyCODONE 5 MG Tablet PO ×4 (02:57→16:46)
[2019-03-26 07:00] LABS: Bedside Glucose 120 mg/dL (70-110)
[2019-03-26] MEDS: Budesonide Respules 0.5 MG/2 ML AMPUL.NEB. INHALATION ×2 (07:27→19:14)
[2019-03-26] MEDS: Ipratropium/Albuterol Sulfate 3 ML AMPUL.NEB INHALATION ×3 (07:27→19:14)
[2019-03-26] MEDS: Acetaminophen 325 MG Tablet 650 MG PO ×2 (07:56→16:46)
[2019-03-26] MEDS: Famotidine 20 MG Tablet PO (08:04)
[2019-03-26] MEDS: Calcitriol 0.25 MCG Capsule 0.5 MCG PO (08:04)
[2019-03-26] MEDS: Nitrofurantoin Macrocrystals 100 MG Capsule PO (08:04)
[2019-03-26] MEDS: Pantoprazole Sodium 40 MG Tablet PO (08:04)
[2019-03-26] MEDS: Furosemide 40 MG Tablet 60 MG PO ×2 (08:04→16:29)
[2019-03-26] MEDS: Metoprolol Tartrate 100 MG Tablet PO (08:04)
[2019-03-26] MEDS: Ferrous Sulfate 325 MG Tablet PO (08:06)
[2019-03-26] MEDS: DULoxetine Hcl 60 MG Capsule PO (08:06)
[2019-03-26] MEDS: metFORMIN (XR) 500 MG Tablet PO (08:06)
[2019-03-26] MEDS: Amiodarone 200 MG Tablet PO (08:06)
[2019-03-26] MEDS: Tamsulosin HCl 0.4 MG Capsule PO (08:06)
[2019-03-26] MEDS: Multivitamins,Ther W-Minerals Tablet 1 TABLET PO (08:06)
[2019-03-26] MEDS: Loratadine 10 MG Tablet PO (08:06)
[2019-03-26] MEDS: Spironolactone 50 MG Tablet PO (08:06)
[2019-03-26] MEDS: Finasteride 5 MG Tablet PO (08:06)
[2019-03-26] MEDS: LORazepam 1 MG Tablet PO (10:17)
[2019-03-26 11:41] LABS: Bedside Glucose 123 mg/dL (70-110)
--- NOTE | 2019-03-26 12:19 | CASEMGMT ---
Received call from Claudia and patient was denied for Inpatient Rehab Unit, but they said they would approve SNF. However, the process has to start all over again. CAMILO spoke with patient and let him know this information. He asked SW to call his regarding what SNF. SW called patient's and she said [facility] their next choice. CAMILO told her SW will make the referral and we might hear back today, but SW cannot guarantee this. CAMILO called [facility] with referral as well as faxed over information. SW will let patient know. Plan: Insurance denied Inpatient Rehab Unit. Referral made to [facility], await response. We will have to obtain insurance authorization. Ping REYES
[2019-03-26 12:55] LABS: Hematocrit 19.4 % (40-54); Hemoglobin 6.1 g/dL (13.0-16.5)
--- NOTE | 2019-03-26 14:53 | CASEMGMT ---
Addendum entered by Ping Foley 03/26/19 16:55: Awaiting pre-cert for [facility]. Ping REYES Original Note: SW heard back from [facility] and they are not in network. SW gave patient and his family 2 lists of SNF's that were in network earlier this week. SW spoke with patient, his , and son and they chose [facility]. CAMILO called Malika at [facility] as she covers both [facility] and [facility] right now. She said [facility] can take patient and she will start the pre-cert. SW let patient and his know this information. Plan: [facility] pending pre-cert. Ping MICHEL MSW
--- NOTE | 2019-03-26 16:17 | PN_ITS ---
Patient Problems: Active and Suspected Problems (Last Reviewed 06/17/18 @ 11:36 by Pieter Shi MD) Closed intertrochanteric fracture of right femur (Acute) Syncope and collapse (Acute) UTI (urinary tract infection) (Acute) Subjective: No new complaints. Upset that insurance denies rehab. Vitals/I&O's: Vital Signs Temp Pulse Resp BP Pulse Ox 36.6 C 69 19 H 103/58 L 97 03/26/19 14:00 03/26/19 14:00 03/26/19 14:13 03/26/19 14:00 03/26/19 14:00 Oxygen Flow Rate (L/min) 2 Oxygen Delivery Method Nasal Cannula Weight: 131.2 kg Body Mass Index (BMI) 41.2 Intake and Output for Last 24 Hours 03/24/19 03/25/19 03/26/19 23:59 23:59 23:59 Intake Total 2691.92 / 2891.92 1500 / 1500 600 / 600 Output Total 920 / 1320 2825 / 2825 1600 / 1600 Balance 1771.92 / 1571.92 -1325 / -1325 -1000 / -1000 General: Alert, No apparent distress HEENT: Atraumatic, Normocephalic Oral: Moist Mucosa, No Gingival or Mucosal Lesions/ Ulcerations Neck: No Nodes, Thyroid Normal Size and Texture Lungs: Clear to auscultation, Normal air movement, No rhonchi, No wheeze Cardiovascular: Regular rate, Regular Rhythm, Normal S1, Normal S2 Abdomen: Bowel Sounds Present, Soft, Non Tender, Non-Distended, Obese Extremities: No Calf Tenderness, Edema Laboratory Results 03/25/19 17:26: POC Glucose 114 H 03/25/19 20:57: POC Glucose 142 H 03/26/19 06:54: POC Glucose 120 H 03/26/19 11:34: POC Glucose 123 H 03/26/19 12:05: Hgb 6.1 L, Hct 19.4 L Current Medications Acetaminophen (Tylenol) 650 mg PO Q6H PRN PRN PRN Reason: Non-cardiac pain (mod-severe) Last Admin: 03/26/19 07:56 Dose: 650 mg Documented by: Al Hydroxide/Mg Hydroxide (Mylanta Ii) 15 - 30 ml PO Q4H PRN PRN PRN Reason: INDIGESTION Albuterol Sulfate (Ventolin Aerosols) 2.5 mg INHALATION Q2H PRN PRN PRN Reason: dyspnea, wheezing Albuterol/Ipratropium (Duoneb) 3 ml INHALATION Q6HWA.RT [facility] Last Admin: 03/26/19 14:13 Dose: 3 ml Documented by: Amiodarone HCl (Cordarone) 200 mg PO DAILY [facility] Last Admin: 03/26/19 08:06 Dose: 200 mg Documented by: Atorvastatin Calcium (Lipitor) 20 mg PO QHS [facility] Last Admin: 03/25/19 21:01 Dose: 20 mg Documented by: Budesonide (Pulmicort Aerosol) 0.5 mg INHALATION Q12H.RT [facility] Last Admin: 03/26/19 07:27 Dose: 0.5 mg Documented by: Calcitriol (Rocaltrol) 0.5 mcg PO MoWeFr@1000 [facility] Last Admin: 03/26/19 08:04 Dose: 0.5 mcg Documented by: Calcitriol (Rocaltrol) 0.25 mcg PO SuTuThSa@1000 [facility] Last Admin: 03/25/19 09:22 Dose: 0.25 mcg Documented by: Cyclobenzaprine HCl (Flexeril) 10 mg PO QHS [facility] Last Admin: 03/25/19 21:00 Dose: 10 mg Documented by: Dextrose (D50w Syringe) 0 gm IV X1 PRN; Protocol PRN Reason: Hypoglycemia Duloxetine HCl (Cymbalta) 60 mg PO BID [facility] Last Admin: 03/26/19 08:06 Dose: 60 mg Documented by: Famotidine (Pepcid) 20 mg PO BID [facility] Last Admin: 03/26/19 08:04 Dose: 20 mg Documented by: Ferrous Sulfate (Ferrous Sulfate) 325 mg PO DAILYCM [facility] Last Admin: 03/26/19 08:06 Dose: 325 mg Documented by: Finasteride (Proscar) 5 mg PO DAILY [facility] Last Admin: 03/26/19 08:06 Dose: 5 mg Documented by: Fluoxetine HCl (Prozac) 40 mg PO QHS [facility] Last Admin: 03/25/19 21:00 Dose: 40 mg Documented by: Furosemide (Lasix) 60 mg PO BIDLX [facility] Last Admin: 03/26/19 08:04 Dose: 60 mg Documented by: Glucagon () 1 mg IM .X1 PRN PRN Reason: Hypoglycemia Hydralazine HCl (Apresoline Iv) 10 mg IV Q4H PRN PRN PRN Reason: SBP > 160 Hydromorphone HCl (Dilaudid Inj) 0.5 mg IV Q3H PRN PRN PRN Reason: SEVERE PAIN (6-10/10) Last Admin: 03/24/19 15:21 Dose: 0.5 mg Documented by: Insulin Human Lispro (Humalog Kwikpen (Bkc)) 0 unit SC [facility]; Protocol Last Admin: 03/26/19 11:40 Dose: Not Given Documented by: Loratadine (Claritin) 10 mg PO DAILY [facility] Last Admin: 03/26/19 08:06 Dose: 10 mg Documented by: Lorazepam (Ativan) 1 mg PO BID [facility] Last Admin: 03/26/19 10:17 Dose: 1 mg Documented by: Lorazepam (Ativan) 0.5 mg PO Q4H PRN PRN PRN Reason: Severe muscle cramping Magnesium Hydroxide (Milk Of Magnesia) 30 ml PO DAILY PRN PRN Reason: Constipation Last Admin: 03/25/19 06:45 Dose: 30 ml Documented by: Melatonin (Melatonin) 3 mg PO QHS PRN PRN PRN Reason: INSOMNIA Metformin [facility] ([facility]) [facility] Last Admin: 03/26/19 08:06 Dose: 500 mg Documented by: Metoprolol Tartrate (Lopressor (Beta Yunior)) 100 mg PO DAILY [facility] Last Admin: 03/26/19 08:04 Dose: 100 mg Documented by: Multivitamins/Minerals (Multivitamin With Minerals) 1 tablet PO DAILY@0800 [facility] Last Admin: 03/26/19 08:06 Dose: 1 tablet Documented by: Nitrofurantoin Macrocrystals (Macrobid) 100 mg PO BID [facility] Last Admin: 03/26/19 08:04 Dose: 100 mg Documented by: Nitroglycerin (Nitrostat) 0.4 mg SUBLINGUAL Q5M PRN PRN Reason: CARDIAC/CHEST PAIN Ondansetron HCl (Zofran) 4 mg IV Q8H PRN PRN PRN Reason: NAUSEA/VOMITING Oxycodone HCl (Oxyir) 5 - 10 mg PO Q4H PRN PRN PRN Reason: SEVERE PAIN (6-10/10) Last Admin: 03/26/19 11:52 Dose: 10 mg Documented by: Pantoprazole Sodium (Protonix) 40 mg PO DAILY [facility] Last Admin: 03/26/19 08:04 Dose: 40 mg Documented by: Rivaroxaban (Xarelto) 20 mg PO DAILY@1700 [facility] Last Admin: 03/25/19 17:28 Dose: 20 mg Documented by: Sodium Chloride () 10 - 40 ml IV UD PRN PRN Reason: SALINE FLUSH Last Admin: 03/24/19 15:21 Dose: 10 ml Documented by: Spironolactone (Aldactone) 50 mg PO DAILYCM [facility] Last Admin: 03/26/19 08:06 Dose: 50 mg Documented by: Tamsulosin HCl (Flomax) 0.4 mg PO DAILY [facility] Last Admin: 03/26/19 08:06 Dose: 0.4 mg Documented by: Medical Necessity - Tobacco Use Smoking Status: Former smoker - Patient quit cigarette tobacco usage of proximal 0.35 years prior to current presentation. Tobacco Use: Non-smoker Assessment/Plan All Active Problems (Last Reviewed 06/17/18 @ 11:36 by Pieter Shi MD) Hypotension, unspecified (Resolved) Lactic acidosis (Resolved) Closed intertrochanteric fracture of right femur (Acute) Syncope and collapse (Acute) UTI (urinary tract infection) (Acute) Atrial fibrillation with rapid ventricular response (Acute) New onset atrial fibrillation (Acute) 1. right intertrochanteric fracture of right femoral neck and shaft * status post fall * s/p ORIF on 03/23 * 25 OH d 85.1, no replacement needed at this time * non-weight bearing RLE * follow up with Dr. Forte in 2 weeks. 2. UTI * E. coli, lovelace-sensitive * change to nitrofurantoin, treat through 03/28 3. Syncope * unclear if orthostatic, vasovagal v other. * continue tele for now * echo showed an EF of 50% 4. acute blood loss anemia * Hg 6.1 * Due to caodaism reasons, he will not accept transfusions * will give iron sucrose 5. pAfib * continue metoprolol * resume rivaroxaban 03/24 6. Right wrist fracture * occurred on 03/13 * had xray at an urgent care (not accessible here), will repeat * ortho for further recommendations * continue non-weight bearing status for right wrist and splint 7. VTE prophylaxis: anticoagulated 8. Dispo: declined by [employer] for rehab. Now awaiting precert for SNF. Code Visit Inpatient E&M: 64449 Subs Hosp L2
[2019-03-26] MEDS: Rivaroxaban 20 MG Tablet PO (16:29)
--- NOTE | 2019-03-26 16:31 | PCM.TXEXTCAR ---
- Diet 03/23/19 15:43 Diet: Regular Diet Is pt able to select menu?: Yes - Routine Orders/Code Status Routine Lab Work: CBC - every Friday Code Status: Full Code - Wound(s) rt hip Wound Type: Surgical Incision Dressing Change: Dry Sterile Dressing - Therapies Weight Bearing: Non weight bearing Extremity Affected:: Right Upper Physical Therapy: Eval and Treat Occupational Therapy: Eval and Treat - Allergies/Procedures Done in Hospital Allergies/Adverse Reactions: Allergies No Known Allergies Allergy (Verified 03/21/19 18:20) Procedures: - - ORIF right hip - Type of Care/Length of Stay Estimated LOS: Convalescent Care Less Than 30 days Type of Care Needed: Skilled Rehab Potential: Fair Prognosis: Fair - Additional Orders/Day of Discharge Day of Discharge: 03/26/19 - Dietary and Speech Recommendations Dietitian Recommendations/Changes: Recommend a diet change to 2000 calorie controlled/cardiac/low sodium/1500 mL fluid restriction. - Follow Up Care Primary Care Physician: Felix Matias DO [Primary Care Provider] - Within 2 Weeks Please Follow Up With: David Forte DO When: 1-2 weeks
--- NOTE | 2019-03-26 17:13 | DS.PCM_ITS ---
Discharge Date and Diagnosis - Problem List Patient Problems: Active and Suspected Problems (Last Reviewed 06/17/18 @ 11:36 by Pieter Shi MD) Closed intertrochanteric fracture of right femur (Acute) Syncope and collapse (Acute) UTI (urinary tract infection) (Acute) Date of Admission: 03/21/19 Date of Discharge: 03/26/19 - Primary Discharge Diagnosis Active and Suspected Problems (Last Reviewed 06/17/18 @ 11:36 by Pieter Shi MD) Closed intertrochanteric fracture of right femur (Acute) Syncope and collapse (Acute) UTI (urinary tract infection) (Acute) 1. right intertrochanteric fracture of right femoral neck and shaft * status post fall * s/p ORIF on 03/23 * 25 OH d 85.1, no replacement needed at this time * non-weight bearing RLE * follow up with Dr. Forte in 2 weeks. 2. UTI * E. coli, lovelace-sensitive * change to nitrofurantoin, treat through 03/28 3. Syncope * unclear if orthostatic, vasovagal v other. * continue tele for now * echo showed an EF of 50% 4. acute blood loss anemia * Hg 6.1 * Due to adventism reasons, he will not accept transfusions * will give iron sucrose 5. pAfib * continue metoprolol * resume rivaroxaban 03/24 6. Right wrist fracture * occurred on 03/13 * had xray at an urgent care (not accessible here), will repeat * ortho for further recommendations * continue non-weight bearing status for right wrist and splint - Secondary Discharge Diagnosis Chronic Problems (Last Reviewed 06/17/18 @ 11:36 by Pieter Shi MD) History of heart failure (Chronic) Anticoagulant long-term use (Chronic) Urinary retention (Chronic) Diastolic CHF (Chronic) PAF (paroxysmal atrial fibrillation) (Chronic) Right bundle branch block (Chronic) Acute on chronic diastolic (congestive) heart failure (Chronic) Essential (primary) hypertension (Chronic) Hyperlipidemia (Chronic) Dilated cardiomyopathy (Chronic) Morbid obesity (Chronic) TYELR (obstructive sleep apnea) (Chronic) use BiPAP COPD (chronic obstructive pulmonary disease) (Chronic) Hospital Course and Treatment Imaging Results: Clinical Impression(s) from Imaging Studies Brain CT 03/21/19 18:32 IMPRESSION: No acute intracranial hemorrhage or mass effect. Electronically Signed: Elvis Marks MD (Bro[place]) at 19:30 EDT , Service support , Chest X-Ray 03/21/19 18:32 IMPRESSION: No acute findings. Electronically Signed: Emily Ortiz MD at 20:23 EDT Tel , Service support , Hip/Pelvis X-Ray 03/21/19 18:35 IMPRESSION: 1. Acute, comminuted intertrochanteric fracture of the right femoral neck and shaft. 2. Distended small and large bowel concerning for ileus or obstruction. Further evaluation with flat and decubitus radiographs of the abdomen or CT of the abdomen is advised. Electronically Signed: Emily Ortiz MD at 20:17 EDT Tel , Service support , KUB X-Ray 03/22/19 05:55 IMPRESSION: Moderate amount of fecal material is in the colon. Electronically Signed: Camilo Khan, at 9:32 EDT , Service support , Hip X-Ray 03/23/19 11:35 IMPRESSION: As above Electronically Signed: Yon Michael DO at 15:27 EDT Tel , Service support , Wrist X-Ray 03/24/19 13:05 IMPRESSION: Nondisplaced impacted transverse fracture of the distal radial metaphysis. Soft tissue swelling. Electronically Signed: Camilo Khan, at 14:38 EDT , Service support , Knapic: ortho Yuridia: cardiology Operations: - - ORIF right hip Procedures: None Summary of Care Provided: The patient is a 69 year old M presents with fall. Patient sustained a segment fracture to his right hip. Patient underwent an ORIF of his right hip on the . The hip was broken and numerous sections so could not be well approximated but a kimberli was placed. Patient is to be nonweightbearing until further clarified by orthopedics. Patient had fallen about a week prior and had an impacted fracture of his right radius. Patient is not weightbearing of his right wrist but can use a walker with a forearm platform. Patient also did have anemia after surgery. Patient is Congregational and does not want transfusions understanding the risks patient's hemoglobin the past 2 days is been 6.3 and 6.1, respectively. Patient did receive a dose of iron sucrose today. Patient was evaluated for rehab and felt to be a good candidate by physical therapy, however, his insurance denied him for rehab. Precertification was run again and patient was approved for group home facility and patient will be transferred to [facility] in stable condition. Unfortunately, patient does have worsening anemia, though does appear to be stable although low at this time, we would be unable to transfuse and given his adventism convictions. Likely is attributable to the fracture and the surgery. [] Patient Problems: Active and Suspected Problems (Last Reviewed 06/17/18 @ 11:36 by Pieter Shi MD) Closed intertrochanteric fracture of right femur (Acute) Syncope and collapse (Acute) UTI (urinary tract infection) (Acute) - Physical Exam Vital Signs Temp Pulse Resp BP Pulse Ox 36.6 C 71 18 119/48 L 96 03/26/19 17:09 03/26/19 17:09 03/26/19 17:09 03/26/19 17:03/26/19 17:09 Oxygen Flow Rate (L/min) 2 Oxygen Delivery Method Nasal Cannula Weight: 131.2 kg Body Mass Index (BMI) 41.2 Intake and Output for Last 24 Hours 03/24/19 03/25/19 03/26/19 23:59 23:59 23:59 Intake Total 2691.92 / 2891.92 1500 / 1500 600 / 600 Output Total 920 / 1320 2825 / 2825 1600 / 1600 Balance 1771.92 / 1571.92 -1325 / -1325 -1000 / -1000 Laboratory Tests Past 24 Hrs 03/26/19 12:05 Hgb 6.1 L Hct 19.4 L POC Glucose 03/26/19 03/26/19 03/25/19 11:34 06:54 20:57 POC Glucose 123 H 120 H 142 H 03/25/19 17:26 POC Glucose 114 H Discharge Diet: Low fat/ Low Cholesterol, 1800 Calorie Control Diet Discharge Activity: - - activity as tolerated Weight Bearing Status: No weight bearing Keep extremity elevated above heart level: Right Leg, - - right wrist Home Medications: Medications to take at Discharge Calcitriol [Rocaltrol] 0.25 mcg PO SUTUTHSA 03/28/17 Calcitriol [Rocaltrol] 0.5 mcg PO MOWEFR 03/28/17 Duloxetine HCl 60 mg PO BID 03/28/17 Esomeprazole Magnesium 40 mg PO DAILY 03/28/17 Fluticasone/Salmeterol [Advair Hfa 45-21 Mcg Inhaler] 2 puff INHALATION BID 03/28/17 cyanocobalamin (vit B-12) 2,500 mcg sublingual tablet 2,500 mcg SUBLINGUAL QDAY 06/13/17 albuterol sulfate HFA 90 mcg/actuation aerosol inhaler 1 puff INHALATION Q4H g 07/22/17 Cetirizine HCl [Zyrtec] 10 mg PO DAILY 05/29/18 Cyclobenzaprine HCl 10 mg PO QHS 05/29/18 Ferrous Sulfate [Iron] 325 mg PO DAILY 05/29/18 Fluoxetine HCl 40 mg PO QHS 05/29/18 Multivit-Mins/Iron/Folic/Lycop [Centrum Ultra Men's Tablet] 1 tab PO DAILY 05/29/18 Atorvastatin Calcium [Lipitor] 20 mg PO QHS #30 tab 06/01/18 Metformin HCl [Metformin HCl ER] 500 mg PO DAILY #30 [id number] 06/01/18 Rivaroxaban [Xarelto] 20 mg PO DAILY@1700 #30 tab 06/01/18 spironolactone 50 mg tablet 50 mg PO DAILY #90 tab 06/17/18 Amiodarone HCl 1 tab PO DAILY 03/21/19 Finasteride 5 mg PO DAILY 03/21/19 Metoprolol Tartrate [Lopressor (beta boogie)] 100 mg PO BID 03/21/19 Tamsulosin HCl 0.4 mg PO DAILY 03/21/19 Furosemide [Lasix] 60 mg PO BID 03/24/19 Albuterol Sulfate 3 ml INHALATION BID 03/25/19 DiphenhydrAMINE [Benadryl] 50 mg PO QHS 03/25/19 Acetaminophen [Tylenol Tablet] 650 mg PO Q6H PRN PRN tab 03/26/19 Insulin Lispro [Humalog KwikPen] See Protocol SUBCUT ACHS insuln.pen 03/26/19 Lorazepam [Ativan] 1 mg PO BID 3 Days #6 tab 03/26/19 Nitrofurantoin Macrocrystals [Macrobid] 100 mg PO BID cap 03/26/19 Oxycodone [Oxyir] 5 mg PO Q6H PRN 3 Days #12 tab 03/26/19 Following Prescrptions Were Given to Patient: Lorazepam [Ativan] 1 mg PO BID 3 Days #6 tab Prescription Printed Oxycodone [Oxyir] 5 mg PO Q6H PRN 3 Days #12 tab PRN Reason: Severe Pain (-04/15) Prescription Printed Primary Care Physician: Felix Matias DO [Primary Care Provider] - Within 2 Weeks Please Follow Up With: David Forte DO When: 1-2 weeks [facility]position: [facility] facility Minutes spent on discharge:: 36 Patient Condition:: Fair Medical Necessity - Tobacco Use Smoking Status: Former smoker - Patient quit cigarette tobacco usage of proximal 0.35 years prior to current presentation. Tobacco Use: Non-smoker Meaningful Use Info Meaningful Use Diagnoses (Choose all that apply): None applicable Code Visit Inpatient E&M: 32724 Disch Hosp
--- NOTE | 2019-03-26 17:25 | CASEMGMT ---
Patient was approved for [facility]. CAMILO faxed orders to [facility]. CAMILO called [facility] and arranged for patient to get picked up at 7p via cot. Completed convalescent on HENS. CAMILO notified Malika at [facility], RN, and medical office secretary. CAMILO notified patient and his he was approved, but RN notified them of warp picker time. Plan: d/c to [facility] under skilled level of care on a convalescent stay. [facility] transported via cot. Ping MICHEL MSW
[2019-03-26 17:40] LABS: Bedside Glucose 150 mg/dL (70-110)
[2019-03-26] MEDS: Bisacodyl 5 MG Tablet 10 MG PO (17:53)
== END 2019-03-26 19:57 | disposition skilled nursing facility (03) | DRG 481 ==
LOC: ED 20:18 → PCU 20:32
PROVIDERS: Anesthesiology; Orthopaedic Surgery; Admitting Provider Family Medicine; Emergency Provider Emergency Medicine; Family Provider Family Medicine; PCP Family Medicine
PROC: 0QS606Z Reposition Right Upper Femur with Intramedullary Internal Fixation Device, Open Approach (ICD-10-PCS; CPT 27245; principal; 2019-03-23 11:00)
DX: S72.141A Displaced intertrochanteric fracture of right femur, initial encounter for closed fracture (principal); I42.0 Dilated cardiomyopathy; N39.0 Urinary tract infection, site not specified; D62 Acute posthemorrhagic anemia; Z68.41 Body mass index [BMI] 40.0-44.9, adult; I50.32 Chronic diastolic (congestive) heart failure; E87.2 Acidosis; W18.30XA Fall on same level, unspecified, initial encounter; Y93.01 Activity, walking, marching and hiking; S72.351A Displaced comminuted fracture of shaft of right femur, initial encounter for closed fracture; Y92.009 Unspecified place in unspecified non-institutional (private) residence as the place of occurrence of the external cause; E78.5 Hyperlipidemia, unspecified; E66.01 Morbid (severe) obesity due to excess calories; E11.9 Type 2 diabetes mellitus without complications; J44.9 Chronic obstructive pulmonary disease, unspecified; B96.20 Unspecified Escherichia coli [E. coli] as the cause of diseases classified elsewhere; K21.9 Gastro-esophageal reflux disease without esophagitis; N40.1 Benign prostatic hyperplasia with lower urinary tract symptoms; R55 Syncope and collapse; R33.8 Other retention of urine; G47.33 Obstructive sleep apnea (adult) (pediatric); I45.10 Unspecified right bundle-branch block; W19.XXXD Unspecified fall, subsequent encounter; I48.0 Paroxysmal atrial fibrillation; S52.501D Unspecified fracture of the lower end of right radius, subsequent encounter for closed fracture with routine healing; Z87.891 Personal history of nicotine dependence; Z79.84 Long term (current) use of oral hypoglycemic drugs; Z98.84 Bariatric surgery status; I11.0 Hypertensive heart disease with heart failure
CPT/HCPCS: 36415; 51702; 70450; 71045; 73110; 73502; 74018; 76000; 80048; 80053; 81001; 82306; 82962; 83036; 83605; 83735; 84439; 84443; 84484; 85014; 85018; 85025; 85610; 85730; 87086; 87088; 87186; 93005; 93306; 94002; 94003; 94640; 94762; 97163; 97166; 97530; 97802; 99285; C1776; J1756; J7030; J7040; Q9957; A4216; C8929; J2405

== ENCOUNTER 2019-04-12 10:21 | Inpatient (IN) | payer MEDICARE, MEDICAID, SELFPAY ==
[2019-03-23 09:09] VITALS: BMI 41.2
[2019-04-12] VITALS (15 sets, daily range): BP systolic 87–126; BP diastolic 46–79; PULSE 53–67; RESP 11–22; TEMP 36.6–37.1; O2SAT 96–100; BMI 40.8; BMI 40.9; BMI 38.8
--- NOTE | 2019-04-12 10:57 | ED.RN ---
pt a&ox3 during assessment. family reports that was confused this am at [facility] when awoke. bp running low. recent rt hip surgery and non wt bearing. no fever. family in at bedside
--- NOTE | 2019-04-12 10:59 | RAD_ITS ---
STUDY: X-RAY CHEST REASON FOR EXAM: Male, 69 years old. Congestive heart failure TECHNIQUE: Single AP portable view of the chest. COMPARISON: 03/21/2019 FINDINGS: The lungs are clear and expanded. There is no demonstrated pleural abnormality. Normal size heart. Normal mediastinum and lyndsey. Normal visualized pulmonary arteries. Normal visualized aortic arch and descending thoracic aorta. Normal visualized thoracic spine. Status post bilateral shoulder hemiarthroplasty. There is no demonstrated abnormality of the visualized soft tissue structures of the upper abdomen. RAD/Chest 1 View (Portable) IMPRESSION: No active disease. Electronically Signed: Sharif Rodriguez MD at 11:39 EDT Tel , Service support ,
--- NOTE | 2019-04-12 10:59 | EKG12_ITS ---
Test Reason : ALT LOC Blood Pressure : / mmHG Vent. Rate : 060 BPM Atrial Rate : 060 BPM P-R Int : 188 ms QRS Dur : 176 ms QT Int : 510 ms P-R-T Axes : -13 -05 012 degrees QTc Int : 510 ms Normal sinus rhythm Right bundle branch block Abnormal ECG Confirmed by HECTOR ALCANTAR, IRENE ([id number]), publications editor JUS FISHER ([id number]) on 04/14/2019 1:37:10 PM Referred By: Isela Arrieta Confirmed By:IRENE YOUNG MD
--- NOTE | 2019-04-12 11:02 | ED.DCSUM_ITS ---
History of Present Illness Chief Complaint: Confusion Informant: Patient, Family Onset: Days Context: Gradual Onset Timing: Intermittent Narrative: Patient is a 69-year-old male with history of congestive heart failure, atrial fibrillation (on metoprolol, amiodarone and Xarelto) as well as recent fall with subsequent right hip fracture status post ORIF presenting with increased fatigue and confusion. Family states that he has been feeling unwell for the past few days. Today his sister was visiting him at his skilled nursing when she states that he was very confused and was not making sense. He was talking however he thought he was in [place]. Patient is currently lucid of the situation and location. He states he has been feeling well but denies any other complaints. He is doing physical therapy and denies any significant pain and his hip. He denies any other complaints at this time. Of note patient is a [employer] and would not want any blood products. 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 Lives: Group Home Smoking Status: Former smoker - Family History Maternal Family History: Family History (Last Reviewed 06/17/18 @ 11:36 by Pieter Shi MD) Mother CAD (coronary artery disease) Family History: Reports: Heart Disease, Pulmonary Disease Additional Family History: No heart disease Paternal Family History: Family History (Last Reviewed 06/17/18 @ 11:36 by Pieter Shi MD) Mother CAD (coronary artery disease) Family History: Reports: - - Lung cancer with history of concurrent tobacco use. Review of Systems All systems negative except as indicated General: Reports: Malaise Psych: Reports: - - Confusion Physical Exam Vital Signs/Narrative: Vital Signs Temp Pulse Resp BP Pulse Ox 04/12/19 10:23 98.8 F 61 18 93/46 L 98 Inital Vital Signs reviewed: Yes General: Well nourished, Well developed, Obese, No Acute Distress Head: Normocephalic, Atraumatic Eyes: Perrl, EOMI ENT: No rhinorrhea, Dry mucous membranes Neck: Supple, Nontender, No JVD Cardiovascular: Regular rate, Regular rhythm, No murmurs Respiratory: No distress, CTA bilaterally, Chest nontender Abdomen: Soft, Nontender, Nondistended, Normal bowel sounds Back: Nontender, Normal Inspection Extremities: Nontender, No edema, - - Limited range of motion of the right hip secondary to recent ORIF, minimal pain with range of motion Skin: Normal color, No rash, - - Surgical incision on right lateral hip appears to be healing appropriately, no surrounding erythema or fluctuance Neurological: Alert, Oriented x3, Cranial nerves II-XII grossly intact, Normal Strength, Normal Sensation Psychological: Normal affect, Normal Mood Diagnostic/Tx/Re-eval Chest X-Ray - ED: 1 View, Read by ED Physician, Read by Radiologist, No Acute Disease Clinical Impression(s) from Imaging Studies Chest X-Ray 04/12/19 10:59 IMPRESSION: No active disease. Electronically Signed: Sharif Rodriguez MD at 11:39 EDT Tel , Service support , Laboratory Data 04/12/19 04/12/19 04/12/19 10:40 10:40 10:40 WBC 5.8 RBC 3.08 L Hgb 9.3 L Hct 30.7 L MCV 99.7 H MCH 30.2 MCHC 30.3 L RDW Std Deviation 50.9 H RDW Coeff of Bruno 13.9 Plt Count 313 MPV 10.5 Immature Gran % (Auto) 0.300 Neut % (Auto) 71.7 H Lymph % (Auto) 21.9 [place] % (Auto) 3.4 Eos % (Auto) 2.2 Baso % (Auto) 0.5 Absolute Neuts (auto) 4.2 Absolute Lymphs (auto) 1.28 Nucleated RBC % 0 PT 16.1 H INR 1.3 APTT 29.7 Sodium 144 Potassium 3.6 Chloride 107 Carbon Dioxide 31.0 Anion Gap 6 BUN 21 H Creatinine 1.26 Estim Creat Clear Calc 53.53 Est GFR (MDRD) Af Amer 73 Est GFR (MDRD) Non-Af 60 BUN/Creatinine Ratio 16.7 Glucose 145 H Lactic Acid Calcium 8.9 Magnesium Total Bilirubin 0.60 AST 21 ALT 15 L Alkaline Phosphatase 251 H Troponin I < 0.015 Total Protein 6.2 L Albumin 3.1 L Globulin 3.1 Albumin/Globulin Ratio 1.0 TSH Urine Color Urine Clarity Urine pH Ur Specific Medon Urine Protein Urine Glucose (UA) Urine Ketones Urine Occult Blood Urine Nitrite Urine Bilirubin Urine Urobilinogen Ur Leukocyte Esterase Urine RBC Urine WBC Ur Squamous Epith Cells Urine Bacteria Hyaline Casts Urine Mucus 04/12/19 04/12/19 04/12/19 10:40 10:40 11:45 WBC RBC Hgb Hct MCV MCH MCHC RDW Std Deviation RDW Coeff of Bruno Plt Count MPV Immature Gran % (Auto) Neut % (Auto) Lymph % (Auto) [place] % (Auto) Eos % (Auto) Baso % (Auto) Absolute Neuts (auto) Absolute Lymphs (auto) Nucleated RBC % PT INR APTT Sodium Potassium Chloride Carbon Dioxide Anion Gap BUN Creatinine Estim Creat Clear Calc Est GFR (MDRD) Af Amer Est GFR (MDRD) Non-Af BUN/Creatinine Ratio Glucose Lactic Acid 1.4 Calcium Magnesium 2.0 Total Bilirubin AST ALT Alkaline Phosphatase Troponin I Total Protein Albumin Globulin Albumin/Globulin Ratio TSH 1.92 Urine Color Yellow Urine Clarity Sl. Cloudy Urine pH 6.0 Ur Specific Medon 1.015 Urine Protein Negative Urine Glucose (UA) Normal Urine Ketones Negative Urine Occult Blood Negative Urine Nitrite Negative Urine Bilirubin Negative Urine Urobilinogen 4 H Ur Leukocyte Esterase 100 H Urine RBC 0 SEEN Urine WBC 0-5 SEEN Ur Squamous Epith Cells 0-5 SEEN Urine Bacteria RARE Hyaline Casts 5-10 SEEN Urine Mucus 0 SEEN - Rhythm Strip Rhythm Strip: Sinus Rhythm Rate: 60 Ectopy: None - EKG Initial EKG Interpretation: Sinus Rhythm, RBBB - Normal sinus rhythm at a rate of 80 LA interval 188 QRS 176 QT/QTc 510/510 Left axis deviation Right bundle branch block Nonspecific T wave inversions in aVR, V1 through V2, - - Medical Decision Making Patient is a 69-year-old male with extensive past medical history presenting with increased confusion. Per the family is been going on for couple days but is most pronounced this morning. Patient is a resident of a detention facility for acute rehab secondary to recent hip fracture. Patient is initially mildly hypotensive but that responds quickly with 500 cc bolus of fluids. Clinically he does appear dehydrated. His work-up is otherwise largely negat karl. Patient is lucid during my exam but on repeat evaluation nursing reports that patient does become intermittently confused. This is concerning for delirium. Exact cause is not clear however could be medication related as patient is currently on opioids for his postoperative pain control. In addition patient does not have 100 leukoesterase in his urine. I am not convinced this is an infection but urine culture sent. Head CT is requested by admitting physician which is negative. Patient will be admitted for likely dehydration and delirium. Family is agreeable with this plan. He is stable in the ED at time of disposition and has no further episodes of low blood pressure. ED Disposition - Plan for ED Patient: Disposition: Acute Care Hospital [facility] Diagnosis: Acute delirium, Dehydration
[2019-04-12 11:07] LABS: Absolute Lymphocyte Count 1.28 X10^3/uL (0.83-4.51); Absolute Neutrophil Count 4.2 X10^3/uL (2.0-7.7); Basophil# 0.03 X10^3/uL; Basophil% 0.5 % (0-1); Eosinophil# 0.13 X10^3/uL; Eosinophils% 2.2 % (0-5); Hematocrit 30.7 % (40-54); Hemoglobin 9.3 g/dL (13.0-16.5); Lymphocyte # 1.28 X10^3/ul (4.0); Lymphocyte % 21.9 % (19-41); Mean Corp Hgb Conc 30.3 g/dL (32-36); Mean Corpuscular Hgb 30.2 pg (27.0-32.0); Mean Corpuscular Volume 99.7 fL (80-94); Mean Platelet Vol. 10.5 fl (6.2-12.0); Monocyte% 3.4 % (0-10); NRBC Flagged by Analyzer 0 % (0-5); Neutrophil # 4.18 X10^3/uL (2.7-7.7); Neutrophil % 71.7 % (47-70); Platelet Count 313 K/mm3 (150-450); RBC Distribution Width CV 13.9 % (11.6-14.6); RBC Distribution Width SD 50.9 fl (35.1-43.9); Red Blood Count 3.08 M/mm3 (4.6-6.2); White Blood Count 5.8 K/mm3 (4.4-11.0)
[2019-04-12 11:13] LABS: International Normalized Ratio 1.3; Prothrombin Time (Protime)PT. 16.1 SECONDS (11.7-14.9)
[2019-04-12 11:14] LABS: Partial Thromboplast Time 29.7 Seconds (24.1-36.2)
[2019-04-12 11:19] LABS: Lactic Acid 1.4 mmol/L (0.4-2.0)
[2019-04-12 11:21] LABS: AST(SGOT) 21 U/L (15-37); Alanine Aminotransfer ALT/SGPT 15 U/L (16-61); Albumin, Serum 3.1 g/dL (3.2-5.0); Alkaline Phosphatase 251 U/L (45-117); Anion Gap 6 (5-15); BUN 21 mg/dL (7-18); BUN/Creat Ratio 16.7 RATIO (10-20); Calcium,Total 8.9 mg/dL (8.5-10.1); Chloride 107 mmol/L (98-107); Creatinine, Serum 1.26 mg/dL (0.70-1.30); EST Glomerular Filtration Rate 60 mL/min (>60); Est Glom Filt Rate - Afr Amer 73 mL/min (>60); Estimated Creatinine Clearance 53.53 ml/min; Globulin 3.1 g/dL (2.2-4.2); Glucose 145 mg/dL (74-106); Potassium 3.6 mmol/L (3.5-5.1); Protein, Total 6.2 g/dL (6.4-8.2); Sodium Level 144 mmol/L (136-145)
[2019-04-12 11:51] LABS: Mucous, Urine 0 SEEN /hpf (<or=2+); Red Blood Cells-Urine 0 SEEN /hpf (0-5)
[2019-04-12 11:59] LABS: Color, Urine Yellow (Yellow); Glucose, Dipstick Normal (Normal); Ketone-Dipstick Negative (Negative); Leukocyte Esterase-Dipstick 100 /ul (Negative); Nitrite-Dipstick Negative (Negative); Occult Blood-Urine Negative /ul (Negative); Protein-Dipstick Negative (Negative); Specific Gravity, Urine 1.015 (1.002-1.030); Urine Bilirubin Dipstick Negative (Negative); Urine Clarity Sl. Cloudy (Clear); Urine Urobilinogen 4 mg/dl (Normal)
[2019-04-12 12:06] LABS: Bacteria RARE /hpf (None Seen); Hyaline Cast 5-10 SEEN /lpf (0-5); Squamous Epithelial Cells - UA 0-5 SEEN /hpf (0-5); White Blood Cells 0-5 SEEN /hpf (0-5)
--- NOTE | 2019-04-12 14:06 | HP.PCM_ITS ---
Problem List (1) Encephalopathy Status: Acute (2) Hypotension, unspecified Status: Acute Qualifiers: Hypotension type: unspecified hypotension type Qualified Code(s): I95.9 - Hypotension, unspecified (3) PAF (paroxysmal atrial fibrillation) Status: Chronic (4) Diastolic CHF Status: Chronic Qualifiers: Heart failure chronicity: chronic Qualified Code(s): I50.32 - Chronic diastolic (congestive) heart failure (5) PAF (paroxysmal atrial fibrillation) Status: Chronic (6) Essential (primary) hypertension Status: Chronic (7) Hyperlipidemia Status: Chronic Qualifiers: Hyperlipidemia type: unspecified Qualified Code(s): E78.5 - Hyperlipidemia, unspecified (8) Dilated cardiomyopathy Status: Chronic (9) Morbid obesity Status: Chronic (10) TYLER (obstructive sleep apnea) Status: Chronic Comment: use BiPAP (11) COPD (chronic obstructive pulmonary disease) Status: Chronic Qualifiers: COPD type: unspecified COPD Qualified Code(s): J44.9 - Chronic obstructive pulmonary disease, unspecified History of Present Illness Date of Admission: 04/12/19 Chief Complaint: Fatigue, malaise, confusion. The patient is a 69 y/o M w/ PMHx: TYLER on BIPAP, HTN, HLD, Dilated Cardiomyopathy, Morbid Obesity, Chronic COPD, PAF, Diastolic CHF, Diabetes mellitus type II, Morbid Obesity who presents to the [facility] ED on 04/12/19 with history of waxing and waning confusion x4 days, recently discharged following syncopal event with right hip fracture urged to [facility] facility with also concurrent UTI on 03/26/2019 with no specifically associated neurological symptoms, no focal deficits, no change in [facility] facility regimen per spouse report. Patient has stated that he has had a frontal throbbing headaches but does not have one currently and states that he has had migraine history. Upon ED initial presentation patient was ANO x3 per ED physician however upon repeat assessment patient did have difficulty giving responses but could correct himself. Does note that he has been more fatigued with generalized malaise over the last several days. Work-up in the ED included T 98.8, heart rate 61, BP initially 93/46-->87/72 with improvement to 120/69 with IV fluids, respiratory rate 18, 98% on 2 L nasal cannula, CBC with WC 5.8, heme globin 9.3, platelet 313 without market shift, coags with PT 16.1, INR 1.3, PTT 29.7, CMP with BUN/creatinine 21/1.26, glucose 145, lactic acid 1.4, AST/ALT 21/15, alk phos 251, troponin less than 0.015, EKG with no acute evidence of ischemia, chest x- ray with no acute cardia pulmonary findings, UA with negative nitrite, leukocyte esterase 100 however rare urine bacteria, urine culture pending per ED. given patient's reported ongoing confusion per spouse since the Friday prior discussed with ED physician and will obtain CT head. CT head demonstrates no acute intracranial findings which would require transfer patient will be admitted to the PCU. In the ED patient ministered normal saline. Past Medical History Past Medical History (Chronic Problems): Chronic Problems (Last Reviewed 06/17/18 @ 11:36 by Pieter Shi MD) PAF (paroxysmal atrial fibrillation) (Chronic) History of heart failure (Chronic) Anticoagulant long-term use (Chronic) Urinary retention (Chronic) Diastolic CHF (Chronic) PAF (paroxysmal atrial fibrillation) (Chronic) Right bundle branch block (Chronic) Acute on chronic diastolic (congestive) heart failure (Chronic) Essential (primary) hypertension (Chronic) Hyperlipidemia (Chronic) Dilated cardiomyopathy (Chronic) Morbid obesity (Chronic) TYLER (obstructive sleep apnea) (Chronic) use BiPAP COPD (chronic obstructive pulmonary disease) (Chronic) Medical History: Medical History (Last Reviewed 06/17/18 @ 11:36 by Pieter Shi MD) Right bundle branch block (Chronic) I45.10 Atrial fibrillation with rapid ventricular response (Acute) I48.91 New onset atrial fibrillation (Acute) I48.91 Acute on chronic diastolic (congestive) heart failure (Chronic) I50.33 Essential (primary) hypertension (Chronic) I10 Hyperlipidemia (Chronic) E78.5 Dilated cardiomyopathy (Chronic) I42.0 Morbid obesity (Chronic) E66.01 TYLER (obstructive sleep apnea) (Chronic) G47.33 use BiPAP COPD (chronic obstructive pulmonary disease) (Chronic) J44.9 Chronic pain G89.29 Lymphedema I89.0 Migraine G43.909 Osteoarthritis M19.90 Type 2 diabetes mellitus E11.9 History of left heart catheterization Onset Date: 03/31/17 Z98.890 Allergies No Known Allergies Allergy (Verified 04/12/19 10:23) Home Medications: Ambulatory Orders Medication Instructions Recorded Calcitriol [Rocaltrol] 0.25 mcg PO SUTUTHSA 03/28/17 Calcitriol [Rocaltrol] 0.5 mcg PO MOWEFR 03/28/17 Duloxetine HCl 60 mg PO BID 03/28/17 Esomeprazole Magnesium 40 mg PO DAILY 03/28/17 Fluticasone/Salmeterol [Advair Hfa 2 puff INHALATION BID 03/28/17 45-21 Mcg Inhaler] cyanocobalamin (vit B-12) 2,500 2,500 mcg SUBLINGUAL QDAY 06/13/17 mcg sublingual tablet albuterol sulfate HFA 90 1 puff INHALATION Q4H g 07/22/17 mcg/actuation aerosol inhaler Cetirizine HCl [Zyrtec] 10 mg PO DAILY 05/29/18 Cyclobenzaprine HCl 10 mg PO QHS 05/29/18 Ferrous Sulfate [Iron] 325 mg PO DAILY 05/29/18 Fluoxetine HCl 40 mg PO QHS 05/29/18 Multivit-Mins/Iron/Folic/Lycop 1 tab PO DAILY 05/29/18 [Centrum Ultra Men's Tablet] Atorvastatin Calcium [Lipitor] 20 mg PO QHS #30 tab 06/01/18 Metformin HCl [Metformin HCl ER] 500 mg PO DAILY #30 [id number] 06/01/18 Rivaroxaban [Xarelto] 20 mg PO DAILY@1700 #30 tab 06/01/18 spironolactone 50 mg tablet 50 mg PO DAILY #90 tab 06/17/18 Amiodarone HCl 1 tab PO DAILY 03/21/19 Finasteride 5 mg PO DAILY 03/21/19 Metoprolol Tartrate [Lopressor 100 mg PO BID 03/21/19 (beta boogie)] Tamsulosin HCl 0.4 mg PO DAILY 03/21/19 Furosemide [Lasix] 60 mg PO BID 03/24/19 Albuterol Sulfate 3 ml INHALATION BID PRN PRN 03/25/19 Acetaminophen [Tylenol Tablet] 650 mg PO Q6H PRN PRN tab 03/26/19 Insulin Lispro [Humalog KwikPen] See Protocol SUBCUT ACHS 03/26/19 insuln.pen Lorazepam [Ativan] 1 mg PO BID 3 Days #6 tab 03/26/19 Bisacodyl [Gentle Laxative] 10 mg MO DAILY PRN PRN 04/12/19 Magnesium Hydroxide [Milk Of 30 ml PO DAILY PRN PRN 04/12/19 Magnesia] Melatonin 3 mg PO QHS 04/12/19 Mineral Oil 1 bottle MO DAILY PRN PRN 04/12/19 Oxycodone [Oxyir] 5 mg PO Q4H PRN PRN 04/12/19 Potassium Chloride 40 meq PO DAILY 04/12/19 Senna [Senokot] 1 tab PO DAILY PRN PRN 04/12/19 Surgical History: Surgical History (Last Reviewed 06/17/18 @ 11:36 by Pieter Shi MD) H/O right knee surgery Z98.890 History of appendectomy Z90.49 History of gastric bypass Z98.84 History of neck surgery Z98.890 History of right shoulder replacement Z96.611 Hx of cholecystectomy Z90.49 Surgical History: - - Bilateral shoulder replacement, gastric bypass (Kenny-en-Y) , appendectomy, cholecystectomy, right knee arthroscopy, tonsillectomy, sinus surgery, history of facial tumor with resection with reconstructive surgery, recent right hip fracture status post ORIF on 03/23/2019. Psychiatric History: No pertinent psych hx Lives: Long Term Smoking Status: Former smoker - She quit cigarette tobacco usage 35 years prior to current presentation. Tobacco Use: Non-smoker Alcohol: Occasional Drugs: None - *Family History Maternal Family History: Family History (Last Reviewed 06/17/18 @ 11:36 by Pieter Shi MD) Mother CAD (coronary artery disease) History Items: Heart Disease, Pulmonary Disease Paternal Family History: Family History (Last Reviewed 06/17/18 @ 11:36 by Pieter Shi MD) Mother CAD (coronary artery disease) History Items: - - Lung cancer with history of concurrent tobacco use. Review of Systems Constitutional: Reports: Malaise, Weakness, Fatigue. Denies: Chills, Fever, Weight Change HEENT: Reports: Head Aches - Patient admits to intermittent headaches.. Denies: Sinus Congestion, Sinus Drainage Cardiovascular: Denies: Chest Pain, Chest Pressure, Chest Tightness, Light Headedness, Orthopnea, Palpitations, Syncope Respiratory: Denies: Cough, Shortness of breath at rest, Sputum production Gastrointestinal: Denies: Abdominal Pain, Nausea, Vomiting Genitourinary: Denies: Dysuria Musculoskeletal: Reports: Joint Pain. Denies: Joint Tenderness Skin: Reports: Skin Changes. Denies: Rash, Wounds Neurological: Reports: Confusion. Denies: Focal weakness, Numbness, Tingling Psychiatric: Denies: Anxiety, Depression, Homicidal Ideations, Suicidal Ideations Hematologic/ Lymphatic: Reports: Anemia, Easy Bruising, Easy Bleeding VTE Information - Inpt Only VTE Present on Admission: No VTE Mechan Device Prophylaxis: SCD's VTE Pharm Prophylaxis ordered?: Yes Patient Problems: Active and Suspected Problems (Last Reviewed 06/17/18 @ 11:36 by Pieter Shi MD) Encephalopathy (Acute) Subjective: Laying in the ED bed, fatigued appearance, no acute distress. Objective: Physical Examination: General: awake, alert, oriented x to self, initially gave wrong place but then corrected himself, I initially gave wrong year and corrected himself, gave the correct month, had difficulty giving the president, remains cooperative, seated upright in the ED bed in no apparent distress. Skin: normal color, turgor, no icterus, cyanosis except recent right hip fracture status post fall with incision, clean, dry, intact, well-appearing. HEENT: AT/NC, EOMI, PERRLA, moderately dry MM, no carotid bruits or JVD noted. Lungs: CTA bilaterally, moderate effort, moderate decrease BL bases, no rales, ronchi or wheezing. Heart: Regular rate and rhythm; no gallop, rub audible. Abdomen: soft, morbidly obese, NTTP, ND, normal BS, no HSM. Extremities: no cyanosis, clubbing, bilateral mild ankle edema. Neurological: patient awake, alert, oriented x 3; cognitive function intact; pupils equally reactive to light and accomodation; cranial nerves II-XII grossly normal, moving all 4 extremities although limited given recent right hip fracture status post repair, no focal deficits, strength moderately to severely global decrease. Psychiatric: affect appears mildly flat, fatigued, no acute evidence of depressive or anxiety feelings. - Physical Exam Vital Signs Temp Pulse Resp BP Pulse Ox 98.8 F 61 18 121/66 H 98 04/12/19 10:23 04/12/19 10:23 04/12/19 10:23 04/12/19 12:00 04/12/19 10:23 Oxygen Flow Rate (L/min) 2 Oxygen Delivery Method Nasal Cannula Weight: 268 lb 11.896 oz Body Mass Index (BMI) 40.8 Intake and Output for Last 24 Hours 04/10/19 04/11/19 04/12/19 23:59 23:59 23:59 Intake Total 500 / 500 Balance 500 / 500 Laboratory Tests Past 24 Hrs 04/12/19 04/12/19 04/12/19 10:40 10:40 10:40 WBC 5.8 RBC 3.08 L Hgb 9.3 L Hct 30.7 L MCV 99.7 H MCH 30.2 MCHC 30.3 L RDW Std Deviation 50.9 H RDW Coeff of Bruno 13.9 Plt Count 313 MPV 10.5 Immature Gran % (Auto) 0.300 Neut % (Auto) 71.7 H Lymph % (Auto) 21.9 [place] % (Auto) 3.4 Eos % (Auto) 2.2 Baso % (Auto) 0.5 Absolute Neuts (auto) 4.2 Absolute Lymphs (auto) 1.28 Nucleated RBC % 0 PT 16.1 H INR 1.3 APTT 29.7 Sodium 144 Potassium 3.6 Chloride 107 Carbon Dioxide 31.0 Anion Gap 6 BUN 21 H Creatinine 1.26 Estim Creat Clear Calc 53.53 Est GFR (MDRD) Af Amer 73 Est GFR (MDRD) Non-Af 60 BUN/Creatinine Ratio 16.7 Glucose 145 H Lactic Acid Calcium 8.9 Total Bilirubin 0.60 AST 21 ALT 15 L Alkaline Phosphatase 251 H Troponin I < 0.015 Total Protein 6.2 L Albumin 3.1 L Globulin 3.1 Albumin/Globulin Ratio 1.0 Urine Color Urine Clarity Urine pH Ur Specific [place] Urine Protein Urine Glucose (UA) Urine Ketones Urine Occult Blood Urine Nitrite Urine Bilirubin Urine Urobilinogen Ur Leukocyte Esterase Urine RBC Urine WBC Ur Squamous Epith Cells Urine Bacteria Hyaline Casts Urine Mucus 04/12/19 04/12/19 10:40 11:45 WBC RBC Hgb Hct MCV MCH MCHC RDW Std Deviation RDW Coeff of Bruno Plt Count MPV Immature Gran % (Auto) Neut % (Auto) Lymph % (Auto) [place] % (Auto) Eos % (Auto) Baso % (Auto) Absolute Neuts (auto) Absolute Lymphs (auto) Nucleated RBC % PT INR APTT Sodium Potassium Chloride Carbon Dioxide Anion Gap BUN Creatinine Estim Creat Clear Calc Est GFR (MDRD) Af Amer Est GFR (MDRD) Non-Af BUN/Creatinine Ratio Glucose Lactic Acid 1.4 Calcium Total Bilirubin AST ALT Alkaline Phosphatase Troponin I Total Protein Albumin Globulin Albumin/Globulin Ratio Urine Color Yellow Urine Clarity Sl. Cloudy Urine pH 6.0 Ur Specific [place] 1.015 Urine Protein Negative Urine Glucose (UA) Normal Urine Ketones Negative Urine Occult Blood Negative Urine Nitrite Negative Urine Bilirubin Negative Urine Urobilinogen 4 H Ur Leukocyte Esterase 100 H Urine RBC 0 SEEN Urine WBC 0-5 SEEN Ur Squamous Epith Cells 0-5 SEEN Urine Bacteria RARE Hyaline Casts 5-10 SEEN Urine Mucus 0 SEEN Assessment/Plan All Active Problems (Last Reviewed 06/17/18 @ 11:36 by Pieter Shi MD) Encephalopathy (Acute) Hypotension, unspecified (Acute) Lactic acidosis (Resolved) Closed intertrochanteric fracture of right femur (Acute) Syncope and collapse (Acute) UTI (urinary tract infection) (Acute) Atrial fibrillation with rapid ventricular response (Acute) New onset atrial fibrillation (Acute) The patient is a 69 y/o M w/ PMHx: TYLER on BIPAP, HTN, HLD, Dilated Cardiomyopathy, Morbid Obesity, Chronic COPD, PAF, Diastolic CHF, Diabetes mellitus type II, Morbid Obesity who presents to the [facility] ED on 04/12/19 with history of waxing and waning confusion x4 days, recently discharged following syncopal event with right hip fracture urged to [facility] facility with also concurrent UTI on 03/26/2019 with no specifically associated neurological symptoms, no focal deficits, no change in [facility] facility regimen per spouse report. (1) General debility, Malaise, Confusion concerning for Possible Medication Side Effect, Delirium of Unclear Etiology versus CVA: As noted CT head pending upon evaluation and if no obvious need for transfer would admit to the PCU following, will obtain MRI Brain, MRA Head and Neck, not repeat ECHO as recently performed, PT/OT/Speech/Nutrition evaluation per protocol. W timeline will maintain on hypertensive regimen, maintain on xarelto, statin w/ AM FLP, fall precautions. UA unremarkable, chest x-ray unremarkable vision well-appearing. (2) Hypotension, possibly orthostatic: Hypertensive upon ED presentation, improved with IV fluids, requested orthostatic vital signs, pending, fall preca utions, continue gently hydrating, BP regimen with hold parameters. (3) Recent Fall w/ Resulting R Hip Fx s/p repair: We will continue PT, OT evaluation, fall precautions, incisional care per orthopedic surgery prior discretion. (4) CKD stage II: Admission BUN/Cr 21/1.26, baseline 1.1, on current admission does appear mildly dehydrated, mildly elevated specific gravity, hypotensive upon initial presentation treatment with IV fluids, will continue gentle hydration, repeat BMP in a.m., dosing diuretics to AM. (5) Fe Deficiency Anemia recent acute blood loss anemia secondary to operative intervention: Admission hemoglobin 9.3, baseline range usually 13-14 range, recent presentation with discharge hemoglobin noted to be 6.1 with hemoglobin upon presentation as noted improved from prior, [employer], unable to give blood. CBC in a.m. (6) Anxiety and depression: We will continue home Prozac, Ativan regimen as well as patient Cymbalta although benefit from consideration of single agent given risk of serotonin syndrome. (7) Diabetes mellitus type II: Hold oral home regimen, ADA diet, accu checks w/ ISS, nutrition consulted for education and teaching. (8) ? Diastolic CHF, Dilated Cardiomyopathy: Continue home Xarelto, statin, metoprolol, spironolactone. Judiciously hydrating given presentation with transient hypotension. (9) Morbid Obesity: Weight loss and lifestyle changes encouraged, nutrition consulted. (10) Chronic COPD: ATC duonebs, PRN albuterol, HOB, IS parameters. (11) GERD: Continue home PPI. (12) Hypertension: We will continue home regimen but dose to 04/13/2019 a.m. including Lasix, metoprolol, spironolactone with specific hold parameters, PRN IV hydralazine. (13) Hyperlipidemia: Continue home statin regimen. (14) BPH: We will continue home finasteride and Flomax regimen. (15) DVT Prophylaxis: SCDs, Xarelto. (16) CODE status: Full code. Code Visit OBSV E&M: [id number] Initial observation care L3
--- NOTE | 2019-04-12 14:59 | CT_ITS ---
STUDY: CT BRAIN WITHOUT CONTRAST REASON FOR EXAM: Male, 69 years old. Confusion, lethargy, hallucinations. RADIATION DOSAGE (If Supplied By Facility): CTDIvol = ( 44.99 ) mGy, DLP = ( 829.85 ) mGycm TECHNIQUE: Transaxial CT imaging of the brain was performed without administration of intravenous contrast material. Individualized dose optimization techniques were used for this CT. COMPARISON: 03/21/2019 FINDINGS: Normal soft tissue structures. Normal calvarium. There is mild cerebral atrophy with widening of the extra-axial spaces and ventricular dilatation. Normal white matter tracts of the cerebral hemispheres. Normal basal ganglia and thalami. Normal brainstem. Normal cerebellum. There is no intracranial hemorrhage. There are no findings of an acute ischemic infarction. Normal visualized paranasal sinuses. CT/Brain/Head without Contrast IMPRESSION: Chronic involutional changes of the brain. Electronically Signed: Sharif Rodriguez MD at 15:52 EDT Tel , Service support ,
[2019-04-12 17:16] LABS: Thyroid Stim Hormone (TSH) 1.92 uIU/mL (0.358-3.74)
[2019-04-12 17:26] LABS: Allen Test POS; Base Excess 7 mmol/L (-2 to +2); Bicarbonate 30.8 mmol/L (22-26); Blood Gas Specimen Type ART; O2 Delivery Device Nasal Can; PO2 101 mmHG (75-100); SITE R Radial; SO2 98 % (95-99); Time Given 1718; Total Carbon Dioxide 32 mmol/L; pCO2 42.8 mmHg (35-45); pH 7.47 (7.35-7.45)
--- NOTE | 2019-04-12 17:50 | CPS ---
pt's is bringing in his BIPAP from CT so he can wear it tonight.
[2019-04-12] MEDS: 0.9% Normal Saline 1,000 ML 100 ML IV (18:21)
[2019-04-12] MEDS: Glucerna Shake 120 ML LIQUID PO (18:23)
[2019-04-12] MEDS: Furosemide 20 MG Tablet 60 MG PO (18:25)
[2019-04-12] MEDS: Rivaroxaban 20 MG Tablet PO (18:25)
[2019-04-12 18:30] LABS: Bedside Glucose 123 mg/dL (70-110)
[2019-04-12] MEDS: Ipratropium/Albuterol Sulfate 3 ML AMPUL.NEB INHALATION (18:41)
--- NOTE | 2019-04-12 20:44 | CPS ---
Pts. home PAP unit setup @ bedside. 2L O2 Bled in per pts' home routine. Will help pt. put on mask when ready for bed. Pt. understands to let RN know if any problems occur with machine, so HOSPITAL HOUSEKEEPER can come troubleshoot machine.
[2019-04-12] MEDS: LORazepam 1 MG Tablet PO (21:32)
[2019-04-12] MEDS: DULoxetine Hcl 60 MG Capsule PO (21:33)
[2019-04-12] MEDS: oxyCODONE 5 MG Tablet PO (21:33)
[2019-04-12] MEDS: Atorvastatin Calcium 20 MG Tablet PO (21:34)
[2019-04-12] MEDS: Metoprolol Tartrate 100 MG Tablet PO (21:34)
[2019-04-12] MEDS: FLUoxetine 20 MG Capsule 40 MG PO (21:35)
[2019-04-12] MEDS: MELATONIN 3 MG TABLET PO (21:38)
[2019-04-12 23:11] LABS: Bedside Glucose 104 mg/dL (70-110)
[2019-04-13] VITALS (16 sets, daily range): BP systolic 102–136; BP diastolic 45–75; PULSE 54–69; RESP 14–23; TEMP 36.7–37; O2SAT 93–99
[2019-04-13] MEDS: Acetaminophen 325 MG Tablet 650 MG PO ×2 (00:39→17:39)
--- NOTE | 2019-04-13 01:01 | NURSING ---
Per pt he is supposed to be NWB to right lower extremity. Standing BP not attempted at this time.
[2019-04-13] MEDS: 0.9% Normal Saline 1,000 ML 100 ML IV (03:52)
[2019-04-13] MEDS: oxyCODONE 5 MG Tablet PO ×4 (04:11→23:11)
[2019-04-13 06:00] LABS: Absolute Lymphocyte Count 1.35 X10^3/uL (0.83-4.51); Absolute Neutrophil Count 4.4 X10^3/uL (2.0-7.7); Basophil# 0.03 X10^3/uL; Basophil% 0.5 % (0-1); Eosinophil# 0.24 X10^3/uL; Eosinophils% 3.8 % (0-5); Hematocrit 27.5 % (40-54); Hemoglobin 8.3 g/dL (13.0-16.5); Lymphocyte # 1.35 X10^3/ul (4.0); Lymphocyte % 21.3 % (19-41); Mean Corp Hgb Conc 30.2 g/dL (32-36); Mean Corpuscular Hgb 30.1 pg (27.0-32.0); Mean Corpuscular Volume 99.6 fL (80-94); Mean Platelet Vol. 10.3 fl (6.2-12.0); Monocyte# 0.27 X10^3/uL; Monocyte% 4.3 % (0-10); NRBC Flagged by Analyzer 0 % (0-5); Neutrophil # 4.43 X10^3/uL (2.7-7.7); Neutrophil % 69.8 % (47-70); Platelet Count 247 K/mm3 (150-450); RBC Distribution Width CV 14.2 % (11.6-14.6); RBC Distribution Width SD 51.3 fl (35.1-43.9); Red Blood Count 2.76 M/mm3 (4.6-6.2); White Blood Count 6.3 K/mm3 (4.4-11.0)
[2019-04-13 06:23] LABS: Anion Gap 10 (5-15); BUN 21 mg/dL (7-18); BUN/Creat Ratio 18.8 RATIO (10-20); Calcium,Total 8.6 mg/dL (8.5-10.1); Chloride 109 mmol/L (98-107); Cholesterol 103 mg/dL (200); Creatinine, Serum 1.12 mg/dL (0.70-1.30); EST Glomerular Filtration Rate 69 mL/min (>60); Est Glom Filt Rate - Afr Amer 84 mL/min (>60); Estimated Creatinine Clearance 60.22 ml/min; Glucose 117 mg/dL (74-106); High Density Lipoprotein 39 mg/dL; Potassium 3.2 mmol/L (3.5-5.1); Sodium Level 145 mmol/L (136-145); Triglycerides 83 mg/dL; Very Low Density Lipoprotein 17 mg/dL (5-40)
[2019-04-13] MEDS: Ipratropium/Albuterol Sulfate 3 ML AMPUL.NEB INHALATION ×3 (06:43→18:48)
[2019-04-13 07:10] LABS: Bedside Glucose 121 mg/dL (70-110)
--- NOTE | 2019-04-13 08:30 | MRI_ITS ---
STUDY: MRI BRAIN WITHOUT CONTRAST REASON FOR EXAM: Male, 69 years old. Lethargy, malaise, headache, confusion TECHNIQUE: Standardized multiplanar fat and water weighted pulse sequences were obtained. COMPARISON: CT 04/12/2019 FINDINGS: There is moderate cerebral atrophy with widening of the extra-axial spaces and ventricular dilatation. There are multiple white matter hyperintensities, distributed throughout the deep white matter tracts of the cerebral hemispheres, consistent with moderate chronic white matter ischemic changes. There is no evidence for recent intracranial ischemia or other cause of cytotoxic edema on diffusion weighted imaging (DWI). Normal T2* images of the brain without demonstrated susceptibility artifact. There is no demonstrated hemosiderin stain. Normal bilateral basal ganglia. Normal thalami. There is no extra-axial fluid accumulation. Normal flow voids within the major intracranial circulation suggesting patency by spin echo criteria. Normal sella turcica, pituitary gland, infundibular stalk, optic chiasm and hypothalamus. Normal tectal plate and pineal gland. There are chronic white matter ischemic changes of the leo. The midbrain and medulla are otherwise normal. Normal cerebellum. Normal basal cisterns. Normal bilateral temporal bones. Normal bilateral internal auditory canals. No demonstrated orbital abnormality, within the constraints of a routine brain study. Normal visualized paranasal sinuses. Normal calvarium and skull base. Normal visualized soft tissue structures. Normal visualized upper cervical spine. MRI/Brain without Contrast IMPRESSION: Involutional changes of the brain, as described above. Electronically Signed: Sharif Rodriguez MD at 10:48 EDT Tel , Service support ,
--- NOTE | 2019-04-13 08:30 | MRI_ITS ---
STUDY: MRA OF THE HEAD WITHOUT CONTRAST REASON FOR EXAM: Male, 69 years old. G, malaise, headache, confusion TECHNIQUE: 3-D [id number] (TOF) imaging was performed with MIPs. The study was performed unenhanced. COMPARISON: None. FINDINGS: Normal bilateral petrous carotid arteries. Normal right cavernous carotid artery with a normal supraclinoid bifurcation. Normal left cavernous carotid artery with a normal supraclinoid bifurcation. Normal right A1 segments of the anterior cerebral artery. Normal left A1 segments of the anterior cerebral artery. Normal intact anterior communicating artery (ACOM). Normal bilateral A2 segments of the anterior cerebral arteries. Normal right M1 and M2 segments of the middle cerebral arteries, with a normal M1 bifurcation. Normal left M1 and M2 segments of the middle cerebral arteries, with a normal M1 bifurcation. Normal right posterior communicating artery (PCOM). Normal left posterior communicating artery (PCOM). Normal bilateral vertebral arteries. Normal basilar artery with a normal basilar bifurcation. The visualized bilateral superior cerebellar (SCA) arteries are normal. Normal bilateral P1, P2 and visualized P3 segments of the posterior cerebral arteries. There is no demonstrated aneurysm of the [place]. There is no major vessel occlusion or hemodynamically significant stenosis. There is no demonstrated abnormality of the visualized brain. MRI/MRA Head ONLY without Contrast IMPRESSION: Normal MRA of the head Electronically Signed: Sharif Rodriguez MD at 10:49 EDT Tel , Service support ,
--- NOTE | 2019-04-13 08:30 | MRI_ITS ---
STUDY: MRA NECK WITHOUT CONTRAST REASON FOR EXAM: Male, 69 years old. G, malaise TECHNIQUE: Source images were obtained, MIPs were performed. The study was performed unenhanced. COMPARISON: None. FINDINGS: RIGHT CAROTID ARTERIES: Normal right common carotid artery (CCA). Normal right common carotid bulb. There is moderate atherosclerotic plaque formation of the origin of the right internal carotid artery with an estimated stenosis of 50-69% stenosis. Normal visualized cervical portion of the right internal carotid artery. Normal origin of the right external carotid artery (ECA). LEFT CAROTID ARTERIES: Normal left common carotid artery (CCA). Normal left common carotid bulb. There is mild atherosclerotic plaque formation of the origin of the left internal carotid artery with less than 50% cross sectional diameter stenosis. Normal visualized cervical portion of the left internal carotid artery. Normal origin of the left external carotid artery (ECA). VERTEBRAL ARTERIES: Normal antegrade flow within the bilateral vertebral artery without a hemodynamically significant stenosis. MRI/MRA Neck without Contrast IMPRESSION: 1. Moderate (60%) right carotid stenosis. 2. Mild (50%) left carotid stenosis. 3. Patent vertebral arteries bilaterally. Electronically Signed: Sharif Rodriguez MD at 10:58 EDT Tel , Service support ,
[2019-04-13] MEDS: Finasteride 5 MG Tablet PO (08:52)
[2019-04-13] MEDS: Glucerna Shake 120 ML LIQUID PO ×3 (08:52→16:00)
[2019-04-13] MEDS: DULoxetine Hcl 60 MG Capsule PO ×2 (08:52→23:10)
[2019-04-13] MEDS: LORazepam 1 MG Tablet PO ×2 (08:52→23:09)
[2019-04-13] MEDS: Ferrous Sulfate 325 MG Tablet PO (08:52)
[2019-04-13] MEDS: Furosemide 20 MG Tablet 60 MG PO (08:52)
[2019-04-13] MEDS: Amiodarone 200 MG Tablet PO (08:52)
[2019-04-13] MEDS: Pantoprazole Sodium 40 MG Tablet PO (08:52)
[2019-04-13] MEDS: Loratadine 10 MG Tablet PO (08:52)
[2019-04-13] MEDS: Metoprolol Tartrate 100 MG Tablet PO ×2 (08:52→23:10)
[2019-04-13] MEDS: Spironolactone 50 MG Tablet PO (08:52)
[2019-04-13] MEDS: Calcitriol 0.25 MCG Capsule PO (08:53)
[2019-04-13] MEDS: Tamsulosin HCl 0.4 MG Capsule PO (08:53)
--- NOTE | 2019-04-13 11:12 | CASEMGMT ---
SW met with patient as he came to [facility] from [place]. He said he is not sure if he is going back to [place] and he told SW some stories. SW then gave him a list of facilities that are in network with his insurance. SW told him the sooner he can let SW know which facilities he would prefer the better as SW will need to make referrals and then his insurance will need to approve. Plan: SNF pending patient's choices, accepting facility, and insurance approval. Ping MICHEL MSW
[2019-04-13 11:21] LABS: Bedside Glucose 130 mg/dL (70-110)
--- NOTE | 2019-04-13 12:28 | CASEMGMT ---
SW went to patient's room per his 's request. She said they would like [facility]'s swing bed unit. SW explained that is just like [facility]'s TCU in that they do not take Medicaid. SW explained that his primary insurance pays for days 1-20 and after that his Medicaid will kick in and pay the daily co-pay. Therefore after day 20 he would have to transfer to another facility that would take Medicaid. Patient's then said they would like [facility] in [place]. SW told them SW can call and check on bed availability. CAMILO called [facility] and spoke with Terri in admissions. She said they do not take Medicaid. SW went back to patient's room and let them know that [facility] does not take Medicaid. Patient said he might as well go home then. SW asked if he can walk and he cannot. SW asked how he is going to go home. He was not understanding. SW explained that they keep picking facilities that are not on the list that was printed directly from patient's insurance's website. SW explained they are picking facilities that are associated with hospitals which most of them do not take Medicaid. SW told them most of the facilities on the list SW gave them do accept Medicaid so they need to pick from that list. SW told them SW will check back after a bit. Plan: SNF pending patient and family giving SW their choices for facilities, accepting facility, and then insurance approval. Ping MICHEL MSW
--- NOTE | 2019-04-13 13:21 | CASEMGMT ---
Patient's came to CAMILO and said they want [facility] in [place]. She said she called the facility and they said they take his insurance. CAMILO told her they are not on the list, but SW will make a referral and they can verify coverage. CAMILO called [facility] and made a referral as well as faxed the referral. Await their response. Ping MICHEL MSW
--- NOTE | 2019-04-13 14:04 | CASEMGMT ---
A factory representative from [facility] came to see patient. SW asked her if they figured out they are in network she said she thinks they are. She said they are verifying insurance right now. Ping MICHEL MSW
--- NOTE | 2019-04-13 14:40 | CASEMGMT ---
Case Management Progress Note: This racebook writer went to bedside, introduced self and role to patient and family at bedside. Explained and reviewed with patient RABAGO form in regards to current treatment. Notified patient that outpatient billing is determined by insurance policy and status is continually reviewed for any changes in condition that may warrant inpatient stay. Patient states understanding and signed RABAGO form which was placed in patient chart. Copy of RABAGO given to patient. Denies any questions or concerns. Artur Palmer RNCM
--- NOTE | 2019-04-13 15:22 | CASEMGMT ---
Addendum entered by Ping Foley 04/13/19 16:00: SW received a voice mail from Julia at [facility]. She said they are still waiting on insurance to clarify if they are in network or out of network. She said they will let SW know as soon as they hear something. Ping REYES Original Note: CAMILO spoke with Julia from [facility] and she said she received SW's fax. They are waiting to hear from insurance. SW asked if they have verified that they are in network and waiting for insurance to approve patient or are they still waiting to see if they are in network. She said she will check with [facility] after their staff meeting in about 10 minutes. Await return call. Ping MICHEL MSW
--- NOTE | 2019-04-13 15:27 | CDU_ITS ---
Reason For Study: carotid stenosis on MRA Rt. Velocities/BP Lt. Velocities/BP Prox CCA 93.0/10.8 cm/sec. Prox CCA 137.5/17.0 cm/sec. Mid CCA 108.6/10.8 cm/sec. Mid CCA 99.2/13.3 cm/sec. Dist CCA 91.7/14.7 cm/sec. Dist CCA 99.2/15.2 cm/sec. Prox ICA 103.4/16.0 cm/sec. Prox ICA 60.5/10.2 cm/sec. Mid ICA 79.9/23.9 cm/sec. Mid ICA 93.7/20.0 cm/sec. Dist ICA 90.4/27.8 cm/sec. Dist ICA 79.0/26.2 cm/sec. Rt. ICA/CCA = 1.0. Lt. ICA/CCA = .9. Prox ECA 86.5/8.2 cm/sec. Prox ECA 74.0/9.0 cm/sec. Rt. Vert. 39.5/9.5 cm/sec. Lt. Vert. 61.8/18.8 cm/sec. Right Extracranial There is intimal thickening but no significant atherosclerotic plaque noted in the right common carotid artery. There is intimal thickening but no significant atherosclerotic plaque noted in the right internal carotid artery. There is intimal thickening but no significant atherosclerotic plaque noted in the right external carotid artery. Antegrade flow is noted in the right vertebral artery. Left Extracranial There is intimal thickening but no significant atherosclerotic plaque noted in the left common carotid artery. There is intimal thickening but no significant atherosclerotic plaque noted in the left internal carotid artery. There is intimal thickening but no significant atherosclerotic plaque noted in the left external carotid artery. Antegrade flow is noted in the left vertebral artery. Procedure Carotid Duplex [id number]. The exam was diagnostic. Exam performed portable in patient room. Interpretation Summary No significant atherosclerotic plaque or stenosis noted in the internal carotid arteries bilaterally. Flow within the vertebral arteries is antegrade bilaterally. Ordering Physician: Addis Reeves Performed By: Paulo Muhammad RVT
--- NOTE | 2019-04-13 15:30 | PCM.PROGNOTE ---
Patient Problems: Active and Suspected Problems (Last Reviewed 06/17/18 @ 11:36 by Pieter Shi MD) Encephalopathy (Acute) Acute delirium (Acute) Dehydration (Acute) Subjective: The patient is a 69-year-old male with a past medical history of obstructive sleep apnea (central and peripheral), pretension, hyperlipidemia, chronic diastolic congestive heart failure, morbid obesity, COPD, paroxysmal atrial fibrillation, diabetes mellitus type 2, BPH, hx of Gastric Bypass in 1999, ORIF R hip on 03/23/2019, chronic anticoagulation with Xarelto, chronic venous insufficiency of the lower extremities and stage I diastolic dysfunction who was sent to the ED at [facility] on 04/12 from [place] for altered mental status with waxing and waning confusion over the preceding 3 days. He had no focal neurologic symptoms. There were no recent changes in medication. Vital signs at presentation to the emergency room were temp 98.8, heart rate 61, blood pressure 93/46-87/72, [place] rate of 18 and he was 98% saturated on a 2 L nasal cannula. Blood pressure improved to 120/69 with IV fluids while in the emergency department. White blood cell count was within normal limits at 5.8 and the differential was also unremarkable. Hemoglobin was 9.3 with macrocytic indices. Platelets were within normal limits. The BUN and creatinine were increased at 21 and 1.26 respectively. Lactic acid was 1.4. Troponin was less than 0.015. EKG showed no acute evidence of ischemia. Chest x-ray showed no infiltrates, pleural effusions or pulmonary vascular congestion. A UA showed 0-5 WBCs per high-power field with rare bacteria. A noncontrasted CT brain showed chronic involutional changes only. He was admitted to a monitored bed on PCU and IV fluids were continued but, so was the BID Lasix. Recent echocardiogram showed a ejection fraction of 55% with no wall motion abnormalities. The left ventricle was of normal size. There was stage I diastolic dysfunction and the PA systolic pressure was not commented on. He had been recently admitted to [facility] from 03/21/2019 to 03/2019 for an acute right intertrochanteric fracture of the right femoral neck and right wrist fracture. He was discharged to [facility] [place] for additional PT/OT prior to returning home. He had Gastric Bypass surgery in 1999 and prior to the surgery he had severe lymphedema of the BL LE's and had lymphedema pumps to control the edema. He no longer uses these pumps and is not not currently wearing any type of compressions stockings. When he gets swelling of the legs his Lasix is routinely increased rather than elevating and compressing the legs. He admitted to having lightheadedness, diaphoresis and nausea over the weekend when he was feeling confused. All events of the past 24 hours have been reviewed. Afebrile since admission Blood pressures have been within normal limits from 11 AM on 04/12/2019 and they have ranged from 102/47-124/58. Current blood pressure is 117/75. He is sitting in a chair with his legs dependent All lab was personally reviewed. With hydration the hemoglobin has dropped to 8.3 and the MCV is 99.6. He refused blood at his last admission due to baptism affiliation and the hemoglobin was as low as 6.1. An ABG done at admission on a 2 L nasal cannula showed a pH of 7.47 with a PCO2 of 42 and a PO2 of 101. BMP today shows a decreased potassium at 3.2 and a BUN of 21 with a creatinine of 1.12, down from 1.26 at admission. Blood sugars are well controlled. - Physical Exam General: Alert, Oriented x3, Cooperative, No apparent distress, Well developed, Well nourished HEENT: Atraumatic, PERRLA, EOMI, Normocephalic Oral: No Gingival or Mucosal Lesions/ Ulcerations, Dry Mucosa, - - missing teeth Neck: Supple, Negative Carotid Bruits, No Nodes, Trachea Midline Lungs: Clear to auscultation Cardiovascular: Regular rate, Regular Rhythm, Normal S1, Normal S2, No rub noted, No Gallop, - - Distant heart sounds. Telemetry shows sinus rhythm and sinus bradycardia since admission with no significant ectopy. Abdomen: Soft, Non Tender, Non-Distended, Obese Extremities: No clubbing, No cyanosis, No edema, No Calf Tenderness Skin: No rashes, - - He has changes of both distal lower extremity secondary to chronic venous hypertension. No openings in the skin Musculoskeletal: No Muscle Wasting Neurological: Cranial nerves II-XII grossly intact, Neuro grossly intact Psych/Mental Status: Normal Affect, Appropriate Vital Signs Temp Pulse Resp BP Pulse Ox 98.6 F 69 20 H 117/75 98 04/13/19 12:00 04/13/19 15:01 04/13/19 13:06 04/13/19 12:00 04/13/19 12:00 Oxygen Flow Rate (L/min) 1 Oxygen Delivery Method Room Air Weight: 255 lb 4.725 oz Body Mass Index (BMI) 38.8 Orthostatic Vital Signs Start: 04/13/19 00:40 Freq: q24h Status: Active Protocol: Activity Type Activity Date Activity User E-Sign Co-Sign Detail Recorded Client Recorded Date Recorded By Document 04/13/19 00:44 EEA [id number] 04/13/19 01:04 EEA 04/13/19 00:44 Orthostatic Vitals Sitting -Blood Pressure (90/60-120/80 mm Hg) 136/60 H -Extremity Use Right Arm -Pulse Rate (60-100 beats/min) 61 Lying -Blood Pressure (90/60-120/80 mm Hg) 107/45 L -Extremity Use Right Arm -Pulse Rate (60-100 beats/min) 56 L 04/13/19 01:01 Nursing Note by Nicole Ba Per pt he is supposed to be NWB to right lower extremity. Standing BP not attempted at this time. Initialized on 04/13/19 01:01 - END OF NOTE Intake and Output for Last 24 Hours 04/11/19 04/12/19 04/13/19 23:59 23:59 23:59 Intake Total 960 / 960 2298.34 / 2298.34 Output Total 350 / 350 50 / 50 Balance 610 / 610 2248.34 / 2248.34 Laboratory Tests Past 24 Hrs 04/12/19 04/12/19 04/12/19 10:40 16:46 17:17 WBC RBC Hgb Hct MCV MCH MCHC RDW Std Deviation RDW Coeff of Bruno Plt Count MPV Immature Gran % (Auto) Neut % (Auto) Lymph % (Auto) Moore % (Auto) Eos % (Auto) Baso % (Auto) Absolute Neuts (auto) Absolute Lymphs (auto) Nucleated RBC % Specimen Type ART Sample Site R Radial pH 7.47 H Bicarbonate Actual 30.8 H POC Total CO2 32 Base Excess 7 H O2 Saturation 98 ABG pCO2 42.8 ABG pO2 101 H Fabrizio Test POS O2 Delivery Device Nasal Can Liter Flow 2.0 Blood Gas Notified Whom RN Blood Gas Notified Time 1718 Sodium Potassium Chloride Carbon Dioxide Anion Gap BUN Creatinine Estim Creat Clear Calc Est GFR (MDRD) Af Amer Est GFR (MDRD) Non-Af BUN/Creatinine Ratio Glucose Calcium Magnesium 2.0 Ammonia 13.0 Triglycerides Cholesterol LDL Cholesterol VLDL Cholesterol HDL Cholesterol TSH 1.92 04/13/19 04/13/19 05:28 05:28 WBC 6.3 RBC 2.76 L Hgb 8.3 L Hct 27.5 L MCV 99.6 H MCH 30.1 MCHC 30.2 L RDW Std Deviation 51.3 H RDW Coeff of Bruno 14.2 Plt Count 247 MPV 10.3 Immature Gran % (Auto) 0.300 Neut % (Auto) 69.8 Lymph % (Auto) 21.3 Moore % (Auto) 4.3 Eos % (Auto) 3.8 Baso % (Auto) 0.5 Absolute Neuts (auto) 4.4 Absolute Lymphs (auto) 1.35 Nucleated RBC % 0 Specimen Type Sample Site pH Bicarbonate Actual POC Total CO2 Base Excess O2 Saturation ABG pCO2 ABG pO2 Fabrizio Test O2 Delivery Device Liter Flow Blood Gas Notified Whom Blood Gas Notified Time Sodium 145 Potassium 3.2 L Chloride 109 H Carbon Dioxide 26.0 Anion Gap 10 BUN 21 H Creatinine 1.12 Estim Creat Clear Calc 60.22 Est GFR (MDRD) Af Amer 84 Est GFR (MDRD) Non-Af 69 BUN/Creatinine Ratio 18.8 Glucose 117 H Calcium 8.6 Magnesium Ammonia Triglycerides 83 Cholesterol 103 LDL Cholesterol 47 VLDL Cholesterol 17 HDL Cholesterol 39 L TSH POC Glucose 04/13/19 04/13/19 04/12/19 11:07 06:50 21:28 POC Glucose 130 H 121 H 104 04/12/19 18:20 POC Glucose 123 H Medical Necessity - Tobacco Use Smoking Status: Former smoker Tobacco Use: Non-smoker Assessment/Plan All Active Problems (Last Reviewed 06/17/18 @ 11:36 by Pieter Shi MD) Encephalopathy (Acute) Acute delirium (Acute) Dehydration (Acute) Hypotension, unspecified (Acute) Lactic acidosis (Resolved) Closed intertrochanteric fracture of right femur (Acute) Syncope and collapse (Acute) UTI (urinary tract infection) (Acute) Atrial fibrillation with rapid ventricular response (Acute) New onset atrial fibrillation (Acute) Impressions 1. AMS - suspect due to dehydration with poor cerebral perfusion. Resolved with hydration. 2. recent ORIF of right intertrochanteric hip fracture on 03/23/2019. Discharged to [facility] on 03/26/2019. 3. Hypotension - resolved 4. urine retention on Flomax and Proscar - may be due to the narcotics he is taking for hip pain. Has had urine retention in the past when in the hospital [facility] placed. Will increase the Flomax to twice daily and have him follow-up with Dr. Gomez in the office next week for a voiding trial. 5. BPH 6. Macrocytic anemia-suspect secondary to chronic anemia plus recent ORIF of traumatic right hip fracture. He is on chronic anticoagulation with Xarelto for atrial fibrillation. Will check a Hemoccult stool. 7. Acute kidney injury-secondary to overdiuresis/dehydration. DC the IV fluids now and decrease the Lasix to 60 mg once a day. Continue Aldactone and potassium supplementation 8. Atrial fibrillation 9. Chronic diastolic congestive heart failure with an EF of 55% on 03/22/2019. There is stage I diastolic dysfunction. 10. History of gastric bypass surgery in 1999. Prior to weight loss he had very severe edema both lower extremities and required the use of lymphedema pumps to keep the swelling down. 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 He is no longer wearing compression stockings or using Amaury wraps to control lower extremity edema and when I entered his room he was sitting in the chair at bedside with his legs dependent. Diuretics are frequently being increased for lower extremity edema and I suspect he would be better off with compression because he is becoming IV depleted and hypotensive due to overdiuresis. 11. Diabetes mellitus type 2-continue home meds 12. HTN/HLD/morbid obesity/TYLER/asthma or COPD......he saw Dr. Treviño in the past but has not had PFT's or a sleep study at this institution Check a hemoccult stool Recheck lab and HH in the AM Daily weights Does not want to go back to [place]....will need to get pre-cert from insurance to DC to a [facility] and the was given a list of places that will accept his insurance but....she is picking and calling places that are not on the list. Code Visit Inpatient E&M: 24848 Subs Hosp L2
[2019-04-13] MEDS: Rivaroxaban 20 MG Tablet PO (16:00)
--- NOTE | 2019-04-13 16:05 | CHAPLAIN ---
Type of Pastoral Visit _x__ Initial Visit ___ Follow-up Visit ___ On-call Visit ___ General Patient Visit ___ Spiritual Assessment ___ Family Conference ___ Bereavement ___ Rapid Response ___ Code Blue ___ Other (describe below) Pastoral Care Referral From _x__ Patient ___ Family ___ Nurse ___ Physician ___ Director Of Women'S Services ___ Toaster Operator ___ Other (describe below) Sacrament/Intervention _x__ Active listening ___ Anointing ___ Anglican ___ Bereavement ___ Communion ___ Sri exploration ___ ___ Life review ___ Prayer ___ Reconciliation ___ Sacrament of Sick ___ Supportive presence ___ Wedding ___ Other (describe below) Pastoral Comments
[2019-04-13 16:10] LABS: Bedside Glucose 114 mg/dL (70-110)
[2019-04-13] MEDS: Atorvastatin Calcium 20 MG Tablet PO (23:10)
[2019-04-13] MEDS: FLUoxetine 20 MG Capsule 40 MG PO (23:11)
[2019-04-13] MEDS: MELATONIN 3 MG TABLET PO (23:11)
[2019-04-14] VITALS (16 sets, daily range): BP systolic 94–145; BP diastolic 50–85; PULSE 58–99; RESP 18–21; TEMP 36.5–37; O2SAT 94–99
[2019-04-14 02:11] LABS: Bedside Glucose 121 mg/dL (70-110)
[2019-04-14] MEDS: oxyCODONE 5 MG Tablet PO ×4 (04:11→20:04)
[2019-04-14 06:41] LABS: Anion Gap 5 (5-15); BUN 19 mg/dL (7-18); BUN/Creat Ratio 19.4 RATIO (10-20); Calcium,Total 8.6 mg/dL (8.5-10.1); Chloride 108 mmol/L (98-107); Creatinine, Serum 0.98 mg/dL (0.70-1.30); EST Glomerular Filtration Rate 81 mL/min (>60); Est Glom Filt Rate - Afr Amer 97 mL/min (>60); Estimated Creatinine Clearance 68.83 ml/min; Glucose 126 mg/dL (74-106); Magnesium 1.8 mg/dL (1.6-2.6); Phosphorus 3.1 mg/dL (2.5-4.9); Potassium 3.2 mmol/L (3.5-5.1); Sodium Level 139 mmol/L (136-145)
[2019-04-14] MEDS: Ipratropium/Albuterol Sulfate 3 ML AMPUL.NEB INHALATION ×3 (06:43→19:04)
[2019-04-14 07:00] LABS: Bedside Glucose 122 mg/dL (70-110)
[2019-04-14 07:51] LABS: Hemoglobin A1c 4.8 % (4.2-6.3)
--- NOTE | 2019-04-14 09:35 | CASEMGMT ---
Medical POA form scanned into summary tab of echart. This document also addresses the Living Will. Pt has Mery Haque listed as medical POA. CHELY Ulrich
[2019-04-14] MEDS: Pantoprazole Sodium 40 MG Tablet PO (09:36)
[2019-04-14] MEDS: Calcitriol 0.25 MCG Capsule 0.5 MCG PO (09:36)
[2019-04-14] MEDS: Glucerna Shake 120 ML LIQUID PO ×3 (09:36→17:10)
[2019-04-14] MEDS: Spironolactone 50 MG Tablet PO (09:36)
[2019-04-14] MEDS: LORazepam 1 MG Tablet PO ×2 (09:37→23:13)
[2019-04-14] MEDS: Amiodarone 200 MG Tablet PO (09:37)
[2019-04-14] MEDS: Furosemide 20 MG Tablet 60 MG PO (09:37)
[2019-04-14] MEDS: Loratadine 10 MG Tablet PO (09:37)
[2019-04-14] MEDS: Ferrous Sulfate 325 MG Tablet PO (09:37)
[2019-04-14] MEDS: Finasteride 5 MG Tablet PO (09:37)
[2019-04-14] MEDS: Metoprolol Tartrate 100 MG Tablet PO ×2 (09:37→23:03)
[2019-04-14] MEDS: Tamsulosin HCl 0.4 MG Capsule PO ×2 (09:37→17:11)
[2019-04-14] MEDS: DULoxetine Hcl 60 MG Capsule PO ×2 (09:37→23:02)
--- NOTE | 2019-04-14 09:55 | CASEMGMT ---
SW called [facility] and spoke with Yris. She said they tried to get a 1 time contract with patient's insurance and it did not work out. She said they are not in network right now. They have a meeting to work out a contract in 3 weeks. She said they will call patient's and let her know as well. SW went to patient's room and let him know this information. CAMILO told him SW really needs them to pick from the facilities on the list SW gave them as these are in network with their insurance. SW again told him that most of the facilities on the list do take Medicaid. SW told him they kept picking hospital affiliated SNF's that do not take Medicaid. Await family's SNF choice so SW can make referral and facility can obtain insurance authorization. Family has now picked 2 facilities which are not on the list despite SW giving them a list of in network facilities and asking them to please choose from this list. Ping MICHEL MSW
[2019-04-14 11:20] LABS: Bedside Glucose 115 mg/dL (70-110)
[2019-04-14 14:24] LABS: Hematocrit 30.5 % (40-54); Hemoglobin 9.4 g/dL (13.0-16.5)
[2019-04-14 14:48] LABS: Magnesium 1.8 mg/dL (1.6-2.6)
--- NOTE | 2019-04-14 16:00 | CASEMGMT ---
SW spoke with patient and his family. They agreed on [facility]. CAMILO called [facility] with referral and faxed information. Received call from C[facility] and they will take patient. She started the pre-cert. SW let patient know [facility] can take him and we are just waiting on insurance. Ping MICHEL MSW
[2019-04-14 16:46] LABS: Bedside Glucose 124 mg/dL (70-110)
--- NOTE | 2019-04-14 17:23 | PCM.CONS.B ---
- Consult Date of Consult: 04/14/19 - Reason for Consult Chief Complaint: anemia heme positive stools History of Present Illness: 69 y/o WM presents with anemia - Hgb 8. Found also to have heme positive stools. Had a colonoscopy about 7 years ago and found to have a polyp. He was told he needed follow up colonoscopy, but he hasn't been able to accomplish this. Denies noting any actual blood in his stools. Does have complains of alternating constipation and diarrhea occasionally. Has occasional (rare) lower abdominal cramping pain. Had previous bariatric gastric bypass many years ago. Has three sisters in family who had colon cancer, one from this. Multiple closely related cousins (father's brother mother's sister) also with colon cancer. Denies weight loss Past Medical History: hypertension paroxysmal atrial fibrillation chronic anticoagulation episode of congestive heart failure, dilated cardiomyopathy hyperlipidemia obstructive sleep apnea COPD morbid obesity Past Surgical History: bariatric gastric bypass right knee surgery appendectomy neck surgery right shoulder surgery left shoulder surgery tonsillectomy sinus surgery facial surgery for tumor with reconstruction right hip fracture repair 03/23/19 cholecystectomy Medications: Calcitriol [Rocaltrol] 0.25 mcg PO SUTUTHSA Calcitriol [Rocaltrol] 0.5 mcg PO MOWEFR Duloxetine HCl 60 mg PO BID Esomeprazole Magnesium 40 mg PO DAILY Fluticasone/Salmeterol [Advair Hfa cyanocobalamin (vit B-12) 2,500 2,500 mcg SUBLINGUAL QDAY albuterol sulfate HFA 90 1 puff INHALATION Q4H g Cetirizine HCl [Zyrtec] 10 mg PO DAILY Cyclobenzaprine HCl 10 mg PO QHS 05/29/18 Ferrous Sulfate [Iron] 325 mg PO DAILY Fluoxetine HCl 40 mg PO QHS Multivit-Mins/Iron/Folic/Lycop 1 tab PO DAILY Atorvastatin Calcium [Lipitor] 20 mg PO QHS #30 tab Metformin HCl [Metformin HCl ER] 500 mg PO DAILY #30 [id number] Rivaroxaban [Xarelto] 20 mg PO DAILY@1700 #30 tab spironolactone 50 mg tablet 50 mg PO DAILY #90 tab Amiodarone HCl 1 tab PO DAILY Finasteride 5 mg PO DAILY Metoprolol Tartrate [Lopressor 100 mg PO BID Tamsulosin HCl 0.4 mg PO DAILY Furosemide [Lasix] 60 mg PO BID Albuterol Sulfate 3 ml INHALATION BID PRN PRN Acetaminophen [Tylenol Tablet] 650 mg PO Q6H PRN PRN tab Insulin Lispro [Humalog KwikPen] See Protocol SUBCUT ACHS Lorazepam [Ativan] 1 mg PO BID 3 Days #6 tab Bisacodyl [Gentle Laxative] 10 mg HI DAILY PRN PRN Magnesium Hydroxide [Milk Of 30 ml PO DAILY PRN PRN Melatonin 3 mg PO QHS 04/12/19 Mineral Oil 1 bottle HI DAILY PRN PRN Oxycodone [Oxyir] 5 mg PO Q4H PRN PRN Potassium Chloride 40 meq PO DAILY Senna [Senokot] 1 tab PO DAILY PRN PRNhen Allergies: Has no known drug allergies Social history: TOB use denies Review of Systems: Constitutional: Reports: Malaise, Weakness, Fatigue. Denies: Chills, Fever, Weight Change HEENT: Reports: Head Aches - Patient admits to intermittent headaches.. Denies: Sinus Congestion, Sinus Drainage Cardiovascular: Denies: Chest Pain, Chest Pressure, Chest Tightness, Light Headedness, Orthopnea, Palpitations, Syncope Respiratory: Denies: Cough, Shortness of breath at rest, Sputum production Gastrointestinal: Denies: Abdominal Pain, Nausea, Vomiting Genitourinary: Denies: Dysuria Musculoskeletal: Reports: Joint Pain. Denies: Joint Tenderness Skin: Reports: Skin Changes. Denies: Rash, Wounds Neurological: Reports: Confusion. Denies: Focal weakness, Numbness, Tingling Psychiatric: Denies: Anxiety, Depression, Homicidal Ideations, Suicidal Ideations Hematologic/ Lymphatic: Reports: Anemia, Easy Bruising, Easy Bleeding Physical examination: Vital signs Temp 98.6F Hr 67 BP 114/63 RR 16 General WD/WN WM in no apparent distress, alert and oriented, not septic appearing HEENT Normocephalic. EOM intact with sclera clear and no icterus noted. Neck is supple with no jugular venous distention noted. Trachea is midline. Mouth - mucus membranes moist, poor dentition Lungs clear to auscultation. normal breath sounds. No rales/rhonchi/wheezing noted. No labored breathing noted, such as retractions. No cough heard. Heart normal S1 and S2 auscultated. No rubs/clicks/murmurs noted. Abdomen soft and benign. Normal bowel sounds, no peritoneal signs, difficult to determine if any masses due to body habitus Extremities no calf tenderness noted. No pitting edema noted. Genitourinary/Rectal deferred Skin normal skin integrity. Neurological non focal. Psychological normal affect, patient is calm and appropriate Impression: anemia history of colon polyps family history of colon cancer heme positive stools Discussion/Plan: I have discussed the above with the patient. I have offered evaluation with colonoscopy, possible biopsies. I have explained the procedure to the patient. I have counseled the patient as to the risks of the procedure, including but not limited to: infection, bleeding, injury to any intraabdominal organs such as liver/spleen, perforation of the GI tract, inability to complete the procedure, complications of anesthesia, etc. - he understands. He wishes to proceed. I have answered all questions to the patient?s satisfaction and the patient has no further questions.
--- NOTE | 2019-04-14 17:54 | PN_ITS ---
Patient Problems: Active and Suspected Problems (Last Reviewed 06/17/18 @ 11:36 by Pieter Shi MD) Encephalopathy (Acute) Acute delirium (Acute) Dehydration (Acute) Subjective: All events of the past 24 hours of been reviewed. Afebrile since admission Hypotension resolved with hydration and the current blood pressure is 114/63. He is maintaining appropriate oxygen saturation on room air. Mckeon catheter was inserted for urine retention. Fluid balance since admission is +[id number]. He had 2550 and urine output today. All lab was personally reviewed. Hemoglobin this morning was 8.0 but the recheck this afternoon was 9.4 and he has not had a blood transfusion. Potassium is once again low at 3.2 despite 40 mEq of potassium daily. He tells me that he has a hard time absorbing potassium since the gastric bypass surgery. Hemoglobin A1c is 4.8. Phos and mag are within normal limits. Stool was Hemoccult positive. The carotid duplex scan showed no significant atherosclerotic plaque or stenosis noted in the internal carotid arteries bilaterally. Flow within the vertebral arteries was antegrade bilaterally. He denies lightheadedness. No shortness of breath. He does tell me that he has been significantly anemic in the past. His last colonoscopy was 7 years ago and at that time he had a colon polyp. There is a family history of colon cancer. He is a [employer] and will not accept blood. He is on chronic anticoagulation for atrial fibrillation with Xarelto. He has no abdominal pain. Objective: PHYSICAL EXAM: GENERAL: alert, oriented X 3, Cooperative, NAD ORAL: moist mucosa, no mucosal lesions, poor dentition NECK: No JVD, supple, trachea midline LUNGS: CTA, symmetric chest expansion HEART: irreg today, monitor showing AF, Normal S1 and S2, no rub, no gallop ABDOMEN: soft, NT, ND, BS present, no guarding with palpation EXTREMITIES: ankle edema, no cyanosis, no calf tenderness, TEDS in place SKIN: No rashes, no breakdown NEUROLOGIC: no focal neurologic deficits PSYCH: appropriate, normal affect, pleasant - Physical Exam Vital Signs Temp Pulse Resp BP Pulse Ox 98.6 F 67 18 114/63 99 04/14/19 15:35 04/14/19 15:35 04/14/19 15:35 04/14/19 15:35 04/14/19 15:35 Oxygen Flow Rate (L/min) 1 Oxygen Delivery Method Room Air Weight: 264 lb 8.875 oz Body Mass Index (BMI) 38.8 Orthostatic Vital Signs Start: 04/13/19 00:40 Freq: q24h Status: Active Protocol: Activity Type Activity Date Activity User E-Sign Co-Sign Detail Recorded Client Recorded Date Recorded By Document 04/14/19 06:23 EEA [id number] 04/14/19 06:34 EEA 04/14/19 06:23 Orthostatic Vitals Standing -Blood Pressure (90/60-120/80 mm Hg) 94/80 -Extremity Use Right Arm Sitting -Blood Pressure (90/60-120/80 mm Hg) 123/75 H -Extremity Use Right Arm -Pulse Rate (60-100 beats/min) 63 Lying -Blood Pressure (90/60-120/80 mm Hg) 109/50 L -Extremity Use Right Arm -Pulse Rate (60-100 beats/min) 59 L Intake and Output for Last 24 Hours 04/12/19 04/13/19 04/14/19 23:59 23:59 23:59 Intake Total 960 / 960 4211.67 / 4211.67 1800 / 1800 Output Total 350 / 350 1200 / 1200 2550 / 2550 Balance 610 / 610 3011.67 / 3011.67 -750 / -750 Microbiology Past 72 Hours 04/12/19 11:45 Urine Culture - Final Urine, Clean Catch Mixed Gram Positive Organisms 04/13/19 16:48 Stool Occult Blood (ARGENIS) - Final Stool Occult Blood Positive Laboratory Tests Past 24 Hrs 04/14/19 04/14/19 04/14/19 05:13 05:13 05:13 Hgb 8.0 L Hct 26.0 L Sodium 139 Potassium 3.2 L Chloride 108 H Carbon Dioxide 26.0 Anion Gap 5 BUN 19 H Creatinine 0.98 Estim Creat Clear Calc 68.83 Est GFR (MDRD) Af Amer 97 Est GFR (MDRD) Non-Af 81 BUN/Creatinine Ratio 19.4 Glucose 126 H Hemoglobin A1c 4.8 Calcium 8.6 Phosphorus 3.1 Magnesium 1.8 04/14/19 04/14/19 14:10 14:10 Hgb 9.4 L Hct 30.5 L Sodium Potassium Chloride Carbon Dioxide Anion Gap BUN Creatinine Estim Creat Clear Calc Est GFR (MDRD) Af Amer Est GFR (MDRD) Non-Af BUN/Creatinine Ratio Glucose Hemoglobin A1c Calcium Phosphorus Magnesium 1.8 POC Glucose 04/14/19 04/14/19 04/14/19 16:41 11:13 06:33 POC Glucose 124 H 115 H 122 H 04/13/19 23:08 POC Glucose 121 H Medical Necessity - Tobacco Use Smoking Status: Former smoker Tobacco Use: Non-smoker Assessment/Plan All Active Problems (Last Reviewed 06/17/18 @ 11:36 by Pieter Shi MD) Encephalopathy (Acute) Acute delirium (Acute) Dehydration (Acute) Hypotension, unspecified (Acute) Lactic acidosis (Resolved) Closed intertrochanteric fracture of right femur (Acute) Syncope and collapse (Acute) UTI (urinary tract infection) (Acute) Atrial fibrillation with rapid ventricular response (Acute) New onset atrial fibrillation (Acute) Impressions 1. AMS - suspect due to dehydration with poor cerebral perfusion. Resolved with hydration. 2. recent ORIF of right intertrochanteric hip fracture on 03/23/2019. Discharged to [facility] on 03/26/2019. Now does not want to go back to [place] and would like to go to [facility] 3. Hypotension - resolved 4. urine retention on Flomax and Proscar - may be due to the narcotics he is taking for hip pain. Has had urine retention in the past when in the hospital Mckeon placed. Will increase the Flomax to twice daily and have him follow- up with Dr. Gomez in the office next week for a voiding trial. 5. BPH-continue Flomax and Proscar 6. Macrocytic anemia-suspect secondary to chronic anemia plus recent ORIF of traumatic right hip fracture. He is on chronic anticoagulation with Xarelto for atrial fibrillation. Occult stool is positive and the patient is on Xarelto and has a family history of colon cancer and a personal history of colon polyp in the past. No colonoscopy for 7 years. 7. Acute kidney injury-secondary to overdiuresis/dehydration. Lasix decreased to 60 mg p.o. daily rather than twice daily and Aldactone continued for potassium conservation. Acute kidney injury has resolved with hydration. 8. Atrial fibrillation with controlled ventricular response-continue home medications 9. Chronic diastolic congestive heart failure with an EF of 55% on 03/22/2019. There is stage I diastolic dysfunction. 10. History of gastric bypass surgery in 1999. Prior to weight loss he had very severe edema both lower extremities and required the use of lymphedema pumps to keep the swelling down. 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 He is no longer wearing compression stockings or using Amaury wraps to control lower extremity edema and when I entered his room he was sitting in the chair at bedside with his legs dependent. Diuretics are frequently being increased for lower extremity edema and I suspect he would be better off with compression because he is becoming IV depleted and hypotensive due to overdiuresis. 11. Diabetes mellitus type 2-diet controlled 12. HTN/HLD/morbid obesity/TYLER/asthma or COPD......he saw Dr. Treviño in the past but has not had PFT's or a sleep study at this institution Dr. Franco has been consulted for endoscopy. Should and his are agreeable to this. Xarelto has been placed on hold. will likely be on Friday since he ate a regular supper Recheck renal profile and H&H in the a.m. Discontinue [id number] blood sugars are well controlled with diet alone. Code Visit Inpatient E&M: 61039 Subs Hosp L2
[2019-04-14] MEDS: Electrolyte Solution/Peg's 4000 ML 2000 ML PO (20:11)
[2019-04-14] MEDS: FLUoxetine 20 MG Capsule 40 MG PO (23:02)
[2019-04-14] MEDS: MELATONIN 3 MG TABLET PO (23:03)
[2019-04-14] MEDS: Atorvastatin Calcium 40 MG Tablet PO (23:03)
[2019-04-14 23:30] LABS: Bedside Glucose 118 mg/dL (70-110)
[2019-04-15] VITALS (14 sets, daily range): BP systolic 103–143; BP diastolic 54–71; PULSE 57–73; RESP 16–20; TEMP 36.4–36.8; O2SAT 95–100
[2019-04-15] MEDS: oxyCODONE 5 MG Tablet PO ×5 (01:18→22:12)
[2019-04-15 05:33] LABS: Hematocrit 26.7 % (40-54); Hemoglobin 8.3 g/dL (13.0-16.5)
[2019-04-15] MEDS: 0.9% NaCl Peripheral Flush Adult/Peds IV (05:47)
[2019-04-15] MEDS: Electrolyte Solution/Peg's 4000 ML 2000 ML PO (05:55)
[2019-04-15 06:09] LABS: Albumin, Serum 2.5 g/dL (3.2-5.0); BUN 16 mg/dL (7-18); BUN/Creat Ratio 18.1 RATIO (10-20); Calcium,Total 8.8 mg/dL (8.5-10.1); Chloride 106 mmol/L (98-107); Creatinine, Serum 0.88 mg/dL (0.70-1.30); EST Glomerular Filtration Rate 91 mL/min (>60); Est Glom Filt Rate - Afr Amer 110 mL/min (>60); Estimated Creatinine Clearance 76.65 ml/min; Glucose 127 mg/dL (74-106); Potassium 3.6 mmol/L (3.5-5.1); Sodium Level 141 mmol/L (136-145)
[2019-04-15 06:51] LABS: Bedside Glucose 128 mg/dL (70-110)
[2019-04-15] MEDS: Ipratropium/Albuterol Sulfate 3 ML AMPUL.NEB INHALATION ×2 (07:22→18:46)
[2019-04-15] MEDS: Ferrous Sulfate 325 MG Tablet PO (08:46)
[2019-04-15] MEDS: Tamsulosin HCl 0.4 MG Capsule PO ×2 (08:46→17:27)
[2019-04-15] MEDS: Acetaminophen 325 MG Tablet 650 MG PO (08:48)
--- NOTE | 2019-04-15 09:03 | CASEMGMT ---
CAMILO received call from Cherelle at [facility] and patient was approved. CAMILO let physician know and she said patient will be getting a scope tomorrow and then he will go. CAMILO will notify patient and RN. Plan; [facility] when ready. Patient is approved by insurance. Ping REYES
[2019-04-15] MEDS: Amiodarone 200 MG Tablet PO (09:37)
[2019-04-15] MEDS: Pantoprazole Sodium 40 MG Tablet PO (09:37)
[2019-04-15] MEDS: Loratadine 10 MG Tablet PO (09:37)
[2019-04-15] MEDS: Furosemide 20 MG Tablet 60 MG PO (09:38)
[2019-04-15] MEDS: Metoprolol Tartrate 100 MG Tablet PO ×2 (09:38→22:13)
[2019-04-15] MEDS: Spironolactone 50 MG Tablet PO (09:39)
[2019-04-15] MEDS: Finasteride 5 MG Tablet PO (09:39)
[2019-04-15] MEDS: Calcitriol 0.25 MCG Capsule PO (09:41)
[2019-04-15] MEDS: LORazepam 1 MG Tablet PO ×2 (09:46→22:12)
--- NOTE | 2019-04-15 09:52 | CASEMGMT ---
This RN CM received call from Shelby at [facility] and she states she is pt's CM. She is updated on discharge plan at this time and would like to be notified when pt discharged to SNF. Ian AMEZCUA CM
[2019-04-15] MEDS: DULoxetine Hcl 60 MG Capsule PO ×2 (10:37→22:16)
--- NOTE | 2019-04-15 10:37 | PCM.PN.SRG ---
Patient Problems: Active and Suspected Problems (Last Reviewed 06/17/18 @ 11:36 by Pieter Shi MD) Encephalopathy (Acute) Acute delirium (Acute) Dehydration (Acute) Subjective: patient tolerating colon cleansing preparation, on clear liquid diet, denies abdominal pain - Physical Exam General: Alert, Oriented x3 Oral: Moist Mucosa Neck: Supple Lungs: Normal air movement Abdomen: Soft Vital Signs Temp Pulse Resp BP Pulse Ox 97.7 F L 64 18 112/54 L 98 04/15/19 09:35 04/15/19 09:38 04/15/19 09:35 04/15/19 09:35 04/15/19 09:35 Oxygen Flow Rate (L/min) 1 Oxygen Delivery Method Room Air Weight: 119.3 kg Body Mass Index (BMI) 38.8 Orthostatic Vital Signs Start: 04/13/19 00:40 Freq: q24h Status: Active Protocol: Activity Type Activity Date Activity User E-Sign Co-Sign Detail Recorded Client Recorded Date Recorded By Document 04/15/19 05:21 PAL [id number] 04/15/19 05:38 PAL 04/15/19 05:21 Orthostatic Vitals Standing -Blood Pressure (90/60-120/80) 107/58 L -Extremity Use Right Arm -Pulse Rate (60-100) 72 Sitting -Blood Pressure (90/60-120/80) 103/66 -Extremity Use Right Arm -Pulse Rate (60-100) 69 Lying -Blood Pressure (90/60-120/80) 115/71 -Extremity Use Right Arm -Pulse Rate (60-100) 63 Intake and Output for Last 24 Hours 04/13/19 04/14/19 04/15/19 23:59 23:59 23:59 Intake Total 4211.67 / 4211.67 3920 / 3920 100 / 100 Output Total 1200 / 1200 3100 / 3100 350 / 350 Balance 3011.67 / 3011.67 820 / 820 -250 / -250 Microbiology Past 72 Hours 04/12/19 11:45 Urine Culture - Final Urine, Clean Catch Mixed Gram Positive Organisms 04/13/19 16:48 Stool Occult Blood (ARGENIS) - Final Stool Occult Blood Positive Laboratory Tests Past 24 Hrs 04/14/19 04/14/19 04/15/19 14:10 14:10 05:10 Hgb 9.4 L Hct 30.5 L Sodium 141 Potassium 3.6 Chloride 106 Carbon Dioxide 27.0 BUN 16 Creatinine 0.88 Estim Creat Clear Calc 76.65 Est GFR (MDRD) Af Amer 110 Est GFR (MDRD) Non-Af 91 BUN/Creatinine Ratio 18.1 Glucose 127 H Calcium 8.8 Phosphorus 3.0 Magnesium 1.8 Albumin 2.5 L 04/15/19 05:10 Hgb 8.3 L Hct 26.7 L Sodium Potassium Chloride Carbon Dioxide BUN Creatinine Estim Creat Clear Calc Est GFR (MDRD) Af Amer Est GFR (MDRD) Non-Af BUN/Creatinine Ratio Glucose Calcium Phosphorus Magnesium Albumin POC Glucose 04/15/19 04/14/19 04/14/19 06:43 23:17 16:41 POC Glucose 128 H 118 H 124 H 04/14/19 11:13 POC Glucose 115 H Medical Necessity - Tobacco Use Smoking Status: Former smoker Tobacco Use: Non-smoker Assessment/Plan All Active Problems (Last Reviewed 06/17/18 @ 11:36 by Pieter Shi MD) Encephalopathy (Acute) Acute delirium (Acute) Dehydration (Acute) Hypotension, unspecified (Acute) Lactic acidosis (Resolved) Closed intertrochanteric fracture of right femur (Acute) Syncope and collapse (Acute) UTI (urinary tract infection) (Acute) Atrial fibrillation with rapid ventricular response (Acute) New onset atrial fibrillation (Acute) Impression: anemia, heme positive stools Plan: endoscopy scheduled for tomorrow at 11:30
[2019-04-15] MEDS: Bisacodyl 5 MG Tablet PO (17:27)
[2019-04-15] MEDS: MELATONIN 3 MG TABLET PO (22:13)
[2019-04-15] MEDS: FLUoxetine 20 MG Capsule 40 MG PO (22:13)
[2019-04-15] MEDS: Atorvastatin Calcium 40 MG Tablet PO (22:13)
[2019-04-16] VITALS (16 sets, daily range): BP systolic 101–123; BP diastolic 44–69; PULSE 58–74; RESP 16–20; TEMP 36.4–37; O2SAT 94–100; BMI 40.8
--- NOTE | 2019-04-16 05:55 | EKG12_ITS ---
Test Reason : AM EKG Blood Pressure : / mmHG Vent. Rate : 059 BPM Atrial Rate : 059 BPM P-R Int : 198 ms QRS Dur : 178 ms QT Int : 510 ms P-R-T Axes : 006 019 026 degrees QTc Int : 504 ms Sinus bradycardia Right bundle branch block Abnormal ECG When compared with ECG of 12-APR-2019 11:06, No significant change was found Confirmed by PETE GILLESPIE ([id number]), graphic editor SILAS MORGAN ([id number]) on 04/21/2019 10:41:04 AM Referred By: Isela Arrieta Confirmed By:PETE GILLESPIE
[2019-04-16 06:09] LABS: Hemoglobin 7.3 g/dL (13.0-16.5); Mean Corp Hgb Conc 30.4 g/dL (32-36); Mean Corpuscular Hgb 30.2 pg (27.0-32.0); Mean Corpuscular Volume 99.2 fL (80-94); Mean Platelet Vol. 10.8 fl (6.2-12.0); Platelet Count 179 K/mm3 (150-450); RBC Distribution Width CV 13.8 % (11.6-14.6); RBC Distribution Width SD 50.3 fl (35.1-43.9); Red Blood Count 2.42 M/mm3 (4.6-6.2); White Blood Count 5.3 K/mm3 (4.4-11.0)
[2019-04-16 06:17] LABS: International Normalized Ratio 1.2; Prothrombin Time (Protime)PT. 14.5 SECONDS (11.7-14.9)
[2019-04-16 06:18] LABS: Partial Thromboplast Time 34.1 Seconds (24.1-36.2)
[2019-04-16 06:32] LABS: Anion Gap 7 (5-15); BUN 10 mg/dL (7-18); BUN/Creat Ratio 15.1 RATIO (10-20); Calcium,Total 8.9 mg/dL (8.5-10.1); Chloride 110 mmol/L (98-107); Creatinine, Serum 0.66 mg/dL (0.70-1.30); EST Glomerular Filtration Rate 127 mL/min (>60); Est Glom Filt Rate - Afr Amer 154 mL/min (>60); Estimated Creatinine Clearance 67.45 ml/min; Glucose 113 mg/dL (74-106); Potassium 3.6 mmol/L (3.5-5.1); Sodium Level 142 mmol/L (136-145)
[2019-04-16] MEDS: Ipratropium/Albuterol Sulfate 3 ML AMPUL.NEB INHALATION ×2 (06:44→13:02)
--- NOTE | 2019-04-16 07:43 | NURSING ---
This nurse aware that Orthos were done this morning by Cierra Nickerson from overnight cashier at approximately 0555am.
--- NOTE | 2019-04-16 09:26 | NURSING ---
Pt state his pain is an 8 out of 10 but was alseep before this nurse woke him up to do vitals and then he fell back asleep after.
--- NOTE | 2019-04-16 09:50 | NURSING ---
Here to get pt for Colonscopy.
[2019-04-16] MEDS: Lactated Ringers 1,000 ML 100 ML IV (10:42)
--- NOTE | 2019-04-16 10:42 | NURSING ---
Aware that Daily wt was obtained this morning by maintenance mechanic 2nd shift.
--- NOTE | 2019-04-16 12:10 | OP.ENDO_ITS ---
04/16/2019 Felix Matias Re : Colonoscopy procedure for Dragan Haque Dear Florencio This procedure was performed on Tuesday, April 16, 2019. My impressions and recommendations are as follows: Impressions : - Preparation of the colon was unsatisfactory. - Diverticulosis in the sigmoid colon. - Non-bleeding external and internal hemorrhoids. - No specimens collected. Recommendations : - Repeat colonoscopy within 1 year because the bowel preparation was suboptimal. - Return to primary care physician PRN. - Continue present medications. My findings are described in the full procedure note, which is enclosed. If I can be of further assistance, please feel free to contact me at Doctor phone number(s): , Work: . Sincerely, MD Gladis Valadez MD 04/16/2019 12:09:58 PM This report has been signed electronically.
--- NOTE | 2019-04-16 12:10 | PCM.PN.BLA ---
Progress Note Colonoscopy done Poor colon cleansing preparation - however, no obvious large intraluminal masses identified, no signs of retained colon bleeding may consider EGD as outpatient.
[2019-04-16] MEDS: Amiodarone 200 MG Tablet PO (13:13)
[2019-04-16] MEDS: Finasteride 5 MG Tablet PO (13:14)
[2019-04-16] MEDS: Calcitriol 0.25 MCG Capsule 0.5 MCG PO (13:14)
[2019-04-16] MEDS: Pantoprazole Sodium 40 MG Tablet PO (13:14)
[2019-04-16] MEDS: Ferrous Sulfate 325 MG Tablet PO (13:15)
[2019-04-16] MEDS: Furosemide 20 MG Tablet 60 MG PO (13:15)
[2019-04-16] MEDS: DULoxetine Hcl 60 MG Capsule PO (13:16)
[2019-04-16] MEDS: Loratadine 10 MG Tablet PO (13:16)
[2019-04-16] MEDS: Spironolactone 50 MG Tablet PO (13:17)
[2019-04-16] MEDS: LORazepam 1 MG Tablet PO (13:24)
[2019-04-16] MEDS: oxyCODONE 5 MG Tablet PO (13:24)
--- NOTE | 2019-04-16 14:51 | PCM.TXEXTCAR ---
- Diet 04/16/19 12:12 Diet: 2000 Calorie cardiac diet Is pt able to select menu?: No - Routine Orders/Code Status Enema Type: Fleetz Enema Frequency: Daily PRN Suppository Type: Dulcolax 10mg Suppository Frequency: Daily PRN O2 Liters per Minute: 1-2 O2 Frequency: PRN Keep PO Greater than or Equal to (%): 90 Routine Lab Work: - - HH in a pediatric tube Q 48 H x 3. - Therapies Weight Bearing: Full weight bearing Physical Therapy: Eval and Treat Occupational Therapy: Eval and Treat - Problem/Diagnosis (1) Dehydration Status: Acute Current Visit: Yes (2) Encephalopathy Status: Acute Comment: due to dehydration and poor cerebral perfusion Current Visit: Yes (3) PAF (paroxysmal atrial fibrillation) Status: Chronic Current Visit: Yes (4) Atrial fibrillation with rapid ventricular response Status: Resolved Current Visit: No (5) Closed intertrochanteric fracture of right femur Status: Chronic Comment: had ORIF of a right intertrochanteric hip fracture on 03/23/2019. Current Visit: No (6) Hypotension, unspecified Status: Resolved Comment: due to dehydration Current Visit: No (7) Syncope and collapse Status: Acute Current Visit: No (8) UTI (urinary tract infection) Status: Resolved Current Visit: No (9) Acute on chronic diastolic (congestive) heart failure Status: Ruled-out Current Visit: No (10) Anticoagulant long-term use Status: Chronic Comment: Xarelto Current Visit: No (11) COPD (chronic obstructive pulmonary disease) Status: Chronic Current Visit: No (12) Diastolic CHF Status: Chronic Current Visit: No (13) Dilated cardiomyopathy Status: Resolved Comment: Left ventricular ejection fraction in March 2019 was 55% with a normal left ventricular size and normal left ventricular systolic function. There was stage I diastolic dysfunction. Current Visit: No (14) Essential (primary) hypertension Status: Chronic Current Visit: No (15) Hyperlipidemia Status: Chronic Current Visit: No (16) Morbid obesity Status: Chronic Current Visit: No (17) TYLER (obstructive sleep apnea) Status: Chronic Comment: use BiPAP Current Visit: No (18) Right bundle branch block Status: Chronic Current Visit: No (19) Urinary retention Status: Chronic Current Visit: No (20) Lactic acidosis Status: Resolved Current Visit: No (21) Hypokalemia Status: Resolved Current Visit: Yes (22) Heme positive stool Status: Acute Current Visit: Yes (23) Acute kidney injury Status: Resolved Comment: Dehydration and intravascular volume depletion Current Visit: Yes (24) Chronic venous insufficiency of lower extremity Status: Chronic Current Visit: Yes (25) History of gastric bypass Status: Chronic Current Visit: Yes (26) BPH (benign prostatic hyperplasia) Status: Chronic Current Visit: Yes (27) Diet-controlled type 2 diabetes mellitus Status: Chronic Current Visit: Yes - Allergies/Procedures Done in Hospital Allergies/Adverse Reactions: Allergies No Known Allergies Allergy (Verified 04/12/19 10:23) Procedures: Colonoscopy - Preparation of the colon was unsatisfactory. Diverticulosis in the sigmoid colon. Nonbleeding external and internal hemorrhoids, no specimens collected. Recommend colonoscopy within 1 year due to inadequate bowel preparation. - Type of Care/Length of Stay Estimated LOS: Convalescent Care Less Than 30 days Type of Care Needed: Skilled Rehab Potential: Good Prognosis: Good - Additional Orders/Day of Discharge Additional Orders: He is a [employer]. His HGB at DC 7.3. I suspect this may be due to hydration but, I think we should closely monitor. He is on chronic anticoagulation for PAF.....If the HGB continues to drop Xarelto will need to be discontinued. H&P will serve as current which was dated: 04/12/19 Day of Discharge: 04/16/19 - Dietary and Speech Recommendations Dietitian Recommendations/Changes: Recommend a diet change to a 2000 calorie controlled, cardiac/low sodium diet with fluid restriction as needed. Will continue Glucerna 120 mL TID on medpass as PO established; will d/c if intake adequate at meals. - Follow Up Care Primary Care Physician: Felix Matias DO [Primary Care Provider] - Please follow up with your Primary Care Physician in: following [place] [facility] Please Follow Up With: David Forte DO When: Friday
--- NOTE | 2019-04-16 15:12 | DS.PCM_ITS ---
Discharge Date and Diagnosis Date of Admission: 04/12/19 Date of Discharge: 04/16/19 - Primary Discharge Diagnosis Active and Suspected Problems (Last Reviewed 06/17/18 @ 11:36 by Pieter Shi MD) Encephalopathy (Acute) due to dehydration, hypotension and poor cerebral perfusion Dehydration (Acute) Hypotension Heme positive stool (Acute) Acute kidney injury secondary to dehydration Urine retention secondary to BPH plus narcotics for pain control due to recent hip fracture - Secondary Discharge Diagnosis Chronic Problems (Last Reviewed 06/17/18 @ 11:36 by Pieter Shi MD) PAF (paroxysmal atrial fibrillation) (Chronic) Chronic venous insufficiency of lower extremity (Chronic) - used to use lymphedema pumps prior to gastric Bypass History of gastric bypass (Chronic) BPH (benign prostatic hyperplasia) (Chronic) Diet-controlled type 2 diabetes mellitus (Chronic) Closed intertrochanteric fracture of right femur (Chronic) had ORIF of a right intertrochanteric hip fracture on 03/23/2019. Anticoagulant long-term use (Chronic) Xarelto Diverticulosis Urinary retention (Chronic) Diastolic CHF (Chronic) Right bundle branch block (Chronic) Essential (primary) hypertension (Chronic) Hyperlipidemia (Chronic) Morbid obesity (Chronic) TYLER (obstructive sleep apnea) (Chronic) use BiPAP COPD (chronic obstructive pulmonary disease) (Chronic)- has never had PFT's Hospital Course and Treatment Imaging Results: Clinical Impression(s) from Imaging Studies Chest X-Ray 04/12/19 10:59 IMPRESSION: No active disease. Electronically Signed: Sharif Rodriguez MD at 11:39 EDT Tel , Service support , Brain CT 04/12/19 14:59 IMPRESSION: Chronic involutional changes of the brain. Electronically Signed: Sharif Rodriguez MD at 15:52 EDT Tel , Service support , Brain MRI 04/13/19 08:30 IMPRESSION: Involutional changes of the brain, as described above. Electronically Signed: Sharif Rodriguez MD at 10:48 EDT Tel , Service support , Head MRA 04/13/19 08:30 IMPRESSION: Normal MRA of the head Electronically Signed: Sharif Rodriguez MD at 10:49 EDT Tel , Service support , Neck MRA 04/13/19 08:30 IMPRESSION: 1. Moderate (60%) right carotid stenosis. 2. Mild (50%) left carotid stenosis. 3. Patent vertebral arteries bilaterally. Electronically Signed: Sharif Rodrgiuez MD at 10:58 EDT Tel , Service support , Carotid ultrasound showed no significant atherosclerotic plaque or stenosis noted in the internal carotid arteries bilaterally. Flow within the vertebral arteries was antegrade bilaterally. Laboratory Results - last 24 hr 04/16/19 04/16/19 04/16/19 05:13 05:13 05:13 WBC 5.3 RBC 2.42 L Hgb 7.3 L Hct 24.0 L MCV 99.2 H MCH 30.2 MCHC 30.4 L RDW Std Deviation 50.3 H RDW Coeff of Bruno 13.8 Plt Count 179 MPV 10.8 PT 14.5 INR 1.2 APTT 34.1 Sodium 142 Potassium 3.6 Chloride 110 H Carbon Dioxide 25.0 Anion Gap 7 BUN 10 Creatinine 0.66 L Estim Creat Clear Calc 67.45 Est GFR (MDRD) Af Amer 154 Est GFR (MDRD) Non-Af 127 BUN/Creatinine Ratio 15.1 Glucose 113 H Calcium 8.9 Microbiology 04/12/19 11:45 Urine, Clean Catch Urine Culture - Final Mixed Gram Positive Organisms 04/13/19 16:48 Stool Stool Occult Blood (ARGENIS) - Final Occult Blood Positive Dr. Gladis Franco-[facility] general surgery Operations: - - ORIF right hip Procedures: Colonoscopy - Inadequate prep. Diverticulosis. Nonbleeding internal and external hemorrhoids. Recommend repeat colonoscopy within the next 1 year due to an inadequate prep. Summary of Care Provided: The patient is a 69-year-old male with a past medical history of obstructive sleep apnea (central and peripheral), hypertension, hyperlipidemia, chronic diastolic congestive heart failure, morbid obesity, COPD, paroxysmal atrial fibrillation, diabetes mellitus type 2, BPH, hx of Gastric Bypass in 1999, ORIF R hip on 03/23/2019, chronic anticoagulation with Xarelto, chronic venous insufficiency of the lower extremities and stage I diastolic dysfunction who was sent to the ED at [facility] on 04/12 from [place] for altered mental status with waxing and waning confusion over the preceding 3 days. He had no focal neurologic symptoms. There were no recent changes in medication. Vital signs at presentation to the emergency room were temp 98.8, heart rate 61, blood p ressure 93/46-87/72, respiratory rate of 18 and he was 98% saturated on a 2 L nasal cannula. Blood pressure improved to 120/69 with IV fluids while in the emergency department. White blood cell count was within normal limits at 5.8 and the differential was also unremarkable. Hemoglobin was 9.3 with macrocytic indices. Platelets were within normal limits. The BUN and creatinine were increased at 21 and 1.26 respectively. Creatinine on 03/24/2019 was 0.86. Lactic acid was 1.4. Troponin was less than 0.015. EKG showed no acute evidence of ischemia. Chest x-ray showed no infiltrates, pleural effusions or pulmonary vascular congestion. A UA showed 0-5 WBCs per high-power field with rare bacteria. A noncontrasted CT brain showed chronic involutional changes only. He was admitted to a monitored bed on PCU and IV fluids were continued but, so was the BID Lasix. Recent echocardiogram showed a ejection fraction of 55% with no wall motion abnormalities. The left ventricle was of normal size. There was stage I diastolic dysfunction and the PA systolic pressure was not commented on. He had been recently admitted to [facility] from 03/21/2019 to 03/2019 for an acute right intertrochanteric fracture of the right femoral neck and right wrist fracture. He was discharged to [place] for additional PT/OT prior to returning home. He was admitted to a a monitored bed on PCU and IV fluids were continued. Lasix was decreased to once a day. Stroke protocol was initiated due to encephalopathy. He retained urine, > 600 CC's, and a wall was inserted. Flomax was increased to 0.4 mg twice daily and Proscar was continued. I suspect urine retention is in part due to BPH but also to use of narcotics for pain control with recent hip fracture. MRI of the brain showed involutional changes only with no acute findings. MRA of the head was normal. MRA of the neck reported moderate right carotid stenosis estimated at 60% and mild left carotid stenosis estimated at 50%. The vertebral arteries were patent bilaterally. Carotid duplex scan showed no significant atherosclerotic plaque or stenosis noted in the internal carotid arteries bilaterally. Within the vertebral arteries was antegrade bilaterally. Mentation returned to baseline with hydration. He denied dizziness, lightheadedness he was alert and oriented x3 one day after admission. Hemoccult stool was obtained because of anemia and it was positive for blood. Colonoscopy was performed on 04/16/2019 and it was a poor preparation. There were no obvious large intraluminal masses identified and no signs of retained colon bleeding. She recommended a follow-up colonoscopy within the next year with a better prep. If the bleeding and heme + stools persist he should have an EGD. He was discharged later in the day following his colonoscopy. He will increase the iron supplement to twice daily and take the iron with 500 mg of vitamin C to promote better absorption. He will follow-up with Dr. David Forte for staple removal and he has an appt already scheduled. Lasix was held for the colonoscopy due to the bowel prep and risk for dehydration. He will follow up with Dr. Gomez in the office the coming week for a voiding trial. Rajesh is known to have BPH. It can be restarted on 04/19/19. Would limit Lasix to once daily. On the day of DC I met with the pt, his , his sone and his [id number] and answered all their questions. GENERAL: alert, oriented X 3, Cooperative, NAD ORAL: moist mucosa, no mucosal lesions, poor dentition NECK: No JVD, supple, trachea midline LUNGS: CTA, symmetric chest expansion HEART: irreg today, monitor showing AF, Normal S1 and S2, no rub, no gallop ABDOMEN: soft, NT, ND, BS present, no guarding with palpation EXTREMITIES: ankle edema, no cyanosis, no calf tenderness, TEDS in place SKIN: No rashes, no breakdown NEUROLOGIC: no focal neurologic deficits PSYCH: appropriate, normal affect, pleasant This note was generated with [employer] software. It may contain incorrect words, spelling, and punctuation that were not noted in checking the note before signing. - Physical Exam Vital Signs Temp Pulse Resp BP Pulse Ox 97.6 F L 64 16 118/56 L 98 04/16/19 12:57 04/16/19 13:02 04/16/19 13:02 04/16/19 12:57 04/16/19 12:57 Oxygen Flow Rate (L/min) 2 Oxygen Delivery Method Room Air Weight: 268 lb 15.423 oz Body Mass Index (BMI) 40.8 Orthostatic Vital Signs Start: 04/13/19 00:40 Freq: q24h Status: Active Protocol: Activity Type Activity Date Activity User E-Sign Co-Sign Detail Recorded Client Recorded Date Recorded By Document 04/16/19 05:54 PAL [id number] 04/16/19 06:14 PAL 04/16/19 05:54 Orthostatic Vitals Standing -Blood Pressure (90/60-120/80 mm Hg) 101/66 -Extremity Use Right Arm -Pulse Rate (60-100 beats/min) 74 Sitting -Blood Pressure (90/60-120/80 mm Hg) 114/55 L -Extremity Use Right Arm -Pulse Rate (60-100 beats/min) 63 Lying -Blood Pressure (90/60-120/80 mm Hg) 114/61 -Extremity Use Right Arm -Pulse Rate (60-100 beats/min) 58 L Intake and Output for Last 24 Hours 04/14/19 04/15/19 04/16/19 23:59 23:59 23:59 Intake Total 3920 / 3920 1700 / 1700 50 / 50 Output Total 3100 / 3100 1300 / 1300 450 / 450 Balance 820 / 820 400 / 400 -400 / -400 Microbiology Past 72 Hours 04/12/19 11:45 Urine Culture - Final Urine, Clean Catch Mixed Gram Positive Organisms 04/13/19 16:48 Stool Occult Blood (ARGENIS) - Final Stool Occult Blood Positive Laboratory Tests Past 24 Hrs 04/16/19 04/16/19 04/16/19 05:13 05:13 05:13 WBC 5.3 RBC 2.42 L Hgb 7.3 L Hct 24.0 L MCV 99.2 H MCH 30.2 MCHC 30.4 L RDW Std Deviation 50.3 H RDW Coeff of Bruno 13.8 Plt Count 179 MPV 10.8 PT 14.5 INR 1.2 APTT 34.1 Sodium 142 Potassium 3.6 Chloride 110 H Carbon Dioxide 25.0 Anion Gap 7 BUN 10 Creatinine 0.66 L Estim Creat Clear Calc 67.45 Est GFR (MDRD) Af Amer 154 Est GFR (MDRD) Non-Af 127 BUN/Creatinine Ratio 15.1 Glucose 113 H Calcium 8.9 Home Medications: Medications to take at Discharge Calcitriol [Rocaltrol] 0.25 mcg PO SUTUTHSA 03/28/17 Calcitriol [Rocaltrol] 0.5 mcg PO MOWEFR 03/28/17 Duloxetine HCl 60 mg PO BID 03/28/17 Esomeprazole Magnesium 40 mg PO DAILY 03/28/17 Fluticasone/Salmeterol [Advair Hfa 45-21 Mcg Inhaler] 2 puff INHALATION BID 03/28/17 Cyclobenzaprine HCl 10 mg PO QHS 05/29/18 Fluoxetine HCl 40 mg PO QHS 05/29/18 Multivit-Mins/Iron/Folic/Lycop [Centrum Ultra Men's Tablet] 1 tab PO DAILY 05/29/18 Atorvastatin Calcium [Lipitor] 20 mg PO QHS #30 tab 06/01/18 Rivaroxaban [Xarelto] 20 mg PO DAILY@1700 #30 tab 06/01/18 spironolactone 50 mg tablet 50 mg PO DAILY #90 tab 06/17/18 Amiodarone HCl 200 mg PO DAILY 03/21/19 Finasteride 5 mg PO DAILY 03/21/19 Insulin Lispro [Humalog KwikPen] See Protocol SUBCUT ACHS insuln.pen 03/26/19 Cetirizine HCl 10 mg PO DAILY 04/12/19 Cyanocobalamin (Vitamin B-12) [Vitamin B12] 2,500 mcg PO DAILY 04/12/19 Melatonin 3 mg PO QHS 04/12/19 Metformin HCl 500 mg PO DAILY 04/12/19 Metoprolol Tartrate [Lopressor (beta boogie)] 100 mg PO BID 04/12/19 Potassium Chloride 40 meq PO DAILY 04/12/19 Ascorbic Acid [Vitamin C] 500 mg PO BIDCM #60 cap 04/16/19 Ferrous Sulfate 325 mg PO BIDCM #60 tab 04/16/19 Oxycodone [Oxyir] 5 mg PO Q4H PRN PRN 3 Days #12 tab 04/16/19 Pantoprazole Sodium [Protonix] 40 mg PO DAILY tab 04/16/19 Tamsulosin HCl [Flomax] 0.4 mg PO BID@0830,1730 cap 04/16/19 Following Prescrptions Were Given to Patient: Oxycodone [Oxyir] 5 mg PO Q4H PRN PRN 3 Days #12 tab PRN Reason: Pain Score 1-04/15 Prescription Printed Ascorbic Acid [Vitamin C] 500 mg PO BIDCM #60 cap Primary Care Physician: Felix Matias DO [Primary Care Provider] - Please follow up with your Primary Care Physician in: following DC fro assisted Please Follow Up With: David Forte DO When: Friday Minutes spent on discharge:: 35 Patient Condition:: Good Medical Necessity - Tobacco Use Smoking Status: Former smoker Tobacco Use: Non-smoker Meaningful Use Info Meaningful Use Diagnoses (Choose all that apply): None applicable Code Visit Inpatient E&M: 03234 Disch Hosp
--- NOTE | 2019-04-16 15:22 | CASEMGMT ---
Patient is ready for discharge to [facility]. CAMILO called [facility] and arranged for patient to get picked up at 430 via cot. CAMILO faxed orders to [facility]. CAMILO notified RN, hospital secretary, and Cherelle at [facility]. Yessica is aware patient will not be returning. Plan: d/c to [facility] under skilled level of care. [facility] transported him via cot. Ping MICHEL MSW
[2019-04-16] MEDS: Acetaminophen 325 MG Tablet 650 MG PO (16:44)
--- NOTE | 2019-04-16 17:00 | NURSING ---
Report given to Cassy AMEZCUA at [facility] at this time.
== END 2019-04-16 15:11 | disposition skilled nursing facility (03) | DRG 315 ==
LOC: ED 11:24 → PCU 15:53
PROVIDERS: Anesthesiology; Surgery; Admitting Provider Family Medicine; Emergency Provider Emergency Medicine; Family Provider Family Medicine; PCP Family Medicine; Referring Provider Family Medicine; Visit Provider Internal Medicine
PROC: 0DJD8ZZ Inspection of Lower Intestinal Tract, Via Natural or Artificial Opening Endoscopic (ICD-10-PCS; CPT 45378; principal; 2019-04-16 10:40)
DX: I95.9 Hypotension, unspecified (principal); G93.40 Encephalopathy, unspecified; N17.9 Acute kidney failure, unspecified; I42.0 Dilated cardiomyopathy; I13.0 Hypertensive heart and chronic kidney disease with heart failure and stage 1 through stage 4 chronic kidney disease, or unspecified chronic kidney disease; I50.32 Chronic diastolic (congestive) heart failure; Z68.41 Body mass index [BMI] 40.0-44.9, adult; D62 Acute posthemorrhagic anemia; E86.0 Dehydration; R19.5 Other fecal abnormalities; N40.1 Benign prostatic hyperplasia with lower urinary tract symptoms; R33.8 Other retention of urine; I48.0 Paroxysmal atrial fibrillation; N18.2 Chronic kidney disease, stage 2 (mild); F41.9 Anxiety disorder, unspecified; E78.5 Hyperlipidemia, unspecified; Z98.84 Bariatric surgery status; Z87.891 Personal history of nicotine dependence; Z98.890 Other specified postprocedural states; E66.01 Morbid (severe) obesity due to excess calories; G47.33 Obstructive sleep apnea (adult) (pediatric); J44.9 Chronic obstructive pulmonary disease, unspecified; E11.22 Type 2 diabetes mellitus with diabetic chronic kidney disease; M19.90 Unspecified osteoarthritis, unspecified site; Z79.02 Long term (current) use of antithrombotics/antiplatelets; Z79.51 Long term (current) use of inhaled steroids; Z79.4 Long term (current) use of insulin; Z79.891 Long term (current) use of opiate analgesic; Z79.899 Other long term (current) drug therapy; R53.81 Other malaise; D50.9 Iron deficiency anemia, unspecified; F32.9 Major depressive disorder, single episode, unspecified; K21.9 Gastro-esophageal reflux disease without esophagitis; T50.2X5A Adverse effect of carbonic-anhydrase inhibitors, benzothiadiazides and other diuretics, initial encounter; M06.9 Rheumatoid arthritis, unspecified; I25.2 Old myocardial infarction; Z80.0 Family history of malignant neoplasm of digestive organs; K57.30 Diverticulosis of large intestine without perforation or abscess without bleeding; K64.4 Residual hemorrhoidal skin tags; K64.8 Other hemorrhoids; I65.23 Occlusion and stenosis of bilateral carotid arteries
CPT/HCPCS: 36415; 36600; 70450; 70544; 70547; 70551; 71045; 80048; 80053; 80061; 80069; 81001; 82140; 82274; 82803; 82962; 83036; 83605; 83735; 84100; 84443; 84484; 85014; 85018; 85025; 85027; 85610; 85730; 87086; 87088; 93005; 93880; 94640; 94762; 97163; 97166; 97530; 99285; J7030; J7120; A4216; J2405

== ENCOUNTER → 2020-01-03 | Outpatient (CLI) | payer MEDICARE, MEDICAID, SELFPAY ==
[2019-12-02 16:54] VITALS: BMI 40.8
--- NOTE | 2020-01-03 13:47 | RAD_ITS ---
STUDY: X-RAY - LUMBAR SPINE REASON FOR EXAM: Male, 69 years old. Lower back pain TECHNIQUE: 3 view(s) of the lumbar spine were obtained. COMPARISON: None FINDINGS: There is straightening of the normal lumbar lordosis. There is no substantial scoliosis. There is a normal alignment of the vertebrae. There is diffuse demineralization with multi-level endplate spondylosis. There is multi-level degenerative disc disease with multi-level disc space narrowing. The soft tissue structures are unremarkable. RAD/Lumbar Spine 2 or 3 Views IMPRESSION: Degenerative changes of the spine, as detailed above. Electronically Signed: Red Calderón MD at 14:06 EDT , Service support ,
== END | disposition home or self-care (01) ==
LOC: RAD 13:26
PROVIDERS: PCP Internal Medicine; Referring Provider Anesthesiology Pain Medicine; Visit Provider Anesthesiology Pain Medicine
DX: M54.5 Low back pain (principal)
CPT/HCPCS: 72100

== ENCOUNTER → 2021-01-18 10:12 | Outpatient (CLI) | payer MEDICARE, MEDICAID, SELFPAY ==
[2020-06-15 11:20] VITALS: BMI 40.8
[2021-01-18 09:09] VITALS: BMI 46.3
[2021-01-18 10:37] LABS: Hematocrit 42.3 % (40-54); Mean Corp Hgb Conc 33.1 g/dL (32-36); Mean Corpuscular Volume 96.6 fL (80-94); Mean Platelet Vol. 9.6 fl (6.2-12.0); Platelet Count 156 K/mm3 (150-450); RBC Distribution Width CV 13.6 % (11.6-14.6); RBC Distribution Width SD 49.2 fl (35.1-43.9); Red Blood Count 4.38 M/mm3 (4.6-6.2); White Blood Count 5.2 K/mm3 (4.4-11.0)
--- NOTE | 2021-01-18 10:43 | RAD_ITS ---
INDICATION: COPD EXAMINATION/TECHNIQUE: X-RAY - XR Chest 2 Views COMPARISON: 04/12/2019. FINDINGS: Chronic lung changes. Central pulmonary venous congestion. Sternal cerclage wires and vascular clips are present from a prior sternotomy and coronary artery bypass graft procedure (CABG). The heart is enlarged. Tortuous and calcified thoracic aorta. No pleural effusion or pneumothorax. Degenerative changes of the spine. Partially visualized bilateral shoulder arthroplasties. RAD/Chest PA and Lateral IMPRESSION: Cardiomegaly with central pulmonary venous congestion. Chronic lung changes. Electronically Signed: Donny Marquez MD at 23:33 EDT Tel , Service support ,
[2021-01-18 11:01] LABS: Anion Gap 9 (5-15); BUN 19 mg/dL (7-18); BUN/Creat Ratio 16.1 RATIO (10-20); Calcium,Total 9.3 mg/dL (8.5-10.1); Chloride 104 mmol/L (98-107); Creatinine, Serum 1.18 mg/dL (0.70-1.30); EST Glomerular Filtration Rate 65 mL/min (>60); Est Glom Filt Rate - Afr Amer 78 mL/min (>60); Glucose 110 mg/dL (74-106); Potassium 4.5 mmol/L (3.5-5.1); Sodium Level 139 mmol/L (136-145)
== END ==
PROVIDERS: PCP Internal Medicine; Referring Provider Student in an Organized Health Care Education/Training Program; Visit Provider Student in an Organized Health Care Education/Training Program
DX: I10 Essential (primary) hypertension (principal); R94.4 Abnormal results of kidney function studies; R06.02 Shortness of breath; R32 Unspecified urinary incontinence; R15.9 Full incontinence of feces; L84 Corns and callosities; L03.115 Cellulitis of right lower limb; J44.1 Chronic obstructive pulmonary disease with (acute) exacerbation
CPT/HCPCS: 36415; 71046; 80048; 85027

== ENCOUNTER → 2021-02-01 12:55 | Outpatient (CLI) | payer MEDICARE, MEDICAID, SELFPAY ==
[2021-01-18 09:09] VITALS: BMI 46.3
[2021-02-01 13:44] VITALS: PULSE 100; PULSE 103; PULSE 67; PULSE 70; PULSE 71; PULSE 90; PULSE 91; O2SAT 88; O2SAT 92; O2SAT 93; O2SAT 96; O2SAT 97; O2SAT 98
--- NOTE | 2021-02-01 13:49 | CPS ---
He walked behind a wheelchair for the test, stopped at 1 min for 15 secs then at 2 1/2 mins had to sit down and O2 applied at 2 LPM then at 4 mins SPO2 started to return to normal but he stated that the was unable to continue walking.
[2021-02-01 15:11] LABS: Calcium, Urine (Random) < 5.0 mg/dL (Not Estab.)
[2021-02-01 15:20] LABS: PTHIN 124.6 pg/mL (18.4-80.1)
[2021-02-01 15:34] LABS: ALB/GLOB Ratio 1.1 RATIO (0.9-2.4); AST(SGOT) 14 U/L (15-37); Alanine Aminotransfer ALT/SGPT 23 U/L (16-61); Albumin, Serum 3.9 g/dL (3.2-5.0); Alkaline Phosphatase 115 U/L (45-117); Anion Gap 8 (5-15); BUN 22 mg/dL (7-18); BUN/Creat Ratio 21.8 RATIO (10-20); Calcium,Total 9.1 mg/dL (8.5-10.1); Chloride 101 mmol/L (98-107); Creatinine, Serum 1.01 mg/dL (0.70-1.30); EST Glomerular Filtration Rate 77 mL/min (>60); Est Glom Filt Rate - Afr Amer 94 mL/min (>60); Estimated Creatinine Clearance 65.84 ml/min; Free T3 2.3 pg/mL (2.18-3.98); Globulin 3.5 g/dL (2.2-4.2); Glucose 102 mg/dL (74-106); Phosphorus 2.6 mg/dL (2.5-4.9); Potassium 4.1 mmol/L (3.5-5.1); Protein, Total 7.4 g/dL (6.4-8.2); Sodium Level 139 mmol/L (136-145); T4 Free Direct 1.26 ng/dL (0.76-1.46)
--- NOTE | 2021-02-02 07:47 | WT_ITS ---
PSN 6 Minute Walk Test 6 Minute Walk Test 6 Minute Walk Test: 6 Minute Walk Test PSN:6-Minute Walk Test Start: 02/01/21 13:44 Freq: Status: Active Protocol: [id number] Document 02/01/21 13:44 FR (Rec: 02/01/21 13:53 FR [id number]) 6 Minute Walk Test Date Performed 02/01/21 Time Performed 13:00 Height 5 ft 8 in Weight: 142.882 kg Weight in Pounds 315.[address]: Hudson/Lefty Assistive device used: Walker Pre-test Oxygen Delivery Method Room Air Pulse Ox (%) 93 Pulse Rate (60-100 beats/min) 90 Dyspnea River Scale (0-10) 5 Exertion River Scale (6-20) 11 1st minute Oxygen Delivery Method Room Air Pulse Ox (%) 93 Pulse Rate (60-100 beats/min) 91 Number of Rests Taken 1 Reported Symptoms Increased Work of Breathing 2nd minute Oxygen Delivery Method Room Air Pulse Ox (%) 93 Pulse Rate (60-100 beats/min) 90 Reported Symptoms Increased Work of Breathing 3rd minute Oxygen Delivery Method Room Air Pulse Ox (%) 88 Pulse Rate (60-100 beats/min) 103 H Dyspnea River Scale (0-10) 8 Exertion River Scale (6-20) 14 Number of Rests Taken 1 Reported Symptoms Increased Work of Breathing 4th minute Oxygen Flow Rate (L/min) (L/min) 2 Oxygen Delivery Method Nasal Cannula Pulse Ox (%) 92 Pulse Rate (60-100 beats/min) 100 Reported Symptoms Increased Work of Breathing 5th minute Oxygen Flow Rate (L/min) (L/min) 2 Oxygen Delivery Method Nasal Cannula Pulse Ox (%) 97 Pulse Rate (60-100 beats/min) 71 6th minute Oxygen Flow Rate (L/min) (L/min) 2 Oxygen Delivery Method Nasal Cannula Pulse Ox (%) 96 Pulse Rate (60-100 beats/min) 70 Dyspnea River Scale (0-10) 4 Exertion River Scale (6-20) 11 Reported Symptoms Increased Work of Breathing Post-test Oxygen Flow Rate (L/min) (L/min) 2 Oxygen Delivery Method Nasal Cannula Pulse Ox (%) 98 Pulse Rate (60-100 beats/min) 67 Reported Symptoms Increased Work of Breathing Full Laps Walked 2 Partial Lap, Number of Tiles Walked 0 Total Distance Walked (ft) 118 02/01/21 13:49 Cardiopulmonary Services by Jackie Miller He walked behind a wheelchair for the test, stopped at 1 min for 15 secs then at 2 1/2 mins had to sit down and O2 applied at 2 LPM then at 4 mins SPO2 started to return to normal but he stated that the was unable to continue walking. Initialized on 02/01/21 13:49 - END OF NOTE Interpretation Interpretation: The patient ambulated 118 feet over the course of 6 minutes beginning on room air with the use of a walker. Pretesting oxygen saturation was noted to be 93% on room air. With ambulation, the jose oxygen saturation was 88%. 2 L/min of supplemental oxygen was applied and the patient was able to complete the remainder of the test while maintaining appropriate oxygen saturations. Recommendations Recommendations: 2 L/min of supplemental oxygen should be utilized with exertion.
[2021-02-03 17:14] LABS: Thyroid Peroxidase AB < 8 IU/mL (0-34)
[2021-02-05 13:10] LABS: Vitamin D 1,25-Dihydroxy 86.9 pg/mL (19.9-79.3)
== END ==
PROVIDERS: Internal Medicine Endocrinology, Diabetes & Metabolism; PCP Student in an Organized Health Care Education/Training Program; Referring Provider Nurse Practitioner Acute Care; Visit Provider Nurse Practitioner Acute Care
DX: J44.9 Chronic obstructive pulmonary disease, unspecified (principal); E20.9 Hypoparathyroidism, unspecified; N17.9 Acute kidney failure, unspecified; Z98.84 Bariatric surgery status
CPT/HCPCS: 36415; 80053; 82330; 82340; 82570; 82652; 83735; 83970; 84100; 84439; 84443; 84481; 86376; 94618

== ENCOUNTER → 2021-03-15 15:53 | Outpatient (CLI) | payer MEDICARE, MEDICAID, SELFPAY ==
--- NOTE | 2021-03-15 15:57 | CT_ITS ---
STUDY: CT ABDOMEN AND PELVIS WITH CONTRAST REASON FOR EXAM: Male, 71 years old. ABD PAIN,LOOSE STOOLS,HO HIATAL HERNIA RADIATION DOSAGE (If Supplied By Facility): CTDIvol = ( 35.80 ) mGy, DLP = ( 1430.65 ) mGycm TECHNIQUE: Transaxial images were obtained from the dome of the diaphragm to the symphysis pubis without oral contrast. Oral and amp; IV REDICAT and amp; 100ML ISOVUE 300 was administered. Sagittal and coronal images were reconstructed. Individualized dose optimization techniques were used for this CT. COMPARISON: None. FINDINGS: Lung bases are clear. Mild cardiac enlargement. The liver and pancreas are unremarkable. The gallbladder is unremarkable. Multiple calcified splenic granulomata. The adrenal glands are normal. Low-attenuation lesions in the kidneys bilaterally measure up to 3.1 cm. These are not characterized without contrast. The kidneys are otherwise unremarkable. No stones or hydronephrosis. The aorta is normal in caliber. There is no free fluid, free air or organized collection. No bowel obstruction or inflammatory change. Urinary bladder is unremarkable. Normal abdominal wall. Normal osseous structures. CT/Abdomen/Pelvis WITH Contrast IMPRESSION: 1. No acute findings. 2. Renal hypodensities not characterized without contrast. 3. Old granulomatous disease. Electronically Signed: Emily Ortiz MD at 17:11 EDT Tel , Service support ,
[2021-03-15 16:21] LABS: CREATININE FINGERSTICK 1.1 mg/dL (0.70-1.30); EGFR FINGERSTICK > 60.0000 mL/min (>60)
== END ==
PROVIDERS: PCP Student in an Organized Health Care Education/Training Program; Referring Provider Student in an Organized Health Care Education/Training Program; Visit Provider Student in an Organized Health Care Education/Training Program
DX: R10.9 Unspecified abdominal pain (principal)
CPT/HCPCS: 74177; Q9967

== ENCOUNTER 2021-06-29 10:27 | Emergency (ER) | payer MEDICARE, MEDICAID, SELFPAY ==
[2021-06-29] VITALS (10 sets, daily range): BP systolic 128–171; BP diastolic 56–97; PULSE 66–88; RESP 18–24; TEMP 37.1–38.2; O2SAT 93–97; BMI 54.3
--- NOTE | 2021-06-29 10:43 | EKG12_ITS ---
Test Reason : Blood Pressure : / mmHG Vent. Rate : 072 BPM Atrial Rate : 072 BPM P-R Int : 216 ms QRS Dur : 158 ms QT Int : 448 ms P-R-T Axes : 018 -48 015 degrees QTc Int : 490 ms Sinus rhythm with 1st degree A-V block Right bundle branch block Left anterior fascicular block Bifascicular block Abnormal ECG Confirmed by CHANTELLE ALCANTAR, LIONEL ([id number]), staff editor JONY WU ([id number]) on 07/03/2021 9:36:54 AM Referred By: EDNA Confirmed By:LIONEL LOCKHART MD
--- NOTE | 2021-06-29 10:45 | EX.ED.DYSGE1 ---
HPI History of Present Illness Chief Complaint: General Illness Informant: patient and family Onset/Context/Timing Onset: Days (3) Context: Gradual Onset Timing: Continuous and Waxes and wanes Quality: sob Location: chest Current Severity: Moderate Maximum Severity: Severe Worsened by: exertion, coughing Relieved by: rest, partially by albuterol but not this AM Associated Symptoms Associated Symptoms: fever, cough, BLE inc swelling Associated Symptoms ED: cough Narrative Narrative: Started about 1 week ago with a little more short of breath than usual and increased swelling in his legs, for the past 3 days it has gotten much worse along with cough, fevers. Exposure to several family members with upper respiratory tract infections/colds, one of them tested negative for Covid the other was not tested. No known Covid exposure that he knows of. He was vaccinated, he has had 2 doses of nocturnal vaccine in the past. He has COPD and is chronically on 2 L of oxygen, also history of congestive heart failure, taking Lasix twice daily 40 mg, he did not take it this morning. [facility] Medical History (Updated 06/29/21 @ 18:[address] Navdeep Dyer MD) Acute on chronic diastolic (congestive) heart failure Atrial fibrillation with rapid ventricular response Chronic pain COPD (chronic obstructive pulmonary disease) Dilated cardiomyopathy Essential (primary) hypertension History of left heart catheterization (03/31/17) Hyperlipidemia Lymphedema Migraine Morbid obesity TYLER (obstructive sleep apnea) Osteoarthritis Right bundle branch block Type 2 diabetes mellitus Home Medications mv,Ca,lep-kwoj-IH-lycopene 1 tab PO DAILY 05/29/18 [History Last Taken 04/12/19] atorvastatin 20 mg PO QHS #30 tab 06/01/18 [Rx Last Taken 04/11/19] amiodarone 200 mg PO DAILY 03/21/19 [History Last Taken 04/12/19] finasteride 5 mg PO DAILY 03/21/19 [History Last Taken 04/12/19] cetirizine 10 mg PO DAILY 04/12/19 [History Last Taken 04/12/19] cyanocobalamin (vitamin B-12) 2,500 mcg PO DAILY 04/12/19 [History Last Taken 04/12/19] melatonin 3 mg PO QHS 04/12/19 [History Last Taken 04/11/19] metoprolol tartrate 100 mg PO BID 04/12/19 [History Last Taken 04/12/19] ferrous sulfate 325 mg PO BIDCM #60 tab 04/16/19 [Rx Last Taken Unknown] pantoprazole 40 mg PO DAILY tab 04/16/19 [Rx Last Taken Unknown] tamsulosin 0.4 mg PO BID@0830,1730 cap 04/16/19 [Rx Last Taken Unknown] furosemide 40 mg tablet 40 mg PO BID 11/04/19 [History Last Taken Unknown] calcitriol 0.25 mcg capsule 0.25 mcg PO SUTUTHSA #90 cap 11/08/19 [Rx Last Taken Unknown] calcitriol 0.25 mcg capsule 0.5 mcg PO MOWEFR #90 cap 11/08/19 [Rx Last Taken Unknown] cholecalciferol (vitamin D3) 1,250 mcg (50,000 unit) capsule 1,250 mcg PO QWEEK #10 cap 11/12/19 [Rx Last Taken Unknown] spironolactone 50 mg tablet 50 mg PO DAILY #90 tab 11/22/19 [Rx Last Taken Unknown] potassium chloride 10 mEq capsule,extended release 20 meq PO TID 30 Days #180 cap 07/31/20 [Rx Last Taken Unknown] rivaroxaban 20 mg tablet 20 mg PO DAILY@1700 #90 tab 09/22/20 [Rx Last Taken Unknown] acetaminophen 325 mg capsule 325 mg PO ONCE PRN 01/18/21 [History Last Taken Unknown] albuterol sulfate 2.5 mg INHALATION Q4H PRN 01/18/21 [History Last Taken Unknown] aspirin 81 mg tablet,delayed release 81 mg PO DAILY 01/18/21 [History Last Taken Unknown] duloxetine 60 mg capsule,delayed release 60 mg PO DAILY cap 01/18/21 [History Last Taken Unknown] lamotrigine 200 mg tablet 200 mg PO DAILY 01/18/21 [History Last Taken Unknown] lorazepam 0.5 mg tablet 1 mg PO BID-TID PRN tab 01/18/21 [History Last Taken Unknown] oxycodone 5 mg capsule 5 mg PO Q6H PRN 01/18/21 [History Last Taken Unknown] albuterol sulfate 2.5 mg INHALATION Q4H PRN #180 ml 02/19/21 [Rx Last Taken Unknown] albuterol sulfate 90 mcg/actuation aerosol inhaler 2 puff INHALATION Q4H PRN #18 g 02/19/21 [Rx Last Taken Unknown] mometasone 50 mcg/actuation nasal spray 2 spray INTRANASAL DAILY #17 g 03/15/21 [Rx Last Taken Unknown] prednisone 10 mg tablet 10 mg PO QDAY #30 tab 03/15/21 [Rx Last Taken Unknown] sacubitril 24 mg-valsartan 26 mg tablet 1 tab PO BID 03/15/21 [History Last Taken Unknown] sertraline 100 mg tablet 150 mg PO DAILY tab 03/15/21 [History Last Taken Unknown] trazodone 100 mg tablet 100 mg PO QHS PRN tab 03/15/21 [History Last Taken Unknown] Nebulizer #1 ea 05/02/21 [Rx Last Taken Unknown] fluticasone fur. 100 mcg-umeclid 62.5 mcg-vilant 25 mcg inhalat.powder 1 inh INHALATION DAILY #60 ea 06/28/21 [Rx Last Taken Unknown] amoxicillin-pot clavulanate 875 mg PO Q12H #20 tablet 06/29/21 [Rx Last Taken Unknown] prednisone 40 mg PO DAILY 5 Days #10 tablet 06/29/21 [Rx Last Taken Unknown] Allergy/AdvReac Type Severity Reaction Status Date / Time No Known Allergies Allergy Verified 03/15/21 14:10 Family History Mother CAD (coronary artery disease) Surgical History H/O right knee surgery History of appendectomy History of gastric bypass History of neck surgery History of right shoulder replacement Hx of cholecystectomy Social History Smoking Status: Former smoker how long ago did patient quit smokin alcohol intake: current alcohol intake frequency: 0-2 drinks per day Alcohol type: beer substance use type: does not use what type of physical activity do you participate in: walking ROS ROS ED Constitutional Constitutional ED: Reports body ache(s), fever(s), headache(s), malaise and other Details: Mild myalgias and headache ; Denies chills Eyes Eyes: Denies change in vision or diplopia ENT ENT ED: Reports nasal congestion; Denies sore throat Cardiovascular Cardiovascular: Reports pedal edema; Denies chest pain, orthopnea or palpitations Respiratory/Chest Respiratory/Chest: Reports cough, dyspnea and dyspnea on exertion; Denies orthopnea Gastrointestinal Gastrointestinal: Reports diarrhea; Denies abdominal pain, nausea or vomiting Genitourinary Genitourinary ED: Denies dysuria or hematuria Musculoskeletal Musculoskeletal: Denies back pain or neck pain Integumentary Denies abscess or rash Neurologic Neurologic: Reports headache(s) and other Details: Headache not present right now, has had mild ones off and on ; Denies paresthesias or weakness Psychiatric Psychiatric: Denies anxiety or suicidal thoughts EXAM Physical Exam Const Vital Signs: 06/29/21 10:29 06/29/21 10:43 06/29/21 12:02 Temperature 100.6 F H 100.7 F H 99.8 F H Temperature Source Oral Oral Oral Pulse Rate 85 70 Respiratory Rate 22 H 21 H Respiratory Effort Short of Breath Accessory Muscle Use Respiratory Pattern Tachypnea Blood Pressure 171/97 H 128/56 H Blood Pressure Mean 121 80 Pulse Ox 93 93 97 Oxygen Delivery Method Nasal Cannula Nasal Cannula Nasal Cannula Oxygen Flow Rate (L/min) 2 2 06/29/21 15:37 06/29/21 16:25 06/29/21 17:02 Temperature 98.9 F Temperature Source Temporal Pulse Rate 88 69 Respiratory Rate 22 H 20 H 21 H Respiratory Effort Respiratory Pattern Normal Blood Pressure 149/73 H 147/68 H Blood Pressure Mean 98 94 Pulse Ox 97 97 Oxygen Delivery Method Nasal Cannula Oxygen Flow Rate (L/min) 2 06/29/21 18:00 Temperature 98.8 F Temperature Source Temporal Pulse Rate 68 Respiratory Rate 24 H Respiratory Effort Respiratory Pattern Blood Pressure 136/68 H Blood Pressure Mean 90 Pulse Ox 95 Oxygen Delivery Method Room Air Oxygen Flow Rate (L/min) Positive well nourished and well developed Constitutional Narrative: Malaised-appearing, no distress General Appearance ED: well developed and NAD Nutritional Appearance: morbidly obese HEENT Reports moist mucous membranes normocephalic and atraumatic Eyes PERRL and EOMs intact bilaterally Neck full ROM and supple Resp normal respiratory effort Resp Narrative: Diffuse expiratory wheezing. Bibasilar Rales/rhonchi Cardio regular rate, regular rhythm and no murmurs Cardio Narrative: No JVD seen but limited evaluation due to morbid obesity Rate: Negative for tachycardic GI non-tender and non-distended Auscultation: normoactive bowel sounds Palpation: soft Back/Spine no CVA tenderness General Back: other FROM Extremity normal to inspection and no calf tenderness General Extremety ED: Yes edema; Negative for pulses abnormal or tenderness General Extremity: edema bilateral lower extremity Details: severe (With peau d'orange appearance, nontender, chronic stasis appearance, no signs of abscess or acute cellulitis); Negative for pulses abnormal Neuro oriented x3, CN's II-XII intact bilaterally and no sensory deficits noted Sensorium / Orientation: awake and alert Motor Exam: strength 5/5 throughout Skin no rashes or lesions noted and no wounds MDM MDM MDM Narrative Medical decision making narrative: After negative Covid test, patient was given aerosol treatments, in addition to Tylenol for his fever. This all helped and he felt a lot better. His work-up shows mild CHF but with a BNP that is well within normal limits at 83, I suspect his respiratory symptoms are more viral upper respiratory making his COPD flare than congestive heart failure. He was empirically given Lasix 40 mg. The rest of his work-up was unremarkable no evidence of pneumonia but he was treated empirically with IV antibiotics, he is able to walk but not far and not very well, he briefly went down to 88% on his home oxygen. I offered admission given his dyspnea, however he declines and wants to go home since it is Gian tomorrow. He understands that he can come back at any time especially if he is getting worse. His daughter lives at home with him, will help him temporarily. Therefore we will send him home with antibiotics and a short course of steroids, I will just give him 5 days in addition to the Solu-Medrol we gave him here, so as to be less likely to give him more fluid retention. I think it is also reasonable for him to limit his fluid intake and possibly take an extra dose of Lasix every day or every other day until he follows up after the holiday weekend. He is comfortable with that plan. Turns out after speaking with the patient more about his Lasix and increasing the dose, he has only been taking 40 mg in the morning and 20 mg at night to keep himself from being up all night urinating, so I recommended adding a 40 mg dose in the early afternoon and then still taking only the 20 at night and they are okay with that. Lab Data Attestation: I reviewed the patient's lab results. Labs: Laboratory Results - last 24 hr 06/29/21 06/29/21 06/29/21 11:30 11:30 11:30 WBC 3.8 L RBC 3.69 L Hgb 12.1 L Hct 36.7 L MCV 99.5 H MCH 32.8 H MCHC 33.0 RDW Std Deviation 49.8 H RDW Coeff of [place] 13.7 Plt Count 132 L MPV 10.7 Immature Gran % (Auto) 0.500 Neut % (Auto) 77.9 H Lymph % (Auto) 13.7 L [place] % (Auto) 5.8 Eos % (Auto) 1.8 Baso % (Auto) 0.3 Absolute Neuts (auto) 3.0 Absolute Lymphs (auto) 0.52 L Nucleated RBC % 0 Differential Comment COMMENT Diff Path Review May foll Sodium 137 Potassium 4.3 Chloride 97 L Carbon Dioxide 35.0 H Anion Gap 5 BUN 9 Creatinine 0.84 Estim Creat Clear Calc 78.04 Est GFR (MDRD) Af Amer 116 Est GFR (MDRD) Non-Af 96 BUN/Creatinine Ratio 10.7 Glucose 95 Lactic Acid 1.1 Calcium 9.2 Total Bilirubin 1.10 H AST 21 ALT 19 Alkaline Phosphatase 119 H Troponin I High Sens 17 B-Natriuretic Peptide Total Protein 6.8 Albumin 3.3 Globulin 3.5 Albumin/Globulin Ratio 0.9 Urine Color Urine Clarity Urine pH Ur Specific [place] Urine Protein Urine Glucose (UA) Urine Ketones Urine Occult Blood Urine Nitrite Urine Bilirubin Urine Urobilinogen Ur Leukocyte Esterase Urine RBC Urine WBC Ur Squamous Epith Cells Urine Bacteria Urine Mucus 06/29/21 06/29/21 11:30 15:35 WBC RBC Hgb Hct MCV MCH MCHC RDW Std Deviation RDW Coeff of [place] Plt Count MPV Immature Gran % (Auto) Neut % (Auto) Lymph % (Auto) [place] % (Auto) Eos % (Auto) Baso % (Auto) Absolute Neuts (auto) Absolute Lymphs (auto) Nucleated RBC % Differential Comment Diff Path Review Sodium Potassium Chloride Carbon Dioxide Anion Gap BUN Creatinine Estim Creat Clear Calc Est GFR (MDRD) Af Amer Est GFR (MDRD) Non-Af BUN/Creatinine Ratio Glucose Lactic Acid Calcium Total Bilirubin AST ALT Alkaline Phosphatase Troponin I High Sens B-Natriuretic Peptide 83.1 Total Protein Albumin Globulin Albumin/Globulin Ratio Urine Color Yellow Urine Clarity Clear Urine pH 5.0 Ur Specific [place] 1.010 Urine Protein Negative Urine Glucose (UA) Normal Urine Ketones Negative Urine Occult Blood Negative Urine Nitrite Negative Urine Bilirubin Negative Urine Urobilinogen Normal Ur Leukocyte Esterase Negative Urine RBC 0 SEEN Urine WBC 0 SEEN Ur Squamous Epith Cells 0-5 SEEN Urine Bacteria 0 SEEN Urine Mucus 0 SEEN Radiography Diagnostic Testing: Clinical Impression(s) from Imaging Studies Chest X-Ray 06/29/21 11:40 IMPRESSION: Mild congestive heart failure. Electronically Signed: Sharif Rodriguez MD at 12:15 EST Tel , Service support , EKG Initial EKG: Attestation: I personally reviewed and interpreted this EKG as follows: Interpretation: Sinus Rhythm, No Acute Injury Pattern and RBBB Prior EKG tracings: available for review Prior: Unchanged Discharge Plan Triage Chief Complaint: General Illness ED Provider: Navdeep Dyer Dx/Rx/DC Orders Clinical Impression: Viral URI with cough, Acute exacerbation of chronic obstructive pulmonary disease, Acute exacerbation of CHF (congestive heart failure) Instructions: CHF Ch, ED COPD Flare Prescriptions: New prednisone 20 MG tablet 40 mg PO DAILY 5 Days Qty: 10 RF: 0 amoxicillin-pot clavulanate [amoxicillin-pot clavulanate] 875 MG tablet 875 mg PO Q12H Qty: 20 RF: 0 No Action furosemide [Lasix] 40 mg tablet 40 mg PO BID RF: 0 aspirin 81 mg tablet,delayed release (DR/EC) 81 mg PO DAILY RF: 0 duloxetine 60 mg capsule,delayed release(DR/EC) 60 mg PO DAILY RF: 0 albuterol sulfate 2.5 mg /3 mL (0.083 %) solution for nebulization 2.5 mg inhalation Q4H PRNRF: 0 oxycodone 5 mg capsule 5 mg PO Q6H PRNRF: 0 acetaminophen 325 mg capsule 325 mg PO ONCE PRNRF: 0 lamotrigine [Lamictal] 200 mg tablet 200 mg PO DAILY RF: 0 lorazepam 0.5 mg tablet 1 mg PO BID-TID PRN (Reason: anxiety) RF: 0 albuterol sulfate [Ventolin HFA] 90 mcg/actuation HFA aerosol inhaler 2 puff inhalation Q4H PRN (Reason: shortness of breath or wheezing) Qty: 18 RF: 6 albuterol sulfate 2.5 mg /3 mL (0.083 %) solution for nebulization 2.5 mg inhalation Q4H PRN (Reason: Sob &/Or Wheezing) Qty: 180 RF: 3 prednisone 10 mg tablet 10 mg PO QDAY Qty: 30 RF: 0 trazodone 100 mg tablet 100 mg PO QHS PRNRF: 0 Entresto 24-26 mg tablet 1 tab PO BID RF: 0 sertraline 100 mg tablet 150 mg PO DAILY RF: 0 mometasone [Nasonex] 50 mcg/actuation spray,non-aerosol 2 spray intranasal DAILY Qty: 17 RF: 5 mv,Ca,bsn-rnli-BR-lycopene 1 EACH tablet 1 tab PO DAILY RF: 0 atorvastatin 20 MG tablet 20 mg PO QHS Qty: 30 RF: 0 finasteride 5 MG tablet 5 mg PO DAILY RF: 0 amiodarone 200 MG tablet 200 mg PO DAILY RF: 0 melatonin 3 MG tablet 3 mg PO QHS RF: 0 cetirizine 10 MG tablet 10 mg PO DAILY RF: 0 metoprolol tartrate 100 MG tablet 100 mg PO BID RF: 0 cyanocobalamin (vitamin B-12) 2,500 MCG tablet 2,500 mcg PO DAILY RF: 0 tamsulosin 0.4 MG capsule 0.4 mg PO BID@0830,1730 RF: 0 pantoprazole 40 MG tablet 40 mg PO DAILY RF: 0 ferrous sulfate 325 MG tablet 325 mg PO BIDCM Qty: 60 RF: 0 calcitriol 0.25 mcg capsule 0.25 mcg PO SUTUTHSA Qty: 90 RF: 2 calcitriol 0.25 mcg capsule 0.5 mcg PO MOWEFR Qty: 90 RF: 2 cholecalciferol (vitamin D3) 1,250 mcg (50,000 unit) capsule 1,250 mcg PO QWEEK Qty: 10 RF: 3 spironolactone 50 mg tablet 50 mg PO DAILY Qty: 90 RF: 3 potassium chloride 10 mEq capsule, extended release 20 meq PO TID 30 Days Qty: 180 RF: 2 rivaroxaban 20 mg tablet 20 mg PO DAILY@1700 Qty: 90 RF: 1 (DME) Nebulizer See Rx Instructions .ROUTE .MEDSUPPLY Qty: 1 RF: 0 Trelegy Ellipta 100-62.5-25 mcg blister with device 1 inh inhalation DAILY Qty: 60 RF: 3 Primary Care Provider: Osorio Pena Referrals: Darci Treviño MD [STAFF PHYSICIAN] - 3-5 Days Osorio Pena DO [Primary Care Provider] - Activity Restrictions/Additional Instructions: Your shortness of breath is probably more your COPD, but also there appears to be a component of your congestive heart failure. It may benefit you to take an extra Lasix every day or every other day until you follow-up after the weekend. Try not to drink too much in the way of fluids which can worsen your heart failure. Start the prednisone prescription and antibiotic tomorrow, 06/30. Continue to use your albuterol aerosols as needed for wheezing/shortness of breath. Return to the ER if you are feeling much worse and these treatments are not helping. Disposition Disposition: Home, Self Care
[2021-06-29] MEDS: Acetaminophen 500 MG Tablet 1000 MG PO (11:10)
--- NOTE | 2021-06-29 11:40 | RAD_ITS ---
STUDY: X-RAY CHEST REASON FOR EXAM: Male, 71 years old. sob, cough, leg swelling, fever TECHNIQUE: Single AP portable view of the chest. COMPARISON: 01/18/2021 FINDINGS: Status post median sternotomy. The lungs are clear and expanded. There is no demonstrated pleural abnormality. There is moderate cardiac enlargement. Normal mediastinum and lyndsey. There is prominence of the pulmonary hilar arteries and peripheral pulmonary arteries, consistent with congestive heart failure (CHF). Normal visualized aortic arch and descending thoracic aorta. Normal visualized thoracic spine. Status post left shoulder hemiarthroplasty. There is no demonstrated abnormality of the visualized soft tissue structures of the upper abdomen. RAD/Chest 1 View (Portable) IMPRESSION: Mild congestive heart failure. Electronically Signed: Sharif Rodriguez MD at 12:15 EST Tel , Service support ,
[2021-06-29 11:50] LABS: Absolute Lymphocyte Count 0.52 X10^3/uL (0.83-4.51); Basophil# 0.01 X10^3/uL; Basophil% 0.3 % (0-1); Eosinophil# 0.07 X10^3/uL; Eosinophils% 1.8 % (0-5); Hematocrit 36.7 % (40-54); Hemoglobin 12.1 g/dL (13.0-16.5); Lymphocyte # 0.52 X10^3/ul (0.83-4.51); Lymphocyte % 13.7 % (19-41); Mean Corpuscular Hgb 32.8 pg (27.0-32.0); Mean Corpuscular Volume 99.5 fL (80-94); Mean Platelet Vol. 10.7 fl (6.2-12.0); Monocyte# 0.22 X10^3/uL; Monocyte% 5.8 % (0-10); NRBC Flagged by Analyzer 0 % (0-5); Neutrophil # 2.95 X10^3/uL (2.7-7.7); Neutrophil % 77.9 % (47-70); POSITIVE DIFFERENTIAL YES; Platelet Count 132 K/mm3 (150-450); RBC Distribution Width CV 13.7 % (11.6-14.6); RBC Distribution Width SD 49.8 fl (35.1-43.9); Red Blood Count 3.69 M/mm3 (4.6-6.2); White Blood Count 3.8 K/mm3 (4.4-11.0)
[2021-06-29 11:51] LABS: Differential Indicated SCAN CRITERIA MET
[2021-06-29 12:02] LABS: ALB/GLOB Ratio 0.9 RATIO (0.9-2.4); AST(SGOT) 21 U/L (15-37); Alanine Aminotransfer ALT/SGPT 19 U/L (16-61); Albumin, Serum 3.3 g/dL (3.2-5.0); Alkaline Phosphatase 119 U/L (45-117); Anion Gap 5 (5-15); BUN 9 mg/dL (7-18); BUN/Creat Ratio 10.7 RATIO (10-20); Calcium,Total 9.2 mg/dL (8.5-10.1); Chloride 97 mmol/L (98-107); Creatinine, Serum 0.84 mg/dL (0.70-1.30); EST Glomerular Filtration Rate 96 mL/min (>60); Est Glom Filt Rate - Afr Amer 116 mL/min (>60); Estimated Creatinine Clearance 78.04 ml/min; Globulin 3.5 g/dL (2.2-4.2); Glucose 95 mg/dL (74-106); Potassium 4.3 mmol/L (3.5-5.1); Protein, Total 6.8 g/dL (6.4-8.2); Sodium Level 137 mmol/L (136-145); Troponin-I HS 17 pg/mL (3.0-78.0)
[2021-06-29] MEDS: Furosemide 40 MG/4 ML Vial IV (12:03)
[2021-06-29 12:08] LABS: BNP,B-Type NATRIURETIC PEPTIDE 83.1 pg/mL (0-100)
[2021-06-29 12:11] LABS: Lactic Acid 1.1 mmol/L (0.4-1.9)
[2021-06-29 15:42] LABS: Bacteria 0 SEEN /hpf (None Seen); Mucous, Urine 0 SEEN /hpf (<or=2+); Red Blood Cells-Urine 0 SEEN /hpf (0-5); White Blood Cells 0 SEEN /hpf (0-5)
[2021-06-29 15:44] LABS: Color, Urine Yellow (Yellow); Glucose, Dipstick Normal (Normal); Ketone-Dipstick Negative (Negative); Leukocyte Esterase-Dipstick Negative /ul (Negative); Nitrite-Dipstick Negative (Negative); Occult Blood-Urine Negative /ul (Negative); Protein-Dipstick Negative (Negative); Urine Bilirubin Dipstick Negative (Negative); Urine Clarity Clear (Clear); Urine Urobilinogen Normal (Normal)
[2021-06-29 15:50] LABS: Squamous Epithelial Cells - UA 0-5 SEEN /hpf (0-5)
[2021-06-29] MEDS: MethylPREDNISolone 125 MG/2 ML Vial IV (16:19)
[2021-06-29] MEDS: Albuterol 2.5 MG/3 ML VIAL.NEB. INHALATION (16:25)
[2021-06-29] MEDS: Ipratropium/Albuterol Sulfate 3 ML AMPUL.NEB INHALATION (16:25)
[2021-07-03 10:35] LABS: Pathologist Review Reviewed
== END 2021-06-29 20:55 | disposition home or self-care (01) ==
PROVIDERS: Emergency Provider Emergency Medicine; PCP Student in an Organized Health Care Education/Training Program
DX: J06.9 Acute upper respiratory infection, unspecified (principal); J44.1 Chronic obstructive pulmonary disease with (acute) exacerbation; I11.0 Hypertensive heart disease with heart failure; I50.33 Acute on chronic diastolic (congestive) heart failure; I45.10 Unspecified right bundle-branch block; E11.9 Type 2 diabetes mellitus without complications; E66.01 Morbid (severe) obesity due to excess calories; Z68.43 Body mass index [BMI] 50.0-59.9, adult; E78.5 Hyperlipidemia, unspecified; G47.33 Obstructive sleep apnea (adult) (pediatric); I42.0 Dilated cardiomyopathy; I48.91 Unspecified atrial fibrillation; I89.0 Lymphedema, not elsewhere classified; G89.29 Other chronic pain; M19.90 Unspecified osteoarthritis, unspecified site; G43.909 Migraine, unspecified, not intractable, without status migrainosus; Z79.01 Long term (current) use of anticoagulants; Z79.82 Long term (current) use of aspirin; Z79.899 Other long term (current) drug therapy; Z87.891 Personal history of nicotine dependence; Z99.81 Dependence on supplemental oxygen
CPT/HCPCS: 71045; 80053; 81001; 83605; 83880; 84484; 85025; 87040; 87086; 87088; 87426; 93005; 94640; 96365; 96368; 96374; 96375; 99285; J7040; J7050; A4216; J1940

== ENCOUNTER → 2022-02-04 | Outpatient (REF) | payer MEDICARE, SELFPAY ==
[2022-02-04 08:58] LABS: Hematocrit 48.4 % (40-54); Mean Corp Hgb Conc 33.1 g/dL (32-36); Mean Corpuscular Hgb 33.5 pg (27.0-32.0); Mean Corpuscular Volume 101.3 fL (80-94); Mean Platelet Vol. 12.3 fl (6.2-12.0); Platelet Count 194 K/mm3 (150-450); RBC Distribution Width CV 12.3 % (11.6-14.6); RBC Distribution Width SD 46.3 fl (35.1-43.9); Red Blood Count 4.78 M/mm3 (4.6-6.2); White Blood Count 9.4 K/mm3 (4.4-11.0)
[2022-02-04 09:19] LABS: Vitamin D,25 Hydroxy 49.4 ng/mL
[2022-02-04 09:45] LABS: Anion Gap 26 (5-15); BUN 190 mg/dL (7-18); BUN/Creat Ratio 17.8 RATIO (10-20); Calcium,Total 9.3 mg/dL (8.5-10.1); Chloride 97 mmol/L (98-107); EST Glomerular Filtration Rate 5 mL/min (>60); Est Glom Filt Rate - Afr Amer 6 mL/min (>60); Glucose 170 mg/dL (74-106); Potassium 7.6 mmol/L (3.5-5.1); Sodium Level 135 mmol/L (136-145)
== END ==
LOC: OLS.WCC 05:00
PROVIDERS: PCP Student in an Organized Health Care Education/Training Program; Visit Provider Family Medicine
DX: N40.0 Benign prostatic hyperplasia without lower urinary tract symptoms (principal); E11.9 Type 2 diabetes mellitus without complications; E55.9 Vitamin D deficiency, unspecified; E78.5 Hyperlipidemia, unspecified
CPT/HCPCS: 36415; 80048; 82306; 85027